=== PATIENT | female | born 1935 | race Caucasian/White ===

== ENCOUNTER 2017-01-15 07:32 | Inpatient (IN) ==
[2017-01-15] MEDS ORDERED: Nitroglycerin 0.4 MG TAB.SUBL SL PRN (07:41)
--- NOTE | 2017-01-15 07:49 | Emergency Department Note ---
Disposition Clinical Impression: Atrial fibrillation with controlled ventricular response, Multiple contusions, Weakness CHF exacerbation Qualifiers: Congestive heart failure type: systolic Qualified Code(s): I50.23 - Acute on chronic systolic (congestive) heart failure Disposition: Admitted As Inpatient Condition: Fair Referrals: NONE,PCP [Primary Care Provider] - Forms: ED Satisfaction Letter General Adult HPI - General Chief complaint: ED Shortness of Breath/Dyspnea Stated complaint: PRASHANT Time Seen by Provider: 01/15/17 07:35 Source: patient, EMS Limitations: no limitations Nursing Notes Reviewed: Yes Vital Signs Reviewed: Yes - History of Present Illness HPI Narrative: 81-year-old female with history of CHF, COPD, acute coronary disease presents to ED complaining of shortness of breath and not being able to sleep due to it. She states that the shortness of breath began. He says she has been coughing and unable to catch her breath whenever she has any moving. She is always on 2 L of home oxygen. And states that she has had to slightly increased last couple days. She states that she is nauseous and feels like she has to vomit whenever she lays down. She also notes the chest pain that is substernal nonradiating 3 out of 10 that only occurs when she is lying down and is 0 out of 10 when she is sitting up. She states that all of her symptoms only occur when she lays down in her back when she strained to sleep but they go away the minute she sits up. States that she does have a headache that began last night but most likely she has been unable to sleep. She also states right lower leg swelling that began approximately 2 days ago. She states no fall/trauma to the leg. Pain Scale: 5 - Related Data Home Medications Medication Instructions Recorded Confirmed Aspirin 81 mg PO DAILY 02/23/15 06/11/16 Atorvastatin [Lipitor] 20 mg PO HS 02/23/15 06/11/16 Clopidogrel [Plavix] 75 mg PO DAILY 02/23/15 06/11/16 Docusate [Colace] 100 mg PO DAILY 02/23/15 06/11/16 Esomeprazole Magnesium [Nexium] 40 mg PO DAILY 02/23/15 06/11/16 Fluticasone Propionate [Flovent 2 puff IH BID 02/23/15 06/11/16 Diskus] Fluticasone/Salmeterol [Advair 1 each IH BID 02/23/15 06/11/16 250-50 Diskus] Furosemide [Lasix] 20 mg PO BIDDIURETIC 02/23/15 06/11/16 Gabapentin [Neurontin] 600 mg PO BID 02/23/15 06/11/16 GuaiFENesin ER [Mucinex] 600 mg PO BID PRN 02/23/15 06/11/16 Montelukast [Singulair] 10 mg PO HS 02/23/15 06/11/16 Multivit-Min/FA/Lycopen/Lutein 1 each PO DAILY 02/23/15 06/11/16 [Centrum Silver Tablet] Raloxifene [Evista] 60 mg PO DAILY 02/23/15 06/11/16 Gabapentin [Neurontin] 1,200 mg PO HS 07/01/15 06/11/16 HYDROcodone/Acet 5/325 mg [[place] 1 tab PO Q6HR PRN 07/01/15 06/11/16 5-325 mg] Isosorbide MONOnitrate (24 HR) 30 mg PO DAILY 07/01/15 06/11/16 [Imdur] Fluticasone Propionate Nasal 50 mcg NS DAILY 05/13/16 06/11/16 [Flonase] Levalbuterol Tartrate [Xopenex Hfa] 2 puff IH TID 05/13/16 06/11/16 Nitroglycerin [Nitrostat] 0.4 mg SL Q5M PRN 05/13/16 06/11/16 Umeclidinium [place] [Incruse 62.5 mcg IH DAILY 05/13/16 06/11/16 Ellipta] Previous Rx's Medication Instructions Recorded Potassium Chloride [K-Tab ER] 20 meq PO DAILY #30 tablet.er 07/04/15 hydrALAZINE [HydrALAZINE] 25 mg PO BID #60 tablet 10/03/15 Lisinopril [Zestril] 2.5 mg PO DAILY #15 tablet 05/16/16 Oxygen 2 l IN CONT #1 each 05/16/16 levoFLOXacin [Levaquin] 500 mg PO DAILY #10 tablet 06/13/16 predniSONE [PredniSONE] 40 mg PO DAILY 8 Days 06/13/16 Allergies Allergy/AdvReac Type Severity Reaction Status Date / Time No Known Allergies Allergy Verified 02/22/15 20:14 Constitutional: Denies: fever, chills, weakness, weight change Eyes: Denies: eye pain, eye discharge, vision change ENT ED: Denies: ear pain, throat pain, dental pain, hearing loss, epistaxis, congestion, dysphagia Cardiovascular: Reports: dyspnea on exertion, orthopnea, edema. Denies: chest pain, palpitations, syncope Respiratory: Reports: cough, dyspnea. Denies: wheezes, hemoptysis, stridor Gastrointestinal: Denies: abdominal pain, nausea, vomiting, diarrhea, constipation, hematemesis, melena, hematochezia Genitourinary: Denies: dysuria, frequency, hematuria, discharge Musculoskeletal: Denies: back pain, neck pain, arthralgia, myalgia Integumentary: Denies: rash, abrasion, lesions Neurological: Denies: headache, weakness, numbness, paresthesias, confusion, abnormal gait, vertigo Endocrine: Denies: fatigue Hematological/Lymphatic: Denies: easy bleeding, easy bruising Past Medical History - Past Medical History Medical history: Reports: arthritis, asthma, atrial fibrillation, CHF, COPD, coronary artery disease, GERD, hyperlipidemia, hypertension, osteoporosis Surgical history: Reports: , hysterectomy Psychiatric history: Reports: depression [employer] history: Reports: non-contributory - Social History Smoking Status: Former smoker Smokeless Tobacco Status: No Alcohol use: Reports: none Drug use: Reports: none Physical Exam - General Limitations: no limitations General appearance: alert - Head Head exam: atraumatic, normocephalic, normal inspection - Eye Eye exam: Present: normal appearance, PERRL, EOMI - ENT ENT exam: normal exam, normal oropharynx, mucous membranes moist - Chest Chest inspection: Present: normal inspection, symmetric chest wall rise - Expanded Respiratory Exam Location: rales: Right, Lower - Cardiovascular Cardiovascular exam: Present: regular rate, normal rhythm, normal heart sounds - Abdominal Exam Abdominal exam: Present: soft, Non-Tender. Absent: tenderness, distention, guarding, rebound, rigidity - Expanded Lower Extremity Exam Lower leg exam: Present: swelling (Right side), ecchymosis (Right-sided below the knee.). Absent: tenderness - Back Exam Back exam: Present: normal inspection, full ROM. Absent: tenderness, CVA tenderness (R), CVA tenderness (L) - Neurological Exam Neurological exam: Present: alert, oriented X3 - Skin Skin exam: Present: warm, dry, intact, normal color Course Course Narrative: 9-year-old female presents to the ED complaining of shortness of breath and right leg swelling. She has a history of CHF. She states that this most likely feels a class time she had pneumonia. We will do a EKG, chest x-ray, basic labs and due to the right leg swelling we will go straight to a ultrasound Doppler of the right lower extremity. She has not any chest pain. We will give her one sublingual nitroglycerin to help with the preload. Portable chest x-ray came back showing a perihilar mass on the right side. We will order a CT chest and use contrast of her renal function can handle it. - Reevaluation(s) Reevaluation #1: Patient reevaluated and states that she is breathing more comfortably now she just did not the commode and said she had a bowel movement. She said that she is breathing comfortably while she is sitting back and she continues to lay down that is hard for her to breathe. Updated her on all of her labs and told her that we are ordering a CT of her chest and she is okay with this plan. Time: 09:19 Vital Signs Temperature 98.2 F 01/15/17 07:33 Pulse Rate 71 01/15/17 07:33 Respiratory Rate 18 01/15/17 07:33 Blood Pressure 181/91 01/15/17 07:33 O2 Sat by Pulse Oximetry 99 01/15/17 07:33 Temperature 98.2 F 01/15/17 07:33 Pulse Rate 71 01/15/17 07:33 Respiratory Rate 18 01/15/17 07:33 Blood Pressure 181/91 01/15/17 07:33 O2 Sat by Pulse Oximetry 98 01/15/17 08:14 Oxygen Delivery Oxygen Delivery Nasal Cannula Medical Decision Making - [facility] Narrative Medical decision making narrative: 81-year-old female presents to the ED complaining of shortness of breath via EMS. She states that the shortness breath is only when she lays down. She has a history of CHF, COPD, pneumonia. She states this is similar to when she has pneumonia. After evaluating her she did have Rales in the right lower lobes. After evaluating I think this could be either pneumonia or CHF exacerbation. We did labs which showed no white blood cell count, a mild anemia which is chronic for her and unchanged from the past. Her troponin was negative, CHF showed perihilar masses first congestion. So he said he get a CT of her chest. Due to her poor renal function we did without contrast and not a CTA. The right leg was swollen for the last 2 days so he said he get a Doppler DVT study of her right lower extremity which came back negative and showed no signs of thrombus. She was given one sublingual nitroglycerin which said it did not change her symptoms. We will continue to monitor in the ED while we wait for her CT of the chest to be done. 1025-patient reevaluated and states that she is feeling better as long she is sitting up. Her chest CT came back showing perihilar lymph nodes as well as some calcifications. This could be due to a very cancer. But due to her shortness of breath this is also CHF exacerbation as well. With an underlying possible pneumonia. Due to her hypoxia even though she is on 2 L of home oxygen all the time and her symptoms of shortness of breath when she lays down we chose to admit the patient. I spoke with the hospitalist who agreed to admit the patient. He recommended that we give her 20 mg IV Lasix push to help with her diuresis. Patient is okay with this plan. Patient is now admitted. Chest X-Ray 01/15/17 07:40 IMPRESSION: Slightly increased opacities bilaterally predominately in a perihilar distribution. Findings could reflect mild edema or pneumonia. Recommend follow-up chest x-ray or dedicated two view chest x-ray. D/ / 01/15/2017 08:49:07 Erin Arboleda MD / Jennifer Orozco Interpreting Provider: Erin Arboleda MD Chest CT 01/15/17 09:02 IMPRESSION: Cardiomegaly with mild pulmonary vascular congestion. Increased hazy ground-glass opacities in a perihilar distribution are noted. Findings nonspecific and may represent underlying infectious or inflammatory process versus underlying mild pulmonary edema. Numerous new noncalcified nodules measuring up to 8 mm in size noted. Findings likely postinflammatory or infectious in nature although malignancy cannot be excluded. Mild increase in adenopathy within mediastinum likely reactive in nature. Recommend follow-up in 3 months. RECOMMENDATIONS: Fleischner Society guidelines for follow-up and management of pulmonary nodules: Nodule size equals 6-8 mm: In a low-risk patient, initial follow-up CT at 6-12 months then at 18-24 months if no change. In a high-risk patient, initial follow-up CT at 3-6 months then at 9-12 months and 24 months if no change. Nodule size greater than 8 mm: In low-risk and high-risk patients follow-up CT at around 3,9, and 24 months, dynamic contrast-enhanced CT, PET, and/or biopsy. Low risk patients include individuals with minimal or absent history of smoking and other known risk factors. High risk patients include individuals with a history of smoking or other known risk factors. Radiology 2005; [id number]:[id number] D/ / 01/15/2017 10:20:08 Rashawn Barron MD / Jennifer Orozco Interpreting Provider: Rashawn Barron MD - Medical Records Medical records reviewed: Yes I reviewed the patient's medical records. - Lab Data Lab results reviewed: Yes I reviewed the patient's lab results. Result diagrams: 01/15/17 08:26 01/15/17 08:26 Lab Results 01/15/17 01/15/17 01/15/17 Range/Units 08:26 08:26 08:26 WBC 7.3 (4.3-11.1) K/mcL RBC 3.27 L (3.82-4.97) M/mcL Hgb 10.1 L (11.5-15.4) g/dL Hct 31.2 L (35.3-44.9) % MCV 95.4 (83.0-100.0) fL MCH 30.9 (28.0-33.3) pg MCHC 32.4 (31.6-35.5) g/dL RDW 14.2 (11.5-14.5) % Plt Count 179 (140-400) K/mcL MPV 10.8 (9.4-12.4) fL Immature Gran % 0.4 (0-4) % Seg Neutrophils % 57.6 % Lymphocytes % 28.7 % Monocytes % 8.6 % Eosinophils % 4.2 % Basophils % 0.5 % Neutrophils # 4.2 (1.6-8.9) K/mcL Lymphocytes # 2.1 (0.6-4.6) K/mcL Monocytes # 0.6 (0.0-1.3) K/mcL Eosinophils # 0.3 (0.0-0.6) K/mcL Basophils # 0.0 (0.0-0.2) K/mcL Sodium 139 (136-145) mEq/L Potassium 4.1 (3.5-4.5) mEq/L Chloride 102 (98-109) mEq/L Carbon Dioxide 27 (19-29) mEq/L BUN 29 H (7-20) mg/dL Creatinine 1.21 H (0.57-1.11) mg/dL Est GFR ( Amer) 52 L (> 60) Est GFR (Non-Af Amer) 43 L (> 60) BUN/Creatinine Ratio 24 (6-26) Glucose 90 (70-99) mg/dL Calculated Osmolality 293 (280-300) Lactic Acid (0.5-2.2) mmol/L Calcium 9.5 (8.6-10.8) mg/dL Troponin I 0.02 (0-0.03) ng/mL B-Natriuretic Peptide (0-100) pg/mL 01/15/17 01/15/17 Range/Units 08:26 08:26 WBC (4.3-11.1) K/mcL RBC (3.82-4.97) M/mcL Hgb (11.5-15.4) g/dL Hct (35.3-44.9) % MCV (83.0-100.0) fL MCH (28.0-33.3) pg MCHC (31.6-35.5) g/dL RDW (11.5-14.5) % Plt Count (140-400) K/mcL MPV (9.4-12.4) fL Immature Gran % (0-4) % Seg Neutrophils % % Lymphocytes % % Monocytes % % Eosinophils % % Basophils % % Neutrophils # (1.6-8.9) K/mcL Lymphocytes # (0.6-4.6) K/mcL Monocytes # (0.0-1.3) K/mcL Eosinophils # (0.0-0.6) K/mcL Basophils # (0.0-0.2) K/mcL Sodium (136-145) mEq/L Potassium (3.5-4.5) mEq/L Chloride (98-109) mEq/L Carbon Dioxide (19-29) mEq/L BUN (7-20) mg/dL Creatinine (0.57-1.11) mg/dL Est GFR ( Amer) (> 60) Est GFR (Non-Af Amer) (> 60) BUN/Creatinine Ratio (6-26) Glucose (70-99) mg/dL Calculated Osmolality (280-300) Lactic Acid 1.0 (0.5-2.2) mmol/L Calcium (8.6-10.8) mg/dL Troponin I (0-0.03) ng/mL B-Natriuretic Peptide 546 H (0-100) pg/mL - Radiology Data Radiology results reviewed: Yes I reviewed the patient's radiology results. - EKG Data EKG #1 EKG attestation: Yes I reviewed and interpreted this EKG. EKG results narrative: KG done 738 and reviewed by myself. Shows atrial fibrillation rate of 63 DE interval none, QRS 1:30, QTC 402, left axis deviation. No acute ST changes. No acute T-wave changes. No signs of any new blocks. Compared with old EKG done 06/11/16 is otherwise no different. Overall impression is atrial fibrillation with no acute changes. Rate: normal Rhythm: A.Fib [place]/QRS: left axis deviation When compared to previous EKG there are: no significant changes Interpretation: no acute changes, unchanged when compared to prior tracing (date )
--- NOTE | 2017-01-15 07:51 | Emergency Department Note ---
START Narrative - START START: I examined this patient and my medical decision-making was reviewed with the Resident Physician. I agree with the documented findings, disposition and treatment plan as described except to the extent set forth below. 81yo F here for sob, cough, right LE swelling. evaluate for pneumonia, chf, DVT, possible PE. wears home O2. vss at this time. no sig resp distress.
[2017-01-15 08:42] LABS: Basophils % 0.5 %; Eosinophils # 0.3 K/mcL (0.0-0.6); Eosinophils % 4.2 %; Hematocrit 31.2 % (35.3-44.9); Hemoglobin 10.1 g/dL (11.5-15.4); Immature Granulocytes % 0.4 % (0-4); Lymphocytes # 2.1 K/mcL (0.6-4.6); Lymphocytes % 28.7 %; Mean Corpuscular HGB Conc 32.4 g/dL (31.6-35.5); Mean Corpuscular Hemoglobin 30.9 pg (28.0-33.3); Mean Corpuscular Volume 95.4 fL (83.0-100.0); Mean Platelet Volume 10.8 fL (9.4-12.4); Monocytes # 0.6 K/mcL (0.0-1.3); Monocytes % 8.6 %; Neutrophils # 4.2 K/mcL (1.6-8.9); Platelet Count 179 K/mcL (140-400); Red Blood Count 3.27 M/mcL (3.82-4.97); Red Cell Distribution Width 14.2 % (11.5-14.5); Segmented Neutrophils % 57.6 %
[2017-01-15 08:49] LABS: Calcium 9.5 mg/dL (8.6-10.8); Potassium 4.1 mEq/L (3.5-4.5)
[2017-01-15] MEDS ORDERED: Furosemide 20 MG/2 ML VIAL IVP ONE ×2 (10:21→10:33)
[2017-01-15] MEDS ORDERED: Ondansetron 4 MG/2 ML VIAL IVP PRN (10:26)
[2017-01-15] MEDS ORDERED: Naloxone 0.4 MG/ML INJ IVP PRN (10:26)
[2017-01-15] MEDS ORDERED: *HR* HYDROcodone/Acet 5/325 mg TABLET PO PRN (10:26)
[2017-01-15] MEDS ORDERED: Acetaminophen 325 MG TABLET PO PRN (10:26)
[2017-01-15] MEDS ORDERED: *HR* Morphine 2 MG/ML SYRINGE IVP PRN (10:26)
[2017-01-15] MEDS ORDERED: Ondansetron ODT 4 MG TAB.RAPDIS SL PRN (10:26)
--- NOTE | 2017-01-15 11:04 | Internal Med History&Physical ---
Date of Encounter: 01/15/17 Time of Encounter: 10:58 Assessment and Plan (1) Pneumonia Current visit: No Status: Acute Admit the pt into telemetry Pt does have MLL infiltrates on CXR and CT of Chest Reviewed her previous sputum cx growing E. Coli resistant to Fluroquinolones her pnuemonia seems to be mostly bacterial So started her on broad spec abx Zosyn for now sent for sputum cx and gram staining no signs of sepsis at this point Qualifiers: Qualified Code(s): J18.9 - Pneumonia, unspecified organism (2) Acute and chronic respiratory failure Current visit: No Status: Acute due to COPD exacerbation triggered by MLL Pneumonia cont abx cont duoneb and O2 cont supportive and symptomatic care Qualifiers: Respiratory failure complication: hypoxia Qualified Code(s): J96.21 - Acute and chronic respiratory failure with hypoxia (3) Acute exacerbation of chronic obstructive airways disease Current visit: No Status: Resolved Pt does have mild COPD exacerbation too with moderate wheezing started her on IV steroids Solumedrol 40mg Q8hr cont Duoneb Q4hr PRN resume home steroid INH too (4) Diastolic heart failure Current visit: Yes Status: Acute Reviewed pt's CXR showing vascular congestion / pulm edema due to both pneumonia and CHF exacerbation her 2 D Echo from past showing diastolic dysfunction will get 2 D Echo in AM Will start her on IV Lasix 20mg Q8hr cont close monitoring resume home med ASA, Plavix and Statin Did not see B julianna in her home med list..will try to get updated home med list Qualifiers: Qualified Code(s): I50.33 - Acute on chronic diastolic (congestive) heart failure (5) Acute kidney injury Current visit: No Status: Acute mild SEVEN - possible due to MLL pneumonia and CHF Does not look like volume depleted avoid nephrotoxic meds cont gentle diuresis (6) Essential hypertension Current visit: No Status: Chronic stable with home meds (7) DVT prophylaxis Current visit: No Status: Acute will place her on Heparin SQ Internal Medicine - H&P: HPI Chief complaint: Shortness of breath Admitted From: Emergency Dept Plans for Post Hospital Care: Home History of present illness: Ms. Espinal is a 81 year old female with the known past medical history of COPD diabetes type II, hypertension, diastolic congestive heart failure, former tobacco smoker who lives with her friend was brought into the ER by EMS stating that patient has been having progressively worsening shortness of breath, cough with yellowish expectoration. She also c/o severe orthopnea and PND. Denied any fever / chills. Denied any sick contacts and recent travel history. Past Med Surg Social Fam HX - Past Medical History Medical history: arthritis, asthma, atrial fibrillation, CHF, COPD, coronary artery disease, GERD, hyperlipidemia, hypertension, osteoporosis Psychiatric history: depression - Past Surgical History Surgical History: , hysterectomy - Social History Smoking Status: Former smoker Smokeless Tobacco Status: No Alcohol use: none Drug use: none - Family History Father Living Status: Hx Family Cardiac Disorders: Yes (heart failure) Mother Living Status: Hx Family Cardiac Disorders: Yes Hx Family Endocrine Disorder: Yes (DM) Internal Medicine - H&P: Meds Aspirin 81 mg PO DAILY 02/23/15 [History] Atorvastatin [Lipitor] 20 mg PO HS 02/23/15 [History] Clopidogrel [Plavix] 75 mg PO DAILY 02/23/15 [History] Docusate [Colace] 100 mg PO DAILY 02/23/15 [History] Esomeprazole Magnesium [Nexium] 40 mg PO DAILY 02/23/15 [History] Fluticasone Propionate [Flovent Diskus] 2 puff IH BID 02/23/15 [History] Fluticasone/Salmeterol [Advair 250-50 Diskus] 1 each IH BID 02/23/15 [History] Furosemide [Lasix] 20 mg PO BIDDIURETIC 02/23/15 [History] Gabapentin [Neurontin] 600 mg PO BID 02/23/15 [History] GuaiFENesin ER [Mucinex] 600 mg PO BID PRN 02/23/15 [History] Montelukast [Singulair] 10 mg PO HS 02/23/15 [History] Multivit-Min/FA/Lycopen/Lutein [Centrum Silver Tablet] 1 each PO DAILY 02/23/15 [History] Raloxifene [Evista] 60 mg PO DAILY 02/23/15 [History] Gabapentin [Neurontin] 1,200 mg PO HS 07/01/15 [History] HYDROcodone/Acet 5/325 mg [[place] 5-325 mg] 1 tab PO Q6HR PRN 07/01/15 [History] Isosorbide MONOnitrate (24 HR) [Imdur] 30 mg PO DAILY 07/01/15 [History] hydrALAZINE [HydrALAZINE] 25 mg PO BID #60 tablet 10/03/15 [Rx] Fluticasone Propionate Nasal [Flonase] 50 mcg NS DAILY 05/13/16 [History] Levalbuterol Tartrate [Xopenex Hfa] 2 puff IH TID 05/13/16 [History] Nitroglycerin [Nitrostat] 0.4 mg SL Q5M PRN 05/13/16 [History] Umeclidinium [place] [Incruse Ellipta] 62.5 mcg IH DAILY 05/13/16 [History] Oxygen 2 l IN CONT #1 each 05/16/16 [Rx] Albuterol Neb [Proventil Neb] 2.5 mg IH Q4HR PRN 01/15/17 [History] Aspirin [Lo-Dose Aspirin EC] 81 mg PO DAILY 01/15/17 [History] Gabapentin [Neurontin] 600 mg PO QPM 01/15/17 [History] Raloxifene [Evista] 60 mg PO DAILY 01/15/17 [History] Allergies No Known Allergies Allergy (Verified 02/22/15 20:14) All Systems PM: A 10-system review of systems was performed and is negative for pertinent findings except as documented above in the HPI. Review of systems: All the systems are reviewed everything is benign except the systems and symptoms I mentioned in the history of present illness - Constitutional Vitals: Temp Pulse Resp BP Pulse Ox 98.2 F 71 18 181/91 98 01/15/17 07:33 01/15/17 07:33 01/15/17 07:33 01/15/17 07:33 01/15/17 08:14 General appearance: Present: mild distress, A&O X 3, answers questions appropriately - Head Head exam: Present: atraumatic, normal inspection - Neck Neck exam general surgery: Present: normal inspection, supple - Respiratory Respiratory exam: Present: decreased breath sounds, rhonchi, wheezes. Absent: rales, tachypnea - Cardiovascular Cardiovascular exam: Present: RRR, +S1, +S2. Absent: diastolic murmur, systolic murmur - GI/Abdominal GI/Abdominal exam: Present: normal bowel sounds, soft, no peritoneal signs. Absent: distended, tenderness - Extremities Exam Extremities exam: Present: pedal edema (traceble). Absent: calf tenderness, tenderness - Neurological Exam Neurological exam: Present: alert, oriented X3 - Psychiatric Psychiatric exam: Present: normal affect, normal mood - Skin Skin exam: Present: intact Internal Med - H&P Results - Labs CBC & Chem 7: 01/15/17 08:26 01/15/17 08:26 Labs: Short CBC 01/15/17 Range/Units 08:26 WBC 7.3 (4.3-11.1) K/mcL Hgb 10.1 L (11.5-15.4) g/dL Hct 31.2 L (35.3-44.9) % Plt Count 179 (140-400) K/mcL Neutrophils # 4.2 (1.6-8.9) K/mcL BMP 01/15/17 08:26 Sodium 139 Potassium 4.1 Chloride 102 Carbon Dioxide 27 BUN 29 H Creatinine 1.21 H Glucose 90 Calcium 9.5 Cardiac Enzymes 01/15/17 Range/Units 08:26 Troponin I 0.02 (0-0.03) ng/mL - Impressions ITS Impressions Chest X-Ray 01/15/17 07:40 IMPRESSION: Slightly increased opacities bilaterally predominately in a perihilar distribution. Findings could reflect mild edema or pneumonia. Recommend follow-up chest x-ray or dedicated two view chest x-ray. D/ / 01/15/2017 08:49:07 Erin Arboleda MD / Jennifer Orozco Interpreting Provider: Erin Arboleda MD Chest CT 01/15/17 09:02 IMPRESSION: Cardiomegaly with mild pulmonary vascular congestion. Increased hazy ground-glass opacities in a perihilar distribution are noted. Findings nonspecific and may represent underlying infectious or inflammatory process versus underlying mild pulmonary edema. Numerous new noncalcified nodules measuring up to 8 mm in size noted. Findings likely postinflammatory or infectious in nature although malignancy cannot be excluded. Mild increase in adenopathy within mediastinum likely reactive in nature. Recommend follow-up in 3 months. RECOMMENDATIONS: Fleischner Society guidelines for follow-up and management of pulmonary nodules: Nodule size equals 6-8 mm: In a low-risk patient, initial follow-up CT at 6-12 months then at 18-24 months if no change. In a high-risk patient, initial follow-up CT at 3-6 months then at 9-12 months and 24 months if no change. Nodule size greater than 8 mm: In low-risk and high-risk patients follow-up CT at around 3,9, and 24 months, dynamic contrast-enhanced CT, PET, and/or biopsy. Low risk patients include individuals with minimal or absent history of smoking and other known risk factors. High risk patients include individuals with a history of smoking or other known risk factors. Radiology 2005; [id number]:[id number] D/ / 01/15/2017 10:20:08 Rashawn Barron MD / Jennifer Orozco Interpreting Provider: Rashawn Barron MD - Diagnostic Studies Chest x-ray Status: image reviewed by me (patchy infiltrates in both RML and LLL. Pulmonary congestion + Pulm edema +)
[2017-01-15] MEDS: MethylPREDNISolone 40 MG/ML VIAL IVP SCH ×2 (12:50→18:30)
[2017-01-15] MEDS: Piperacillin/Tazobactam 3.375 GM in D5% in Water (Mini-Bag+) 100 ML IVPB SCH ×2 (12:51→20:52)
--- NOTE | 2017-01-15 18:53 | Event Note ---
Date of Encounter: 01/15/17 Time of Encounter: 18:51 Pt's second troponin jumped up to 0.14 from 0.02, however pt remained chest pain free and SOB is little better now. So at this point we will keep trending on her Troponin also I added CK MB. She does not need any further anti coagulation. Her elevated troponin mostly due to demand ischemia.
[2017-01-15] MEDS ORDERED: Furosemide 20 MG/2 ML VIAL IVP SCH (20:00)
[2017-01-15] MEDS: Furosemide 20 MG/2 ML VIAL IVP SCH (20:52)
[2017-01-16] MEDS: Ipratropium/Albuterol Neb 3 ML IH PRN ×3 (00:39→22:16)
[2017-01-16] MEDS: MethylPREDNISolone 40 MG/ML VIAL IVP SCH ×2 (03:59→11:59)
[2017-01-16] MEDS: Piperacillin/Tazobactam 3.375 GM in D5% in Water (Mini-Bag+) 100 ML IVPB SCH ×3 (03:59→19:59)
[2017-01-16 07:19] LABS: Hemoglobin 11.5 g/dL (11.5-15.4); Immature Granulocytes % 0.4 % (0-4); Lymphocytes # 0.7 K/mcL (0.6-4.6); Lymphocytes % 12.4 %; Mean Corpuscular HGB Conc 32.9 g/dL (31.6-35.5); Mean Corpuscular Hemoglobin 30.1 pg (28.0-33.3); Mean Corpuscular Volume 91.6 fL (83.0-100.0); Mean Platelet Volume 11.1 fL (9.4-12.4); Monocytes # 0.3 K/mcL (0.0-1.3); Monocytes % 5.3 %; Neutrophils # 4.3 K/mcL (1.6-8.9); Platelet Count 228 K/mcL (140-400); Red Blood Count 3.82 M/mcL (3.82-4.97); Red Cell Distribution Width 13.8 % (11.5-14.5); Segmented Neutrophils % 81.9 %
[2017-01-16 07:24] LABS: BUN/Creatinine Ratio 30 (6-26); Blood Urea Nitrogen 26 mg/dL (7-20); Calcium 9.4 mg/dL (8.6-10.8); Carbon Dioxide 25 mEq/L (19-29); Chloride 100 mEq/L (98-109); Chol/HDL Ratio 2.3 (0-4.9); Cholesterol 156 mg/dL (< 200); Glucose 142 mg/dL (70-99); HDL Cholesterol 68 mg/dL (40-59); LDL Cholesterol,Calculated 73 mg/dL (0-99); Magnesium 1.7 mg/dL (1.6-2.6); Osmolality,Calculated 291 (280-300); Potassium 3.9 mEq/L (3.5-4.5); Sodium 137 mEq/L (136-145); Triglycerides 73 mg/dL (< 150); eGFR For African Americans > 60 (> 60); eGFR For Non-African Americans > 60 (> 60)
[2017-01-16] MEDS ORDERED: *HR* Heparin 5,000 UNIT/ML VIAL IVP PRN (07:45)
[2017-01-16] MEDS ORDERED: *HR* Heparin 5,000 UNIT/ML VIAL IVP ONE (07:45)
[2017-01-16] MEDS: Furosemide 20 MG/2 ML VIAL IVP SCH ×2 (09:13→19:59)
[2017-01-16] MEDS: Aspirin 81 MG TAB.CHEW PO SCH (09:13)
--- NOTE | 2017-01-16 10:14 | Cardiology Consult Note ---
Date of Encounter: 01/16/17 Time of Encounter: 10:15 Assessment and Plan (1) Systolic CHF Current Visit: Yes Status: Acute Continue diuresis. BB/ACEI as tolerated. I advised patient and daughter that I recommend invasive evaluation with [facility] to determine if she has ischemic CM that could be revascularized. At this time, patient is leaning towards no invasive treatment. A/R/B of [facility] described including 1% chance of VT//CVA/ CABG/FLAKITO/bleeding/contrast reaction. Qualifiers: Congestive heart failure chronicity: acute Qualified Code(s): I50.21 - Acute systolic (congestive) heart failure (2) Atrial fibrillation with controlled ventricular response Current Visit: Yes Status: Chronic Chronic atrial fibrillation with controlled rates. Recommend continuing rate control with BB given systolic CHF. Patient previously on aspirin/plavix and anticoagulation not specifically addressed that I can see on outpatient notes with her PCP. No severe fall history and given her CHADSvasc 6+, she is at increased risk of CVA. I discussed with daughter regarding coumadin and NOAC and daughter mentions coumadin. Will need to fu before discharge. (3) Elevated troponin Current Visit: No Status: Acute (4) Diastolic heart failure Current Visit: Yes Status: Acute Continue diuresis Qualifiers: Heart failure chronicity: acute on chronic Qualified Code(s): I50.33 - Acute on chronic diastolic (congestive) heart failure Discussion w patient/family: The assessment and plan as outlined above was discussed with the patient and/or family members who expressed understanding and agreement. All questions were answered. Thank you for involving us in the care of your patient. Please call with any questions. History of Present Illness Consult date: 01/16/17 Consult reason: nstemi/chf Chief complaint: chf History of present illness: Ms. Espinal is a 81 year old female with history of diastolic CHF, COPD presenting with dyspnea on exertion, productive cough, orthopnea and PND. She is being treated for pneumonia and CHF with echo showing new systolic CHF. She is a poor historian and looks to her daughter for history who is not well aware of patient's recent issues. Together, they note no recent history of chest/jaw/ arm discomfort. They state she does wear oxygen at home for her COPD but has noted increased dyspnea and productive cough. No history of syncope. Past Med Surg Social Fam HX - Past Medical History Medical history: arthritis, asthma, atrial fibrillation, CHF, COPD, coronary artery disease, GERD, hyperlipidemia, hypertension, osteoporosis Psychiatric history: depression - Past Surgical History Surgical History: , hysterectomy - Social History Smoking Status: Former smoker Smokeless Tobacco Status: No Alcohol use: none Drug use: none - Family History Father Living Status: Hx Family Cardiac Disorders: Yes (heart failure) Mother Living Status: Hx Family Cardiac Disorders: Yes Hx Family Endocrine Disorder: Yes (DM) Medications and Allergies Aspirin 81 mg PO DAILY 02/23/15 [History] Atorvastatin [Lipitor] 20 mg PO HS 02/23/15 [History] Clopidogrel [Plavix] 75 mg PO DAILY 02/23/15 [History] Docusate [Colace] 100 mg PO BID PRN 02/23/15 [History] Esomeprazole Magnesium [Nexium] 40 mg PO DAILY 02/23/15 [History] Fluticasone Propionate [Flovent Diskus] 2 puff IH BID 02/23/15 [History] Fluticasone/Salmeterol [Advair 250-50 Diskus] 1 each IH BID 02/23/15 [History] Furosemide [Lasix] 20 mg PO BID 02/23/15 [History] Gabapentin [Neurontin] 600 mg PO QAM 02/23/15 [History] GuaiFENesin ER [Mucinex] 600 mg PO BID PRN 02/23/15 [History] Montelukast [Singulair] 10 mg PO HS 02/23/15 [History] Multivit-Min/FA/Lycopen/Lutein [Centrum Silver Tablet] 1 each PO DAILY 02/23/15 [History] Raloxifene [Evista] 60 mg PO DAILY 02/23/15 [History] Gabapentin [Neurontin] 1,200 mg PO HS 07/01/15 [History] HYDROcodone/Acet 5/325 mg [[place] 5-325 mg] 1 tab PO Q6HR PRN 07/01/15 [History] Isosorbide MONOnitrate (24 HR) [Imdur] 30 mg PO DAILY 07/01/15 [History] hydrALAZINE [HydrALAZINE] 25 mg PO BID #60 tablet 10/03/15 [Rx] Fluticasone Propionate Nasal [Flonase] 50 mcg NS DAILY 05/13/16 [History] Levalbuterol Tartrate [Xopenex Hfa] 2 puff IH TID 05/13/16 [History] Nitroglycerin [Nitrostat] 0.4 mg SL Q5M PRN 05/13/16 [History] Umeclidinium [place] [Incruse Ellipta] 62.5 mcg IH DAILY 05/13/16 [History] Oxygen 2 l IN CONT #1 each 05/16/16 [Rx] Albuterol Neb [Proventil Neb] 2.5 mg IH Q4HR PRN 01/15/17 [History] Aspirin [Lo-Dose Aspirin EC] 81 mg PO DAILY 01/15/17 [History] Gabapentin [Neurontin] 600 mg PO QPM 01/15/17 [History] Raloxifene [Evista] 60 mg PO DAILY 01/15/17 [History] Allergies No Known Allergies Allergy (Verified 02/22/15 20:14) All Systems Review: A 10-system review of systems was performed and is negative for pertinent findings except as documented above in the HPI. - Constitutional Constitutional: no chills, no fever(s) - EENT Eyes: no blurred vision, no loss of vision Nose, mouth and throat: no bleeding gums, no epistaxis - Cardiovascular Cardiovascular: dyspnea at rest, dyspnea on exertion, no chest pain with exertion - Respiratory Respiratory: cough, dyspnea - Gastrointestinal Gastrointestinal: no coffee ground emesis, no hematemesis, no hematochezia - Genitourinary Genitourinary: no hematuria, no nocturia - Musculoskeletal Musculoskeletal: no back pain, no myalgias - Integumentary Integumentary: no erythema, no rash - Neurological Neurological: no abnormal speech, no focal weakness - Psychiatric Psychiatric: no anxiety, no depression - Hematological/Lymphatic Hematologic/Lymphatic: no easy bleeding, no easy bruising Physical Examination Vital Signs, Last 4 Hours Temp Pulse Resp BP Pulse Ox 01/16/17 07:14 98.1 F 62 18 153/84 99 General: Conversant HEENT: Atraumatic Neck: No JVD Cardiac: Other (irr irr) Lungs: Other (bl wheeze/crackle) Neuro: Alert and responsive, No focal deficits noted Abdomen: Soft, Non-Tender Skin: No rashes noted on visualized skin Musculoskeletal: No Chest Wall Tenderness Extremities: No Edema Results 01/16/17 10:33 07/30/17 06:31 Lab Results 01/15/17 01/15/17 01/15/17 15:21 20:00 22:42 WBC Hgb Hct Plt Count Sodium Potassium Chloride Carbon Dioxide BUN Creatinine Glucose Calcium Magnesium Troponin I 0.14 H* 0.13 H* 0.13 H* B-Natriuretic Peptide 01/16/17 01/16/17 01/16/17 06:31 06:31 06:31 WBC 5.2 Hgb 11.5 Hct 35.0 L Plt Count 228 Sodium 137 Potassium 3.9 Chloride 100 Carbon Dioxide 25 BUN 26 H Creatinine 0.86 Glucose 142 H Calcium 9.4 Magnesium 1.7 Troponin I B-Natriuretic Peptide 2653 H 01/16/17 06:31 WBC Hgb Hct Plt Count Sodium Potassium Chloride Carbon Dioxide BUN Creatinine Glucose Calcium Magnesium Troponin I 0.20 H* B-Natriuretic Peptide - EKG Interpretation EKG results cardiology: personally reviewed (afib) Consult Discharge Plan - Plan Referrals: NONE,PCP [Primary Care Provider] -
[2017-01-16 10:50] LABS: Hemoglobin 11.7 g/dL (11.5-15.4); Mean Corpuscular HGB Conc 32.5 g/dL (31.6-35.5); Mean Corpuscular Hemoglobin 29.9 pg (28.0-33.3); Mean Corpuscular Volume 92.1 fL (83.0-100.0); Mean Platelet Volume 10.9 fL (9.4-12.4); Platelet Count 232 K/mcL (140-400); Red Blood Count 3.91 M/mcL (3.82-4.97); Red Cell Distribution Width 13.9 % (11.5-14.5)
--- NOTE | 2017-01-16 11:02 | Venous Imaging Report ---
LE Venous Duplex Patient Name:Nadia Espinal Order Number:[id number] Procedure Date:01/15/2017 Date:1935ge:81 yrs Gender:Female Location:[facility] ED Room #: ED2 Screen Making Technician:Jojo Hernández RDCS Referring MD:Davion Cat DO naprapath:João Savage MD Reading MD:Philip Young MD , FACS Primary Indications:Leg swelling Secondary Indications: Risk Factors Yes/No Anticoagulants Yes Hx of DVT No Impressions: Right lower extremity: normal superficial and deep exam. Left lower extremity: normal contralateral exam. Findings Venous Duplex Results: Right: Venous imaging of the lower extremity reveals full patency and normal vessel compressibility of the right distal iliac, right common femoral, right superficial femoral, right popliteal, right posterior tibial, right peroneal, right great saphenous and right lesser saphenous. Doppler signals in the evaluated veins were normal. Left: Venous imaging of the lower extremity reveals full patency and normal vessel compressibility of the left common femoral. Doppler signals in the evaluated veins were normal. Prior Study: No change compared to prior study dated: 01/21/2016. Notified upon completion of exam. Lower Extremity Venous Duplex Side Vein Compress Spontaneous Flow Augment Diameter (cm) Depth (cm) Right Distal Iliac Normal Yes Phasic Yes Right Common Femoral Normal Yes Phasic Yes Right Superficial Femoral Normal Yes Phasic Yes Right Popliteal Normal Yes Phasic Yes Right Posterior Tibial Normal Yes Phasic Yes Right Peroneal Normal Yes Phasic Yes Right Great Saphenous Normal Yes Phasic Yes Right Lesser Saphenous Normal Yes Phasic Yes Left Common Femoral Normal Yes Phasic Yes Updated by Philip Young MD, FACS on 01/16/2017 10:54:47 AM Philip Young MD electronically signed on 01/16/2017 10:55:03 AM with status of Final
[2017-01-16 11:05] LABS: INR 1.2; Prothrombin Time 12.6 Seconds (9.4-12.1)
[2017-01-16 11:07] LABS: Activated Partial Thrombo Time 31.3 Seconds (26.0-36.0)
[2017-01-16] MEDS: Heparin 25,000 UNIT/500 ML D5W 25,000 UNIT/500 ML MLS IVC SCH (11:56)
--- NOTE | 2017-01-16 13:26 | Internal Med Progress Note ---
<Fredi Iraheta - Last Filed: 01/16/17 13:21> Date of Encounter: 01/16/17 Time of Encounter: 13:22 - Assessment and plan (1) CHF (congestive heart failure) Current Visit: Yes Status: Chronic Assessment and plan: - Known history of diastolic heart failure New onset systolic heart failure component with ejection fraction of 25-30% with global wall motion abnormalities, severe left ventricular hypertrophy, severe right atrium dilation - BNP most recently 2653, 546 on admission - Cardiology has been consulted, recommended left heart catheterization have discussed with family. Family is leaning towards noninvasive and conservative measures at this time - Troponin elevated from 0.02 admission to 0.20 most recently, we will continue to trend - Continue beta julianna, ALEXANDER inhibitor as tolerated. Lasix 20 mg twice a day, heparin 25,000 units, nitroglycerin when necessary Qualifiers: Congestive heart failure type: diastolic Congestive heart failure chronicity: chronic Qualified Code(s): I50.32 - Chronic diastolic (congestive ) heart failure (2) Pneumonia Current Visit: Yes Status: Acute Assessment and plan: - Chest x-ray and respiratory revealed bilateral perihilar opacities. Afebrile , WBC of 5.2 this morning - Patient was started on Zosyn, will continue for now - Symptoms of a productive cough, shortness of breath. Likely multifactorial Qualifiers: Pneumonia type: due to unspecified organism Laterality: bilateral Lung location: unspecified part of lung Qualified Code(s): J18.9 - Pneumonia, unspecified organism (3) Atrial fibrillation Current Visit: Yes Status: Chronic Assessment and plan: - Controlled, most recently 62 with metoprolol succinate 25 mg by mouth daily - Coagulation, receiving therapeutic heparin - Severely dilated right atrium on echocardiogram Qualifiers: Atrial fibrillation type: chronic Qualified Code(s): I48.2 - Chronic atrial fibrillation (4) COPD (chronic obstructive pulmonary disease) Current Visit: No Status: Chronic Assessment and plan: - Saturating 99% on 2 L - The venous of breath likely multifactorial including new onset systolic heart failure, COPD exacerbation, new onset pneumonia - Treatment as above, after receiving methylprednisone 40 mg every 8 hours. We will transition to by mouth prednisone Qualifiers: COPD type: unspecified COPD Qualified Code(s): J44.9 - Chronic obstructive pulmonary disease, unspecified (5) Elevated troponin Current Visit: No Status: Acute Assessment and plan: - As above, likely cardiac equivalent causing a significant decrease in ejection fraction - Cardiology consulted, family is electing for conservative therapy at this time - We will continue beta julianna, ALEXANDER inhibitor as tolerated, aspirin - Therapeutic heparin - Time Spent With Patient 25 - 35 minutes - Constitutional Vitals: Temp Pulse Resp BP Pulse Ox 98.2 F 64 13 153/84 99 01/16/17 11:27 01/16/17 11:27 01/16/17 11:27 01/16/17 07:14 01/16/17 11:27 General appearance: Present: mild distress, A&O X 3, answers questions appropriately Internal Medicine: Result - Labs CBC & Chem 7: 01/16/17 10:33 01/16/17 06:31 Labs: Short CBC 01/16/17 01/16/17 Range/Units 06:31 10:33 WBC 5.2 5.2 (4.3-11.1) K/mcL Hgb 11.5 11.7 (11.5-15.4) g/dL Hct 35.0 L 36.0 (35.3-44.9) % Plt Count 228 232 (140-400) K/mcL Neutrophils # 4.3 (1.6-8.9) K/mcL BMP 01/16/17 06:31 Sodium 137 Potassium 3.9 Chloride 100 Carbon Dioxide 25 BUN 26 H Creatinine 0.86 Glucose 142 H Calcium 9.4 Cardiac Enzymes 01/15/17 01/15/17 01/15/17 Range/Units 15:21 20:00 22:42 Troponin I 0.14 H* 0.13 H* 0.13 H* (0-0.03) ng/mL 01/16/17 Range/Units 06:31 Troponin I 0.20 H* (0-0.03) ng/mL - ABG Interpretation ABG results: PT/INR, D-dimer PT 12.6 Seconds (9.4-12.1) H 01/16/17 10:33 - VTE Documentation of Mechanical Device: Intermittent pneumatic compression device Consult Discharge Plan - Plan Referrals: NONE,PCP [Primary Care Provider] - <William Aponte - Last Filed: 01/16/17 13:45> Date of Encounter: 01/16/17 - Constitutional Vitals: Temp Pulse Resp BP Pulse Ox 98.2 F 64 13 153/84 99 01/16/17 11:27 01/16/17 11:27 01/16/17 11:27 01/16/17 07:14 01/16/17 11:27 Internal Medicine: Result - Labs CBC & Chem 7: 01/16/17 10:33 01/16/17 06:31 Labs: Short CBC 01/16/17 01/16/17 Range/Units 06:31 10:33 WBC 5.2 5.2 (4.3-11.1) K/mcL Hgb 11.5 11.7 (11.5-15.4) g/dL Hct 35.0 L 36.0 (35.3-44.9) % Plt Count 228 232 (140-400) K/mcL Neutrophils # 4.3 (1.6-8.9) K/mcL BMP 01/16/17 06:31 Sodium 137 Potassium 3.9 Chloride 100 Carbon Dioxide 25 BUN 26 H Creatinine 0.86 Glucose 142 H Calcium 9.4 Cardiac Enzymes 01/15/17 01/15/17 01/15/17 Range/Units 15:21 20:00 22:42 Troponin I 0.14 H* 0.13 H* 0.13 H* (0-0.03) ng/mL 01/16/17 Range/Units 06:31 Troponin I 0.20 H* (0-0.03) ng/mL - ABG Interpretation ABG results: PT/INR, D-dimer PT 12.6 Seconds (9.4-12.1) H 01/16/17 10:33 - Attending Attestation I examined this patient and my medical decision-making was reviewed with the Resident Physician on 01/16/17. I agree with the documented findings, disposition and treatment plan as described except to the extent set forth below. Patient is seen and evaluated at the bedside with her daughter She presented with SOB and suspicion of Pneumonia r/o ACS. Her troponin continues to be elevated and ECHO showed multiple WMA and EF 20-25% (Prior ECHO 2016 was essentially normal save for diastolic dysfunction), also patients SOB is worse and BNP >2000 I have started her on heparin drip and consulted cardiology On exam, she is sitting up in bed in mild respiratory distress, VSS, chest exam revealed bilateral coarse crackles at the bases, no specific rhonchi, HS S1, S2 only, no m/g/r, she has multiple brusies on her extremities from poking. RLE piting edema, R>L, no calf tenderness, R knee region bruising-attributed to trauma by patient Labs and Imaging reviewed. DVT of RLE ruled out. A/P *NSTEMI: Started on heparin, ASA, cardiology to eval. NPO for possible cath *Acute systolic CHF-Continue Lasix IV, resume home doses of ASA, Plavix, SEVEN has resolved, add low dose ACEI, Cardiology eval, monitor resp status, patient is full code *Pneumonia-Community acquired, continue Zosyn, add Azithromycin for atypical bacterial coverage, low risk for MRSA *COPDE-Continue steroids, nebs, resume home meds, patient is not wheezing at time of review, change solumedrol to prednisone *SEVEN-Improved, avoid nephrotoxins, monitor Chem Rest of details as in residents documentation
[2017-01-16] MEDS: Levalbuterol 1 PUFF INHALER IH SCH (16:20)
[2017-01-16] MEDS: predniSONE 20 MG TABLET PO SCH (17:37)
--- NOTE | 2017-01-16 18:47 | Electrocardiograph Report ---
[address] [place] [address] Test Date: 2017-01-15 Pat Name: Nadia Espinal Department: 105 Room: 2A23 Gender: F Carrier Blower: SHORTY : 1935 Requested By: Davion Cat Order Number: [id number] Reading MD: Russ Regalado MD Measurements Intervals [place] Rate: 63 P: [place]: 0 QRS: -49 QRSD: 130 T: 73 QT: 395 QTc: 402 Interpretive Statements ATRIAL FIBRILLATION LEFT ANTERIOR FASCICULAR BLOCK ANTEROSEPTAL MYOCARDIAL INFARCTION, OF INDETERMINATE AGE Electronically Signed On 01-16-2017 18:45:59 EDT by Russ Regalado MD
[2017-01-16] MEDS: *HR* Heparin 5,000 UNIT/ML VIAL IVP PRN (19:04)
[2017-01-16] MEDS: Budesonide/Formoterol 80/4.5 MDI IH SCH (22:16)
[2017-01-17 01:54] LABS: Hematocrit 34.1 % (35.3-44.9); Hemoglobin 11.1 g/dL (11.5-15.4); Mean Corpuscular HGB Conc 32.6 g/dL (31.6-35.5); Mean Corpuscular Hemoglobin 29.8 pg (28.0-33.3); Mean Corpuscular Volume 91.7 fL (83.0-100.0); Mean Platelet Volume 10.4 fL (9.4-12.4); Platelet Count 234 K/mcL (140-400); Red Blood Count 3.72 M/mcL (3.82-4.97); Red Cell Distribution Width 13.7 % (11.5-14.5)
[2017-01-17 02:15] LABS: BUN/Creatinine Ratio 27 (6-26); Blood Urea Nitrogen 29 mg/dL (7-20); Calcium 9.1 mg/dL (8.6-10.8); Carbon Dioxide 30 mEq/L (19-29); Chloride 98 mEq/L (98-109); Glucose 148 mg/dL (70-99); Osmolality,Calculated 295 (280-300); Potassium 3.5 mEq/L (3.5-4.5); Sodium 138 mEq/L (136-145); eGFR For African Americans > 60 (> 60); eGFR For Non-African Americans 50 (> 60)
[2017-01-17] MEDS: Levalbuterol 1 PUFF INHALER IH SCH ×3 (03:49→17:14)
[2017-01-17] MEDS: Ipratropium/Albuterol Neb 3 ML IH PRN (03:50)
[2017-01-17] MEDS: Piperacillin/Tazobactam 3.375 GM in D5% in Water (Mini-Bag+) 100 ML IVPB SCH ×3 (05:26→20:02)
[2017-01-17] MEDS ORDERED: Furosemide 20 MG/2 ML VIAL IVP SCH (08:18)
--- NOTE | 2017-01-17 08:46 | Cardiology Progress Note ---
Date of Encounter: 01/17/17 Time of Encounter: 08:43 Assessment and Plan (1) Systolic CHF Current Visit: Yes Status: Acute Continue diuresis. BB/ACEI as tolerated. After speaking with the patient today and again explaining the risk, benefits and advantages of getting a LHC the patient and family feel it would be best to now go forward with having the the LHC done. They are aware of the risk but they feel the benefits to help her breathing and help her CHF outweigh the risks. Will go forward with having the heart catheterization done. Will lay patient flat today to see how she does laying supine. Will plan for catheterization tomorrow pending how she does while supine. Qualifiers: Congestive heart failure chronicity: acute Qualified Code(s): I50.21 - Acute systolic (congestive) heart failure (2) Atrial fibrillation with controlled ventricular response Current Visit: Yes Status: Chronic Chronic atrial fibrillation with controlled rates. Recommend continuing rate control with BB given systolic CHF. Spoke with patient about anticoagulation and they thought she was currently on coumadin but after chart review through PCP I do not see her on it. Recommend pt talk with PCP about starting coumadin for chronic atrial fibrillation. (3) Elevated troponin Current Visit: No Status: Acute Troponin continues to rise from .14 to .20 this most likely is due to demand ischemia from CHF and needed catheterization. Will continue to trend. (4) Diastolic heart failure Current Visit: Yes Status: Acute Continue diuresis Qualifiers: Heart failure chronicity: acute on chronic Qualified Code(s): I50.33 - Acute on chronic diastolic (congestive) heart failure Discussion w patient/family: The assessment and plan as outlined above was discussed with the patient and/or family members who expressed understanding and agreement. All questions were answered. Thank you for involving us in the care of your patient. Please call with any questions. Subjective Principal diagnosis: Acute Systolic CHF Interval history: Evaluated pt today where she is laying in bed comfortably and still complaining of no chest pain at this time. She is still having shortness of breath but states that it's much better than it was yesterday. She states that she is happy she is here trying to get healthier. Daughter was in the room during the visit and Nadia looked to her for many of her medical decisions and referred to her as her "cassandra consultant." The daughter kept reiterating that her care is her own decision and she was just there to help. The patient understood this and was able to make her own decisions. Objective Vital Signs, Last 4 Hours Temp Pulse Resp BP Pulse Ox 01/17/17 07:33 98 F 58 15 139/70 98 General: Conversant, No Apparent Distress HEENT: Atraumatic, Normocephaly, Mucus Membranes Moist Neck: No JVD, Normal carotid pulses Cardiac: Normal S1 and S2, No Murmur, Other (Irregullar rate and rhythm consistent with her chronic atrial fibrillation.) Lungs: Other (Noticable rales bilaterally and more prominent in the bases.) Neuro: Alert and responsive, No focal deficits noted Abdomen: Soft, Non-Tender Skin: No rashes noted on visualized skin Musculoskeletal: No Chest Wall Tenderness Extremities: No Clubbing, No Cyanosis, No Edema, Normal Pulses Results 01/17/17 01:45 01/17/17 01:45 Lab Results 01/16/17 01/16/17 01/16/17 10:33 10:33 17:35 WBC 5.2 Hgb 11.7 Hct 36.0 Plt Count 232 INR 1.2 APTT 31.3 51.4 H D Sodium Potassium Chloride Carbon Dioxide BUN Creatinine Glucose Calcium 01/17/17 01/17/17 01/17/17 01:45 01:45 01:45 WBC 5.1 Hgb 11.1 L Hct 34.1 L Plt Count 234 INR APTT 75.5 H Sodium 138 Potassium 3.5 Chloride 98 Carbon Dioxide 30 H BUN 29 H Creatinine 1.06 Glucose 148 H Calcium 9.1 - VTE Documentation of Mechanical Device: Intermittent pneumatic compression device Consult Discharge Plan - Plan Referrals: NONE,PCP [Primary Care Provider] -
[2017-01-17] MEDS: Metoprolol XL (24 HR) Succ 25 MG TAB.ER.24H PO SCH (09:45)
[2017-01-17] MEDS: predniSONE 20 MG TABLET PO SCH (09:45)
[2017-01-17] MEDS: Aspirin 81 MG TAB.CHEW PO SCH (09:46)
[2017-01-17] MEDS: *HR* Heparin 5,000 UNIT/ML VIAL IVP PRN (10:00)
[2017-01-17] MEDS: Budesonide/Formoterol 80/4.5 MDI IH SCH ×2 (10:49→22:50)
[2017-01-17] MEDS: Heparin 25,000 UNIT/500 ML D5W 25,000 UNIT/500 ML MLS IVC SCH (12:56)
[2017-01-17] MEDS ORDERED: Azithromycin 500 MG in D5% in Water 250 ML IVPB SCH (13:00)
[2017-01-17] MEDS: Azithromycin 250 MG TABLET PO SCH (15:49)
--- NOTE | 2017-01-17 16:47 | Internal Med Progress Note ---
<Daljit Mcknight - Last Filed: 01/17/17 16:41> Date of Encounter: 01/17/17 Time of Encounter: 16:41 - Assessment and plan (1) CHF (congestive heart failure) Current Visit: Yes Status: Chronic Assessment and plan: Followed by cardiology. Plan for catherterization tomorrow if patient is able to tolerate supine position. continue diuresis. continue Beta julianna and ACEI as tolerated. Qualifiers: Congestive heart failure type: diastolic Congestive heart failure chronicity: chronic Qualified Code(s): I50.32 - Chronic diastolic (congestive ) heart failure (2) Pneumonia Current Visit: Yes Status: Acute Assessment and plan: Azithromycin added for coverage of community acquired pneumonia. continue zosyn. patient continues to have productive cough and Shortness of breath. new onset of CHF, and hx of COPD most likely contributing. Qualifiers: Pneumonia type: due to unspecified organism Laterality: bilateral Lung location: unspecified part of lung Qualified Code(s): J18.9 - Pneumonia, unspecified organism (3) Atrial fibrillation Current Visit: Yes Status: Chronic Assessment and plan: Currently controlled with Metoproplol 25 mg PO. Therapeutic heparin for anticoagulation. Qualifiers: Atrial fibrillation type: chronic Qualified Code(s): I48.2 - Chronic atrial fibrillation (4) COPD (chronic obstructive pulmonary disease) Current Visit: No Status: Chronic Assessment and plan: Currently stable at SatO2 99% on 3 L NC. Qualifiers: COPD type: unspecified COPD Qualified Code(s): J44.9 - Chronic obstructive pulmonary disease, unspecified (5) Elevated troponin Current Visit: No Status: Acute Assessment and plan: troponin and BNP trending upwards. Cardiology will stent tomorrow. - Time Spent With Patient 25 - 35 minutes - Subjective Interval history: Patient has hx of diastolic heart failure, on this admission she was found to have new onset systolic heart failure with EF 25-35% with global wall motion abnormalities, severe LVH, and RA dilation. There were some disagreement about interventional treatments, but now patient with the support of her family agrees to have stent placement. PAtient denies CP, SOB, nausea, vomiting, fevers or chills. Continues to be "flemy", and a new onset of runny nose. - Constitutional Vitals: Temp Pulse Resp BP Pulse Ox 98.1 F 67 21 125/83 99 01/17/17 16:24 07/31/17 16:24 01/17/17 16:24 01/17/17 16:24 01/17/17 16:24 General appearance: Present: mild distress, A&O X 3, answers questions appropriately - Head Head exam: Present: atraumatic, normocephalic - Neck Neck exam general surgery: Present: supple, trachea midline. Absent: lymphadenopathy - Respiratory Respiratory exam: Present: CTAB, wheezes (diffuse wheezing). Absent: accessory muscle use, rales, rhonchi - Cardiovascular Cardiovascular exam: Present: RRR, +S1, +S2. Absent: diastolic murmur, gallop, rubs, systolic murmur - GI/Abdominal GI/Abdominal exam: Present: normal bowel sounds, soft, no peritoneal signs. Absent: distended, tenderness - Extremities Exam Extremities exam: Present: pedal edema (2/4 bilaterally). Absent: calf tenderness, cyanotic - Psychiatric Psychiatric exam: Present: normal affect, normal mood Internal Medicine: Result - Labs CBC & Chem 7: 01/17/17 01:45 01/17/17 01:45 Labs: Short CBC 01/17/17 Range/Units 01:45 WBC 5.1 (4.3-11.1) K/mcL Hgb 11.1 L (11.5-15.4) g/dL Hct 34.1 L (35.3-44.9) % Plt Count 234 (140-400) K/mcL [facility] 01/17/17 01:45 Sodium 138 Potassium 3.5 Chloride 98 Carbon Dioxide 30 H BUN 29 H Creatinine 1.06 Glucose 148 H Calcium 9.1 - ABG Interpretation ABG results: PT/INR, D-dimer PT 12.6 Seconds (9.4-12.1) H 01/16/17 10:33 - VTE Documentation of Mechanical Device: Intermittent pneumatic compression device Consult Discharge Plan - Plan Referrals: NONE,PCP [Primary Care Provider] - <William Aponte - Last Filed: 01/17/17 17:27> Date of Encounter: 01/17/17 - Constitutional Vitals: Temp Pulse Resp BP Pulse Ox 98.1 F 67 21 125/83 99 01/17/17 16:24 01/17/17 16:24 01/17/17 16:24 01/17/17 16:24 01/17/17 16:24 Internal Medicine: Result - Labs CBC & Chem 7: 01/17/17 01:45 01/17/17 01:45 Labs: Short CBC 01/17/17 Range/Units 01:45 WBC 5.1 (4.3-11.1) K/mcL Hgb 11.1 L (11.5-15.4) g/dL Hct 34.1 L (35.3-44.9) % Plt Count 234 (140-400) K/mcL BMP 01/17/17 01:45 Sodium 138 Potassium 3.5 Chloride 98 Carbon Dioxide 30 H BUN 29 H Creatinine 1.06 Glucose 148 H Calcium 9.1 - ABG Interpretation ABG results: PT/INR, D-dimer PT 12.6 Seconds (9.4-12.1) H 01/16/17 10:33 - Attending Attestation I examined this patient and my medical decision-making was reviewed with the Resident Physician on 01/17/17. I agree with the documented findings, disposition and treatment plan as described except to the extent set forth below. Patient is seen and evaluated at the bedside with her daughter No new complains She is being managed for Acute systolic CHF , NSTEMI, CAP, COPDE, SEVEN On exam, she is sitting up in bed in mild respiratory distress, VSS, chest exam revealed bilateral coarse crackles at the bases, no specific rhonchi, HS S1, S2 only, no m/g/r, she has multiple brusies on her extremities from poking. RLE piting edema, R>L, no calf tenderness, R knee region bruising-attributed to trauma by patient Labs and Imaging reviewed. A/P *NSTEMI:Continue heparin, ASA, Lipitor, For [facility] a.m, cardiology following *Acute systolic CHF-Continue Lasix IV, BB, ACEI, Cardiology eval, monitor resp status, patient is full code *Pneumonia-Community acquired, continue Zosyn, add Azithromycin for atypical bacterial coverage, low risk for MRSA. Send sputum culture *Afib: rate controlled, on heparin for NSTEMI *COPDE-Continue steroids, nebs, resume home meds, patient is not wheezing at time of review *SEVEN-Improved, avoid nephrotoxins, monitor Chem Rest of details as in residents documentation
[2017-01-17 17:09] LABS: Activated Partial Thrombo Time 127.1 Seconds (26.0-36.0)
[2017-01-17 17:16] LABS: Heparin anti-factor XA UFH 0.56 IU/mL (0.30-0.70)
[2017-01-17] MEDS: Furosemide 40 MG/4 ML VIAL IVP SCH (17:22)
[2017-01-18] MEDS: Levalbuterol 1 PUFF INHALER IH SCH ×3 (03:28→16:04)
[2017-01-18] MEDS: Heparin 25,000 UNIT/500 ML D5W 25,000 UNIT/500 ML MLS IVC SCH (04:03)
[2017-01-18] MEDS: Piperacillin/Tazobactam 3.375 GM in D5% in Water (Mini-Bag+) 100 ML IVPB SCH ×3 (04:05→21:11)
[2017-01-18] MEDS ORDERED: *HR* Heparin 10,000 UNIT/10 ML VIAL ONE ×2 (08:50→13:31)
[2017-01-18] MEDS ORDERED: Nitroglycerin 1,000 MCG/10 ML VIAL IV ONE ×2 (08:50→13:31)
[2017-01-18] MEDS ORDERED: Heparin 1,000 UNITS/500 mL NS 0 ML ONE (08:50)
[2017-01-18] MEDS: Aspirin 81 MG TAB.CHEW PO SCH (08:54)
[2017-01-18] MEDS: Furosemide 40 MG/4 ML VIAL IVP SCH ×2 (08:54→17:15)
[2017-01-18] MEDS: predniSONE 20 MG TABLET PO SCH (08:55)
[2017-01-18] MEDS: Metoprolol XL (24 HR) Succ 25 MG TAB.ER.24H PO SCH (08:55)
[2017-01-18 10:30] LABS: Calcium 9.1 mg/dL (8.6-10.8); Potassium 2.7 mEq/L (3.5-4.5)
[2017-01-18] MEDS: Budesonide/Formoterol 80/4.5 MDI IH SCH ×2 (10:32→21:42)
[2017-01-18 10:45] LABS: Magnesium 1.5 mg/dL (1.6-2.6)
[2017-01-18] MEDS ORDERED: Magnesium Sulfate 2 GM in D5% in Water 100 ML IVPB ONE (12:27)
[2017-01-18 13:05] LABS: Calcium 9.3 mg/dL (8.6-10.8); Potassium 3.1 mEq/L (3.5-4.5)
[2017-01-18 13:22] LABS: Activated Partial Thrombo Time 168.4 Seconds (26.0-36.0)
[2017-01-18] MEDS ORDERED: Heparin 1,000 UNITS/500 mL NS 500 ML ONE (13:31)
[2017-01-18] MEDS ORDERED: 0.9 % Sodium Chloride 1,000 ML ONE ×3 (13:31→13:57)
--- NOTE | 2017-01-18 13:31 | Pre-Sedation Evaluation ---
Pre-sedation evaluation - Pre-sedation checklist Date of procedure: 01/18/17 Procedure: [facility] Recent Vitals: Last Vital Signs Temp 97.6 F 01/18/17 11:05 Pulse 55 01/18/17 11:05 Resp 18 01/18/17 11:05 BP 158/87 01/18/17 11:05 Pulse Ox 94 01/18/17 11:05 H&P (including ROS) documented in medical record: Yes Previous reaction to sedatives/anesthetics: No Dietary Status: NPO after Midnight Airway Assessment: Patient can open mouth completely, TMJ function normal, Micrognathia (under-bite, receding chin) absent, Neck with adequate range of motion Dentition: No loose teeth or bridges Possible difficult airway: No ASA Classification *see protocol: CLASS II-Mild systemic disease Plan of Care: Pt appropriate candidate for procedure/moderate/conscious sedation , Risks/benefits of procedure/sedation discussed w/ patient/family
[2017-01-18] MEDS ORDERED: *HR* Midazolam HCl 2 MG/2 ML VIAL ONE (13:56)
[2017-01-18] MEDS ORDERED: *HR* FentaNYL (PF) 100 MCG/2 ML VIAL ONE (13:56)
[2017-01-18 13:57] LABS: Heparin anti-factor XA UFH 1.01 IU/mL (0.30-0.70)
--- NOTE | 2017-01-18 14:45 | Invasive Diagnostic Lab Proc ---
Name: Nadia Espinal Date of Study: 01/18/2017 Date: 1935 Ht: 63.0in Medical Record#: [id number] Age: 81 Wt: 198.08lb Gender: Female BSA: 1.93 Order #: [id number] BMI: 35.1 Physicians Procedure Physician: Ally Barber MD, FACC Referring MD: João Savage MD Referring MD: Staff Name Position Time In Guanakito Begum RN Monitor 01:59 PM [place]om[place] Mon RT (R) Scrub 01:59 PM oBnny Olmstead RN Assistant Director 01:59 PM Yana Patel RN Assistant Director 01:59 PM Indications Indication Non-Stemi Cardiomyopathy Procedures Performed Procedure L HRT ARTERY/VENTRICLE ANGIO Pre-Procedure Checklist Informed consent is complete signed and on chart. H&P is on chart. ID band is on and ID verified with patient. Patient NPO for procedure The procedure was described for the patient and questions were answered. Blood Pressure: 166/92 ECG is on chart. Rhythm: Atrial Fibrillation Plan of Care Patient will tolerate the procedure without complications. Adequate level of comfort will be maintained. Hemodynamics will remain stable Patient will recover from procedure without complications. Respiratory function will be maintained. Cardiac rhythm will remain stable. Patient temperature will be maintained. Patient and/or family have verbalized understanding of the procedure. Patient Education Chief Complaint/Reason for Test: Cardiac Cath Developmental Category: Geriatric (65+ years) Developmentally Appropriate for Age: Yes Learning Barriers: None Education Needs: Procedure Education Method: Verbal Information Taught: Cardiac Cath Educational Evaluation: Able to repeat information Intravenous Access Time IV Size Location DC'd Fluid/Drip Rate Units RN 02:01 PM 18g 1 /" Patent On Arrival Left upper arm 0.9NaCl 25 ml/hr Yana Patel RN Allergies NKDA Vital Signs Time BP (mmHg) HR (bpm) O2 Sat. RR (bpm) LOC 09:01 AM 166 / 92 53 94 % 16 5 = Fully awake and oriented or at pre-proc level 02:00 PM / % 5 = Fully awake and oriented or at pre-proc level 02:01 PM / % 4 = Oriented but drowsy 02:02 PM 163 / 100 59 98 % 02:07 PM 172 / 85 62 96 % 32 02:12 PM 158 / 87 56 95 % 17 02:17 PM 151 / 84 52 93 % 16 02:22 PM 154 / 80 50 94 % 15 02:16 PM / % 5 = Fully awake and oriented or at pre-proc level Procedural Medications Time Medication Dose Units Method Given By 02:00 PM Oxygen 2 L/min nasal cannula Yana Patel RN 02:02 PM Versed 1 mg Intravenous Bonny Olmstead RN 02:02 PM Fentanyl 25 mcg Intravenous Bonny Olmstead RN 02:10 PM Versed 1 mg Intravenous Bonny Olmstead RN 02:10 PM Fentanyl 25 mcg Intravenous Bonny Olmstead RN 02:11 PM Lidocaine 2% 16 ml Subcutaneous Ally Barber MD, [facility] ASA Classification: CLASS II- Mild systemic disease (i.e. well-controlled diabetes, hypertension, asthma, cigarette smoking) Mami Score Preprocedure Postprocedure Activity 2- Moves 4 extremities sustained head lift Activity 2- Moves 4 extremities sustained head lift Circulation 2- SBP +/= 20 points of pre-anesthetic level Circulation 2- SBP +/= 20 points of pre-anesthetic level Consciousness 2- Awake and alert oriented x 3 Consciousness 2- Awake and alert oriented x 3 O2 Saturation 1- Needs O2 inhalation to maintain O2 saturation of 90% O2 Saturation 1- Needs O2 inhalation to maintain O2 saturation of 90% Respiratory 2- Able to deep breathe and cough well Respiratory 2- Able to deep breathe and cough well Total Score 9 Total Score 9 Contrast Agent: Isovue Diagnostic Contrast: 68 ml Total Contrast: 68 ml Fluoro Dose: 232 mGy Procedure Log Time Note Enter By 01:31 PM CathStat 01:59 PM Pt arrived to phlebotomist lab assistant 2 at 13:59 csmith 01:59 PM Guanakito Begum RN Position: Monitor Time in: 13:59 csmith 01:59 PM Sal[place]ón Mon RT (R) Position: Scrub Time in: 13:59 csmith 01:59 PM Bonny Olmstead RN Position: Assistant Director Time in: 13:59 csmith 01:59 PM Yana Patel RN Position: Assistant Director Time in: 13:59 csmith 02:00 PM Patient charges- Angio tray pack, Navilyst 3mm J, Pulse Oximetry and ACIST tubing and transducer csmith 02:00 PM Hair removed from procedure site in procedure lab using clippers. Bilateral groin prepped with Chloraprep by Yana Patel RN, then patient was draped. Skin intact. csmith 02:00 PM Physician arrived 14:00 csmith 02:00 PM ASA Class CLASS II- Mild systemic disease (i.e. well-controlled diabetes, hypertension, asthma, cigarette smoking) csmith 02:00 PM Meet and greet completed csmith 02:00 PM Sign in performed according to hospital policy. csmith 02:00 PM Procedure start 14:00 csmith 02:00 PM Case Start 02:00 PM Time: 14:00 Oxygen on at 2 L/min per nasal cannula by Yana Patel RN csmith 02: PM Time: 14:00 Patient comfortable and pain free: Yes csmith 02: PM Time: 14:00LOC: 5 = Fully awake and oriented or at pre-proc level csmith 02: PM Vitals capture started with the following parameters, Patient=Adult, Interval=5 min, Initial Pdxfvgob=171 mmHg, Deflation Rate=5 mmHg, Cuff placed on Left Arm 02:02 PM HR=59 bpm, HKKM=842/100 mmhg, SpO2=98.0 %, Comment=AF 02:02 PM Time: 14:02 Versed 1 mg Intravenous Given by Bonny Olmstead RN [facility] 02:02 PM Time: 14:02 Fentanyl 25 mcg Intravenous Given by Bonny Olmstead RN [facility] 02:03 PM Recorded ECG: HR=60 Condition=Condition 1 02:07 PM HR=62 bpm, CRJZ=061/85 mmhg, SpO2=96.0 %, Resp=32 B/min, Comment=AF 02:09 PM Time out performed according to hospital policy csmith 02:10 PM Pressure channel 1 zero failed. 02:10 PM Pressure channel 1 zero failed. 02:10 PM Pressure channel 1 zeroed. 02:10 PM Time: 14:10 Versed 1 mg Intravenous Given by Bonny Olmstead RN [facility] 02:10 PM Time: 14:10 Fentanyl 25 mcg Intravenous Given by Bonny Olmstead RN [facility] 02:12 PM HR=56 bpm, DGCD=310/87 mmhg, SpO2=95.0 %, Resp=17 B/min, Comment=AF 02:12 PM Time: 14:11 16 ml Lidocaine 2% to right groin Subcutaneous Given by Ally Barber MD, [facility] 02:12 PM Access obtained by percutaneous puncture. 5Fr 10cm Terumo Arion sheath placed in right Femoral artery. [id number] csmith 02:12 PM 5Fr FL 4 [facility] 02:12 PM 0.035 145cm Navilyst 3mmJ wire [id number] csmith 02:13 PM Recorded Pressure: Ao, HR=52, Condition=Condition 1 (Aorta) Ao 153/73/102 02:14 PM LCA angiography performed in multiple views. csmith 02:14 PM Recorded Pressure: Ao, HR=56, Condition=Condition 1 (Aorta) Ao 123/65/89 02:14 PM Catheter removed csmith 02:15 PM 5Fr FR 4 catheter inserted over the wire [facility] 02:15 PM Time: 14:00 Patient comfortable and pain free: Yes csmith 02:16 PM Time: 14:01LOC: 4 = Oriented but drowsy csmith 02:16 PM RCA and anamalous circumflex angiography performed in multiple views. csmith 02:17 PM HR=52 bpm, WTLZ=952/84 mmhg, SpO2=93.0 %, Resp=16 B/min, Comment=AF 02:17 PM Recorded Pressure: Ao, HR=56, Condition=Condition 1 (Aorta) Ao 119/71/92 02:17 PM Coronary Dominance: right csmith 02:18 PM Catheter removed csmith 02:18 PM 5Fr Pigtail catheter inserted over the wire [facility] 02:18 PM Catheter selectively placed in left ventricle csmith 02:19 PM Pressure channel 1 zeroed. 02:19 PM Bolus angiogram of left Ventricle complete: 8 ml/sec for a [facility] of [facility] PM Recorded Pressure: LV, HR=53, Condition=Condition 1 (Left Ventricle) LV 114/7/6 02:19 PM Catheter removed csmith 02:19 PM [facility] 02:19 PM Recorded Pressure: LV, Ao, HR=50, Condition=Condition 1 (Left Ventricle) LV 113/1/18, (Aorta) Ao 117/60/89 02:20 PM Bolus angiogram of right Femoral complete: 4 ml/sec for a total of 7 [facility] 02[facility]20 PM Procedure completed at 14:20 csmith 02:22 PM HR=50 bpm, TLMM=873/80 mmhg, SpO2=94.0 %, Resp=15 B/min, Comment=AF 02:22 PM Sign out completed: Radiation Dose 232 mGy Fluoro Time: 1.8 Isovue 370 - 200ml contrast 68 ml given by Ally Barber MD, [facility]. Complications: NoneCardiac Rehab Consult needed: NoConfirmed administered medications: Yes csmith 02:22 PM Isovue 370 - 200ml,1 Bottle(s) used. csmith 02:22 PM Post ECG Atrial Fibrillation csmith 02:22 PM Post Blood Pressure 154/80 csmith 02:22 PM 14:22 Post Pulses Bilateral DP 1+ csmith 02:22 PM Information taught Mynx csmith 02:22 PM Education needs Responsibilities of Patient in Care csmith 02:22 PM Learning barriers :None csmith 02:22 PM Education Methods Verbal csmith 02:22 PM Education evaluation Able to repeat information csmith 02:23 PM Family placed in consult room. csmith 02:23 PM Arterial sheath pulled, Mynx closure device used and was Successful [id number] S/N. csmith 02:31 PM Time: 14:16LOC: 5 = Fully awake and oriented or at pre-proc level csmith 02:31 PM Time: 14:15 Patient comfortable and pain free: Yes csmith 02:31 PM Lesion found in Proximal RCA. Pre Stenosis: 30 Pre SAWYER Flow: csmith 02:31 PM Lesion found in Mid RCA. Pre Stenosis: 25 Pre SAWYER Flow: csmith 02:31 PM Lesion found in Proximal LAD. Pre Stenosis: 30 Pre SAWYER Flow: csmith 02:31 PM Lesion found in Proximal Circumflex. Pre Stenosis: 40 Pre SAWYER Flow: csmith 02:32 PM Lesion found in Distal Circumflex. Pre Stenosis: 99 Pre SAWYER Flow: csmith 02:36 PM Patient out of room: 14:36 csmith Complications Complication None Hemodynamics Pressures Site Systolic/A Wave Diastolic/V Wave Mean AO 153 73 102 AO 123 65 89 AO 119 71 92 LV 114 7 6 LV 113 1 18 AO 117 60 89 Post Procedure Information Blood Pressure: 154/80 mmHg Rhythm: Atrial Fibrillation Post procedural instructions were given Closure Device Time Device Success/Fail 01/18/2017 2:25:00 PM MynxGrip Successful Site Checks Time Location Status Staff Sheath In? Note 02:26 PM Rt Groin No bleeding/ No Hematoma [place] Mon RT (R) Pulses Time Site Pre-Procedure Post-Procedure Note 01/18/2017 2:01:00 PM Bilateral DP & PT 1+ 01/18/2017 2:01:00 PM Bilateral radial 1+ 2:22:00 PM Bilateral DP 1+ Updated by Guanakito Begum RN on 01/18/2017 2:37:29 PM electronically signed on 01/18/2017 2:37:51 PM with status of Final
--- NOTE | 2017-01-18 14:50 | Internal Med Progress Note ---
<Daljit Mcknight - Last Filed: 01/18/17 14:50> Date of Encounter: 01/18/17 Time of Encounter: 14:45 - Assessment and plan (1) NSTEMI (non-ST elevated myocardial infarction) Current Visit: Yes Status: Acute Assessment and plan: Patient scheduled for stenting today. Cards is following. (2) CHF (congestive heart failure) Current Visit: Yes Status: Chronic Assessment and plan: Continue heparin, ASA, and lipitor Qualifiers: Congestive heart failure type: diastolic Congestive heart failure chronicity: chronic Qualified Code(s): I50.32 - Chronic diastolic (congestive ) heart failure (3) Pneumonia Current Visit: Yes Status: Acute Assessment and plan: sputum culture negative for legionella and s. pneumonia. Other culture, sputum sample was not sufficient. continue zosyn for community acquired PNA coverage, and azithromycin for atypical bacterial coverage. Qualifiers: Pneumonia type: due to unspecified organism Laterality: bilateral Lung location: unspecified part of lung Qualified Code(s): J18.9 - Pneumonia, unspecified organism (4) Atrial fibrillation Current Visit: Yes Status: Chronic Assessment and plan: Currently controlled with Metoproplol 25 mg PO. Therapeutic heparin for anticoagulation. Qualifiers: Atrial fibrillation type: chronic Qualified Code(s): I48.2 - Chronic atrial fibrillation (5) Elevated troponin Current Visit: No Status: Acute (6) COPD (chronic obstructive pulmonary disease) Current Visit: Yes Status: Acute Assessment and plan: Currently stable without wheezes at SatO2 99% on 3 L NC. continue steroids, duoneb. Qualifiers: COPD type: unspecified COPD Qualified Code(s): J44.9 - Chronic obstructive pulmonary disease, unspecified - Subjective Interval history: 87 yo F on day 3 of admission. Admitted for Acute CHF, NSTEMI, SEVEN, COPDE, PNA. Patient is scheduled for stent placement by cards today. Pt has no new complaints today. She reports that her cough still has not improved. Pt denies chest pain, f, c, or extremity numbness or tingling. PMHx: CHF, Afib - Constitutional Vitals: Temp Pulse Resp BP Pulse Ox 97.6 F 55 18 158/87 94 01/18/17 11:05 01/18/17 11:05 01/18/17 11:05 01/18/17 11:05 01/18/17 11:05 General appearance: Present: mild distress, A&O X 3, answers questions appropriately - Head Head exam: Present: atraumatic, normocephalic - Respiratory Respiratory exam: Present: decreased breath sounds. Absent: wheezes - Cardiovascular Cardiovascular exam: Present: distant heart sounds. Absent: systolic murmur - GI/Abdominal GI/Abdominal exam: Present: normal bowel sounds, soft, no peritoneal signs. Absent: distended, tenderness - Extremities Exam Extremities exam: Present: pedal edema (1/4 pretibial pitting edema biltaterally ) - Psychiatric Psychiatric exam: Present: normal affect, normal mood Internal Medicine: Result - Labs CBC & Chem 7: 01/17/17 01:45 01/18/17 12:32 Labs: [facility] 01/18/17 01/18/17 10:00 12:32 Sodium 141 139 Potassium 2.7 L 3.1 L Chloride 98 97 L Carbon Dioxide 33 H 31 H BUN 30 H 30 H Creatinine 1.12 H 1.08 Glucose 90 108 H Calcium 9.1 9.3 - ABG Interpretation ABG results: PT/INR, D-dimer PT 12.6 Seconds (9.4-12.1) H 01/16/17 10:33 - VTE Documentation of Mechanical Device: Intermittent pneumatic compression device Consult Discharge Plan - Plan Referrals: NONE,PCP [Primary Care Provider] - (possible ECF) Prescriptions: Rivaroxaban [Xarelto] 20 mg PO DAILY #30 tablet <William Aponte - Last Filed: 01/18/17 15:40> Date of Encounter: 01/18/17 - Assessment and plan (1) Hypokalemia Current Visit: Yes Status: Acute (2) Hypomagnesemia Current Visit: Yes Status: Acute - Constitutional Vitals: Temp Pulse Resp BP Pulse Ox 97.7 F 47 16 138/82 99 01/18/17 15:20 01/18/17 15:20 01/18/17 15:20 01/18/17 15:20 01/18/17 15:20 Internal Medicine: Result - Labs CBC & Chem 7: 01/17/17 01:45 01/18/17 12:32 Labs: BMP 01/18/17 01/18/17 10:00 12:32 Sodium 141 139 Potassium 2.7 L 3.1 L Chloride 98 97 L Carbon Dioxide 33 H 31 H BUN 30 H 30 H Creatinine 1.12 H 1.08 Glucose 90 108 H Calcium 9.1 9.3 - ABG Interpretation ABG results: PT/INR, D-dimer PT 12.6 Seconds (9.4-12.1) H 01/16/17 10:33 - Attending Attestation I examined this patient and my medical decision-making was reviewed with the Resident Physician on 01/18/17. I agree with the documented findings, disposition and treatment plan as described except to the extent set forth below. Patient is seen and evaluated at the bedside with her daughter No new complains She is being managed for Acute systolic CHF , NSTEMI, CAP, COPDE, SEVEN Awaiting [facility] today On exam, she is sitting up in bed in mild respiratory distress, VSS, chest exam revealed bilateral coarse crackles at the bases, no specific rhonchi, HS S1, S2 only, no m/g/r, she has multiple brusies on her extremities from poking. pedal edema has improved, no calf tenderness, R knee region bruising-attributed to trauma by patient Labs and Imaging reviewed. Hypokalemia, Hypomagnessemia I/O -4L A/P *NSTEMI:Complete 48 hrs of ACS protocol and discontinue heparin afterwards, Continue ASA, Lipitor, For [facility] today, cardiology following *Acute systolic CHF-Continue Lasix IV, BB, ACEI, Cardiology eval, monitor resp status, patient is full code *Pneumonia-Community acquired, continue Zosyn, and Azithromycin. day 3. Sputum and blood culture with no growth *Afib: rate controlled, on heparin for NSTEMI, continue same. 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 Possibly from lasix. Rest of details as in residents documentation
--- NOTE | 2017-01-18 15:01 | Invasive Diagnostic Lab ---
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 Nonischemic cardiomyopathy. The left ventricle is enlarged and has severely abnormal contractility EF 30% Recommendations: Optimal medical therapy of patient's disease. Aggressive risk factor modification. History/Risk Factors: OA GERD Hypertension Dyslipidemia CHF Procedure Access obtained in the right Femoral artery by percutaneous puncture Complications: None Contrast: Isovue 68ml Closure Device: MynxGrip Hemodynamics: Pressures Site Systolic/ A Wave Diastolic/ V Wave End Diastolic/ Mean HR AO 153 73 102 52 AO 123 65 89 56 AO 119 71 92 56 LV 114 7 6 53 LV 113 1 18 46 AO 117 60 89 61 LV Ventriculography Ejection Method: LV Gram Ejection Fraction: 30% Wall Motion: HARRIS Anterobasal Severe Hypokinesis Anterolateral Severe Hypokinesis Apical: Severe Hypokinesis Inferoapical Severe Hypokinesis Inferobasal Severe Hypokinesis Coronary Dominance: right Lesion Findings/Interventions * Left Main Coronary Artery The left main is absent. * Left Anterior Descending There is a 30% stenosis in the Proximal LAD- calcified. * Circumflex The circumflex is anomalous and originates from the proximal RCA. There is a 40% stenosis in the Proximal Circumflex- calcified. There is a 99% stenosis in the Distal Circumflex- very small, diffusely diseased, not amenable to revascularization. * Right Coronary Artery There is a 30% stenosis in the Proximal RCA- calcified. There is a 25% stenosis in the Mid RCA. Updated by Guanakito Begum RN on 01/18/2017 2:36:53 PM Ally Barber MD, FACC electronically signed on 01/18/2017 2:53:36 PM with status of Final
--- NOTE | 2017-01-18 15:46 | Event Note ---
Date of Encounter: 01/18/17 Time of Encounter: 15:41 Patient had C today. Single vessel disease. Nonischemic cardiomyopathy with EF 30%. 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 We recommend anticoagulation. We will villanueva check NOACs. If NOAC is not an option due to financial restraints would recommend starting the patient on coumadin.
[2017-01-18] MEDS: Azithromycin 250 MG TABLET PO SCH (17:15)
[2017-01-18] MEDS: Ipratropium/Albuterol Neb 3 ML IH PRN (21:42)
[2017-01-19] MEDS: Levalbuterol 1 PUFF INHALER IH SCH ×4 (03:09→21:58)
[2017-01-19] MEDS: Piperacillin/Tazobactam 3.375 GM in D5% in Water (Mini-Bag+) 100 ML IVPB SCH ×2 (04:33→12:00)
[2017-01-19 05:08] LABS: Hemoglobin 12.5 g/dL (11.5-15.4); Immature Granulocytes % 0.1 % (0-4); Lymphocytes # 2.6 K/mcL (0.6-4.6); Lymphocytes % 37.8 %; Mean Corpuscular HGB Conc 32.9 g/dL (31.6-35.5); Mean Corpuscular Hemoglobin 30.3 pg (28.0-33.3); Mean Platelet Volume 10.8 fL (9.4-12.4); Monocytes # 0.8 K/mcL (0.0-1.3); Monocytes % 12.1 %; Neutrophils # 3.4 K/mcL (1.6-8.9); Platelet Count 259 K/mcL (140-400); Red Blood Count 4.13 M/mcL (3.82-4.97); Red Cell Distribution Width 13.7 % (11.5-14.5)
[2017-01-19 05:27] LABS: Calcium 9.4 mg/dL (8.6-10.8); Potassium 2.9 mEq/L (3.5-4.5)
[2017-01-19] MEDS: Furosemide 40 MG/4 ML VIAL IVP SCH (09:20)
[2017-01-19] MEDS: Aspirin 81 MG TAB.CHEW PO SCH (09:21)
[2017-01-19] MEDS: predniSONE 20 MG TABLET PO SCH (09:21)
[2017-01-19] MEDS: Metoprolol XL (24 HR) Succ 25 MG TAB.ER.24H PO SCH (09:21)
--- NOTE | 2017-01-19 09:46 | Cardiology Progress Note ---
Date of Encounter: 01/19/17 Time of Encounter: 09:43 Assessment and Plan (1) CHF (congestive heart failure) Current Visit: Yes Status: Acute HFrEF EF 25-30% LHC from 01/18/17 revealed single vessel disease/ Non ischemic cardiomyopathy. Etiology unclear at this time. Possibly from acute illness/ pneumonia. Afib rate well controlled during this admisison so doubt this is secondary to arrythmia. Patient appears euvolemic on exam, is developing contraction alkalosis and SCr is beginning to rise. Recommendations: Stop IV lasix. Start PO lasix 40 mg daily. 20MEQ of KCL daily. continue to monitor electrolytes and replace as needed. Continue ACEi and Beta julianna. Continue to monitor I's O's fluid and Na restricted diet. Follow up with cardiology in 5-7 days after discharge. Patient is doing well. Euvolemic on exam. Xarelto will have 0$ copay. Cardiology will sign off at this time. Please call with any further questions. Thank you for the consultation. Qualifiers: Congestive heart failure type: systolic Qualified Code(s): I50.21 - Acute systolic (congestive) heart failure (2) Nonischemic cardiomyopathy Current Visit: Yes Status: Acute treatment as stated above. Will need follow up with cardiology in 5-7 days. (3) Atrial fibrillation Current Visit: Yes Status: Acute Currently she is rate controlled. She had some bradycardia ( during sleep) as low as 45 but asymptomatic. Continue Toprol for rate control. CHADSVASC score of 6. Risk and benefits of anticoagulation were discussed with both the patient and family. We recommend anticoagulation and patient and family are agreeable. We would recommend discontinuing plavix as this may increase her risk of bleeding. She has no cardiac stents. Denies history of Stroke or TIA. I reviewed records from her PCP as far back as 2010. No strong indication to continue plavix and would recommend discontinuing at this time. Qualifiers: Atrial fibrillation type: unspecified Qualified Code(s): I48.91 - Unspecified atrial fibrillation (4) CAD (coronary artery disease) Current Visit: Yes Status: Acute [facility] revelaed the following. * Left Anterior Descending There is a 30% stenosis in the Proximal LAD- calcified. * Circumflex The circumflex is anomalous and originates from the proximal RCA. There is a 40% stenosis in the Proximal Circumflex- calcified. There is a 99% stenosis in the Distal Circumflex- very small, diffusely diseased, not amenable to revascularization. * Right Coronary Artery There is a 30% stenosis in the Proximal RCA- calcified. There is a 25% stenosis in the Mid RCA. Recommendations: continue ASA. OK to discontinue plavix as this will increase her risk of bleeding with the Xarelto. Continue Lipitor. Qualifiers: Qualified Code(s): I25.10 - Atherosclerotic heart disease of [place] coronary artery without angina pectoris (5) Pneumonia Current Visit: Yes Status: Acute Patient improving clinically. Management per primary team. Qualifiers: Qualified Code(s): J18.9 - Pneumonia, unspecified organism (6) COPD (chronic obstructive pulmonary disease) Current Visit: Yes Status: Acute patient is improving clinically. management per primary team. Qualifiers: Qualified Code(s): J44.9 - Chronic obstructive pulmonary disease, unspecified (7) Hypokalemia Current Visit: Yes Status: Acute replete. Recommend continuing 20 mEQ of KCL daily upon discharge with repeat bmp in a week. (8) Hypomagnesemia Current Visit: Yes Status: Acute resolved. (9) Metabolic alkalosis Current Visit: Yes Status: Acute mild. Likely from contraction alkalosis. We have reduced her dosage of lasix. Discussion w patient/family: The assessment and plan as outlined above was discussed with the patient and/or family members who expressed understanding and agreement. All questions were answered. Thank you for involving us in the care of your patient. Please call with any questions. Subjective Principal diagnosis: Acute Systolic CHF Interval history: No major evetns overnight. this morning the patient dose complain of some pleuritic chest pain. This occurs only with very deep breathing. She states that she is breathing more easily today. She denies any focal motor or sensory deficit. She denies any pain or discomfort form the right groin. She denies any new aches or pains. she has no further complaints or concerns at this time. Objective Vital Signs, Last 4 Hours Temp Pulse Resp BP Pulse Ox 01/19/17 07:25 98.1 F 76 17 161/87 97 Reviewed General: Conversant, No Apparent Distress, Other (lying in bed and appears comforable. ) HEENT: Atraumatic, Normocephaly, Mucus Membranes Moist Neck: No JVD, Normal carotid pulses Cardiac: Reg Rate and Rhythm, Normal S1 and S2, No Murmur Lungs: Other (She has a normal effort of breathing. She has course breath sounds bilaterally. however improved from yesterday. Good airflow to lung bases. ) Neuro: Alert and responsive, No focal deficits noted Abdomen: Soft, Non-Tender Skin: No rashes noted on visualized skin Musculoskeletal: No Chest Wall Tenderness Extremities: No Clubbing, No Cyanosis, No Edema, Normal Pulses, Other (The right groin is clean and well dressed. No mass or hematoma is noted on exam. ) Results 01/19/17 05:01 01/19/17 05:01 Lab Results 01/18/17 01/18/17 01/18/17 10:00 12:32 12:46 WBC Hgb Hct Plt Count APTT 168.4 H* D Sodium 141 139 Potassium 2.7 L 3.1 L Chloride 98 97 L Carbon Dioxide 33 H 31 H BUN 30 H 30 H Creatinine 1.12 H 1.08 Glucose 90 108 H Calcium 9.1 9.3 Magnesium 1.5 L 01/19/17 01/19/17 05:01 05:01 WBC 6.8 Hgb 12.5 Hct 38.0 Plt Count 259 APTT Sodium 142 Potassium 2.9 L Chloride 99 Carbon Dioxide 33 H BUN 29 H Creatinine 1.10 Glucose 85 Calcium 9.4 Magnesium 2.0 - VTE Documentation of Mechanical Device: Intermittent pneumatic compression device Consult Discharge Plan - Plan Referrals: Arley Awan MD [Non-Partnered Physician] - Prescriptions: Rivaroxaban [Xarelto] 20 mg PO DAILY #30 tablet
[2017-01-19] MEDS: Budesonide/Formoterol 80/4.5 MDI IH SCH ×2 (10:35→21:59)
[2017-01-19] MEDS: Azithromycin 250 MG TABLET PO SCH (15:08)
[2017-01-19 15:44] LABS: Potassium 3.5 mEq/L (3.5-4.5)
--- NOTE | 2017-01-19 16:19 | Internal Med Progress Note ---
<Daljit Mcknight - Last Filed: 01/19/17 16:14> Date of Encounter: 01/19/17 Time of Encounter: 16:14 - Assessment and plan (1) NSTEMI (non-ST elevated myocardial infarction) Current Visit: Yes Status: Acute Assessment and plan: Patient will follow up with cards outpatient. insurance covers xarelto. (2) CHF (congestive heart failure) Current Visit: Yes Status: Chronic Assessment and plan: Continue ASA, and lipitor Qualifiers: Congestive heart failure type: diastolic Congestive heart failure chronicity: chronic Qualified Code(s): I50.32 - Chronic diastolic (congestive ) heart failure (3) Pneumonia Current Visit: Yes Status: Acute Assessment and plan: sputum culture negative for legionella and s. pneumonia. Other culture, sputum sample was not sufficient. continue azithromycin for atypical bacterial coverage. Qualifiers: Pneumonia type: due to unspecified organism Laterality: bilateral Lung location: unspecified part of lung Qualified Code(s): J18.9 - Pneumonia, unspecified organism (4) Atrial fibrillation Current Visit: Yes Status: Chronic Assessment and plan: Currently controlled with Metoproplol 25 mg PO. Therapeutic heparin for anticoagulation. Qualifiers: Atrial fibrillation type: chronic Qualified Code(s): I48.2 - Chronic atrial fibrillation (5) Elevated troponin Current Visit: No Status: Acute Assessment and plan: Will follow up with cards outpatient. (6) COPD (chronic obstructive pulmonary disease) Current Visit: Yes Status: Acute Assessment and plan: Currently stable without wheezes at SatO2 99% on 3 L NC. continue steroids, duoneb. Qualifiers: COPD type: unspecified COPD Qualified Code(s): J44.9 - Chronic obstructive pulmonary disease, unspecified - Subjective Interval history: 87 yo F on day 4 of admission. Admitted for Acute CHF, NSTEMI, SEVEN, COPDE, PNA. Patient had cath yesterday, cards wants to follow up outpatient. Pt has no new complaints today. Pt denies chest pain, f, c, or extremity numbness or tingling. PMHx: CHF, Afib - Constitutional Vitals: Temp Pulse Resp BP Pulse Ox 97.8 F 52 17 107/54 99 01/19/17 15:00 01/19/17 15:00 01/19/17 15:00 01/19/17 15:00 01/19/17 15:00 General appearance: Present: mild distress, A&O X 3, answers questions appropriately - Respiratory Respiratory exam: Present: CTAB. Absent: accessory muscle use, rales, rhonchi, wheezes - Cardiovascular Cardiovascular exam: Present: RRR, +S1, +S2. Absent: diastolic murmur, gallop, rubs, systolic murmur - GI/Abdominal GI/Abdominal exam: Present: normal bowel sounds, soft, no peritoneal signs. Absent: distended, tenderness - Psychiatric Psychiatric exam: Present: normal affect, normal mood Internal Medicine: Result - Labs CBC & Chem 7: 01/19/17 05:01 01/19/17 15:10 Labs: Short CBC 01/19/17 Range/Units 05:01 WBC 6.8 (4.3-11.1) K/mcL Hgb 12.5 (11.5-15.4) g/dL Hct 38.0 (35.3-44.9) % Plt Count 259 (140-400) K/mcL Neutrophils # 3.4 (1.6-8.9) K/mcL BMP 01/19/17 01/19/17 05:01 15:10 Sodium 142 141 Potassium 2.9 L 3.5 Chloride 99 101 Carbon Dioxide 33 H 31 H BUN 29 H 31 H Creatinine 1.10 1.35 H Glucose 85 216 H Calcium 9.4 9.0 - ABG Interpretation ABG results: PT/INR, D-dimer PT 12.6 Seconds (9.4-12.1) H 01/16/17 10:33 - VTE Documentation of Mechanical Device: Intermittent pneumatic compression device Consult Discharge Plan - Plan Referrals: Arley Awan MD [Non-Partnered Physician] - 01/27/17 10:15 am (Please follow up as schedule...) Prescriptions: Rivaroxaban [Xarelto] 20 mg PO DAILY #30 tablet <William Aponte - Last Filed: 01/19/17 16:59> Date of Encounter: 01/19/17 - Assessment and plan (1) Hypokalemia Current Visit: Yes Status: Acute (2) Hypomagnesemia Current Visit: Yes Status: Acute - Constitutional Vitals: Temp Pulse Resp BP Pulse Ox 97.8 F 52 18 107/54 96 01/19/17 15:00 01/19/17 15:00 01/19/17 16:13 01/19/17 15:00 01/19/17 16:13 Internal Medicine: Result - Labs CBC & Chem 7: 01/19/17 05:01 01/19/17 15:10 Labs: Short CBC 01/19/17 Range/Units 05:01 WBC 6.8 (4.3-11.1) K/mcL Hgb 12.5 (11.5-15.4) g/dL Hct 38.0 (35.3-44.9) % Plt Count 259 (140-400) K/mcL Neutrophils # 3.4 (1.6-8.9) K/mcL BMP 01/19/17 01/19/17 05:01 15:10 Sodium 142 141 Potassium 2.9 L 3.5 Chloride 99 101 Carbon Dioxide 33 H 31 H BUN 29 H 31 H Creatinine 1.10 1.35 H Glucose 85 216 H Calcium 9.4 9.0 - ABG Interpretation ABG results: PT/INR, D-dimer PT 12.6 Seconds (9.4-12.1) H 01/16/17 10:33 - Attending Attestation I examined this patient and my medical decision-making was reviewed with the Resident Physician on 01/19/17. I agree with the documented findings, disposition and treatment plan as described except to the extent set forth below. Patient is seen and evaluated at the bedside No new complains She is being managed for Acute systolic CHF, NSTEMI, CAP, COPDE, SEVEN [facility] with mild disease, no intervention On exam, she is sitting up in bed in mild respiratory distress, VSS, CTAB,, HS S1, S2 only, no m/g/r, she has multiple bruises on her extremities from poking. Pedal edema has resolved Labs and Imaging reviewed. Hypokalemia, Hypomagnesemia I/O -5L A/P *NSTEMI: Continue medical management *Acute systolic CHF-Change Lasix to po, BB, ACEI *Pneumonia-Community acquired, continue Zosyn, and Azithromycin. day 4. Sputum and blood culture with no growth *Afib: rate controlled, on heparin for NSTEMI, continue same. On Xarelto, continue same *COPDE-Continue steroids to complete 5 days , nebs, resume home meds, patient is not wheezing at time of review *SEVEN-Improved, avoid nephrotoxins, monitor Chem *Hypokalemia/Hypomagnessemia: Replace. Possibly from lasix. Rest of details as in residents documentation Anticipate discharge tomorrow
[2017-01-19] MEDS ORDERED: *HR* Rivaroxaban 15 MG TABLET PO SCH (17:00)
[2017-01-20 03:01] LABS: CK-BB (CK isoenzymes) 0 % (0-0); CK-MB (CK isoenzymes) 0 % (0-4); CK-MM (CK-isoenzymes) 100 % (96-100)
[2017-01-20 04:51] LABS: BUN/Creatinine Ratio 30 (6-26); Blood Urea Nitrogen 29 mg/dL (7-20); Calcium 8.9 mg/dL (8.6-10.8); Carbon Dioxide 29 mEq/L (19-29); Chloride 103 mEq/L (98-109); Glucose 86 mg/dL (70-99); Osmolality,Calculated 295 (280-300); Potassium 3.1 mEq/L (3.5-4.5); Sodium 140 mEq/L (136-145); eGFR For African Americans > 60 (> 60); eGFR For Non-African Americans 55 (> 60)
[2017-01-20 05:48] LABS: Magnesium 1.7 mg/dL (1.6-2.6)
[2017-01-20] MEDS ORDERED: Magnesium Sulfate 1 GM in D5% in Water 100 ML IVPB ONE (06:12)
[2017-01-20 07:22] VITALS: BP 131/57
[2017-01-20] MEDS: predniSONE 20 MG TABLET PO SCH (08:09)
[2017-01-20] MEDS: Metoprolol XL (24 HR) Succ 25 MG TAB.ER.24H PO SCH (08:09)
[2017-01-20] MEDS: Aspirin 81 MG TAB.CHEW PO SCH (08:09)
[2017-01-20] MEDS: Budesonide/Formoterol 80/4.5 MDI IH SCH (08:13)
[2017-01-20] MEDS: Levalbuterol 1 PUFF INHALER IH SCH (08:14)
[2017-01-20] MEDS ORDERED: Furosemide 40 MG TABLET PO SCH (09:00)
--- NOTE | 2017-01-20 10:09 | Discharge Summary ---
<RoxannaDaljit - Last Filed: 01/20/17 11:01> Date of Encounter: 01/20/17 Time of Encounter: 10:07 - Discharge Diagnosis (1) NSTEMI (non-ST elevated myocardial infarction) Priority: Primary Status: Acute (2) CHF (congestive heart failure) Priority: Secondary Status: Chronic Qualifiers: Congestive heart failure type: diastolic Congestive heart failure chronicity: chronic Qualified Code(s): I50.32 - Chronic diastolic (congestive ) heart failure (3) Pneumonia Priority: Secondary Status: Acute Qualifiers: Pneumonia type: due to unspecified organism Laterality: bilateral Lung location: unspecified part of lung Qualified Code(s): J18.9 - Pneumonia, unspecified organism (4) Atrial fibrillation Priority: Secondary Status: Chronic Qualifiers: Atrial fibrillation type: chronic Qualified Code(s): I48.2 - Chronic atrial fibrillation (5) Elevated troponin Priority: Secondary Status: Acute (6) COPD (chronic obstructive pulmonary disease) Priority: Secondary Status: Acute Qualifiers: COPD type: unspecified COPD Qualified Code(s): J44.9 - Chronic obstructive pulmonary disease, unspecified - Discharge Medications Prescriptions: Azithromycin [Zithromax] 500 mg PO Q24H #1 tab Rivaroxaban [Xarelto] 20 mg PO DAILY #30 tablet Home Medications: Aspirin 81 mg PO DAILY 02/23/15 [History] Atorvastatin [Lipitor] 20 mg PO HS 02/23/15 [History] Clopidogrel [Plavix] 75 mg PO DAILY 02/23/15 [History] Docusate [Colace] 100 mg PO BID PRN 02/23/15 [History] Esomeprazole Magnesium [Nexium] 40 mg PO DAILY 02/23/15 [History] Fluticasone Propionate [Flovent Diskus] 2 puff IH BID 02/23/15 [History] Fluticasone/Salmeterol [Advair 250-50 Diskus] 1 each IH BID 02/23/15 [History] Furosemide [Lasix] 20 mg PO BID 02/23/15 [History] Gabapentin [Neurontin] 600 mg PO QAM 02/23/15 [History] GuaiFENesin ER [Mucinex] 600 mg PO BID PRN 02/23/15 [History] Montelukast [Singulair] 10 mg PO HS 02/23/15 [History] Multivit-Min/FA/Lycopen/Lutein [Centrum Silver Tablet] 1 each PO DAILY 02/23/15 [History] Raloxifene [Evista] 60 mg PO DAILY 02/23/15 [History] Gabapentin [Neurontin] 1,200 mg PO HS 07/01/15 [History] HYDROcodone/Acet 5/325 mg [[place] 5-325 mg] 1 tab PO Q6HR PRN 07/01/15 [History] Isosorbide MONOnitrate (24 HR) [Imdur] 30 mg PO DAILY 07/01/15 [History] hydrALAZINE [HydrALAZINE] 25 mg PO BID #60 tablet 10/03/15 [Rx] Fluticasone Propionate Nasal [Flonase] 50 mcg NS DAILY 05/13/16 [History] Levalbuterol Tartrate [Xopenex Hfa] 2 puff IH TID 05/13/16 [History] Nitroglycerin [Nitrostat] 0.4 mg SL Q5M PRN 05/13/16 [History] Umeclidinium [place] [Incruse Ellipta] 62.5 mcg IH DAILY 05/13/16 [History] Oxygen 2 l IN CONT #1 each 05/16/16 [Rx] Albuterol Neb [Proventil Neb] 2.5 mg IH Q4HR PRN 01/15/17 [History] Aspirin [Lo-Dose Aspirin EC] 81 mg PO DAILY 01/15/17 [History] Gabapentin [Neurontin] 600 mg PO QPM 01/15/17 [History] Raloxifene [Evista] 60 mg PO DAILY 01/15/17 [History] Rivaroxaban [Xarelto] 20 mg PO DAILY #30 tablet 01/18/17 [Rx] Azithromycin [Zithromax] 500 mg PO Q24H #1 tab 01/20/17 [Rx] Rivaroxaban [Xarelto] 15 mg PO 1700 tab 01/20/17 [Rx] Allergies/Adverse Reactions: Allergies No Known Allergies Allergy (Verified 02/22/15 20:14) Procedures/tests Complete & Pending: Procedures Performed prior 72 hours Category Date Time Status Left Heart Cath [CL Cardiac Catheterization] [CL] Staple Laster 01/18/17 08:43 Completed Routine Date of admission: 01/15/17 10:54 Primary care physician: PCP NONE Consults: 01/16/17 07:44 Consult to Cardiology [CONS] Stat Comment: Consulting Provider: Cardiology Edwina Reason for Consult: NSTEMI Call Completed: No - Patient Status Disposition: Home, Self-Care Condition: Fair - Discharge Instructions Instructions: Heart Failure (DC), Pneumonia (DC) Follow Up With: Arley Awan MD [Non-Partnered Physician] - 01/27/17 10:15 am (Please follow up as schedule...) Hospital course: Ms. Espinal is a 81 year old female Ms Espinal is an 81 year old female that was admitted to the hospital on telemetry on 01/16/16. She was originally admitted due to SOB with a history of COPD, HTN, diastolic CHF, and former smoker. She was brought in by EMS. In the ED EKG showed chronic Afib but no changes from last EKG on 06/11/16, CXR showed perihilar mass on the right side, labs which showed no elevated white blood cell count, with mild anemia that is chronic, trops were negative, and U/ S doppler was done on her right lower extremity which came back negative. She was given sublingual nitroglycerin to help with her preload. Then CT chest with contrast showed perihilar lymph nodes and some calcifications. Patient developed hypoxia and was placed on 2L of home oxygen. Patient was unable to remain flat without developing shortness of breath. Patient was given 20 mg IV lasix. Patient was then admitted onto the floor. His sputum was sent for CX which showed E. Coli resistant to fluroquinolones and was started on Zosyn. For symptomatic support she was given duboneb and O2. She was started on Solumedrol IV and home steroids for COPD support. Cardiology performed an 2d echo which confirmed historic diastolic CHF but also confirmed new Acute Systolic CHF. Ejection fraction 25-30% wih 1 vessel disease non-ischemic. Afib was rate controlled with toprolol and CHADSVASC score of 6. She was then started on heparin for DVT prophylaxis. As well, developed mild SEVEN which was treated with gentle diuresis and avoided nephrotoxic meds. Her home HTN meds were continued. Cardiology signed off and setup a follow up appointment 5-7 days. She was continued on heparin, ASA, and lipitor. Sputum cultures returned on 01/18/17 which was negative for legionella and s. pneumonia, and the rest of the sample was not sufficient for further testing. She empirically covered with zosyn and azithromcin. On 01/18 potassium was 2.7, patient was given 10 mEq IV K, and 60 mEq PO K. The next day her K was 3.5, and then on 01/20 her K was 3.1 She was discharged with Potassium PO 20 mEq. She was discharged with a follow up with cardiology in 5-7 days. - Time Spent with Patient Total time spent providing and/or coordinating discharge services: - Constitutional Vitals: Temp Pulse Resp BP Pulse Ox 98.3 F 63 18 131/57 93 01/20/17 07:11 01/20/17 07:11 01/20/17 08:16 01/20/17 07:11 01/20/17 08:16 General appearance: Present: mild distress, A&O X 3, answers questions appropriately - Head Head exam: Present: atraumatic, normocephalic - Respiratory Respiratory exam: Present: CTAB. Absent: accessory muscle use, rales, rhonchi, wheezes - Cardiovascular Cardiovascular exam: Present: RRR, +S1, +S2. Absent: diastolic murmur, gallop, rubs, systolic murmur - GI/Abdominal GI/Abdominal exam: Present: normal bowel sounds, soft, no peritoneal signs. Absent: distended, tenderness - Neurological Exam Neurological exam: Present: alert, oriented X3 - Psychiatric Psychiatric exam: Present: normal affect, normal mood - VTE Documentation of Mechanical Device: Intermittent pneumatic compression device <William Aponte - Last Filed: 01/20/17 12:29> Date of Encounter: 01/20/17 - Discharge Diagnosis (1) Hypokalemia Status: Acute (2) Hypomagnesemia Status: Acute Procedures/tests Complete & Pending: Procedures Performed prior 72 hours Category Date Time Status Left Heart Cath [CL Cardiac Catheterization] [CL] Staple Laster 01/18/17 08:43 Completed Routine Date of admission: 01/15/17 10:54 Primary care physician: PCP NONE Consults: 01/16/17 07:44 Consult to Cardiology [CONS] Stat Comment: Consulting Provider: Cardiology Edwina Reason for Consult: NSTEMI Call Completed: No Hospital course: Ms. Espinal is a 81 year old female - Time Spent with Patient Total time spent providing and/or coordinating discharge services: - Constitutional Vitals: Temp Pulse Resp BP Pulse Ox 98.3 F 63 18 131/57 93 01/20/17 07:11 01/20/17 07:11 01/20/17 08:16 01/20/17 07:11 01/20/17 08:16 - Attending Attestation I examined this patient and my medical decision-making was reviewed with the Resident Physician on 01/20/17. I agree with the documented findings, disposition and treatment plan as described except to the extent set forth below. Patient is seen and evaluated at the bedside No new complains She was managed for Acute systolic CHF, NSTEMI, CAP, COPDE, SEVEN, Afib EF 25-30%,LHC from 01/18/17 revealed single vessel disease/ Non ischemic cardiomyopathy. On exam, she is sitting up in bed in mild respiratory distress, VSS, CTAB,, HS S1, S2 only, no m/g/r, she has multiple bruises on her extremities from poking. Pedal edema has resolved She is clincally euvolemic She developed elevated creatinine yesterday which improved today with decreasing the dose of her lasix Hypokalemia was replaced Patient is clinically stable for discharge on Xarelto, Lasix, Potassium, as well as BB, ACEI, Lipitor, ASA. She completed 5 days of Prednisone, Azithromycin and Zosyn in-patient Plavix was discontinued Her xarelto was confirmed and prescribed by cardiology This patient refused PT/OT evaluation throughout her hospital stay She had bruising on her extremities on admission day which she attributed to trauma , but she refused PT/OT eval Follow up with Cardiology, PCP Rest of details as in resident physician's documentation
[2017-01-21 07:15] LABS: CK Total (Ck Isoenzymes) 105 U/L (20-180)
== END 2017-01-20 11:22 | disposition home or self-care (01) | DRG 280 ==
LOC: EMEROO 07:32 → SUATTDRO 10:54 → 2ANU 10:54
PROVIDERS: ADMIT Family Medicine; ATTEND Internal Medicine

== ENCOUNTER 2017-04-29 16:18 | Inpatient (IN) ==
[2017-04-29] MEDS ORDERED: methylPREDNISolone 125 MG/2 ML VIAL IVP ONE (16:24)
[2017-04-29] MEDS ORDERED: Ipratropium/Albuterol Neb 3 ML IH ONE (16:24)
--- NOTE | 2017-04-29 17:17 | Emergency Department Note ---
Disposition Clinical Impression: Acute exacerbation of chronic obstructive airways disease, Acute electrocardiogram changes, Bronchitis Fall at home Qualifiers: Encounter type: initial encounter Qualified Code(s): W19.XXXA - Unspecified fall, initial encounter Disposition: Admitted As Inpatient General Adult HPI - General Chief complaint: ED Shortness of Breath/Dyspnea Stated complaint: PRASHANT Time Seen by Provider: 04/29/17 16:35 Source: EMS Limitations: physical limitation Nursing Notes Reviewed: Yes Vital Signs Reviewed: Yes - History of Present Illness HPI Narrative: 81-year-old female was found down at home after an unknown amount of time then brought into the emergency department via EMS. Patient has a known history of COPD and states that she has had increasing sputum production over the last few days. Patient also reports having subjective fevers. Patient states that she is short of breath. Patient is on 2 L of oxygen at home via nasal cannula. Patient states that she feels as if she did have pneumonia or COPD exacerbation she has had this in the past. Pain Scale: 0 - Related Data Home Medications Medication Instructions Recorded Confirmed Atorvastatin [Lipitor] 20 mg PO HS 02/23/15 04/29/17 Clopidogrel [Plavix] 75 mg PO DAILY 02/23/15 04/29/17 Docusate [Colace] 100 mg PO BID PRN 02/23/15 04/29/17 Esomeprazole Magnesium [Nexium] 40 mg PO DAILY 02/23/15 04/29/17 Fluticasone Propionate [Flovent 2 puff IH BID 02/23/15 04/29/17 Diskus] Fluticasone/Salmeterol [Advair 1 each IH BID 02/23/15 04/29/17 250-50 Diskus] Furosemide [Lasix] 20 mg PO BID 02/23/15 04/29/17 Gabapentin [Neurontin] 600 mg PO BID 02/23/15 04/29/17 GuaiFENesin ER [Mucinex] 600 mg PO BID PRN 02/23/15 04/29/17 Montelukast [Singulair] 10 mg PO HS 02/23/15 04/29/17 Multivit-Min/FA/Lycopen/Lutein 1 each PO DAILY 02/23/15 04/29/17 [Centrum Silver Tablet] Gabapentin [Neurontin] 1,200 mg PO HS 07/01/15 04/29/17 HYDROcodone/Acet 5/325 mg [[place] 1 tab PO Q6HR PRN 07/01/15 04/29/17 5-325 mg] Isosorbide MONOnitrate (24 HR) 30 mg PO DAILY 07/01/15 04/29/17 [Imdur] Fluticasone Propionate Nasal 50 mcg NS DAILY 05/13/16 04/29/17 [Flonase] Levalbuterol Tartrate [Xopenex Hfa] 2 puff IH TID 05/13/16 04/29/17 Nitroglycerin [Nitrostat] 0.4 mg SL Q5M PRN 05/13/16 04/29/17 Umeclidinium [place] [Incruse 62.5 mcg IH DAILY 05/13/16 04/29/17 Ellipta] Albuterol Neb [Proventil Neb] 2.5 mg IH Q4HR PRN 01/15/17 04/29/17 Aspirin [Lo-Dose Aspirin EC] 81 mg PO DAILY 01/15/17 04/29/17 Raloxifene [Evista] 60 mg PO DAILY 01/15/17 04/29/17 Previous Rx's Medication Instructions Recorded hydrALAZINE [HydrALAZINE] 25 mg PO BID #60 tablet 10/03/15 Oxygen 2 l IN CONT #1 each 05/16/16 Rivaroxaban [Xarelto] 20 mg PO DAILY #30 tablet 01/18/17 Lisinopril [Zestril] 10 mg PO DAILY #30 tablet 01/21/17 Metoprolol XL (24 HR) Succ [Toprol 25 mg PO DAILY #30 tab.er.24h 01/21/17 Xl] Allergies Allergy/AdvReac Type Severity Reaction Status Date / Time No Known Allergies Allergy Verified 04/29/17 16:21 All systems ED: reviewed and negative except as stated. Review of Systems: As Per HPI Constitutional: Reports: fever Cardiovascular: Reports: dyspnea on exertion Respiratory: Reports: cough, dyspnea Gastrointestinal: Reports: nausea Musculoskeletal: Denies: back pain Neurological: Denies: weakness, numbness, paresthesias Past Medical History - Past Medical History Medical history: Reports: arthritis, asthma, atrial fibrillation, CHF, COPD, coronary artery disease, GERD, hyperlipidemia, hypertension, osteoporosis Surgical history: Reports: , hysterectomy Psychiatric history: Reports: depression EMU FARMER history: Reports: no EMU FARMER history - Social History Smoking Status: Former smoker Smokeless Tobacco Status: No Alcohol use: Reports: none Drug use: Reports: none Physical Exam General: 81-year-old female who is obese, appears to be in moderate respiratory distress Head: autraumatic, EOMI, no conjuncitval pallor, no scleral icterus, Mouth: oral mucous membranes moist Neck: neck soft, trachea midline Chest:: Equal chest wall rise Lungs: Wheezes and rhonchi throughout, moderate respiratory distress Heart: normal heart sounds, normal rate and rhythm, Abdomen: soft, non-tender, no rigidity, no guarding, no rebdound tenderness Pelvis: Intact, no tenderness to compression Lower Extremities: no pedal edema, calves non-tender Integumentary: Skin warm, dry, and intact Neuro: Alert and oriented to person, place, time. GCS 15. No focal neurologic abnormalities. Cranial nerves II through XII grossly intact, strength 5 out of 5 in the upper lotion as bilaterally, sensation intact throughout. Psych: normal affect, normal mood - General Limitations: physical limitation General appearance: alert, anxious Course Vital Signs Temperature 98.2 F 04/29/17 16:22 Pulse Rate 73 04/29/17 16:22 Respiratory Rate 22 04/29/17 16:22 Blood Pressure 142/77 04/29/17 16:22 O2 Sat by Pulse Oximetry 93 04/29/17 16:22 Temperature 98.2 F 04/29/17 16:22 Pulse Rate 67 04/29/17 16:44 Respiratory Rate 16 04/29/17 16:44 Blood Pressure 119/79 04/29/17 16:44 O2 Sat by Pulse Oximetry 97 04/29/17 16:44 Oxygen Delivery Oxygen Delivery Aerosol Mask Medical Decision Making - [facility] Narrative Medical decision making narrative: 81-year-old female presents to the emergency department after being found down at home with patient being a somewhat poor historian as to why she actually fell. Patient reports subjective fevers with a known history of COPD that were initially concerning for pneumonia, COPD exacerbation. Due to being down for an unknown amount of time, there was pus was sent for rhabdomyolysis. Serum creatinine kinase was not elevated and within normal limits. Chest x-ray did not reveal any signs of pneumonia. However, due to the increased sputum production and the sputum that I saw upon physical exam I still suspect possible pneumonia component to this patient's COPD exacerbation. CT of the head and neck were obtained as a possible concern for head trauma. This is not revealed any acute abnormality. AP of the pelvis was also obtained due to mild suspicion of hip fracture. This did not reveal any acute bony abnormality. Patient was given 3 DuoNeb here in the emergency department as well as 125 Solu- Medrol. Patient's electrocardiogram revealed some new T-wave inversions in 1 and aVL that were new from electrocardiogram performed on January 15, 2017. Troponin was negative. Patient is denying chest pain, pressure, tightness. At this time, I do not suspect a myocardial infarction. I spoke with the hospitalist regarding all the findings and my desire to admit this patient. He agreed to accept the admission. I started her on Levaquin for antibiotics out of my concern for a pneumonia aspect to her COPD exacerbation as patient did have a mildly elevated leukocytosis here.. I discussed the plan with the patient and she agreed to be admitted. Patient was hemodynamically stable at time of admission and stated that clinically she was able to breathe better than before she was here. Chest X-Ray 04/29/17 16:24 IMPRESSION: No definite acute abnormality. Limited examination. D/ / Mj Leigh MD / Mj Leigh MD Interpreting Provider: Mj Leigh MD Cervical Spine CT 04/29/17 17:09 IMPRESSION: No acute abnormality of the cervical spine. D/ / Talha Chaidez MD / Talha Chaidez MD Interpreting Provider: Talha Chaidez MD Head CT 04/29/17 17:09 IMPRESSION: No acute intracranial abnormality. D/ / Syed Begum MD / Syed Begum MD Interpreting Provider: Syed Begum MD Pelvis X-Ray 04/29/17 17:09 IMPRESSION: No acute osseous abnormality. D/ / 04/29/2017 17:58:51 Edwin Arenas MD / johnyay Interpreting Provider: Edwin Arenas MD Vital Signs Temperature 98.2 F 04/29/17 16:22 Pulse Rate 73 04/29/17 16:22 Respiratory Rate 22 04/29/17 16:22 Blood Pressure 142/77 04/29/17 16:22 O2 Sat by Pulse Oximetry 93 04/29/17 16:22 Temperature 98.2 F 04/29/17 16:22 Pulse Rate 67 04/29/17 16:44 Respiratory Rate 16 04/29/17 16:44 Blood Pressure 119/79 04/29/17 16:44 O2 Sat by Pulse Oximetry 97 04/29/17 16:44 Oxygen Delivery Oxygen Delivery Aerosol Mask - Medical Records Medical records reviewed: Yes I reviewed the patient's medical records. - Lab Data Lab results reviewed: Yes I reviewed the patient's lab results. Result diagrams: 04/29/17 17:29 04/29/17 17:29 Lab Results 04/29/17 04/29/17 04/29/17 Range/Units 17:29 17:29 17:29 WBC 13.0 H (4.3-11.1) K/mcL RBC 4.09 (3.82-4.97) M/mcL Hgb 12.7 (11.5-15.4) g/dL Hct 38.8 (35.3-44.9) % MCV 94.9 (83.0-100.0) fL MCH 31.1 (28.0-33.3) pg MCHC 32.7 (31.6-35.5) g/dL RDW 12.5 (11.5-14.5) % Plt Count 268 (140-400) K/mcL MPV 10.0 (9.4-12.4) fL Immature Gran % 0.4 (0-4) % Seg Neutrophils % 49.4 % Lymphocytes % 35.9 % Monocytes % 8.6 % Eosinophils % 5.2 % Basophils % 0.5 % Neutrophils # 6.4 (1.6-8.9) K/mcL Lymphocytes # 4.7 H (0.6-4.6) K/mcL Monocytes # 1.1 (0.0-1.3) K/mcL Eosinophils # 0.7 H (0.0-0.6) K/mcL Basophils # 0.1 (0.0-0.2) K/mcL Sodium 137 (136-145) mEq/L Potassium 4.0 (3.5-4.5) mEq/L Chloride 102 (98-109) mEq/L Carbon Dioxide 24 (19-29) mEq/L BUN 15 (7-20) mg/dL Creatinine 0.84 (0.57-1.11) mg/dL Est GFR ( Amer) > 60 (> 60) Est GFR (Non-Af Amer) > 60 (> 60) BUN/Creatinine Ratio 18 (6-26) Glucose 97 (70-99) mg/dL Calculated Osmolality 285 (280-300) Lactic Acid (0.5-2.2) mmol/L Calcium 9.2 (8.6-10.8) mg/dL Creatine Kinase (29-168) Units/L Troponin I 0.03 (0-0.03) ng/mL B-Natriuretic Peptide (0-100) pg/mL 04/29/17 04/29/17 04/29/17 Range/Units 17:48 17:48 17:48 WBC (4.3-11.1) K/mcL RBC (3.82-4.97) M/mcL Hgb (11.5-15.4) g/dL Hct (35.3-44.9) % MCV (83.0-100.0) fL MCH (28.0-33.3) pg MCHC (31.6-35.5) g/dL RDW (11.5-14.5) % Plt Count (140-400) K/mcL MPV (9.4-12.4) fL Immature Gran % (0-4) % Seg Neutrophils % % Lymphocytes % % Monocytes % % Eosinophils % % Basophils % % Neutrophils # (1.6-8.9) K/mcL Lymphocytes # (0.6-4.6) K/mcL Monocytes # (0.0-1.3) K/mcL Eosinophils # (0.0-0.6) K/mcL Basophils # (0.0-0.2) K/mcL Sodium (136-145) mEq/L Potassium (3.5-4.5) mEq/L Chloride (98-109) mEq/L Carbon Dioxide (19-29) mEq/L BUN (7-20) mg/dL Creatinine (0.57-1.11) mg/dL Est GFR ( Amer) (> 60) Est GFR (Non-Af Amer) (> 60) BUN/Creatinine Ratio (6-26) Glucose (70-99) mg/dL Calculated Osmolality (280-300) Lactic Acid 1.7 (0.5-2.2) mmol/L Calcium (8.6-10.8) mg/dL Creatine Kinase 50 (29-168) Units/L Troponin I (0-0.03) ng/mL B-Natriuretic Peptide 200 H (0-100) pg/mL - Radiology Data Radiology results reviewed: Yes I reviewed the patient's radiology results. - EKG Data EKG #1 EKG attestation: Yes I reviewed and interpreted this EKG. EKG results narrative: 16:33 Ventricular rate 70 bpm, no P waves, QRS duration 140 ms, QT 392 ms, QTC 430 ms , left axis deviation. Atrial fibrillation with a ventricular rate of 70 bpm. There are new inversions of T waves in leads 1, aVL that are new compared to an electrocardiogram performed on January 15, 2017. Attestation Statement - Attestation Attestation: I, Smith Landin DO, examined this patient [id number] and my medical decision-making was reviewed with Dr. Hai Lopez Resident Physician. I agree with the documented findings, disposition and treatment plan as described except to the extent set forth below. Please see my progress notes for details. 81-year-old female presents emergency room complaining of difficulty in breathing. Patient coarse crackles and bilateral wet sounding lungs in presentation. Vital signs reviewed and patient does have tachypnea tachycardia and possible hypoxia. Otherwise physical exam is unremarkable. Patient is have accessory muscle use along with coarse breath sounds. Breathing treatments to be provided here. Patient has long-standing history of congestive heart failure and has mild pitting edema in lower extremities. Chest x-ray EKG labs including CBC chemistry troponin and BNP will be ordered at this time. Patient will be evaluated for definitive source to the tachycardia as well as shortness of breath. She will most likely need admission. See detailed documentation of the physical exam, medical intervention, medical decision-making and disposition resident physician's note Imaging modalities are negative. Patient has had no progression of symptoms here but does still have conversational dyspnea. No acute signs of fluid overload on chest x-ray. Patient will be run the hospital for what appears to be hypoxia with COPD exacerbation and clinical bronchitis. Antibiotic regimen started and blood cultures ordered at this time. No other acute concerning findings on physical exam. Patient admitted at this time for definitive management.
[2017-04-29 17:47] LABS: Basophils # 0.1 K/mcL (0.0-0.2); Basophils % 0.5 %; Eosinophils # 0.7 K/mcL (0.0-0.6); Eosinophils % 5.2 %; Hematocrit 38.8 % (35.3-44.9); Hemoglobin 12.7 g/dL (11.5-15.4); Immature Granulocytes % 0.4 % (0-4); Lymphocytes # 4.7 K/mcL (0.6-4.6); Lymphocytes % 35.9 %; Mean Corpuscular HGB Conc 32.7 g/dL (31.6-35.5); Mean Corpuscular Hemoglobin 31.1 pg (28.0-33.3); Mean Corpuscular Volume 94.9 fL (83.0-100.0); Monocytes # 1.1 K/mcL (0.0-1.3); Monocytes % 8.6 %; Neutrophils # 6.4 K/mcL (1.6-8.9); Platelet Count 268 K/mcL (140-400); Red Blood Count 4.09 M/mcL (3.82-4.97); Red Cell Distribution Width 12.5 % (11.5-14.5); Segmented Neutrophils % 49.4 %
[2017-04-29 18:00] LABS: BUN/Creatinine Ratio 18 (6-26); Blood Urea Nitrogen 15 mg/dL (7-20); Calcium 9.2 mg/dL (8.6-10.8); Carbon Dioxide 24 mEq/L (19-29); Chloride 102 mEq/L (98-109); Glucose 97 mg/dL (70-99); Osmolality,Calculated 285 (280-300); Sodium 137 mEq/L (136-145); eGFR For African Americans > 60 (> 60); eGFR For Non-African Americans > 60 (> 60)
[2017-04-29] MEDS ORDERED: Levofloxacin 750 MG/150 ML 750 MG/150 ML BAG IVPB ONE (20:22)
[2017-04-30] MEDS ORDERED: *HR* HYDROcodone/Acet 5/325 mg TABLET PO PRN (00:04)
[2017-04-30] MEDS ORDERED: NON-FORMULARY MEDICATION 1 EACH EACH (Oxygen [Oxygen] 2 L) IN SCH (00:15)
--- NOTE | 2017-04-30 03:03 | Internal Med History&Physical ---
Date of Encounter: 04/30/17 Time of Encounter: 03:00 Assessment and Plan (1) COPD exacerbation Current visit: Yes Status: Acute Start the patient on IV steroids, nebulizer treatments, levaquin for acute bronchitis (2) Fall Current visit: Yes Status: Acute No traumatic injuries. No focal neurological deficits. Physical therapy occupational therapy and social workers to see the patient Qualifiers: Qualified Code(s): W19.XXXA - Unspecified fall, initial encounter Internal Medicine - H&P: HPI Chief complaint: sob, fall History of present illness: Ms. Espinal is a 81 year old female presents emergency room today after a fall. Patient mentioned that she had mechanical fault today in her bedroom. Does not think that she passed out. She did not stay on the ground for too long was able to call family member and paramedics and present to the hospital. Patient has been getting weaker the past few days. She has been getting progressively short of breath with minimal exertion she has been having productive cough of greenish sputum. She denies any fever or chills. No lower extremity swelling, orthopnea or chest pain. Patient denies any traumatic injuries. Patient denies any focal upper or lower extremity weakness tingling or numbness in any extremity facial symmetry or speech slurriness. Past Med Surg Social Fam HX - Past Medical History Medical history: arthritis, asthma, atrial fibrillation, CHF, COPD, coronary artery disease, GERD, hyperlipidemia, hypertension, osteoporosis Psychiatric history: depression - Past Surgical History Surgical History: , hysterectomy - Social History Smoking Status: Former smoker Smokeless Tobacco Status: No Alcohol use: none Drug use: none - Family History Father Living Status: Hx Family Cardiac Disorders: Yes (heart failure) Mother Living Status: Hx Family Cardiac Disorders: Yes Hx Family Endocrine Disorder: Yes (DM) Internal Medicine - H&P: Meds Atorvastatin [Lipitor] 20 mg PO HS 02/23/15 [History] Clopidogrel [Plavix] 75 mg PO DAILY 02/23/15 [History] Docusate [Colace] 100 mg PO BID PRN 02/23/15 [History] Esomeprazole Magnesium [Nexium] 40 mg PO DAILY 02/23/15 [History] Fluticasone Propionate [Flovent Diskus] 2 puff IH BID 02/23/15 [History] Fluticasone/Salmeterol [Advair 250-50 Diskus] 1 each IH BID 02/23/15 [History] Furosemide [Lasix] 20 mg PO BID 02/23/15 [History] Gabapentin [Neurontin] 600 mg PO BID 02/23/15 [History] GuaiFENesin ER [Mucinex] 600 mg PO BID PRN 02/23/15 [History] Montelukast [Singulair] 10 mg PO HS 02/23/15 [History] Multivit-Min/FA/Lycopen/Lutein [Centrum Silver Tablet] 1 each PO DAILY 02/23/15 [History] Gabapentin [Neurontin] 1,200 mg PO HS 07/01/15 [History] HYDROcodone/Acet 5/325 mg [Una 5-325 mg] 1 tab PO Q6HR PRN 07/01/15 [History] Isosorbide MONOnitrate (24 HR) [Imdur] 30 mg PO DAILY 07/01/15 [History] hydrALAZINE [HydrALAZINE] 25 mg PO BID #60 tablet 10/03/15 [Rx] Fluticasone Propionate Nasal [Flonase] 50 mcg NS DAILY 05/13/16 [History] Levalbuterol Tartrate [Xopenex Hfa] 2 puff IH TID 05/13/16 [History] Nitroglycerin [Nitrostat] 0.4 mg SL Q5M PRN 05/13/16 [History] Umeclidinium [place] [Incruse Ellipta] 62.5 mcg IH DAILY 05/13/16 [History] Oxygen 2 l IN CONT #1 each 05/16/16 [Rx] Albuterol Neb [Proventil Neb] 2.5 mg IH Q4HR PRN 01/15/17 [History] Aspirin [Lo-Dose Aspirin EC] 81 mg PO DAILY 01/15/17 [History] Raloxifene [Evista] 60 mg PO DAILY 01/15/17 [History] Rivaroxaban [Xarelto] 20 mg PO DAILY #30 tablet 01/18/17 [Rx] Lisinopril [Zestril] 10 mg PO DAILY #30 tablet 01/21/17 [Rx] Metoprolol XL (24 HR) Succ [Toprol Xl] 25 mg PO DAILY #30 tab.er.24h 01/21/17 [ Rx] 3 Allergy/AdvReac Type Severity Reaction Status Date / Time No Known Allergies Allergy Verified 04/29/17 16:21 All Systems PM: A 10-system review of systems was performed and is negative for pertinent findings except as documented above in the HPI. Review of systems: 10 point ovule systems is negative except for HPI - Constitutional Vitals: Temp Pulse Resp BP Pulse Ox 98.2 F 69 16 139/66 95 04/29/17 23:00 04/29/17 23:00 04/29/17 23:00 04/29/17 23:00 04/29/17 23:00 Exam: General: Patient is A&O X3 Cardiac: normal S1, S2, no additional sounds or murmurs Chest: diminished air entry, expiratory wheeze. Abdomen: soft, nontender, non distended, normal BS. Neuro: No focal deficits Internal Med - H&P Results - Labs CBC & Chem 7: 04/29/17 17:29 04/29/17 17:29
[2017-04-30 04:31] LABS: BUN/Creatinine Ratio 25 (6-26); Blood Urea Nitrogen 23 mg/dL (7-20); Calcium 9.1 mg/dL (8.6-10.8); Carbon Dioxide 23 mEq/L (19-29); Chloride 101 mEq/L (98-109); Glucose 139 mg/dL (70-99); Magnesium 1.4 mg/dL (1.6-2.6); Osmolality,Calculated 294 (280-300); Potassium 3.9 mEq/L (3.5-4.5); Sodium 139 mEq/L (136-145); eGFR For African Americans > 60 (> 60); eGFR For Non-African Americans 59 (> 60)
[2017-04-30 04:50] LABS: Basophils % 0.1 %; Hematocrit 36.8 % (35.3-44.9); Hemoglobin 11.9 g/dL (11.5-15.4); Immature Granulocytes % 0.4 % (0-4); Lymphocytes # 0.9 K/mcL (0.6-4.6); Lymphocytes % 12.2 %; Mean Corpuscular HGB Conc 32.3 g/dL (31.6-35.5); Mean Corpuscular Hemoglobin 30.4 pg (28.0-33.3); Mean Corpuscular Volume 94.1 fL (83.0-100.0); Mean Platelet Volume 10.1 fL (9.4-12.4); Monocytes # 0.1 K/mcL (0.0-1.3); Monocytes % 1.7 %; Neutrophils # 6.1 K/mcL (1.6-8.9); Platelet Count 309 K/mcL (140-400); Red Blood Count 3.91 M/mcL (3.82-4.97); Red Cell Distribution Width 12.4 % (11.5-14.5); Segmented Neutrophils % 85.6 %
[2017-04-30] MEDS: Ipratropium/Albuterol Neb 3 ML IH SCH ×6 (05:01→23:19)
[2017-04-30] MEDS: methylPREDNISolone 125 MG/2 ML VIAL IVP SCH ×4 (05:36→23:06)
[2017-04-30] MEDS: Budesonide/Formoterol 80/4.5 MDI IH SCH ×2 (08:21→19:56)
[2017-04-30] MEDS ORDERED: FLUTICASONE PROPIONATE IH SCH (09:00)
[2017-04-30] MEDS: Aspirin Enteric Coated 81 MG Tablet PO SCH (09:16)
[2017-04-30] MEDS: Isosorbide MONOnitrate (24 HR) 30 MG TAB.ER.24H PO SCH (09:16)
[2017-04-30] MEDS: Levofloxacin 750 MG/150 ML 750 MG/150 ML BAG IVPB SCH (09:16)
[2017-04-30] MEDS: Fluticasone Propionate Nasal 50 MCG/SPRAY BOTTLE NS SCH (09:18)
--- NOTE | 2017-04-30 17:49 | Internal Med Progress Note ---
Date of Encounter: 04/30/17 Time of Encounter: 14:00 - Assessment and plan (1) Fall at home Current Visit: Yes Status: Acute Assessment and plan: No evidence of injury or trauma. Mechanical fall at home without syncopal episode. We will institute fall precautions. Get PT OT evaluation. Social work consult for placement as she would likely need inpatient rehabilitation. Qualifiers: Encounter type: initial encounter Qualified Code(s): W19.XXXA - Unspecified fall, initial encounter; Y92.099 - Unspecified place in other non- institutional residence as the place of occurrence of the external cause; Y92.099 - Unspecified place in other non-institutional residence as the place of occurrence of the external cause (2) Bronchitis Current Visit: Yes Status: Acute Assessment and plan: Acute bacterial bronchitis as evidenced by increasing sputum production will be treated with IV Levaquin. We will follow up sputum culture. (3) COPD exacerbation Current Visit: Yes Status: Acute Assessment and plan: She has worsening shortness of breath and wheezing. We will treat her with IV Solu-Medrol, and hand-held albuterol and ipratropium and IV Levaquin. - Subjective Interval history: Patient presented to the hospital status post fall. She reported that worsening weakness and shortness of breath over the 3 days preceding her presentation. Currently she reports mild shortness of breath at rest, improved from yesterday. - Constitutional Vitals: Temp Pulse Resp BP Pulse Ox 97.8 F 73 16 153/72 93 04/30/17 15:17 04/30/17 15:17 04/30/17 15:47 04/30/17 15:17 04/30/17 15:47 General appearance: Present: A&O X 3 - Respiratory Respiratory exam: Present: wheezes. Absent: accessory muscle use, rales, rhonchi - Cardiovascular Cardiovascular exam: Present: RRR, +S1, +S2. Absent: diastolic murmur, gallop, rubs, systolic murmur - GI/Abdominal GI/Abdominal exam: Present: normal bowel sounds, soft, no peritoneal signs. Absent: distended, tenderness - Extremities Exam Extremities exam: Present: warm, radial pulses palpable and symmetrical. Absent : calf tenderness, cyanotic, pedal edema - Skin Skin exam: Present: dry, intact Internal Medicine: Result - Labs CBC & Chem 7: 04/30/17 03:50 04/30/17 03:50 Labs: Short CBC 04/30/17 Range/Units 03:50 WBC 7.1 (4.3-11.1) K/mcL Hgb 11.9 (11.5-15.4) g/dL Hct 36.8 (35.3-44.9) % Plt Count 309 (140-400) K/mcL Neutrophils # 6.1 (1.6-8.9) K/mcL BMP 04/30/17 03:50 Sodium 139 Potassium 3.9 Chloride 101 Carbon Dioxide 23 BUN 23 H Creatinine 0.92 Glucose 139 H Calcium 9.1 Cardiac Enzymes 04/30/17 Range/Units 03:50 Troponin I 0.02 (0-0.03) ng/mL Consult Discharge Plan - Plan Referrals: Arley Awan MD [Primary Care Provider] -
[2017-05-01] MEDS: Ipratropium/Albuterol Neb 3 ML IH SCH ×5 (03:48→20:28)
[2017-05-01] MEDS: methylPREDNISolone 125 MG/2 ML VIAL IVP SCH ×4 (06:00→23:59)
[2017-05-01] MEDS: Levofloxacin 750 MG/150 ML 750 MG/150 ML BAG IVPB SCH (08:44)
[2017-05-01] MEDS: Aspirin Enteric Coated 81 MG Tablet PO SCH (08:44)
[2017-05-01] MEDS: Isosorbide MONOnitrate (24 HR) 30 MG TAB.ER.24H PO SCH (08:44)
[2017-05-01] MEDS: Fluticasone Propionate Nasal 50 MCG/SPRAY BOTTLE NS SCH (08:46)
[2017-05-01] MEDS: Budesonide/Formoterol 80/4.5 MDI IH SCH ×2 (11:02→20:29)
--- NOTE | 2017-05-01 13:33 | Internal Med Progress Note ---
Date of Encounter: 05/01/17 Time of Encounter: 10:00 - Assessment and plan (1) Fall at home Current Visit: Yes Status: Acute Assessment and plan: No evidence of injury or trauma. Mechanical fall at home without syncopal episode. We will institute fall precautions. Get PT OT evaluation. Social work consult for placement as she would likely need inpatient rehabilitation. Qualifiers: Encounter type: initial encounter Qualified Code(s): W19.XXXA - Unspecified fall, initial encounter; Y92.099 - Unspecified place in other non- institutional residence as the place of occurrence of the external cause; Y92.099 - Unspecified place in other non-institutional residence as the place of occurrence of the external cause (2) Bronchitis Current Visit: Yes Status: Acute Assessment and plan: Acute bacterial bronchitis as evidenced by increasing sputum production will be treated with IV Levaquin. We will follow up sputum culture. (3) COPD exacerbation Current Visit: Yes Status: Acute Assessment and plan: Diagnosed based on worsening shortness of breath and wheezing. We will start tapering IV Solu-Medrol to 60 mg IV every 12 hours, continue with inhaled bronchodilators and IV Levaquin. Oxygen by nasal cannula to maintain saturation above 92%. - Subjective Interval history: 05/01/2017: She reports shortness of breath worse with sitting up in bed associated with productive cough. Symptoms slightly better compared to yesterday. 04/30/2017: Patient presented to the hospital status post fall. She reported that worsening weakness and shortness of breath over the 3 days preceding her presentation. Currently she reports mild shortness of breath at rest, improved from yesterday. - Constitutional Vitals: Temp Pulse Resp BP Pulse Ox 98.3 F 74 16 160/82 92 05/01/17 11:00 05/01/17 11:00 05/01/17 11:03 05/01/17 11:00 05/01/17 11:03 General appearance: Present: A&O X 3 - Respiratory Respiratory exam: Present: CTAB, wheezes. Absent: accessory muscle use, rales, rhonchi - Cardiovascular Cardiovascular exam: Present: RRR, +S1, +S2. Absent: diastolic murmur, gallop, rubs, systolic murmur - GI/Abdominal GI/Abdominal exam: Present: normal bowel sounds, soft, no peritoneal signs. Absent: distended, tenderness - Extremities Exam Extremities exam: Present: warm, radial pulses palpable and symmetrical. Absent : calf tenderness, cyanotic, pedal edema - Skin Skin exam: Present: dry, intact Internal Medicine: Result - Labs CBC & Chem 7: 04/30/17 03:50 04/30/17 03:50 Consult Discharge Plan - Plan Referrals: Arley Awan MD [Primary Care Provider] -
--- NOTE | 2017-05-01 17:35 | Electrocardiograph Report ---
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
[2017-05-02] MEDS: Ipratropium/Albuterol Neb 3 ML IH SCH ×4 (00:06→11:55)
[2017-05-02] MEDS: methylPREDNISolone 125 MG/2 ML VIAL IVP SCH (05:32)
[2017-05-02 05:53] LABS: Hematocrit 35.7 % (35.3-44.9); Hemoglobin 11.9 g/dL (11.5-15.4); Immature Granulocytes % 0.5 % (0-4); Lymphocytes # 0.8 K/mcL (0.6-4.6); Lymphocytes % 9.3 %; Mean Corpuscular HGB Conc 33.3 g/dL (31.6-35.5); Mean Corpuscular Hemoglobin 30.7 pg (28.0-33.3); Mean Platelet Volume 10.1 fL (9.4-12.4); Monocytes # 0.4 K/mcL (0.0-1.3); Monocytes % 4.1 %; Neutrophils # 7.6 K/mcL (1.6-8.9); Platelet Count 334 K/mcL (140-400); Red Blood Count 3.88 M/mcL (3.82-4.97); Red Cell Distribution Width 12.6 % (11.5-14.5); Segmented Neutrophils % 86.1 %
[2017-05-02 06:02] LABS: BUN/Creatinine Ratio 33 (6-26); Blood Urea Nitrogen 29 mg/dL (7-20); Calcium 9.5 mg/dL (8.6-10.8); Carbon Dioxide 25 mEq/L (19-29); Chloride 102 mEq/L (98-109); Glucose 133 mg/dL (70-99); Osmolality,Calculated 294 (280-300); Potassium 3.8 mEq/L (3.5-4.5); Sodium 138 mEq/L (136-145); eGFR For African Americans > 60 (> 60); eGFR For Non-African Americans > 60 (> 60)
[2017-05-02] MEDS ORDERED: Furosemide 20 MG/2 ML VIAL IVP SCH (08:15)
[2017-05-02] MEDS: Isosorbide MONOnitrate (24 HR) 30 MG TAB.ER.24H PO SCH (09:26)
[2017-05-02] MEDS: Levofloxacin 750 MG/150 ML 750 MG/150 ML BAG IVPB SCH (09:26)
[2017-05-02] MEDS: Aspirin Enteric Coated 81 MG Tablet PO SCH (09:26)
[2017-05-02] MEDS: Fluticasone Propionate Nasal 50 MCG/SPRAY BOTTLE NS SCH (09:29)
[2017-05-02 11:00] VITALS: BP 152/82
--- NOTE | 2017-05-02 11:36 | Discharge Summary ---
Date of Encounter: 05/02/17 Time of Encounter: 11:28 - Discharge Diagnosis (1) Fall at home Priority: Secondary Status: Acute Qualifiers: Encounter type: initial encounter Qualified Code(s): W19.XXXA - Unspecified fall, initial encounter; Y92.099 - Unspecified place in other non- institutional residence as the place of occurrence of the external cause; Y92.099 - Unspecified place in other non-institutional residence as the place of occurrence of the external cause (2) Bronchitis Priority: Secondary Status: Acute (3) COPD exacerbation Priority: Primary Status: Acute (4) CHF (congestive heart failure) Priority: Secondary Status: Acute Comments: Follow-up with cardiology in 2-4 weeks regarding congestive heart failure. Qualifiers: Congestive heart failure type: systolic Congestive heart failure chronicity : chronic Qualified Code(s): I50.22 - Chronic systolic (congestive) heart failure (5) CAD (coronary artery disease) Priority: Secondary Status: Acute Qualifiers: Qualified Code(s): I25.10 - Atherosclerotic heart disease of [place] coronary artery without angina pectoris - Discharge Medications Prescriptions: predniSONE [PredniSONE] 60 mg PO DAILY #42 tablet Home Medications: Atorvastatin [Lipitor] 20 mg PO HS 02/23/15 [History] Clopidogrel [Plavix] 75 mg PO DAILY 02/23/15 [History] Docusate [Colace] 100 mg PO BID PRN 02/23/15 [History] Esomeprazole Magnesium [Nexium] 40 mg PO DAILY 02/23/15 [History] Fluticasone Propionate [Flovent Diskus] 2 puff IH BID 02/23/15 [History] Fluticasone/Salmeterol [Advair 250-50 Diskus] 1 each IH BID 02/23/15 [History] Furosemide [Lasix] 20 mg PO BID 02/23/15 [History] Gabapentin [Neurontin] 600 mg PO BID 02/23/15 [History] GuaiFENesin ER [Mucinex] 600 mg PO BID PRN 02/23/15 [History] Montelukast [Singulair] 10 mg PO HS 02/23/15 [History] Multivit-Min/FA/Lycopen/Lutein [Centrum Silver Tablet] 1 each PO DAILY 02/23/15 [History] Gabapentin [Neurontin] 1,200 mg PO HS 07/01/15 [History] HYDROcodone/Acet 5/325 mg [[place] 5-325 mg] 1 tab PO Q6HR PRN 07/01/15 [History] Isosorbide MONOnitrate (24 HR) [Imdur] 30 mg PO DAILY 07/01/15 [History] hydrALAZINE [HydrALAZINE] 25 mg PO BID #60 tablet 10/03/15 [Rx] Fluticasone Propionate Nasal [Flonase] 50 mcg NS DAILY 05/13/16 [History] Levalbuterol Tartrate [Xopenex Hfa] 2 puff IH TID 05/13/16 [History] Nitroglycerin [Nitrostat] 0.4 mg SL Q5M PRN 05/13/16 [History] Umeclidinium [place] [Incruse Ellipta] 62.5 mcg IH DAILY 05/13/16 [History] Oxygen 2 l IN CONT #1 each 05/16/16 [Rx] Albuterol Neb [Proventil Neb] 2.5 mg IH Q4HR PRN 01/15/17 [History] Aspirin [Lo-Dose Aspirin EC] 81 mg PO DAILY 01/15/17 [History] Raloxifene [Evista] 60 mg PO DAILY 01/15/17 [History] Rivaroxaban [Xarelto] 20 mg PO DAILY #30 tablet 01/18/17 [Rx] Lisinopril [Zestril] 10 mg PO DAILY #30 tablet 01/21/17 [Rx] Metoprolol XL (24 HR) Succ [Toprol Xl] 25 mg PO DAILY #30 tab.er.24h 01/21/17 [ Rx] levoFLOXacin [Levaquin] 750 mg PO DAILY #5 tablet 05/02/17 [Rx] predniSONE [PredniSONE] 60 mg PO DAILY #42 tablet 05/02/17 [Rx] Allergies/Adverse Reactions: 3 Allergy/AdvReac Type Severity Reaction Status Date / Time No Known Allergies Allergy Verified 04/29/17 16:21 Date of admission: 04/30/17 00:01 Primary care physician: Arley Awan MD Consults: 04/30/17 16:48 Consult to Food Beverage Attendant [CONS] Routine Reason for SW Consult: May need placement to f. Son who cares for patient might be moving out. - Patient Status Disposition: Home Health Service Condition: Fair Functional capacity at discharge: uses cane/walker Overall status at discharge: patient is progressing back to baseline - Discharge Instructions Follow Up With: Arley Awan MD [Primary Care Provider] - Additional Instructions: Please follow-up with PCP within 1 week of discharge. - Diet and Activity Activity: ambulate only with your walker, as per physical therapy, increase activity as tolerated Diet: low fat, low cholesterol, low salt diet Hospital course: Ms. Espinal is a 81 year old female with multiple medical comorbidities including COPD, chronic hypoxic respiratory failure on home oxygen, coronary artery disease, atrial fibrillation and congestive heart failure who was brought to the hospital after she suffered a mechanical fall. She has a history of recurrent falls. Patient also reported getting more short of breath and having a productive cough for the last few days prior to presentation. She was diagnosed with COPD exacerbation and admitted to the medical service. She received treatment with IV Solu-Medrol and Levaquin. Her respiratory status improved. She was evaluated by physical therapy and occupational therapy who recommended halfway facility placement for rehabilitation however the patient declined placement. She refers to be discharged home with home PT. She will be prescribed a prednisone taper and a full course of antibiotics. She is to resume her Lasix at home dose. She expresses understanding and agreement with the discharge plan. - Time Spent with Patient Total time spent providing and/or coordinating discharge services: Greater than 30 minutes (I spent 40 minutes coordinating this discharge.) - Constitutional Vitals: Temp Pulse Resp BP Pulse Ox 98.2 F 74 16 152/82 98 05/02/17 10:55 05/02/17 10:55 05/02/17 10:55 05/02/17 10:55 05/02/17 10:55 General appearance: Present: A&O X 3 - Respiratory Respiratory exam: Present: CTAB. Absent: accessory muscle use, rales, rhonchi, wheezes - Cardiovascular Cardiovascular exam: Present: RRR, +S1, +S2. Absent: diastolic murmur, gallop, rubs, systolic murmur - GI/Abdominal GI/Abdominal exam: Present: normal bowel sounds, soft, no peritoneal signs. Absent: distended, tenderness
[2017-05-02] MEDS: Budesonide/Formoterol 80/4.5 MDI IH SCH (11:55)
--- NOTE | 2017-05-02 12:14 | Physician Discharge Referral ---
Home Health/Hosp Referral Info Transfer to: Home Health Provider in Charge Post Discharge: PCP - Diagnosis (1) Fall at home Status: Acute (2) Bronchitis Status: Acute (3) COPD exacerbation Status: Acute (4) CHF (congestive heart failure) Status: Acute (5) CAD (coronary artery disease) Status: Acute - Respiratory Orders Oxygen / L per min (3lpm) Smoking Cessation: Smoking cessation has been advised. For more information, call the [place] Tobacco Quit Line at 0-226-UROZ-NOW. - Diet/Nutrition Diet/Nutrition Orders: No Added Salt (SONI), Cardiac - Activity Activity Orders: Walker - Services Needed Following services are medically necessary services: Nursing, Home Health Aide, Physical Therapy - Transfer Medications Prescriptions: levoFLOXacin [Levaquin] 750 mg PO DAILY #5 tablet predniSONE [PredniSONE] 60 mg PO DAILY #42 tablet Home Medications: Atorvastatin [Lipitor] 20 mg PO HS 02/23/15 [History] Clopidogrel [Plavix] 75 mg PO DAILY 02/23/15 [History] Docusate [Colace] 100 mg PO BID PRN 02/23/15 [History] Esomeprazole Magnesium [Nexium] 40 mg PO DAILY 02/23/15 [History] Fluticasone Propionate [Flovent Diskus] 2 puff IH BID 02/23/15 [History] Fluticasone/Salmeterol [Advair 250-50 Diskus] 1 each IH BID 02/23/15 [History] Furosemide [Lasix] 20 mg PO BID 02/23/15 [History] Gabapentin [Neurontin] 600 mg PO BID 02/23/15 [History] GuaiFENesin ER [Mucinex] 600 mg PO BID PRN 02/23/15 [History] Montelukast [Singulair] 10 mg PO HS 02/23/15 [History] Multivit-Min/FA/Lycopen/Lutein [Centrum Silver Tablet] 1 each PO DAILY 02/23/15 [History] Gabapentin [Neurontin] 1,200 mg PO HS 07/01/15 [History] HYDROcodone/Acet 5/325 mg [[place] 5-325 mg] 1 tab PO Q6HR PRN 07/01/15 [History] Isosorbide MONOnitrate (24 HR) [Imdur] 30 mg PO DAILY 07/01/15 [History] hydrALAZINE [HydrALAZINE] 25 mg PO BID #60 tablet 10/03/15 [Rx] Fluticasone Propionate Nasal [Flonase] 50 mcg NS DAILY 05/13/16 [History] Levalbuterol Tartrate [Xopenex Hfa] 2 puff IH TID 05/13/16 [History] Nitroglycerin [Nitrostat] 0.4 mg SL Q5M PRN 05/13/16 [History] Umeclidinium [place] [Incruse Ellipta] 62.5 mcg IH DAILY 05/13/16 [History] Oxygen 2 l IN CONT #1 each 05/16/16 [Rx] Albuterol Neb [Proventil Neb] 2.5 mg IH Q4HR PRN 01/15/17 [History] Aspirin [Lo-Dose Aspirin EC] 81 mg PO DAILY 01/15/17 [History] Raloxifene [Evista] 60 mg PO DAILY 01/15/17 [History] Rivaroxaban [Xarelto] 20 mg PO DAILY #30 tablet 01/18/17 [Rx] Lisinopril [Zestril] 10 mg PO DAILY #30 tablet 01/21/17 [Rx] Metoprolol XL (24 HR) Succ [Toprol Xl] 25 mg PO DAILY #30 tab.er.24h 01/21/17 [ Rx] levoFLOXacin [Levaquin] 750 mg PO DAILY #5 tablet 05/02/17 [Rx] predniSONE [PredniSONE] 60 mg PO DAILY #42 tablet 05/02/17 [Rx] Allergies/Adverse Reactions: 3 Allergy/AdvReac Type Severity Reaction Status Date / Time No Known Allergies Allergy Verified 04/29/17 16:21 Certification: Further, I certify that my clinical findings support that this patient is homebound (i.e. absences from home require considerable and taxing effort and are for medical reasons or hinduism services or infrequently or short duration when for other reasons) because: Homebound Reason: Patient requires assistance of a person or device to safely leave home, Leaving home requires considerable and taxing effort due to condition, Severity of cardiac or pulmonary status limits activity tolerance Attestation: My signature below is to certify that this patient is under my care and that I, or nurse practitioner, or a physician's sales and marketing assistant working with me, has a face-to -face encounter with this patient.
[2017-05-02 19:49] LABS: CK-MB (CK isoenzymes) 0 % (0-4); CK-MM (CK-isoenzymes) 100 % (96-100)
[2017-05-03 07:19] LABS: CK Total (Ck Isoenzymes) 63 U/L (20-180); CK-BB (CK isoenzymes) 0 % (0-0)
== END 2017-05-02 14:53 | disposition home health service (06) | DRG 191 ==
LOC: 3BNU 16:18 → EMEROO 16:18 → 3BNU 22:11 → SUATTDRO 04-30 00:01
PROVIDERS: ADMIT Hospitalist; ATTEND Internal Medicine

== ENCOUNTER 2017-07-20 11:42 | Observation (INO) ==
[~2017-07-20 11:42] MED LIST: Furosemide 40 MG/4 ML VIAL IVP ONE
--- NOTE | 2017-07-20 12:17 | Emergency Department Note ---
Disposition Clinical Impression: COPD (chronic obstructive pulmonary disease), CHF (congestive heart failure) Disposition: Admitted As Inpatient Condition: Fair Referrals: Arley Awan MD [Primary Care Provider] - Forms: ED Satisfaction Letter Time of Disposition: 15:03 General Adult HPI - General Chief complaint: ED Shortness of Breath/Dyspnea Stated complaint: PRASHANT Source: EMS Limitations: no limitations - History of Present Illness HPI Narrative: 81 year old female presents to ED for difficulty in breathing. Patient admits to having chronic breathing issues but admits to worsening breathing the past few days. Patient is alert and oriented x 3, appears in mild distress in relation to breathing. Patient states she does not know if she has been having fevers but admits to nausea and worsening cough. Cough is accompanied by yellow phlegm. Patient denies any chest pain, palpitations, lightheadedness or vision changes. Denies any changes to urine consistency or pain with urination. Patient explains she believes she has pneumonia. Physical exam reveals Onset (ago): day(s) (says has been ongoing for a few days and nights) Location: chest Pain Scale: 0 Consistency: Worsening Associated symptoms: Reports: fever/chills, nausea/vomiting (admits to nausea but no vomiting), shortness of breath - Related Data Home Medications Medication Instructions Recorded Confirmed Atorvastatin [Lipitor] 20 mg PO HS 02/23/15 04/29/17 Clopidogrel [Plavix] 75 mg PO DAILY 02/23/15 04/29/17 Docusate [Colace] 100 mg PO BID PRN 02/23/15 04/29/17 Esomeprazole Magnesium [Nexium] 40 mg PO DAILY 02/23/15 04/29/17 Fluticasone Propionate [Flovent 2 puff IH BID 02/23/15 04/29/17 Diskus] Fluticasone/Salmeterol [Advair 1 each IH BID 02/23/15 04/29/17 250-50 Diskus] Furosemide [Lasix] 20 mg PO BID 02/23/15 04/29/17 Gabapentin [Neurontin] 600 mg PO BID 02/23/15 04/29/17 GuaiFENesin ER [Mucinex] 600 mg PO BID PRN 02/23/15 04/29/17 Montelukast [Singulair] 10 mg PO HS 02/23/15 04/29/17 Multivit-Min/FA/Lycopen/Lutein 1 each PO DAILY 02/23/15 04/29/17 [Centrum Silver Tablet] Gabapentin [Neurontin] 1,200 mg PO HS 07/01/15 04/29/17 HYDROcodone/Acet 5/325 mg [[place] 1 tab PO Q6HR PRN 07/01/15 04/29/17 5-325 mg] Isosorbide MONOnitrate (24 HR) 30 mg PO DAILY 07/01/15 04/29/17 [Imdur] Fluticasone Propionate Nasal 50 mcg NS DAILY 05/13/16 04/29/17 [Flonase] Levalbuterol Tartrate [Xopenex Hfa] 2 puff IH TID 05/13/16 04/29/17 Nitroglycerin [Nitrostat] 0.4 mg SL Q5M PRN 05/13/16 04/29/17 Umeclidinium [place] [Incruse 62.5 mcg IH DAILY 05/13/16 04/29/17 Ellipta] Albuterol Neb [Proventil Neb] 2.5 mg IH Q4HR PRN 01/15/17 04/29/17 Aspirin [Lo-Dose Aspirin EC] 81 mg PO DAILY 01/15/17 04/29/17 Raloxifene [Evista] 60 mg PO DAILY 01/15/17 04/29/17 Previous Rx's Medication Instructions Recorded hydrALAZINE [HydrALAZINE] 25 mg PO BID #60 tablet 10/03/15 Oxygen 2 l IN CONT #1 each 05/16/16 Rivaroxaban [Xarelto] 20 mg PO DAILY #30 tablet 01/18/17 Lisinopril [Zestril] 10 mg PO DAILY #30 tablet 01/21/17 Metoprolol XL (24 HR) Succ [Toprol 25 mg PO DAILY #30 tab.er.24h 01/21/17 Xl] levoFLOXacin [Levaquin] 750 mg PO DAILY #5 tablet 05/02/17 predniSONE [PredniSONE] 60 mg PO DAILY #42 tablet 05/02/17 Allergies Allergy/AdvReac Type Severity Reaction Status Date / Time No Known Allergies Allergy Verified 07/20/17 11:59 All systems ED: reviewed and negative except as stated. Constitutional: Reports: chills. Denies: fever Cardiovascular: Denies: chest pain Respiratory: Reports: dyspnea, wheezes Gastrointestinal: Denies: vomiting, diarrhea Musculoskeletal: Denies: back pain Past Medical History - Past Medical History Attestation: Yes The following information was validated with the patient. 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 Cardiac exam reveals a regular rate and rhythm with normal S1 and S2. Respiratory exam reveals mixed wheezes and rales bilaterally during inspiration and expiration. Abdomen exam reveals BSx4 no pain on palpation. - General Limitations: no limitations General appearance: alert, in no apparent distress - Head Head exam: atraumatic, normocephalic - Eye Eye exam: Present: normal appearance - ENT ENT exam: normal exam, normal oropharynx - Neck Neck exam: Present: normal inspection - Chest Chest inspection: Present: normal inspection - Respiratory Respiratory exam: Present: other (Rales and rhonchi) - Cardiovascular Cardiovascular exam: Present: regular rate, normal rhythm, normal heart sounds - Abdominal Exam Abdominal exam: Present: soft, Non-Tender - Neurological Exam Neurological exam: Present: alert, oriented X3, CN II-XII intact - Psychiatric Psychiatric exam: Present: normal affect - Skin Skin exam: Present: warm, dry Course - Reevaluation(s) Reevaluation #1: Patient reevaluated. She is in no respiratory distress. She received nebs on the way here. She is given aspirin for the troponin is 0.04. She still having no chest pain. Has a thick yellow productive cough. Attempted to obtain a sample for culture. Solu-Medrol. Levaquin. No infiltrate on chest x-ray. She did receive Lasix for the CHF. This is likely the cause of her elevated troponin. She is admitted to medicine. - Consultations Consultation #1: Dr Snell accepts Time: 15:05 Vital Signs Temperature 98.1 F 07/20/17 11:44 Pulse Rate 63 07/20/17 11:44 Respiratory Rate 22 07/20/17 11:44 Blood Pressure 169/96 07/20/17 11:44 O2 Sat by Pulse Oximetry 89 07/20/17 11:44 Temperature 98.1 F 07/20/17 11:44 Pulse Rate 56 07/20/17 14:07 Respiratory Rate 18 07/20/17 14:07 Blood Pressure 158/103 07/20/17 14:07 O2 Sat by Pulse Oximetry 96 07/20/17 14:07 Oxygen Delivery Oxygen Delivery Room Air Medical Decision Making - Medical Records Medical records reviewed: Yes I reviewed the patient's medical records. - Lab Data Lab results reviewed: Yes I reviewed the patient's lab results. Result diagrams: 07/20/17 13:42 07/20/17 12:35 Lab Results 07/20/17 07/20/17 07/20/17 Range/Units 12:35 12:35 12:57 WBC (4.3-11.1) K/mcL RBC (3.82-4.97) M/mcL Hgb (11.5-15.4) g/dL Hct (35.3-44.9) % MCV (83.0-100.0) fL MCH (28.0-33.3) pg MCHC (31.6-35.5) g/dL RDW (11.5-14.5) % Plt Count (140-400) K/mcL MPV (9.4-12.4) fL Immature Gran % (0-4) % Seg Neutrophils % % Lymphocytes % % Monocytes % % Eosinophils % % Basophils % % Neutrophils # (1.6-8.9) K/mcL Lymphocytes # (0.6-4.6) K/mcL Monocytes # (0.0-1.3) K/mcL Eosinophils # (0.0-0.6) K/mcL Basophils # (0.0-0.2) K/mcL Sodium 137 (136-145) mEq/L Potassium 3.7 (3.5-5.1) mEq/L Chloride 104 (98-107) mEq/L Carbon Dioxide 25 (23-29) mEq/L BUN 14 (8-23) mg/dL Creatinine 0.65 (0.60-1.20) mg/dL Est GFR ( Amer) > 60 (> 60) Est GFR (Non-Af Amer) > 60 (> 60) BUN/Creatinine Ratio 22 (6-26) Glucose 82 (70-105) mg/dL Calculated Osmolality 284 (280-300) Lactic Acid (0.5-2.2) mmol/L Calcium 9.1 (8.6-10.3) mg/dL Troponin I 0.04 H* (< 0.04) ng/mL B-Natriuretic Peptide (Less than 100) pg/mL Specimen Rejected Clotted 07/20/17 07/20/17 07/20/17 Range/Units 13:42 13:42 13:42 WBC 6.8 (4.3-11.1) K/mcL RBC 3.19 L (3.82-4.97) M/mcL Hgb 10.0 L (11.5-15.4) g/dL Hct 31.3 L (35.3-44.9) % MCV 98.1 (83.0-100.0) fL MCH 31.3 (28.0-33.3) pg MCHC 31.9 (31.6-35.5) g/dL RDW 14.9 H (11.5-14.5) % Plt Count 179 (140-400) K/mcL MPV 10.6 (9.4-12.4) fL Immature Gran % 0.3 (0-4) % Seg Neutrophils % 55.3 % Lymphocytes % 29.4 % Monocytes % 11.9 % Eosinophils % 2.5 % Basophils % 0.6 % Neutrophils # 3.8 (1.6-8.9) K/mcL Lymphocytes # 2.0 (0.6-4.6) K/mcL Monocytes # 0.8 (0.0-1.3) K/mcL Eosinophils # 0.2 (0.0-0.6) K/mcL Basophils # 0.0 (0.0-0.2) K/mcL Sodium (136-145) mEq/L Potassium (3.5-5.1) mEq/L Chloride (98-107) mEq/L Carbon Dioxide (23-29) mEq/L BUN (8-23) mg/dL Creatinine (0.60-1.20) mg/dL Est GFR ( Amer) (> 60) Est GFR (Non-Af Amer) (> 60) BUN/Creatinine Ratio (6-26) Glucose (70-105) mg/dL Calculated Osmolality (280-300) Lactic Acid 1.1 (0.5-2.2) mmol/L Calcium (8.6-10.3) mg/dL Troponin I (< 0.04) ng/mL B-Natriuretic Peptide 285 H (Less than 100) pg/mL Specimen Rejected - Radiology Data Radiology results reviewed: Yes I reviewed the patient's radiology results. Chest X-Ray 07/20/17 12:03 IMPRESSION: Mild CHF. D/ / Fredi Landaverde MD / Fredi Landaverde MD Interpreting Provider: Fredi Landaverde MD - EKG Data EKG #1 EKG attestation: Yes I reviewed and interpreted this EKG. EKG results narrative: Normal sinus at 67. Widened QRS. Anterolateral T-wave inversions. Inferior and septal Q waves. Left axis deviation. T-wave inversions new from prior EKG in April
[2017-07-20 13:18] LABS: BUN/Creatinine Ratio 22 (6-26); Blood Urea Nitrogen 14 mg/dL (8-23); Calcium 9.1 mg/dL (8.6-10.3); Carbon Dioxide 25 mEq/L (23-29); Chloride 104 mEq/L (98-107); Glucose 82 mg/dL (70-105); Osmolality,Calculated 284 (280-300); Potassium 3.7 mEq/L (3.5-5.1); Sodium 137 mEq/L (136-145); eGFR For African Americans > 60 (> 60); eGFR For Non-African Americans > 60 (> 60)
[2017-07-20] MEDS ORDERED: Aspirin 325 MG TABLET PO ONE (13:33)
[2017-07-20 14:00] LABS: Basophils % 0.6 %; Eosinophils # 0.2 K/mcL (0.0-0.6); Eosinophils % 2.5 %; Hematocrit 31.3 % (35.3-44.9); Immature Granulocytes % 0.3 % (0-4); Lymphocytes % 29.4 %; Mean Corpuscular HGB Conc 31.9 g/dL (31.6-35.5); Mean Corpuscular Hemoglobin 31.3 pg (28.0-33.3); Mean Corpuscular Volume 98.1 fL (83.0-100.0); Mean Platelet Volume 10.6 fL (9.4-12.4); Monocytes # 0.8 K/mcL (0.0-1.3); Monocytes % 11.9 %; Neutrophils # 3.8 K/mcL (1.6-8.9); Platelet Count 179 K/mcL (140-400); Red Blood Count 3.19 M/mcL (3.82-4.97); Red Cell Distribution Width 14.9 % (11.5-14.5); Segmented Neutrophils % 55.3 %
[2017-07-20] MEDS ORDERED: Furosemide 40 MG/4 ML VIAL IVP ONE (14:12)
[2017-07-20] MEDS ORDERED: methylPREDNISolone 125 MG/2 ML VIAL IVP ONE (14:12)
--- NOTE | 2017-07-20 14:43 | Electrocardiograph Report ---
[address] [place] [address] Test Date: 2017-07-20 Pat Name: Nadia Espinal Department: 103 Room: Gender: F Scheduler: : 1935 Requested By: Sabrina See Order Number: [id number] Reading MD: Syed Branu, DO Measurements Intervals [place] Rate: 67 P: [place]: 0 QRS: -62 QRSD: 127 T: 174 QT: 470 QTc: 485 Interpretive Statements ATRIAL FIBRILLATION MARKED LEFT AXIS DEVIATION LEFT BUNDLE BRANCH BLOCK Electronically Signed On 07-20-2017 14:42:33 EST by Syed Braun DO
[2017-07-20] MEDS ORDERED: Levofloxacin 500 MG/100 ML 500 MG/100 ML BAG IVPB ONE (15:00)
[2017-07-20 15:07] LABS: Bilirubin,Urine Small (Negative); Blood,Urine Negative (Negative); Clarity,Urine Clear (Clear); Color,Urine Yellow (Yellow); Glucose,Urine (UA) Normal (Normal); Ketones,Urine 15 mg/dL (Negative); Leukocyte Esterase,Urine Negative (Negative); Nitrite,Urine Negative (Negative); PH,Urine 6.5 pH Units (5.0-8.0); Protein,Urine 100 mg/dL (Neg-Trace); Specific Gravity,Urine 1.024 (1.010-1.025); Urobilinogen,Urine Normal (Normal)
[2017-07-20 15:09] LABS: Bacteria,Urine None Seen per hpf (None-Few); Hyaline Casts,Urine None Seen per lpf (None-Few); Squamous Epithelial Cell,Urine Many per lpf (None-Few); WBC,Urine 0-3 per hpf (0-3)
[2017-07-20] MEDS ORDERED: Naloxone 0.4 MG/ML INJ IVP PRN (15:23)
--- NOTE | 2017-07-20 15:35 | Internal Med History&Physical ---
Date of Encounter: 07/20/17 Time of Encounter: 15:12 Assessment and Plan (1) Acute and chronic respiratory failure Current visit: Yes Status: Acute Multifactorial, acute respiratory failure secondary to COPD exacerbation and CHF decompensation continue systemic steroids, bronchodilator support, O2 supplementation, IV abx IV diuresis, f/u repeat 2D echo last echo was from 12/2016: LVEF 25-30%. Mild-moderate mitral regurgitation. Severe global and segmental left ventricular systolic dysfunction. Mild concentric left ventricular hypertrophy. Diastolic dysfunction, NOS Severe pulmonary hypertension. Mildly dilated right ventricle. Mild right ventricular hypokinesis. Severely dilated right atrium. Fluid restriction diet monitor I/Os, daily weights will obtain respiratory viral panel will continue to closely monitor O2 sat, goal O2 sat: 88-92% Qualifiers: Respiratory failure complication: hypoxia Qualified Code(s): J96.21 - Acute and chronic respiratory failure with hypoxia (2) Acute exacerbation of chronic obstructive airways disease Current visit: No Status: Acute as listed above (3) CHF exacerbation Current visit: Yes Status: Acute as listed above Qualifiers: Congestive heart failure type: systolic Qualified Code(s): I50.23 - Acute on chronic systolic (congestive) heart failure (4) DVT prophylaxis Current visit: No Status: Acute Heparin SQ Please verify home medications, if patient is on Xarelto, please discontinue heparin SQ and start home dose of Xarelto (5) Atrial fibrillation Current visit: No Status: Chronic Rate currently controlled will resume home medications after verification Qualifiers: Atrial fibrillation type: chronic Qualified Code(s): I48.2 - Chronic atrial fibrillation (6) Essential hypertension Current visit: No Status: Chronic Noted to be hypertensive unclear if patient took home meds prior to arrival to the hospital Hydralazine 10mg IV q6h prn SBP>160 restart home medications after verification closely monitor BP (7) Obesity (BMI 30-39.9) Current visit: Yes Status: Chronic Internal Medicine - H&P: HPI Chief complaint: shortness of breath Admitted From: Home Plans for Post Hospital Care: Home History of present illness: Ms. Espinal is a 81 year old female with PMH of COPD on LTOT, CHF, Afib, CAD, HLD , HTN, arthritis who presented to the ER for worsening shortness of breath for the last few days. Pt states she has been having worsening in her breathing for the last two days. She reports of a productive cough with yellow sputum and reports of no appropriate relief with her breathing treatments at home, which prompted her visit to the ER. She is currently saturating well on 2L NC which is her baseline. Her CXR findings are concerning for volume overload. She clinically does not have any signs of overt heart failure. Pt is to receive Lasix, Solumedrol in the ER. Denies any fever or chills Will obtain respiratory viral panel Past Med Surg Social Fam HX - Past Medical History Medical history: arthritis, asthma, atrial fibrillation, CHF, COPD, coronary artery disease, GERD, hyperlipidemia, hypertension, osteoporosis Psychiatric history: depression - Past Surgical History Surgical History: , hysterectomy - Social History Smoking Status: Former smoker Smokeless Tobacco Status: No Alcohol use: none Drug use: none - Family History Father Living Status: Hx Family Cardiac Disorders: Yes (heart failure) Mother Living Status: Hx Family Cardiac Disorders: Yes Hx Family Endocrine Disorder: Yes (DM) Internal Medicine - H&P: Meds Atorvastatin [Lipitor] 20 mg PO HS 02/23/15 [History] Clopidogrel [Plavix] 75 mg PO DAILY 02/23/15 [History] Docusate [Colace] 100 mg PO BID PRN 02/23/15 [History] Fluticasone/Salmeterol [Advair 250-50 Diskus] 1 each IH BID 02/23/15 [History] Gabapentin [Neurontin] 600 mg PO BID 02/23/15 [History] GuaiFENesin ER [Mucinex] 600 mg PO BID PRN 02/23/15 [History] Montelukast [Singulair] 10 mg PO HS 02/23/15 [History] Multivit-Min/FA/Lycopen/Lutein [Centrum Silver Tablet] 1 each PO DAILY 02/23/15 [History] Gabapentin [Neurontin] 1,200 mg PO HS 07/01/15 [History] HYDROcodone/Acet 5/325 mg [[place] 5-325 mg] 1 tab PO Q6HR PRN 07/01/15 [History] Isosorbide MONOnitrate (24 HR) [Imdur] 30 mg PO DAILY 07/01/15 [History] hydrALAZINE [HydrALAZINE] 25 mg PO BID #60 tablet 10/03/15 [Rx] Fluticasone Propionate Nasal [Flonase] 50 mcg NS DAILY 05/13/16 [History] Levalbuterol Tartrate [Xopenex Hfa] 2 puff IH TID 05/13/16 [History] Umeclidinium [place] [Incruse Ellipta] 62.5 mcg IH DAILY 05/13/16 [History] Oxygen 2 l IN CONT #1 each 05/16/16 [Rx] Aspirin [Lo-Dose Aspirin EC] 81 mg PO DAILY 01/15/17 [History] Raloxifene [Evista] 60 mg PO DAILY 01/15/17 [History] 3 Allergy/AdvReac Type Severity Reaction Status Date / Time No Known Allergies Allergy Verified 07/20/17 11:59 All Systems PM: A 10-system review of systems was performed and is negative for pertinent findings except as documented above in the HPI. - Constitutional Constitutional: as per HPI - Constitutional Vitals: Temp Pulse Resp BP Pulse Ox 98.1 F 59 18 159/80 97 07/20/17 11:44 07/20/17 15:24 07/20/17 15:24 07/20/17 15:24 07/20/17 15:24 General appearance: Present: A&O X 3, no acute distress, obese, answers questions appropriately - Head Head exam: Present: atraumatic, normocephalic - Eye Eye exam: Present: conjuntiva pink, sclera anicteric - Respiratory Respiratory exam: Absent: respiratory distress (decreased breath sounds and minimal bibasilar rales ), wheezes - Cardiovascular Cardiovascular exam: Present: RRR, +S1, +S2. Absent: diastolic murmur, gallop, rubs, systolic murmur - GI/Abdominal GI/Abdominal exam: Present: normal bowel sounds, soft, no peritoneal signs. Absent: distended, tenderness - Extremities Exam Extremities exam: Present: warm, radial pulses palpable and symmetrical. Absent : calf tenderness, mottling - Neurological Exam Neurological exam: Present: alert, oriented X3 - Psychiatric Psychiatric exam: Present: normal affect, normal mood Internal Med - H&P Results - Labs CBC & Chem 7: 07/20/17 13:42 07/20/17 12:35 Labs: Short CBC 07/20/17 Range/Units 13:42 WBC 6.8 (4.3-11.1) K/mcL Hgb 10.0 L (11.5-15.4) g/dL Hct 31.3 L (35.3-44.9) % Plt Count 179 (140-400) K/mcL Neutrophils # 3.8 (1.6-8.9) K/mcL BMP 07/20/17 12:35 Sodium 137 Potassium 3.7 Chloride 104 Carbon Dioxide 25 BUN 14 Creatinine 0.65 Glucose 82 Calcium 9.1 Cardiac Enzymes 07/20/17 Range/Units 12:35 Troponin I 0.04 H* (< 0.04) ng/mL Urine 07/20/17 Range/Units 14:46 Urine Color Yellow (Yellow) Urine Clarity Clear (Clear) Urine pH 6.5 (5.0-8.0) pH Units Ur Specific [place] 1.024 (1.010-1.025) Urine Protein 100 H (Neg-Trace) mg/dL Urine Glucose (UA) Normal (Normal) mg/dL - Impressions ITS Impressions Chest X-Ray 07/20/17 12:03 IMPRESSION: Mild CHF. D/ / Fredi Landaverde MD / Fredi aLndaverde MD Interpreting Provider: Fredi Landaverde MD
[2017-07-20] MEDS ORDERED: *HR* HYDROcodone/Acet 5/325 mg TABLET PO PRN (15:42)
[2017-07-20] MEDS: Gabapentin 300 MG CAPSULE PO SCH (17:46)
[2017-07-20] MEDS: Ipratropium/Albuterol Neb 3 ML IH SCH ×3 (18:23→23:31)
[2017-07-20] MEDS: Budesonide/Formoterol 80/4.5 MDI IH SCH (20:41)
[2017-07-20] MEDS: Gabapentin 400 MG CAPSULE PO SCH (21:23)
[2017-07-20] MEDS: hydrALAZINE 25 MG TABLET PO SCH (21:23)
[2017-07-21 01:02] LABS: Basophils % 0.3 %; Hematocrit 34.2 % (35.3-44.9); Hemoglobin 11.1 g/dL (11.5-15.4); Immature Granulocytes % 0.6 % (0-4); Lymphocytes # 0.5 K/mcL (0.6-4.6); Lymphocytes % 13.3 %; Mean Corpuscular HGB Conc 32.5 g/dL (31.6-35.5); Mean Corpuscular Hemoglobin 31.2 pg (28.0-33.3); Mean Corpuscular Volume 96.1 fL (83.0-100.0); Mean Platelet Volume 10.8 fL (9.4-12.4); Monocytes % 0.8 %; Platelet Count 200 K/mcL (140-400); Red Blood Count 3.56 M/mcL (3.82-4.97); Red Cell Distribution Width 14.6 % (11.5-14.5)
[2017-07-21 02:06] LABS: BUN/Creatinine Ratio 26 (6-26); Blood Urea Nitrogen 19 mg/dL (8-23); Carbon Dioxide 24 mEq/L (23-29); Chloride 99 mEq/L (98-107); Chol/HDL Ratio 2.3 (0-4.9); Cholesterol 126 mg/dL (< 200); Glucose 206 mg/dL (70-105); HDL Cholesterol 56 mg/dL (40-59); LDL Cholesterol,Calculated 59 mg/dL (0-99); Magnesium 1.5 mg/dL (1.6-2.6); Osmolality,Calculated 290 (280-300); Phosphorous 4.4 mg/dL (2.7-4.5); Potassium 3.8 mEq/L (3.5-5.1); Sodium 136 mEq/L (136-145); Triglycerides 54 mg/dL (< 150); eGFR For African Americans > 60 (> 60); eGFR For Non-African Americans > 60 (> 60)
[2017-07-21] MEDS: Ipratropium/Albuterol Neb 3 ML IH SCH ×6 (03:22→23:52)
[2017-07-21] MEDS: MethylPREDNISolone 40 MG/ML VIAL IVP SCH ×3 (05:40→16:54)
[2017-07-21 07:10] LABS: Adenovirus Not Detected (Not Detect); Bordetella Pertussis Not Detected (Not Detect); Chlamydophila pneumoniae Not Detected (Not Detect); Coronavirus 229E Not Detected (Not Detect); Coronavirus HKU1 Not Detected (Not Detect); Coronavirus NL63 Not Detected (Not Detect); Coronavirus OC43 Not Detected (Not Detect); Human Metapneumovirus Not Detected (Not Detect); Human Rhinovirus/Enterovirus Not Detected (Not Detect); Influenza A Subtype 2009 H1 Not Detected (Not Detect); Influenza A Untypeable Not Detected (Not Detect); Influenza B Not Detected (Not Detect); Mycoplasma pneumoniae Not Detected (Not Detect); Parainfluenza Virus 1 Not Detected (Not Detect); Parainfluenza Virus 2 Not Detected (Not Detect); Parainfluenza Virus 3 Not Detected (Not Detect); Parainfluenza Virus 4 Not Detected (Not Detect); Respiratory Syncytial Virus Not Detected (Not Detect)
[2017-07-21] MEDS ORDERED: Magnesium Sulfate 1 GM in D5% in Water 100 ML IVPB ONE (08:06)
[2017-07-21] MEDS ORDERED: (Umeclidinium Bromide [Incruse Ellipta] 62.5 MCG) IH SCH (09:00)
[2017-07-21] MEDS ORDERED: Fluticasone Propionate Nasal 50 MCG/SPRAY BOTTLE NS SCH (09:00)
--- NOTE | 2017-07-21 09:02 | Internal Med Progress Note ---
Date of Encounter: 07/21/17 Time of Encounter: 08:25 - Assessment and plan (1) Acute and chronic respiratory failure Current Visit: Yes Status: Acute Assessment and plan: Multifactorial, acute respiratory failure secondary to COPD exacerbation and CHF decompensation continue systemic steroids, bronchodilator support, O2 supplementation, IV abx IV diuresis, f/u repeat 2D echo Will switch to PO prednisone in am last echo was from 12/2016: LVEF 25-30%. Mild-moderate mitral regurgitation. Severe global and segmental left ventricular systolic dysfunction. Mild concentric left ventricular hypertrophy. Diastolic dysfunction, NOS Severe pulmonary hypertension. Mildly dilated right ventricle. Mild right ventricular hypokinesis. Severely dilated right atrium. Fluid restriction diet monitor I/Os, daily weights Respiratory viral panel negative f/u sputum culture report will continue to closely monitor O2 sat, goal O2 sat: 88-92% Qualifiers: Respiratory failure complication: hypoxia Qualified Code(s): J96.21 - Acute and chronic respiratory failure with hypoxia (2) Acute exacerbation of chronic obstructive airways disease Current Visit: No Status: Acute Assessment and plan: as listed above (3) CHF exacerbation Current Visit: Yes Status: Acute Assessment and plan: as listed above Qualifiers: Congestive heart failure type: systolic Qualified Code(s): I50.23 - Acute on chronic systolic (congestive) heart failure (4) DVT prophylaxis Current Visit: No Status: Acute Assessment and plan: Heparin SQ (5) Atrial fibrillation Current Visit: No Status: Chronic Assessment and plan: rate currently controlled pt not on anticoagulation continue asa and plavix Qualifiers: Atrial fibrillation type: chronic Qualified Code(s): I48.2 - Chronic atrial fibrillation (6) Essential hypertension Current Visit: No Status: Chronic Assessment and plan: BP within acceptable range continue home meds (7) Obesity (BMI 30-39.9) Current Visit: Yes Status: Chronic (8) Elevated troponin Current Visit: Yes Status: Acute Assessment and plan: likely demand ischemia pt denies any chest pain will continue asa, plavix, statin - Subjective Interval history: Patient seen and examined at bedside. Resting in bed and reports of feeling better compared to previous day. Saturating well on 2L NC which is patient's baseline home O2. reports of persistent cough but states overall she is feeling better. - Constitutional Vitals: Temp Pulse Resp BP Pulse Ox 97 F L 64 18 143/80 95 07/21/17 08:31 07/21/17 08:31 07/21/17 08:31 07/21/17 08:31 07/21/17 08:31 General appearance: Present: A&O X 3, no acute distress, obese, answers questions appropriately - Head Head exam: Present: atraumatic, normocephalic - Eye Eye exam: Present: conjuntiva pink, sclera anicteric - Respiratory Respiratory exam: Absent: respiratory distress, wheezes (decreased breath sounds , equal air entry bilaterally, no rales) - Cardiovascular Cardiovascular exam: Present: RRR, +S1, +S2. Absent: diastolic murmur, gallop, rubs, systolic murmur - GI/Abdominal GI/Abdominal exam: Present: normal bowel sounds, soft, no peritoneal signs. Absent: distended, tenderness - Extremities Exam Extremities exam: Present: warm, radial pulses palpable and symmetrical. Absent : calf tenderness, cyanotic, pedal edema - Neurological Exam Neurological exam: Present: alert, oriented X3 - Psychiatric Psychiatric exam: Present: normal affect, normal mood Internal Medicine: Result - Labs CBC & Chem 7: 07/21/17 00:44 07/21/17 00:44 Labs: Short CBC 07/21/17 Range/Units 00:44 WBC 3.5 L (4.3-11.1) K/mcL Hgb 11.1 L (11.5-15.4) g/dL Hct 34.2 L (35.3-44.9) % Plt Count 200 (140-400) K/mcL Neutrophils # 3.0 (1.6-8.9) K/mcL BMP 07/21/17 00:44 Sodium 136 Potassium 3.8 Chloride 99 Carbon Dioxide 24 BUN 19 Creatinine 0.72 Glucose 206 H Calcium 9.0 Cardiac Enzymes 07/20/17 07/21/17 07/21/17 Range/Units 18:18 00:44 06:27 Troponin I 0.04 H* 0.04 H* 0.04 H* (< 0.04) ng/mL Consult Discharge Plan - Plan Referrals: Arley Awan MD [Primary Care Provider] -
[2017-07-21] MEDS: hydrALAZINE 25 MG TABLET PO SCH ×2 (09:25→21:18)
[2017-07-21] MEDS: Aspirin Enteric Coated 81 MG Tablet PO SCH (09:25)
[2017-07-21] MEDS: Isosorbide MONOnitrate (24 HR) 30 MG TAB.ER.24H PO SCH (09:25)
[2017-07-21] MEDS: Gabapentin 300 MG CAPSULE PO SCH ×2 (09:25→16:56)
[2017-07-21] MEDS ORDERED: Levofloxacin 500 MG/100 ML 500 MG/100 ML BAG IVPB SCH (10:00)
[2017-07-21] MEDS: Budesonide/Formoterol 80/4.5 MDI IH SCH ×2 (11:15→19:44)
[2017-07-21] MEDS: Furosemide 40 MG/4 ML VIAL IVP SCH ×2 (15:56→16:54)
[2017-07-21] MEDS: Gabapentin 400 MG CAPSULE PO SCH (21:18)
[2017-07-22] MEDS: Ipratropium/Albuterol Neb 3 ML IH SCH ×3 (04:10→11:41)
[2017-07-22 04:12] LABS: Basophils % 0.4 %; Eosinophils % 0.3 %; Hematocrit 31.4 % (35.3-44.9); Hemoglobin 10.1 g/dL (11.5-15.4); Immature Granulocytes % 0.3 % (0-4); Lymphocytes % 28.5 %; Mean Corpuscular HGB Conc 32.2 g/dL (31.6-35.5); Mean Corpuscular Volume 96.3 fL (83.0-100.0); Mean Platelet Volume 10.8 fL (9.4-12.4); Monocytes # 0.7 K/mcL (0.0-1.3); Monocytes % 10.3 %; Neutrophils # 4.3 K/mcL (1.6-8.9); Platelet Count 236 K/mcL (140-400); Red Blood Count 3.26 M/mcL (3.82-4.97); Segmented Neutrophils % 60.2 %
[2017-07-22 04:16] LABS: Lymphocytes # 2.1 K/mcL (0.6-4.6)
[2017-07-22 04:42] LABS: BUN/Creatinine Ratio 35 (6-26); Blood Urea Nitrogen 33 mg/dL (8-23); Calcium 8.8 mg/dL (8.6-10.3); Carbon Dioxide 27 mEq/L (23-29); Chloride 102 mEq/L (98-107); Glucose 102 mg/dL (70-105); Magnesium 1.7 mg/dL (1.6-2.6); Osmolality,Calculated 293 (280-300); Phosphorous 3.4 mg/dL (2.7-4.5); Potassium 3.4 mEq/L (3.5-5.1); Sodium 138 mEq/L (136-145); eGFR For African Americans > 60 (> 60); eGFR For Non-African Americans 57 (> 60)
[2017-07-22] MEDS: Budesonide/Formoterol 80/4.5 MDI IH SCH (07:41)
[2017-07-22] MEDS ORDERED: predniSONE 20 MG TABLET PO SCH (09:00)
[2017-07-22] MEDS ORDERED: levoFLOXacin 500 MG TABLET PO SCH (09:00)
[2017-07-22] MEDS ORDERED: Furosemide 40 MG TABLET PO SCH ×2 (09:00)
[2017-07-22] MEDS: Gabapentin 300 MG CAPSULE PO SCH (09:30)
[2017-07-22] MEDS: Aspirin Enteric Coated 81 MG Tablet PO SCH (09:31)
[2017-07-22] MEDS: Isosorbide MONOnitrate (24 HR) 30 MG TAB.ER.24H PO SCH (09:31)
[2017-07-22] MEDS: hydrALAZINE 25 MG TABLET PO SCH (09:31)
--- NOTE | 2017-07-22 10:26 | Discharge Summary ---
Date of Encounter: 07/22/17 Time of Encounter: 10:22 - Discharge Diagnosis (1) Acute and chronic respiratory failure Priority: Primary Status: Resolved Qualifiers: Respiratory failure complication: hypoxia Qualified Code(s): J96.21 - Acute and chronic respiratory failure with hypoxia (2) Acute exacerbation of chronic obstructive airways disease Priority: Primary Status: Acute (3) DVT prophylaxis Priority: Secondary Status: Acute (4) CHF exacerbation Priority: Primary Status: Acute Qualifiers: Congestive heart failure type: systolic Qualified Code(s): I50.23 - Acute on chronic systolic (congestive) heart failure (5) Atrial fibrillation Priority: Secondary Status: Chronic Qualifiers: Atrial fibrillation type: chronic Qualified Code(s): I48.2 - Chronic atrial fibrillation (6) Essential hypertension Priority: Secondary Status: Chronic (7) Obesity (BMI 30-39.9) Priority: Secondary Status: Chronic (8) Elevated troponin Priority: Secondary Status: Acute - Discharge Medications Prescriptions: Furosemide [Lasix] 40 mg PO DAILY #15 tab levoFLOXacin [Levaquin] 500 mg PO DAILY #4 tablet predniSONE [PredniSONE] 40 mg PO DAILY #4 tablet Home Medications: Atorvastatin [Lipitor] 20 mg PO HS 02/23/15 [History] Clopidogrel [Plavix] 75 mg PO DAILY 02/23/15 [History] Docusate [Colace] 100 mg PO BID PRN 02/23/15 [History] Fluticasone/Salmeterol [Advair 250-50 Diskus] 1 each IH BID 02/23/15 [History] Gabapentin [Neurontin] 600 mg PO BID 02/23/15 [History] GuaiFENesin ER [Mucinex] 600 mg PO BID PRN 02/23/15 [History] Montelukast [Singulair] 10 mg PO HS 02/23/15 [History] Multivit-Min/FA/Lycopen/Lutein [Centrum Silver Tablet] 1 each PO DAILY 02/23/15 [History] Gabapentin [Neurontin] 1,200 mg PO HS 07/01/15 [History] HYDROcodone/Acet 5/325 mg [[place] 5-325 mg] 1 tab PO Q6HR PRN 07/01/15 [History] Isosorbide MONOnitrate (24 HR) [Imdur] 30 mg PO DAILY 07/01/15 [History] hydrALAZINE [HydrALAZINE] 25 mg PO BID #60 tablet 10/03/15 [Rx] Fluticasone Propionate Nasal [Flonase] 100 mcg NS DAILY 05/13/16 [History] Levalbuterol Tartrate [Xopenex Hfa] 2 puff IH TID 05/13/16 [History] Umeclidinium [place] [Incruse Ellipta] 62.5 mcg IH DAILY 05/13/16 [History] Oxygen 2 l IN CONT #1 each 05/16/16 [Rx] Aspirin [Lo-Dose Aspirin EC] 81 mg PO DAILY 01/15/17 [History] Raloxifene [Evista] 60 mg PO DAILY 01/15/17 [History] Furosemide [Lasix] 40 mg PO DAILY #15 tab 07/22/17 [Rx] levoFLOXacin [Levaquin] 500 mg PO DAILY #4 tablet 07/22/17 [Rx] predniSONE [PredniSONE] 40 mg PO DAILY #4 tablet 07/22/17 [Rx] Allergies/Adverse Reactions: 3 Allergy/AdvReac Type Severity Reaction Status Date / Time No Known Allergies Allergy Verified 07/20/17 11:59 Date of admission: 07/20/17 16:17 Primary care physician: Arley Awan MD Consults: 07/21/17 09:00 Consult to Physical Therapy [CONS] Stat Comment: Evaluate, develop and implement POC Reason for Consult: evaluation for discharge disposition 07/21/17 09:01 Consult to Occupational Therapy [CONS] Stat Comment: Evaluate, develop and implement POC Reason for Consult: evaluation for discharge disposition Discharging clinician: Kym Flower Anticipated date of discharge: 07/22/17 - Patient Status Disposition: Home Health Service Condition: Good Functional capacity at discharge: uses cane/walker Overall status at discharge: patient is back to baseline - Discharge Instructions Follow Up With: Arley Awan MD [Primary Care Provider] - 07/29/17 10:15 am Additional Instructions: Please follow up with your primary care physician within five days after your discharge from the hospital. Please continue oral Prednisone, Levofloxacin, and Lasix as prescribed. Please resume all other medications as prescribed by your primary care physician. Adhere to a fluid restriction diet (2L/day) - Diet and Activity Activity: increase activity as tolerated, wear oxygen at all times, wear oxygen at night Diet: low fat, low cholesterol, low salt diet Hospital course: Ms. Espinal is a 81 year old female with PMH of COPD on LTOT, CHF, Afib, CAD, HLD , HTN, arthritis who was admitted for acute respiratory failure secondary to COPD and CHF exacerbation. She was started on IV steroids, IV diuresis, IV abx, and bronchodilator support. She responded appropriately to therapy however lost IV access and continued to refuse IV insertion. She was transitioned to PO lasix , prednisone, and oral abx. She refused Lasix dose and detailed education was provided as pt stated that she only takes it as needed at home. She is currently back to her baseline respiratory status and is hemodynamically stable for discharge to home. She will be discharged with oral steroids, abx, and po lasix. She is to follow up with her pcp after discharge. Pt demonstrates understanding of her diagnosis and agrees with the discharge care and plan. - Time Spent with Patient Total time spent providing and/or coordinating discharge services: Less than 30 minutes - Constitutional Vitals: Temp Pulse Resp BP Pulse Ox 97.6 F 73 16 129/81 92 07/22/17 03:54 07/22/17 03:54 07/22/17 07:32 07/22/17 03:54 07/22/17 07:32 General appearance: Present: A&O X 3, no acute distress, obese, answers questions appropriately - Head Head exam: Present: atraumatic, normocephalic - Eye Eye exam: Present: conjuntiva pink, sclera anicteric - Respiratory Respiratory exam: Absent: rales, respiratory distress, wheezes - Cardiovascular Cardiovascular exam: Present: RRR, +S1, +S2. Absent: diastolic murmur, gallop, rubs, systolic murmur - GI/Abdominal GI/Abdominal exam: Present: normal bowel sounds, soft, no peritoneal signs. Absent: distended, tenderness - Extremities Exam Extremities exam: Present: warm, radial pulses palpable and symmetrical. Absent : calf tenderness, pedal edema - Neurological Exam Neurological exam: Present: alert, oriented X3 - Psychiatric Psychiatric exam: Present: normal affect, normal mood
--- NOTE | 2017-07-22 10:37 | Physician Discharge Referral ---
Home Health/Hosp Referral Info Transfer to: Home Health Provider in Charge Post Discharge: PCP - Diagnosis (1) Acute and chronic respiratory failure Priority: Primary Status: Resolved (2) Acute exacerbation of chronic obstructive airways disease Priority: Primary Status: Acute (3) DVT prophylaxis Priority: Secondary Status: Acute (4) CHF exacerbation Priority: Primary Status: Acute (5) Atrial fibrillation Priority: Secondary Status: Chronic (6) Essential hypertension Priority: Secondary Status: Chronic (7) Obesity (BMI 30-39.9) Priority: Secondary Status: Chronic (8) Elevated troponin Priority: Secondary Status: Acute - Respiratory Orders Smoking Cessation: Smoking cessation has been advised. For more information, call the [place] Tobacco Quit Line at 4-368-WSZE-NOW. - Services Needed Following services are medically necessary services: Nursing, Home Health Aide, Physical Therapy, Occupational Therapy - Transfer Medications Prescriptions: Furosemide [Lasix] 40 mg PO DAILY #15 tab levoFLOXacin [Levaquin] 500 mg PO DAILY #4 tablet predniSONE [PredniSONE] 40 mg PO DAILY #4 tablet Home Medications: Atorvastatin [Lipitor] 20 mg PO HS 02/23/15 [History] Clopidogrel [Plavix] 75 mg PO DAILY 02/23/15 [History] Docusate [Colace] 100 mg PO BID PRN 02/23/15 [History] Fluticasone/Salmeterol [Advair 250-50 Diskus] 1 each IH BID 02/23/15 [History] Gabapentin [Neurontin] 600 mg PO BID 02/23/15 [History] GuaiFENesin ER [Mucinex] 600 mg PO BID PRN 02/23/15 [History] Montelukast [Singulair] 10 mg PO HS 02/23/15 [History] Multivit-Min/FA/Lycopen/Lutein [Centrum Silver Tablet] 1 each PO DAILY 02/23/15 [History] Gabapentin [Neurontin] 1,200 mg PO HS 07/01/15 [History] HYDROcodone/Acet 5/325 mg [[place] 5-325 mg] 1 tab PO Q6HR PRN 07/01/15 [History] Isosorbide MONOnitrate (24 HR) [Imdur] 30 mg PO DAILY 07/01/15 [History] hydrALAZINE [HydrALAZINE] 25 mg PO BID #60 tablet 10/03/15 [Rx] Fluticasone Propionate Nasal [Flonase] 100 mcg NS DAILY 05/13/16 [History] Levalbuterol Tartrate [Xopenex Hfa] 2 puff IH TID 05/13/16 [History] Umeclidinium [place] [Incruse Ellipta] 62.5 mcg IH DAILY 05/13/16 [History] Oxygen 2 l IN CONT #1 each 05/16/16 [Rx] Aspirin [Lo-Dose Aspirin EC] 81 mg PO DAILY 01/15/17 [History] Raloxifene [Evista] 60 mg PO DAILY 01/15/17 [History] Furosemide [Lasix] 40 mg PO DAILY #15 tab 07/22/17 [Rx] levoFLOXacin [Levaquin] 500 mg PO DAILY #4 tablet 07/22/17 [Rx] predniSONE [PredniSONE] 40 mg PO DAILY #4 tablet 07/22/17 [Rx] Allergies/Adverse Reactions: 3 Allergy/AdvReac Type Severity Reaction Status Date / Time No Known Allergies Allergy Verified 07/20/17 11:59 Certification: Further, I certify that my clinical findings support that this patient is homebound (i.e. absences from home require considerable and taxing effort and are for medical reasons or yarsanism services or infrequently or short duration when for other reasons) because: Homebound Reason: Patient requires assistance of a person or device to safely leave home Attestation: My signature below is to certify that this patient is under my care and that I, or nurse practitioner, or a physician's elementary assistant principal working with me, has a face-to -face encounter with this patient.
[2017-07-22 11:28] VITALS: BP 148/80
[2017-07-22] MEDS ORDERED: FLUARIX QUAD 2017-18 36MOS UP/PF 0.5 ML SYRINGE IM ONE (12:03)
== END 2017-07-22 13:55 | disposition home health service (06) ==
LOC: 3ANU 11:42 → EMEROO 11:42 → SUATTDRO 16:17 → 3ANU 17:10
PROVIDERS: ADMIT Internal Medicine; ATTEND Internal Medicine

== ENCOUNTER 2017-10-20 18:07 | Inpatient (IN) ==
--- NOTE | 2017-10-20 18:13 | Emergency Department Note ---
Disposition Clinical Impression: CAP (community acquired pneumonia), Weakness, Closed head injury Disposition: Admitted As Inpatient Condition: Fair General Adult HPI - General Chief complaint: ED Head Injury Stated complaint: Fall/Head Laceration Time Seen by Provider: 10/20/17 18:09 - Related Data Home Medications Medication Instructions Recorded Confirmed Atorvastatin [Lipitor] 20 mg PO HS 02/23/15 10/20/17 Clopidogrel [Plavix] 75 mg PO DAILY 02/23/15 10/20/17 Docusate [Colace] 100 mg PO BID PRN 02/23/15 10/20/17 Fluticasone/Salmeterol [Advair 1 each IH BID 02/23/15 10/20/17 250-50 Diskus] Gabapentin [Neurontin] 600 mg PO BID 02/23/15 10/20/17 GuaiFENesin ER [Mucinex] 600 mg PO BID PRN 02/23/15 10/20/17 Multivit-Min/FA/Lycopen/Lutein 1 each PO DAILY 02/23/15 10/20/17 [Centrum Silver Tablet] Gabapentin [Neurontin] 1,200 mg PO HS 07/01/15 10/20/17 Isosorbide MONOnitrate (24 HR) 30 mg PO DAILY 07/01/15 10/20/17 [Imdur] Fluticasone Propionate Nasal 100 mcg NS DAILY 05/13/16 10/20/17 [Flonase] Levalbuterol Tartrate [Xopenex Hfa] 2 puff IH TID 05/13/16 10/20/17 Umeclidinium [place] [Incruse 62.5 mcg IH DAILY 05/13/16 10/20/17 Ellipta] Aspirin [Lo-Dose Aspirin EC] 81 mg PO DAILY 01/15/17 10/20/17 Raloxifene [Evista] 60 mg PO DAILY 01/15/17 10/20/17 Albuterol Sulfate [Ventolin Hfa] 2 puff IH Q4-6H PRN 10/20/17 10/20/17 Previous Rx's Medication Instructions Recorded Oxygen 2 l IN CONT #1 each 05/16/16 Furosemide [Lasix] 40 mg PO DAILY #15 tab 07/22/17 Allergies Allergy/AdvReac Type Severity Reaction Status Date / Time No Known Allergies Allergy Verified 07/20/17 11:59 Past Medical History - Past Medical History Medical history: Reports: arthritis, asthma, atrial fibrillation, CHF, COPD, coronary artery disease, GERD, hyperlipidemia, hypertension, osteoporosis Surgical history: Reports: , hysterectomy Psychiatric history: Reports: depression THIRD COOK history: Reports: no THIRD COOK history - Social History Smoking Status: Former smoker Smokeless Tobacco Status: No Alcohol use: Reports: none Drug use: Reports: none Course Vital Signs Temperature 101.0 F H 10/20/17 18:09 Pulse Rate 68 10/20/17 18:09 Respiratory Rate 18 10/20/17 18:09 Blood Pressure 115/60 10/20/17 18:09 O2 Sat by Pulse Oximetry 93 10/20/17 18:09 Temperature 101.0 F H 10/20/17 18:09 Pulse Rate 53 10/20/17 23:03 Respiratory Rate 18 10/20/17 23:10 Blood Pressure 133/66 10/20/17 23:10 O2 Sat by Pulse Oximetry 97 10/20/17 23:03 Oxygen Delivery Oxygen Delivery Nasal Cannula Medical Decision Making - Lab Data Result diagrams: 10/20/17 19:46 10/20/17 19:46 Lab Results 10/20/17 10/20/17 10/20/17 Range/Units 19:24 19:46 19:46 WBC 11.5 H (4.3-11.1) K/mcL RBC 3.54 L (3.82-4.97) M/mcL Hgb 10.5 L (11.5-15.4) g/dL Hct 32.8 L (35.3-44.9) % MCV 92.7 (83.0-100.0) fL MCH 29.7 (28.0-33.3) pg MCHC 32.0 (31.6-35.5) g/dL RDW 14.6 H (11.5-14.5) % Plt Count 194 (140-400) K/mcL MPV 10.9 (9.4-12.4) fL Immature Gran % 0.2 (0-4) % Seg Neutrophils % 64.7 % Lymphocytes % 22.5 % Monocytes % 9.2 % Eosinophils % 2.9 % Basophils % 0.5 % Neutrophils # 7.4 (1.6-8.9) K/mcL Lymphocytes # 2.6 (0.6-4.6) K/mcL Monocytes # 1.1 (0.0-1.3) K/mcL Eosinophils # 0.3 (0.0-0.6) K/mcL Basophils # 0.1 (0.0-0.2) K/mcL Sodium 139 (136-145) mEq/L Potassium 3.5 (3.5-5.1) mEq/L Chloride 102 (98-107) mEq/L Carbon Dioxide 29 (23-29) mEq/L BUN 19 (8-23) mg/dL Creatinine 0.80 (0.60-1.20) mg/dL Est GFR ( Amer) > 60 (> 60) Est GFR (Non-Af Amer) > 60 (> 60) BUN/Creatinine Ratio 24 (6-26) Glucose 99 (70-105) mg/dL Calculated Osmolality 290 (280-300) Lactic Acid (0.5-2.2) mmol/L Calcium 8.8 (8.6-10.3) mg/dL Troponin I < 0.03 (< 0.04) ng/mL Urine Color Yellow (Yellow) Urine Clarity Clear (Clear) Urine pH 5.5 (5.0-8.0) pH Units Ur Specific [place] 1.025 (1.010-1.025) Urine Protein Negative (Neg-Trace) mg/dL Urine Glucose (UA) Normal (Normal) mg/dL Urine Ketones Negative (Negative) mg/dL Urine Blood Negative (Negative) Urine Nitrite Negative (Negative) Urine Bilirubin Negative (Negative) Urine Urobilinogen Normal (Normal) mg/dL Ur Leukocyte Esterase Negative (Negative) 10/20/17 Range/Units 20:21 WBC (4.3-11.1) K/mcL RBC (3.82-4.97) M/mcL Hgb (11.5-15.4) g/dL Hct (35.3-44.9) % MCV (83.0-100.0) fL MCH (28.0-33.3) pg MCHC (31.6-35.5) g/dL RDW (11.5-14.5) % Plt Count (140-400) K/mcL MPV (9.4-12.4) fL Immature Gran % (0-4) % Seg Neutrophils % % Lymphocytes % % Monocytes % % Eosinophils % % Basophils % % Neutrophils # (1.6-8.9) K/mcL Lymphocytes # (0.6-4.6) K/mcL Monocytes # (0.0-1.3) K/mcL Eosinophils # (0.0-0.6) K/mcL Basophils # (0.0-0.2) K/mcL Sodium (136-145) mEq/L Potassium (3.5-5.1) mEq/L Chloride (98-107) mEq/L Carbon Dioxide (23-29) mEq/L BUN (8-23) mg/dL Creatinine (0.60-1.20) mg/dL Est GFR ( Amer) (> 60) Est GFR (Non-Af Amer) (> 60) BUN/Creatinine Ratio (6-26) Glucose (70-105) mg/dL Calculated Osmolality (280-300) Lactic Acid 1.0 (0.5-2.2) mmol/L Calcium (8.6-10.3) mg/dL Troponin I (< 0.04) ng/mL Urine Color (Yellow) Urine Clarity (Clear) Urine pH (5.0-8.0) pH Units Ur Specific [place] (1.010-1.025) Urine Protein (Neg-Trace) mg/dL Urine Glucose (UA) (Normal) mg/dL Urine Ketones (Negative) mg/dL Urine Blood (Negative) Urine Nitrite (Negative) Urine Bilirubin (Negative) Urine Urobilinogen (Normal) mg/dL Ur Leukocyte Esterase (Negative) Attestation Statement - Attestation Attestation: I examined this patient and my medical decision-making was reviewed with the Resident Physician. I agree with the documented findings, disposition and treatment plan as described except to the extent set forth below. Face to face time provided Patient to ED via EMS from home s/p mechanical fall. has lac to forehead. alert and oriented. right shoulder ecchymotic. evaluation performed in conjunction with the resident physician Dr. Beatty
[2017-10-20] MEDS ORDERED: Tdap (Boostrix) Vaccine 0.5 ML SYRINGE IM ONE (18:14)
--- NOTE | 2017-10-20 18:23 | Emergency Department Note ---
Disposition Clinical Impression: Weakness CAP (community acquired pneumonia) Qualifiers: Laterality: right Lung location: lower lobe of lung Qualified Code(s): J18.1 - Lobar pneumonia, unspecified organism Closed head injury Qualifiers: Encounter type: initial encounter Qualified Code(s): S09.90XA - Unspecified injury of head, initial encounter Disposition: Admitted As Inpatient Condition: Fair Time of Disposition: 21:04 Head Injury HPI - General Chief complaint: ED Head Injury Stated complaint: Fall/Head Laceration Time Seen by Provider: 10/20/17 18:09 Source: EMS Limitations: no limitations Nursing Notes Reviewed: Yes Vital Signs Reviewed: Yes - History of Present Illness HPI Narrative: 81-year-old female complains ground-level mechanical fall 45 minutes ago. Event happen at home. Patient brought in by EMS. Patient states she tried to transfer from her bedside commode to her bed but also balance fell forward hit her head on the dresser and then hit the ground on her right side. Patient states her shoulder also hit the dresser. Patient denies any current pain symptoms and no loss of consciousness. - Related Data Home Medications Medication Instructions Recorded Confirmed Atorvastatin [Lipitor] 20 mg PO HS 02/23/15 10/20/17 Clopidogrel [Plavix] 75 mg PO DAILY 02/23/15 10/20/17 Docusate [Colace] 100 mg PO BID PRN 02/23/15 10/20/17 Fluticasone/Salmeterol [Advair 1 each IH BID 02/23/15 10/20/17 250-50 Diskus] Gabapentin [Neurontin] 600 mg PO BID 02/23/15 10/20/17 GuaiFENesin ER [Mucinex] 600 mg PO BID PRN 02/23/15 10/20/17 Multivit-Min/FA/Lycopen/Lutein 1 each PO DAILY 02/23/15 10/20/17 [Centrum Silver Tablet] Gabapentin [Neurontin] 1,200 mg PO HS 07/01/15 10/20/17 Isosorbide MONOnitrate (24 HR) 30 mg PO DAILY 07/01/15 10/20/17 [Imdur] Fluticasone Propionate Nasal 100 mcg NS DAILY 05/13/16 10/20/17 [Flonase] Levalbuterol Tartrate [Xopenex Hfa] 2 puff IH TID 05/13/16 10/20/17 Umeclidinium [place] [Incruse 62.5 mcg IH DAILY 05/13/16 10/20/17 Ellipta] Aspirin [Lo-Dose Aspirin EC] 81 mg PO DAILY 01/15/17 10/20/17 Raloxifene [Evista] 60 mg PO DAILY 01/15/17 10/20/17 Albuterol Sulfate [Ventolin Hfa] 2 puff IH Q4-6H PRN 10/20/17 10/20/17 Previous Rx's Medication Instructions Recorded Oxygen 2 l IN CONT #1 each 05/16/16 Furosemide [Lasix] 40 mg PO DAILY #15 tab 07/22/17 Allergies/Adverse reactions: Allergies Allergy/AdvReac Type Severity Reaction Status Date / Time No Known Allergies Allergy Verified 07/20/17 11:59 All systems ED: reviewed and negative except as stated. Review of Systems: As Per HPI Constitutional: Reports: fever ENT ED: Reports: congestion Respiratory: Reports: cough Past Medical History - Past Medical History Attestation: Yes The following information was validated with the patient. Source: patient, nursing notes reviewed Medical history: Reports: arthritis, asthma, atrial fibrillation, CHF, COPD, coronary artery disease, GERD, hyperlipidemia, hypertension, osteoporosis Surgical history: Reports: , hysterectomy Psychiatric history: Reports: depression PRODUCT ENGINEER history: Reports: no PRODUCT ENGINEER history - Social History Smoking Status: Former smoker Smokeless Tobacco Status: No Alcohol use: Reports: none Drug use: Reports: none Physical Exam Vital Signs Temperature 101.0 F H 10/20/17 18:09 Pulse Rate 68 10/20/17 18:09 Respiratory Rate 18 10/20/17 18:09 Blood Pressure 115/60 10/20/17 18:09 O2 Sat by Pulse Oximetry 93 10/20/17 18:09 Temperature 101.0 F H 10/20/17 18:09 Pulse Rate 68 10/20/17 18:09 Respiratory Rate 18 10/20/17 18:09 Blood Pressure 115/60 10/20/17 18:09 O2 Sat by Pulse Oximetry 93 10/20/17 18:09 Oxygen Delivery Oxygen Delivery Nasal Cannula CONSTITUTIONAL: Elderly female well-known entered and well-nourished; A&O X 3 , in no acute distress at this time. Patient has a bandage on her head which was removed to reveal clotted blood. HEAD: 2 inch stellate skin tear laceration across left forehead, and 1 skin avulsion on left religious. EYES: PERRL, no scleral icterus NOSE: The nose is normal in appearance without rhinorrhea NECK: No JVD or distended neck veins RESP: Normal chest excursion with respiration; breath sounds clear and equal bilaterally; no wheezes, rhonchi, or rales CARD: Irregularly irregular rhythm, without murmurs, rub or gallop ABD: Non-distended; non-tender, soft, without rigidity, rebound or guarding,no pulsatile mass CHEST: No pain with palpation SKIN: Normal for age and race; warm and dry without diaphoresis ; no apparent lesions EXTREMITIES: Pulses are 2 plus and equal times 4 extremities, no peripheral edema or calf muscle pain, ecchymosis and right shoulder tenderness to palpation , right elbow effusion and tenderness. Right knee and tib-fib ecchymosis and tenderness to palpation. NEUROLOGICAL: Patient is alert and oriented times three. Cranial nerves III- XII are intact. Sensory and motor functions are intact. Strength is 5/5 for flexion and extension in all 4 extremities. - General Limitations: no limitations General appearance: alert, in no apparent distress Course - Reevaluation(s) Reevaluation #1: Patient is SIRS positive with fever, elevated WBC, and associated infection or right lower lung pneumonia. Sepsis protocol was initiated prior after identifying lung consolidation during my evaluation of the chest x-ray which I correlated with the fever. Plan is for admission Time: 21:01 Reevaluation #2: Patient is currently on 5 L supplemental O2. She is on O2 at home 2 L. Patient 's O2 saturation was between 80% and 90% and in order to raise her O2 saturation her supplemental O2 was increased to 5 L. Patient was not having any symptomatic shortness of breath Time: 21:46 - Consultations Consultation #1: Dr. Uriostegui the hospitalist as accepted patient for admission. Time: 21:46 Vital Signs Temperature 101.0 F H 18 18:09 Pulse Rate 68 10/20/17 18:09 Respiratory Rate 18 10/20/17 18:09 Blood Pressure 115/60 10/20/17 18:09 O2 Sat by Pulse Oximetry 93 10/20/17 18:09 Temperature 101.0 F H 10/20/17 18:09 Pulse Rate 53 10/20/17 23:03 Respiratory Rate 18 10/20/17 23:10 Blood Pressure 133/66 10/20/17 23:10 O2 Sat by Pulse Oximetry 97 10/20/17 23:03 Oxygen Delivery Oxygen Delivery Nasal Cannula Procedures - Laceration Laceration 1 Site: face Side (If applicable): left Description: stellate, flap Depth: simple, single layer Local Anesthetic: lidocaine 1%, with epi Amount of Anesthesia Used (mL): 2 Pre-repair: wound explored, irrigated extensively, deep structures intact Skin layer closed with: nylon Size: 5-0 Number of sutures/norma: 5 Technique: simple, interrupted Head Injury - MDM Narrative Medical decision making narrative: Fall with head laceration. Closed head injury without loss of consciousness. Patient stated that her legs were weak. She has a history of weakness but it seems like they were weaker than normal. I extended my workup to identify source of infection of pneumonia or urinary tract infection because she is currently febrile. Patient's head CT showed no fracture or intracranial, subdural hematoma or intracranial hemorrhage. This is patient's imaging to rule out fractures were negative for any fractures. Chest x-ray revealed right lower lobe consolidation for healthcare associated pneumonia. Patient was initially being treated for community-acquired but before I could switch patient's antibiotic coverage to expand for healthcare she was given 1 dose of azithromycin and ceftriaxone. Patient is SIRS positive but not septic. She will receive vancomycin and should be started on Zosyn and Levaquin tomorrow. Patient's forehead has 2 lacerations on the left side hemostasis has been achieved. Both are superficial and patient skin is very thin But I was able to close the forehead lac with 5 sutures. The other laceration is in a tension free area and should heal well with just simple bandaging with nonstick bandage material. Patient understands and agrees to treatment plan as been updated on her pneumonia. She accepts decision for admission. Dr. Uriostegui the hospitalist as accepted patient for admission. - Medical Records Medical records reviewed: Yes I reviewed the patient's medical records. - Lab Data Lab results reviewed: Yes I reviewed the patient's lab results. Lab results narrative: Short CBC 10/20/17 Range/Units 19:46 WBC 11.5 H (4.3-11.1) K/mcL Hgb 10.5 L (11.5-15.4) g/dL Hct 32.8 L (35.3-44.9) % Plt Count 194 (140-400) K/mcL Neutrophils # 7.4 (1.6-8.9) K/mcL BMP 10/20/17 Range/Units 19:46 Sodium 139 (136-145) mEq/L Potassium 3.5 (3.5-5.1) mEq/L Chloride 102 (98-107) mEq/L Carbon Dioxide 29 (23-29) mEq/L BUN 19 (8-23) mg/dL Creatinine 0.80 (0.60-1.20) mg/dL Glucose 99 (70-105) mg/dL Calcium 8.8 (8.6-10.3) mg/dL Cardiac Enzymes 10/20/17 Range/Units 19:46 Troponin I < 0.03 (< 0.04) ng/mL Urine 10/20/17 Range/Units 19:24 Urine Color Yellow (Yellow) Urine Clarity Clear (Clear) Urine pH 5.5 (5.0-8.0) pH Units Ur Specific [place] 1.025 (1.010-1.025) Urine Protein Negative (Neg-Trace) mg/dL Urine Glucose (UA) Normal (Normal) mg/dL Result diagrams: 10/20/17 19:46 10/20/17 19:46 Lab Results 10/20/17 10/20/17 10/20/17 Range/Units 19:24 19:46 19:46 WBC 11.5 H (4.3-11.1) K/mcL RBC 3.54 L (3.82-4.97) M/mcL Hgb 10.5 L (11.5-15.4) g/dL Hct 32.8 L (35.3-44.9) % MCV 92.7 (83.0-100.0) fL MCH 29.7 (28.0-33.3) pg MCHC 32.0 (31.6-35.5) g/dL RDW 14.6 H (11.5-14.5) % Plt Count 194 (140-400) K/mcL MPV 10.9 (9.4-12.4) fL Immature Gran % 0.2 (0-4) % Seg Neutrophils % 64.7 % Lymphocytes % 22.5 % Monocytes % 9.2 % Eosinophils % 2.9 % Basophils % 0.5 % Neutrophils # 7.4 (1.6-8.9) K/mcL Lymphocytes # 2.6 (0.6-4.6) K/mcL Monocytes # 1.1 (0.0-1.3) K/mcL Eosinophils # 0.3 (0.0-0.6) K/mcL Basophils # 0.1 (0.0-0.2) K/mcL Sodium 139 (136-145) mEq/L Potassium 3.5 (3.5-5.1) mEq/L Chloride 102 (98-107) mEq/L Carbon Dioxide 29 (23-29) mEq/L BUN 19 (8-23) mg/dL Creatinine 0.80 (0.60-1.20) mg/dL Est GFR ( Amer) > 60 (> 60) Est GFR (Non-Af Amer) > 60 (> 60) BUN/Creatinine Ratio 24 (6-26) Glucose 99 (70-105) mg/dL Calculated Osmolality 290 (280-300) Lactic Acid (0.5-2.2) mmol/L Calcium 8.8 (8.6-10.3) mg/dL Troponin I < 0.03 (< 0.04) ng/mL Urine Color Yellow (Yellow) Urine Clarity Clear (Clear) Urine pH 5.5 (5.0-8.0) pH Units Ur Specific [place] 1.025 (1.010-1.025) Urine Protein Negative (Neg-Trace) mg/dL Urine Glucose (UA) Normal (Normal) mg/dL Urine Ketones Negative (Negative) mg/dL Urine Blood Negative (Negative) Urine Nitrite Negative (Negative) Urine Bilirubin Negative (Negative) Urine Urobilinogen Normal (Normal) mg/dL Ur Leukocyte Esterase Negative (Negative) 10/20/17 Range/Units 20:21 WBC (4.3-11.1) K/mcL RBC (3.82-4.97) M/mcL Hgb (11.5-15.4) g/dL Hct (35.3-44.9) % MCV (83.0-100.0) fL MCH (28.0-33.3) pg MCHC (31.6-35.5) g/dL RDW (11.5-14.5) % Plt Count (140-400) K/mcL MPV (9.4-12.4) fL Immature Gran % (0-4) % Seg Neutrophils % % Lymphocytes % % Monocytes % % Eosinophils % % Basophils % % Neutrophils # (1.6-8.9) K/mcL Lymphocytes # (0.6-4.6) K/mcL Monocytes # (0.0-1.3) K/mcL Eosinophils # (0.0-0.6) K/mcL Basophils # (0.0-0.2) K/mcL Sodium (136-145) mEq/L Potassium (3.5-5.1) mEq/L Chloride (98-107) mEq/L Carbon Dioxide (23-29) mEq/L BUN (8-23) mg/dL Creatinine (0.60-1.20) mg/dL Est GFR ( Amer) (> 60) Est GFR (Non-Af Amer) (> 60) BUN/Creatinine Ratio (6-26) Glucose (70-105) mg/dL Calculated Osmolality (280-300) Lactic Acid 1.0 (0.5-2.2) mmol/L Calcium (8.6-10.3) mg/dL Troponin I (< 0.04) ng/mL Urine Color (Yellow) Urine Clarity (Clear) Urine pH (5.0-8.0) pH Units Ur Specific [place] (1.010-1.025) Urine Protein (Neg-Trace) mg/dL Urine Glucose (UA) (Normal) mg/dL Urine Ketones (Negative) mg/dL Urine Blood (Negative) Urine Nitrite (Negative) Urine Bilirubin (Negative) Urine Urobilinogen (Normal) mg/dL Ur Leukocyte Esterase (Negative) - Radiology Data Radiology results reviewed: Yes I reviewed the patient's radiology results. Head CT 10/20/17 18:14 IMPRESSION: 1. No acute intracranial abnormality. 2. Left frontal scalp laceration. No underlying fracture. D/ / William Lopez / William Lopez Interpreting Provider: William Lopez Cervical Spine X-Ray 10/20/17 18:18 IMPRESSION: 1. Limited evaluation of the cervical spine demonstrates no gross fracture. If there is strong concern for a fracture, CT of the cervical spine is recommended for further evaluation. 2. Consolidation in the right mid lung field, incompletely imaged. Dedicated chest radiograph is recommended for further evaluation. D/ / 10/20/2017 19:37:42 Jah Peñaloza MD / job Interpreting Provider: Jah Peñaloza MD Elbow X-Ray 10/20/17 18:18 IMPRESSION: 1. Unremarkable radiographs of the right elbow. D/ / Jah Peñaloza MD / Jah Peñaloza MD Interpreting Provider: Jah Peñaloza MD Hip/Pelvis X-Ray 10/20/17 18:18 IMPRESSION: No acute fracture D/ / Radha Kaplan MD / Radha Kaplan MD Interpreting Provider: Radha Kaplan MD Knee X-Ray 10/20/17 18:18 IMPRESSION: No acute fracture. Osteoarthrosis with prominent osteophyte formation. D/ / Radha Kaplan MD / Radha Kaplan MD Interpreting Provider: Radha Kaplan MD Shoulder X-Ray 10/20/17 18:18 IMPRESSION: No evidence of an acute right shoulder injury. Faint opacity in the right lower lung, possibly fluid in the minor fissure. Airspace disease is not excluded. Follow-up chest x-ray would be helpful. D/ / Xavier Moss MD / Xavier Moss MD Interpreting Provider: Xavier Moss MD Tibia/Fibula X-Ray 10/20/17 18:18 IMPRESSION: No acute findings D/ / Radha Kaplan MD / Radha Kaplan MD Interpreting Provider: Radha Kaplan MD Chest X-Ray 10/20/17 19:42 IMPRESSION: Worsening edema versus infection. D/ / Radha Kaplan MD / Radha Kaplan MD Interpreting Provider: Radha Kalpan MD Cervical Spine CT 10/20/17 19:43 IMPRESSION: No acute abnormality of the cervical spine. D/ / Martha Pearson Cha, MD / Martha Pearson Cha, MD Interpreting Provider: Martha Pearson Cha, MD - EKG Data EKG attestation: Yes I reviewed and interpreted this EKG. EKG results narrative: EKG taken 10/20/2017 at 1826 hrs. shows A. fib at a rate of [address] elevations but there are ST depressions and T-wave inversion very mild in aVL. There is EKG for comparison also shows A. fib with T-wave inversions in aVL and lateral leads.
[2017-10-20 19:39] LABS: Bilirubin,Urine Negative (Negative); Blood,Urine Negative (Negative); Clarity,Urine Clear (Clear); Color,Urine Yellow (Yellow); Glucose,Urine (UA) Normal (Normal); Ketones,Urine Negative (Negative); Leukocyte Esterase,Urine Negative (Negative); Nitrite,Urine Negative (Negative); PH,Urine 5.5 pH Units (5.0-8.0); Protein,Urine Negative (Neg-Trace); Specific Gravity,Urine 1.025 (1.010-1.025); Urobilinogen,Urine Normal (Normal)
[2017-10-20 19:58] LABS: Basophils # 0.1 K/mcL (0.0-0.2); Basophils % 0.5 %; Eosinophils # 0.3 K/mcL (0.0-0.6); Eosinophils % 2.9 %; Hematocrit 32.8 % (35.3-44.9); Hemoglobin 10.5 g/dL (11.5-15.4); Immature Granulocytes % 0.2 % (0-4); Lymphocytes # 2.6 K/mcL (0.6-4.6); Lymphocytes % 22.5 %; Mean Corpuscular Hemoglobin 29.7 pg (28.0-33.3); Mean Corpuscular Volume 92.7 fL (83.0-100.0); Mean Platelet Volume 10.9 fL (9.4-12.4); Monocytes # 1.1 K/mcL (0.0-1.3); Monocytes % 9.2 %; Neutrophils # 7.4 K/mcL (1.6-8.9); Platelet Count 194 K/mcL (140-400); Red Blood Count 3.54 M/mcL (3.82-4.97); Red Cell Distribution Width 14.6 % (11.5-14.5); Segmented Neutrophils % 64.7 %
[2017-10-20] MEDS ORDERED: cefTRIAXone 2,000 MG in Water for inj. (sterile) 20 ML 20 ML IVP SCH (20:00)
[2017-10-20] MEDS ORDERED: Azithromycin 500 MG in D5% in Water 250 ML IVPB SCH (20:00)
[2017-10-20 20:20] LABS: Troponin I < 0.03 ng/mL (< 0.04)
[2017-10-20 20:23] LABS: BUN/Creatinine Ratio 24 (6-26); Blood Urea Nitrogen 19 mg/dL (8-23); Calcium 8.8 mg/dL (8.6-10.3); Carbon Dioxide 29 mEq/L (23-29); Chloride 102 mEq/L (98-107); Glucose 99 mg/dL (70-105); Osmolality,Calculated 290 (280-300); Potassium 3.5 mEq/L (3.5-5.1); Sodium 139 mEq/L (136-145); eGFR For African Americans > 60 (> 60); eGFR For Non-African Americans > 60 (> 60)
[2017-10-20] MEDS ORDERED: Levofloxacin 750 MG/150 ML 750 MG/150 ML BAG IVPB ONE (21:45)
[2017-10-20] MEDS ORDERED: Piperacillin/Tazobactam 3.375 GM in 0.9 % Sodium Chloride Mini Bag 100 ML IVPB ONE (21:45)
[2017-10-20] MEDS ORDERED: *HR* OxyCODONE/APAP 5/325 TABLET PO ONE (21:55)
[2017-10-20] MEDS ORDERED: Ipratropium/Albuterol Neb 3 ML IH ONE (21:56)
[2017-10-20] MEDS ORDERED: methylPREDNISolone 125 MG/2 ML VIAL IVP ONE (21:56)
[2017-10-20] MEDS ORDERED: 0.9 % Sodium Chloride 1,000 ML IVC ONE (21:58)
[2017-10-20] MEDS ORDERED: Vancomycin (wt based) 1,000 MG VIAL IVPB SCH (22:00)
[2017-10-21] MEDS ORDERED: Acetaminophen 325 MG TABLET PO PRN (00:53)
[2017-10-21] MEDS ORDERED: Naloxone 0.4 MG/ML INJ IVP PRN (00:53)
[2017-10-21] MEDS ORDERED: Ipratropium/Albuterol Neb 3 ML IH PRN (00:57)
--- NOTE | 2017-10-21 01:00 | Internal Med History&Physical ---
Date of Encounter: 10/21/17 Time of Encounter: 01:00 Internal Medicine - H&P: HPI Chief complaint: Fall, forehead laceration Admitted From: Emergency Dept Plans for Post Hospital Care: Home History of present illness: Ms. Espinal is a 81 year old female with multiple medical problems, who presents with c/o- fall. She sustained a mechanical fall earlier this evening and bumped her head and shoulder on her dresser, and had a laceration on her left forehead and left blackeye. SHe denies chest pain, shortness of breath, nausea, vomiting , diarrhea, abdominal pain or any other complaints. Upon further questioning, she reports productive cough with greenish yellow sputum, subjective fever and chills for the last few days. Past Med Surg Social Fam HX - Past Medical History Source: patient, old records reviewed Medical history: arthritis, asthma, atrial fibrillation, CHF, COPD, coronary artery disease, GERD, hyperlipidemia, hypertension, osteoporosis Psychiatric history: depression - Past Surgical History Surgical History: breast surgery, , herniorrhaphy, hysterectomy - Social History Smoking Status: Former smoker Smokeless Tobacco Status: No Alcohol use: none Drug use: none Occupational status: disabled Current living situation: Home, With Family Activity Level: Uses cane/walker Recent Out of Country Travel Within the Last 8 Weeks: No Exposure or Possible Exposure to Illness During Travel: No - Family History Father Living Status: Age at : 52 Cause of : heart attack Hx Family Cardiac Disorders: Yes (NE) Mother Living Status: Age at : 76 Cause of : heart attack Hx Family Cardiac Disorders: Yes (NE) Hx Family Respiratory Disorders: Yes (Asthma) Hx Family Endocrine Disorder: Yes (DM) Internal Medicine - H&P: Meds Atorvastatin [Lipitor] 20 mg PO HS 02/23/15 [History] Clopidogrel [Plavix] 75 mg PO DAILY 02/23/15 [History] Docusate [Colace] 100 mg PO BID PRN 02/23/15 [History] Fluticasone/Salmeterol [Advair 250-50 Diskus] 1 each IH BID 02/23/15 [History] Gabapentin [Neurontin] 600 mg PO BID 02/23/15 [History] GuaiFENesin ER [Mucinex] 600 mg PO BID PRN 02/23/15 [History] Multivit-Min/FA/Lycopen/Lutein [Centrum Silver Tablet] 1 each PO DAILY 02/23/15 [History] Gabapentin [Neurontin] 1,200 mg PO HS 07/01/15 [History] Isosorbide MONOnitrate (24 HR) [Imdur] 30 mg PO DAILY 07/01/15 [History] Fluticasone Propionate Nasal [Flonase] 100 mcg NS DAILY 05/13/16 [History] Levalbuterol Tartrate [Xopenex Hfa] 2 puff IH TID 05/13/16 [History] Umeclidinium [place] [Incruse Ellipta] 62.5 mcg IH DAILY 05/13/16 [History] Oxygen 2 l IN CONT #1 each 05/16/16 [Rx] Aspirin [Lo-Dose Aspirin EC] 81 mg PO DAILY 01/15/17 [History] Raloxifene [Evista] 60 mg PO DAILY 01/15/17 [History] Furosemide [Lasix] 40 mg PO DAILY #15 tab 07/22/17 [Rx] Albuterol Sulfate [Ventolin Hfa] 2 puff IH Q4-6H PRN 10/20/17 [History] 3 Allergy/AdvReac Type Severity Reaction Status Date / Time No Known Allergies Allergy Verified 07/20/17 11:59 All Systems PM: A 10-system review of systems was performed and is negative for pertinent findings except as documented above in the HPI. - Constitutional Constitutional: chills, fever(s), weakness, no night sweats - EENT Eyes: no change in vision, no discharge, no pain, no photophobia Ears: no ear discharge, no ear pain, no tinnitus Nose, mouth and throat: no dysphagia, no nasal discharge, no neck pain, no sore throat - Cardiovascular Cardiovascular ROS IM: no chest pain, no diaphoresis, no dyspnea, no lightheadedness, no palpitations, no syncope - Respiratory Respiratory: cough, chest congestion, excessive phlegm production - Gastrointestinal Gastrointestinal: no abdominal pain, no diarrhea, no hematemesis, no hematochezia, no melena, no nausea, no vomiting - Genitourinary Genitourinary: no change in urinary stream, no dysuria, no flank pain, no hematuria - Musculoskeletal Musculoskeletal ROS IM: no numbness, no tingling - Integumentary Integumentary IM: no rash, no unusual bruising - Neurological Neurological ROS: frequent falls - Hematologic/Lymphatic Hematologic/Lymphatic: no easy bruising - Constitutional Vitals: Temp Pulse Resp BP Pulse Ox 98.7 F 61 20 136/56 92 10/21/17 00:26 10/21/17 00:26 10/21/17 00:26 10/21/17 00:26 10/21/17 00:26 General appearance: Present: A&O X 3 (fatigued and weak), answers questions appropriately Exam: left frontal area with sutures and dressing, soaked with serosanguineous drainage; periorbital ecchymosis; - Respiratory Respiratory exam: Present: CTAB. Absent: accessory muscle use, rales, rhonchi, wheezes - Cardiovascular Cardiovascular exam: Present: irregular rhythm, +S1, +S2. Absent: diastolic murmur, gallop, rubs, systolic murmur - GI/Abdominal GI/Abdominal exam: Present: normal bowel sounds, soft (obese), no peritoneal signs. Absent: distended, tenderness - Extremities Exam Extremities exam: Present: full ROM, warm, radial pulses palpable and symmetrical. Absent: calf tenderness, cyanotic, pedal edema - Neurological Exam Neurological exam: Present: CN II-XII intact, oriented X3, no focal deficits. Absent: pronater drift, facial droop, speech deficit - Skin Skin exam: Present: dry, intact, petechiae (multiple petechiae and ecchymoses over extremities B/L) Internal Med - H&P Results - Labs CBC & Chem 7: 10/21/17 04:06 10/21/17 04:06 - EKG Data -: EKG Interpreted by Myself (atrial fibrillation, rate-controlled) - Assessment and plan (1) Fall Current Visit: Yes Status: Acute Assessment and plan: mechanical fall. Left frontal laceration sutured, continue local wound care. Pain control. PT/OT evaluation. Qualifiers: Encounter type: subsequent encounter Qualified Code(s): W19.XXXD - Unspecified fall, subsequent encounter (2) Community acquired pneumonia Current Visit: Yes Status: Acute Assessment and plan: chest XRay shows bibasal Pneumonia vs atelectasis. She had a fever at presentation. Will continue IV Rocephin and Zithromax, supplemental O2 and supportive care; f/up blood cultures. Qualifiers: Laterality: unspecified laterality Qualified Code(s): J18.9 - Pneumonia, unspecified organism (3) Acute and chronic respiratory failure Current Visit: Yes Status: Acute Assessment and plan: patient is on home O2 at 2L/min due to COPD, now requiring higher O2; Qualifiers: Respiratory failure complication: hypoxia Qualified Code(s): J96.21 - Acute and chronic respiratory failure with hypoxia (4) Atrial fibrillation Current Visit: Yes Status: Chronic Assessment and plan: rate-controlled; noted to be bradycardic, monitor closely. not on anticoagulation as outpatient; Qualifiers: Atrial fibrillation type: paroxysmal Qualified Code(s): I48.0 - Paroxysmal atrial fibrillation (5) CAD (coronary artery disease) Current Visit: Yes Status: Chronic Qualifiers: Coronary Disease-Associated Artery/Lesion type: [place] artery [place] vs. transplanted heart: [place] heart Associated angina: without angina Qualified Code(s): I25.10 - Atherosclerotic heart disease of [place] coronary artery without angina pectoris (6) COPD (chronic obstructive pulmonary disease) Current Visit: Yes Status: Chronic Assessment and plan: not in acute exacerbation; PRN breathing treatments, ICS/LABA, supplemental O2; Qualifiers: COPD type: unspecified COPD Qualified Code(s): J44.9 - Chronic obstructive pulmonary disease, unspecified (7) Essential hypertension Current Visit: Yes Status: Chronic (8) Obesity (BMI 30-39.9) Current Visit: Yes Status: Chronic (9) Depression Current Visit: Yes Status: Chronic Qualifiers: Depression Type: unspecified Qualified Code(s): F32.9 - Major depressive disorder, single episode, unspecified - Time Spent With Patient Total time spent is greater than 50% in coordination of care (as documented) at patient's floor/unit and/or counseling patient:
[2017-10-21 05:20] LABS: Basophils % 0.1 %; Eosinophils % 0.1 %; Hematocrit 32.7 % (35.3-44.9); Hemoglobin 10.6 g/dL (11.5-15.4); Immature Granulocytes % 0.4 % (0-4); Lymphocytes # 0.9 K/mcL (0.6-4.6); Mean Corpuscular HGB Conc 32.4 g/dL (31.6-35.5); Mean Corpuscular Hemoglobin 29.7 pg (28.0-33.3); Mean Corpuscular Volume 91.6 fL (83.0-100.0); Mean Platelet Volume 11.4 fL (9.4-12.4); Monocytes # 0.1 K/mcL (0.0-1.3); Monocytes % 1.7 %; Neutrophils # 7.2 K/mcL (1.6-8.9); Platelet Count 171 K/mcL (140-400); Red Blood Count 3.57 M/mcL (3.82-4.97); Red Cell Distribution Width 14.6 % (11.5-14.5); Segmented Neutrophils % 86.7 %
[2017-10-21 05:34] LABS: BUN/Creatinine Ratio 31 (6-26); Blood Urea Nitrogen 20 mg/dL (8-23); Calcium 8.8 mg/dL (8.6-10.3); Carbon Dioxide 27 mEq/L (23-29); Chloride 103 mEq/L (98-107); Glucose 166 mg/dL (70-105); Osmolality,Calculated 292 (280-300); Potassium 3.9 mEq/L (3.5-5.1); Sodium 138 mEq/L (136-145); eGFR For African Americans > 60 (> 60); eGFR For Non-African Americans > 60 (> 60)
[2017-10-21] MEDS: Budesonide/Formoterol 80/4.5 MDI IH SCH ×2 (07:48→20:10)
[2017-10-21] MEDS ORDERED: *HR* Atropine Sulfate 1 MG/10 ML SYRINGE IVP PRN (08:37)
--- NOTE | 2017-10-21 08:42 | Event Note ---
<Nehemiah Bee - Last Filed: 10/21/17 10:48> Date of Encounter: 10/21/17 Time of Encounter: 08:39 Subjective: Patient seen and examined resting comfortably in bed. Her HR is between 35 -40 bpm this AM. Patient reports weakness and right toe rodriguez s/p fall. EKG performed at bedside revealed A-fib with slow ventricular rate. Patient is DNR-CCA code status. Objective: Last Vital Signs Temp 97.4 F L 10/21/17 07:35 Pulse 40 10/21/17 07:35 Resp 16 10/21/17 07:48 BP 137/76 10/21/17 07:35 Pulse Ox 97 10/21/17 07:48 - Constitutional General appearance: Present: A&O X 3 (fatigued and weak), answers questions appropriately, elderly, frail Exam: left frontal area with sutures and dressing, dry dressing, periorbital ecchymosis; - Respiratory Respiratory exam: Present: Bibasilar rales. Absent: accessory muscle use, rhonchi, wheezes - Cardiovascular Cardiovascular exam: Present: bradycardic, irregular rhythm, +S1, +S2. Absent: diastolic murmur, gallop, rubs, systolic murmur - GI/Abdominal GI/Abdominal exam: Present: normal bowel sounds, soft (obese), no peritoneal signs. Absent: distended, tenderness - Extremities Exam Extremities exam: Present: decreased ROM right great toe due to pain, warm, radial pulses palpable and symmetrical. Absent: calf tenderness, cyanotic, pedal edema - Neurological Exam Neurological exam: Present: CN II-XII intact, oriented X3, no focal deficits. Absent: pronater drift, facial droop, speech deficit - Skin Skin exam: Present: dry, intact, (multiple petechiae and ecchymoses over extremities B/L) Assessment and plan (1) Symptomatic Bradycardia Recent fall, weakness, Her HR is between 35 -40 bpm this AM. EKG performed at bedside revealed A-fib with slow ventricular rate. Patient is DNR-CCA code status, consult cardiology for further recommendations (2) Fall Current Visit: Yes Status: Acute Assessment and plan: Mechanical fall. Left frontal laceration sutured, continue local wound care. Pain control prn. PT/OT evaluation pending Qualifiers: Encounter type: subsequent encounter Qualified Code(s): W19.XXXD - Unspecified fall, subsequent encounter (3) Community acquired pneumonia Current Visit: Yes Status: Acute Assessment and plan: CXR shows bibasilar Pneumonia vs atelectasis. She had a fever at presentation. Continue IV Rocephin and Zithromax, (Day 1) supplemental O2 and supportive care; Blood cultures pending Qualifiers: Laterality: unspecified laterality Qualified Code(s): J18.9 - Pneumonia, unspecified organism (4) Acute and chronic respiratory failure Current Visit: Yes Status: Acute Assessment and plan: patient is on home O2 at 2L/min due to COPD, now requiring higher O2; Qualifiers: Respiratory failure complication: hypoxia Qualified Code(s): J96.21 - Acute and chronic respiratory failure with hypoxia (5) Atrial fibrillation Current Visit: Yes Status: Chronic Assessment and plan: Rate-controlled; noted to be bradycardic, monitor closely. Not on anticoagulation as outpatient due to increased risk of bleeding Qualifiers: Atrial fibrillation type: paroxysmal Qualified Code(s): I48.0 - Paroxysmal atrial fibrillation (6) CHFrEF Chronic. Not in acute exacerbation Last echo 07/21/17 revealed LVEF 35-40%, severe bi-atrial enlargement (7) CAD (coronary artery disease) Current Visit: Yes Status: Chronic Qualifiers: Coronary Disease-Associated Artery/Lesion type: [place] artery [place] vs. transplanted heart: [place] heart Associated angina: without angina Qualified Code(s): I25.10 - Atherosclerotic heart disease of [place] coronary artery without angina pectoris (8) COPD (chronic obstructive pulmonary disease) Current Visit: Yes Status: Chronic Assessment and plan: not in acute exacerbation; PRN breathing treatments, ICS/LABA, supplemental O2; Qualifiers: COPD type: unspecified COPD Qualified Code(s): J44.9 - Chronic obstructive pulmonary disease, unspecified (9) Essential hypertension Current Visit: Yes Status: Chronic Hold BB due to bradycardia (10) Obesity (BMI 30-39.9) Current Visit: Yes Status: Chronic (11) Depression Current Visit: Yes Status: Chronic Qualifiers: Depression Type: unspecified Qualified Code(s): F32.9 - Major depressive disorder, single episode, unspecified (12) DVT prophylaxis EPCDs Plan discussed with and agreed upon with Dr. Aponte. <William Aponte - Last Filed: 10/21/17 17:25> Date of Encounter: 10/21/17 Seen and examined at bedside REsident's documentation above reflects our plan Agree with plan, patient wants to get a PCM if necessary, continue tele, antibiotics, cardio eval for bradycardia
[2017-10-21] MEDS ORDERED: cefTRIAXone 2,000 MG in Water for inj. (sterile) 20 ML 20 ML IVPB SCH (09:00)
[2017-10-21] MEDS ORDERED: NON-FORMULARY MEDICATION 1 EACH EACH (Oxygen [Oxygen] 2 L) IN SCH (09:00)
[2017-10-21] MEDS: Multivit/Ca/Min/Fe/FA 1 TAB TABLET PO SCH (09:03)
[2017-10-21] MEDS: Furosemide 40 MG TABLET PO SCH (09:03)
[2017-10-21] MEDS: Gabapentin 300 MG CAPSULE PO SCH ×2 (09:03→17:24)
[2017-10-21] MEDS: Aspirin Enteric Coated 81 MG Tablet PO SCH (09:04)
[2017-10-21] MEDS: Isosorbide MONOnitrate (24 HR) 30 MG TAB.ER.24H PO SCH (09:13)
--- NOTE | 2017-10-21 09:59 | Electrocardiograph Report ---
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
[2017-10-21] MEDS: Ipratropium/Albuterol Neb 3 ML IH SCH ×4 (11:23→23:41)
[2017-10-21 11:31] LABS: INR 1.2; Prothrombin Time 12.6 Seconds (9.4-12.1)
[2017-10-21] MEDS: Fluticasone Propionate Nasal 50 MCG/SPRAY BOTTLE NS SCH (12:30)
[2017-10-21] MEDS: Gabapentin 400 MG CAPSULE PO SCH (20:54)
[2017-10-21] MEDS: *HR* HYDROcodone/Acet 5/325 mg TABLET PO PRN (20:59)
[2017-10-21] MEDS ORDERED: Azithromycin 500 MG in D5% in Water 250 ML IVPB SCH (21:00)
[2017-10-22] MEDS: Ipratropium/Albuterol Neb 3 ML IH SCH ×5 (03:48→20:46)
[2017-10-22 04:39] LABS: Hematocrit 28.6 % (35.3-44.9); Hemoglobin 9.2 g/dL (11.5-15.4); Mean Corpuscular HGB Conc 32.2 g/dL (31.6-35.5); Mean Corpuscular Hemoglobin 29.7 pg (28.0-33.3); Mean Corpuscular Volume 92.3 fL (83.0-100.0); Mean Platelet Volume 11.2 fL (9.4-12.4); Platelet Count 162 K/mcL (140-400); Red Cell Distribution Width 14.6 % (11.5-14.5)
[2017-10-22 05:10] LABS: BUN/Creatinine Ratio 33 (6-26); Blood Urea Nitrogen 22 mg/dL (8-23); Calcium 8.5 mg/dL (8.6-10.3); Carbon Dioxide 29 mEq/L (23-29); Chloride 105 mEq/L (98-107); Glucose 106 mg/dL (70-105); Osmolality,Calculated 294 (280-300); Potassium 3.1 mEq/L (3.5-5.1); Sodium 140 mEq/L (136-145); eGFR For African Americans > 60 (> 60); eGFR For Non-African Americans > 60 (> 60)
--- NOTE | 2017-10-22 06:40 | Electrocardiograph Report ---
[address] [place] [address] Test Date: 2017-10-21 Pat Name: Nadia Espinal Department: 111 Room: 2NE20 Gender: F Chief Development Officer: [id number] : 1935 Requested By: William Aponte Order Number: [id number] Reading MD: Russ Regalado Measurements Intervals [place] Rate: 40 P: [place]: 0 QRS: -72 QRSD: 134 T: 12 QT: 548 QTc: 478 Interpretive Statements ATRIAL FIBRILLATION WITH SLOW VENTRICULAR RESPONSE INTRAVENTRICULAR CONDUCTION DELAY INFERIOR MYOCARDIAL INFARCTION, PROBABLY OLD ANTEROSEPTAL MYOCARDIAL INFARCTION, OF INDETERMINATE AGE BASELINE ARTIFACT Electronically Signed On 10-22-2017 6:38:25 EDT by Russ Regalado
[2017-10-22] MEDS: Budesonide/Formoterol 80/4.5 MDI IH SCH ×2 (07:19→20:46)
[2017-10-22] MEDS: Multivit/Ca/Min/Fe/FA 1 TAB TABLET PO SCH (09:24)
[2017-10-22] MEDS: Furosemide 40 MG TABLET PO SCH (09:24)
[2017-10-22] MEDS: Isosorbide MONOnitrate (24 HR) 30 MG TAB.ER.24H PO SCH (09:25)
[2017-10-22] MEDS: Aspirin Enteric Coated 81 MG Tablet PO SCH (09:25)
[2017-10-22] MEDS: levoFLOXacin 500 MG TABLET PO SCH (09:25)
[2017-10-22] MEDS: Fluticasone Propionate Nasal 50 MCG/SPRAY BOTTLE NS SCH (09:25)
[2017-10-22] MEDS: Gabapentin 300 MG CAPSULE PO SCH ×2 (09:25→15:12)
--- NOTE | 2017-10-22 12:28 | Internal Med Progress Note ---
Date of Encounter: 10/22/17 Time of Encounter: 12:25 - Assessment and plan (1) Community acquired pneumonia Current Visit: Yes Status: Acute Assessment and plan: CXR shows bibasilar Pneumonia vs atelectasis. She had a fever at presentation. Continue IV Rocephin and Zithromax, (Day 2) supplemental O2 and supportive care; Blood cultures pending Qualifiers: Laterality: unspecified laterality Qualified Code(s): J18.9 - Pneumonia, unspecified organism (2) COPD (chronic obstructive pulmonary disease) Current Visit: Yes Status: Chronic Assessment and plan: not in acute exacerbation; PRN breathing treatments, ICS/LABA, supplemental O2; Qualifiers: COPD type: unspecified COPD Qualified Code(s): J44.9 - Chronic obstructive pulmonary disease, unspecified (3) Essential hypertension Current Visit: Yes Status: Chronic Assessment and plan: controlled, on Imdur continue same (4) Acute and chronic respiratory failure Current Visit: Yes Status: Acute Assessment and plan: patient is on home O2 at 2L/min due to COPD, now requiring high O2 at admission Now back to her baseline O2 requirement Qualifiers: Respiratory failure complication: hypoxia Qualified Code(s): J96.21 - Acute and chronic respiratory failure with hypoxia (5) Atrial fibrillation Current Visit: Yes Status: Chronic Assessment and plan: Rate-controlled; noted to be bradycardic, monitor closely. Not on anticoagulation as outpatient due to increased risk of bleeding Qualifiers: Atrial fibrillation type: paroxysmal Qualified Code(s): I48.0 - Paroxysmal atrial fibrillation (6) CAD (coronary artery disease) Current Visit: Yes Status: Chronic Qualifiers: Coronary Disease-Associated Artery/Lesion type: [place] artery [place] vs. transplanted heart: [place] heart Associated angina: without angina Qualified Code(s): I25.10 - Atherosclerotic heart disease of [place] coronary artery without angina pectoris (7) Fall Current Visit: Yes Status: Acute Assessment and plan: Mechanical fall. Left frontal laceration sutured, continue local wound care. Pain control prn. PT/OT evaluation noted-for home health. Patient is on hospice Qualifiers: Encounter type: subsequent encounter Qualified Code(s): W19.XXXD - Unspecified fall, subsequent encounter (8) Obesity (BMI 30-39.9) Current Visit: Yes Status: Chronic (9) Depression Current Visit: Yes Status: Chronic Assessment and plan: continue home meds Qualifiers: Depression Type: unspecified Qualified Code(s): F32.9 - Major depressive disorder, single episode, unspecified (10) Bradycardia Current Visit: Yes Status: Acute Assessment and plan: HR as low as 37 while awake Afib with slow response, not on BB or CCB at home, patient with fall, unsure if fall is related to bradycardia Continue tele Asymptomatic Cardio eval pending - Time Spent With Patient Total time spent is greater than 50% in coordination of care (as documented) at patient's floor/unit and/or counseling patient: - Subjective Interval history: Seen and examined at the bedside Awaiting cardiology review for bradycardia She is DNR/DNI She is complaining of a sore throat. Examination of the pharynx shows hyperemia without exudates. Patient is apparently on home hospice - Constitutional Vitals: Temp Pulse Resp BP Pulse Ox 97.7 F 62 17 158/74 96 10/22/17 07:15 10/22/17 07:15 10/22/17 11:37 10/22/17 07:15 10/22/17 11:37 General appearance: Present: A&O X 3 (fatigued and weak), pleasant, answers questions appropriately - Head Additional comments: Ecchymoses of Left facial region, frontal head laceration in sutures, - Eye Eye exam: Present: PERRL, conjuntiva pink, sclera anicteric Pupils: Present: PERRL - ENT Additional comments: No pharyngeal exudates - Neck Neck exam general surgery: Present: supple, trachea midline. Absent: lymphadenopathy - Respiratory Respiratory exam: Present: CTAB. Absent: accessory muscle use, rales, rhonchi, wheezes - Cardiovascular Cardiovascular exam: Present: bradycardia, +S1, +S2. Absent: diastolic murmur, gallop, rubs, systolic murmur - GI/Abdominal GI/Abdominal exam: Present: normal bowel sounds, soft, no peritoneal signs. Absent: distended, tenderness - Extremities Exam Extremities exam: Present: warm, radial pulses palpable and symmetrical. Absent : calf tenderness, cyanotic, pedal edema - Neurological Exam Neurological exam: Present: alert, CN II-XII intact, oriented X3, no focal deficits. Absent: pronater drift, facial droop, speech deficit - Skin Skin exam: Present: dry, intact Internal Medicine: Result - Labs CBC & Chem 7: 10/22/17 04:31 10/22/17 04:31 Labs: Short CBC 10/22/17 Range/Units 04:31 WBC 7.8 (4.3-11.1) K/mcL Hgb 9.2 L (11.5-15.4) g/dL Hct 28.6 L (35.3-44.9) % Plt Count 162 (140-400) K/mcL BMP 10/22/17 04:31 Sodium 140 Potassium 3.1 L Chloride 105 Carbon Dioxide 29 BUN 22 Creatinine 0.66 Glucose 106 H Calcium 8.5 L - ABG Interpretation ABG results: PT/INR, D-dimer PT 12.6 Seconds (9.4-12.1) H 10/21/17 11:18 - Impressions Impressions Foot X-Ray 10/21/17 08:36 IMPRESSION: Demineralization and degenerative changes of the right foot. Small calcific densities are noted adjacent the medial aspect of the interphalangeal joint of the right great toe which could be degenerative. Correlation for fracture is recommended. D/ / Martha Pearson Cha, MD / Martha Pearson Cha, MD Interpreting Provider: Martha Pearson Cha, MD - VTE Documentation of Mechanical Device: Intermittent pneumatic compression device Consult Discharge Plan - Plan Referrals: Arley Awan MD [Primary Care Provider] -
[2017-10-22] MEDS: Magic Mouthwash 10 ML UD Cup PO SCH ×2 (12:35→21:35)
--- NOTE | 2017-10-22 14:05 | Cardiology Consult Note ---
Date of Encounter: 10/22/17 Time of Encounter: 14:02 Assessment and Plan (1) Bradycardia Current Visit: Yes Status: Acute Average HR 50's on telemetry while in atrial fibrillation. Recommend against restarting home dose of metoprolol. Should avoid AVN blockers. However, presentation does not appear related to heart rates - suffered a mechanical fall from instability. Pacemaker not indicated at this time. We did discuss whether to continue coumadin. Since she has no prior history of falling I recommend continuing it at this time. If she develops future episodes of repeat falls, will need to reconsider anticoagulation. Patient and daughter expressed understanding. (2) CHF (congestive heart failure) Current Visit: Yes Status: Acute Patient has known chronic systolic heart failure, presumed nonischemic ( nonobstructive CAD by [place] 02/03). Has some fluid congestion as demonstrated on CXR. Recommend a single dose of IV lasix, would otherwise continue PO. Recommend against use of BB at this time due to bradycardia. Can reconsider as outpatient. Will start ACEI that can be uptitrated as outpatient as well as spironolactone. Qualifiers: Heart failure chronicity: chronic Qualified Code(s): I50.22 - Chronic systolic (congestive) heart failure Discussion w patient/family: The assessment and plan as outlined above was discussed with the patient and/or family members who expressed understanding and agreement. All questions were answered. Thank you for involving us in the care of your patient. Please call with any questions. Will sign off. History of Present Illness Consult date: 10/22/17 Requesting physician: William Aponte Consult reason: Bradycardia Chief complaint: Weakness History of present illness: Ms. Espinal is a 81 year old female who sustained a mechanical fall while bending over to pull up her underpants after using the bedside commode. She denies LOC. She also denies any prior history of falling - daughter at bedside corroborates this. She otherwise denies pre syncopal symptoms, palpitations or chest pain. She is interested in going home. CT head in ER negative for acute intracranial finding. Past Med Surg Social Fam HX - Past Medical History Medical history: arthritis, asthma, atrial fibrillation, CHF, COPD, coronary artery disease, GERD, hyperlipidemia, hypertension, osteoporosis Psychiatric history: depression - Past Surgical History Surgical History: breast surgery, , herniorrhaphy, hysterectomy - Social History Smoking Status: Former smoker Smokeless Tobacco Status: No Alcohol use: none Drug use: none - Family History Father Living Status: Age at : 52 Cause of : heart attack Hx Family Cardiac Disorders: Yes ([place]) Mother Living Status: Age at : 76 Cause of : heart attack Hx Family Cardiac Disorders: Yes ([place]) Hx Family Respiratory Disorders: Yes (Asthma) Hx Family Endocrine Disorder: Yes ([place]) Medications and Allergies Atorvastatin [Lipitor] 20 mg PO HS 02/23/15 [History] Clopidogrel [Plavix] 75 mg PO DAILY 02/23/15 [History] Docusate [Colace] 100 mg PO BID PRN 02/23/15 [History] Fluticasone/Salmeterol [Advair 250-50 Diskus] 1 each IH BID 02/23/15 [History] Gabapentin [Neurontin] 600 mg PO BID 02/23/15 [History] GuaiFENesin ER [Mucinex] 600 mg PO BID PRN 02/23/15 [History] Multivit-Min/FA/Lycopen/Lutein [Centrum Silver Tablet] 1 each PO DAILY 02/23/15 [History] Gabapentin [Neurontin] 1,200 mg PO HS 07/01/15 [History] Isosorbide MONOnitrate (24 HR) [Imdur] 30 mg PO DAILY 07/01/15 [History] Fluticasone Propionate Nasal [Flonase] 100 mcg NS DAILY 05/13/16 [History] Levalbuterol Tartrate [Xopenex Hfa] 2 puff IH TID 05/13/16 [History] Umeclidinium [place] [Incruse Ellipta] 62.5 mcg IH DAILY 05/13/16 [History] Oxygen 2 l IN CONT #1 each 05/16/16 [Rx] Aspirin [Lo-Dose Aspirin EC] 81 mg PO DAILY 01/15/17 [History] Raloxifene [Evista] 60 mg PO DAILY 01/15/17 [History] Furosemide [Lasix] 40 mg PO DAILY #15 tab 07/22/17 [Rx] Albuterol Sulfate [Ventolin Hfa] 2 puff IH Q4-6H PRN 10/20/17 [History] 3 Allergy/AdvReac Type Severity Reaction Status Date / Time No Known Allergies Allergy Verified 07/20/17 11:59 All Systems Review: The remainder of the systems were reviewed and are negative Physical Examination Vital Signs, Last 4 Hours Temp Pulse Resp BP Pulse Ox 10/22/17 12:28 97.9 F 67 15 172/85 94 10/22/17 11:37 17 96 General: Conversant, No Apparent Distress HEENT: Mucus Membranes Moist, Other (skin laceration over forehead noted) Neck: No JVD Cardiac: Other (irregularly irregular, no murmur, gallop or rub) Lungs: Normal Breath Sounds, Other (rhonchorous breath sounds) Neuro: Alert and responsive, No focal deficits noted Abdomen: Soft, Non-Tender, Other (normal bowel sounds) Extremities: No Edema Results 10/22/17 04:31 10/22/17 04:31 Lab Results 10/22/17 10/22/17 04:31 04:31 WBC 7.8 Hgb 9.2 L Hct 28.6 L Plt Count 162 Sodium 140 Potassium 3.1 L Chloride 105 Carbon Dioxide 29 BUN 22 Creatinine 0.66 Glucose 106 H Calcium 8.5 L - Imaging and Cardiology Chest Xray: report reviewed Echo: report reviewed Cardiac cath: report reviewed - EKG Interpretation EKG results cardiology: personally reviewed (10/20 AFIB HR 68bpm, LAFB, IVCD, old inferior [place]; 10/21 ECG AFIB HR 40 bpm, LAFB, IVCD, old inferior [place]), other ( telemetry demonstrates average HR 54 bpm, nocturnal pauses up to 3 seconds) Consult Discharge Plan - Plan Referrals: Arley Awan MD [Primary Care Provider] -
[2017-10-22] MEDS ORDERED: Furosemide 40 MG/4 ML VIAL IVP ONE (14:16)
[2017-10-22] MEDS: Gabapentin 400 MG CAPSULE PO SCH (21:53)
[2017-10-23] MEDS: Ipratropium/Albuterol Neb 3 ML IH SCH ×4 (00:46→11:32)
[2017-10-23] MEDS: Budesonide/Formoterol 80/4.5 MDI IH SCH (07:31)
[2017-10-23] MEDS: Gabapentin 300 MG CAPSULE PO SCH (08:31)
[2017-10-23] MEDS: levoFLOXacin 500 MG TABLET PO SCH (08:31)
[2017-10-23] MEDS: Magic Mouthwash 10 ML UD Cup PO SCH ×2 (08:31→12:13)
[2017-10-23] MEDS: Fluticasone Propionate Nasal 50 MCG/SPRAY BOTTLE NS SCH (08:32)
[2017-10-23] MEDS: Multivit/Ca/Min/Fe/FA 1 TAB TABLET PO SCH (08:32)
[2017-10-23] MEDS: Furosemide 40 MG TABLET PO SCH (08:32)
[2017-10-23] MEDS: Isosorbide MONOnitrate (24 HR) 30 MG TAB.ER.24H PO SCH (08:32)
[2017-10-23] MEDS: Aspirin Enteric Coated 81 MG Tablet PO SCH (08:32)
[2017-10-23] MEDS: *HR* HYDROcodone/Acet 5/325 mg TABLET PO PRN (08:32)
[2017-10-23] MEDS ORDERED: Spironolactone 25 MG TABLET PO SCH (09:00)
--- NOTE | 2017-10-23 11:03 | Physician Discharge Referral ---
Home Health/Hosp Referral Info Transfer to: Hospice Attending Provider: Urmila Aponte Provider in Charge Post Discharge: Final Inspector Paper - Diagnosis (1) Community acquired pneumonia Priority: Primary Status: Acute (2) COPD (chronic obstructive pulmonary disease) Priority: Secondary Status: Chronic (3) Essential hypertension Priority: Secondary Status: Chronic (4) Acute and chronic respiratory failure Priority: Primary Status: Resolved (5) Atrial fibrillation Priority: Secondary Status: Chronic (6) CAD (coronary artery disease) Priority: Secondary Status: Chronic (7) Fall Priority: Secondary Status: Acute (8) Obesity (BMI 30-39.9) Priority: Secondary Status: Chronic (9) Depression Priority: Secondary Status: Chronic (10) Bradycardia Priority: Primary Status: Acute (11) CHF (congestive heart failure) Priority: Secondary Status: Chronic - Respiratory Orders Oxygen / L per min Smoking Cessation: Smoking cessation has been advised. For more information, call the [place] Tobacco Quit Line at 9-480-PWTY-NOW. - Diet/Nutrition Diet/Nutrition Orders: Cardiac - Activity Activity Orders: Up ad gaurav - Services Needed Following services are medically necessary services: Nursing, Home Health Aide, Physical Therapy, Occupational Therapy - Transfer Medications Prescriptions: levoFLOXacin [Levaquin] 500 mg PO DAILY #4 tablet Lisinopril [Zestril] 5 mg PO DAILY #30 tablet Spironolactone [Aldactone] 12.5 mg PO DAILY #30 tablet Home Medications: Atorvastatin [Lipitor] 20 mg PO HS 02/23/15 [History] Clopidogrel [Plavix] 75 mg PO DAILY 02/23/15 [History] Docusate [Colace] 100 mg PO BID PRN 02/23/15 [History] Fluticasone/Salmeterol [Advair 250-50 Diskus] 1 each IH BID 02/23/15 [History] Gabapentin [Neurontin] 600 mg PO BID 02/23/15 [History] GuaiFENesin ER [Mucinex] 600 mg PO BID PRN 02/23/15 [History] Multivit-Min/FA/Lycopen/Lutein [Centrum Silver Tablet] 1 each PO DAILY 02/23/15 [History] Gabapentin [Neurontin] 1,200 mg PO HS 07/01/15 [History] Isosorbide MONOnitrate (24 HR) [Imdur] 30 mg PO DAILY 07/01/15 [History] Fluticasone Propionate Nasal [Flonase] 100 mcg NS DAILY 05/13/16 [History] Levalbuterol Tartrate [Xopenex Hfa] 2 puff IH TID 05/13/16 [History] Umeclidinium [place] [Incruse Ellipta] 62.5 mcg IH DAILY 05/13/16 [History] Oxygen 2 l IN CONT #1 each 05/16/16 [Rx] Aspirin [Lo-Dose Aspirin EC] 81 mg PO DAILY 01/15/17 [History] Raloxifene [Evista] 60 mg PO DAILY 01/15/17 [History] Furosemide [Lasix] 40 mg PO DAILY #15 tab 07/22/17 [Rx] Albuterol Sulfate [Ventolin Hfa] 2 puff IH Q4-6H PRN 10/20/17 [History] Lisinopril [Zestril] 5 mg PO DAILY #30 tablet 10/23/17 [Rx] Spironolactone [Aldactone] 12.5 mg PO DAILY #30 tablet 10/23/17 [Rx] levoFLOXacin [Levaquin] 500 mg PO DAILY #4 tablet 10/23/17 [Rx] Allergies/Adverse Reactions: 3 Allergy/AdvReac Type Severity Reaction Status Date / Time No Known Allergies Allergy Verified 07/20/17 11:59 Certification: Further, I certify that my clinical findings support that this patient is homebound (i.e. absences from home require considerable and taxing effort and are for medical reasons or anglican services or infrequently or short duration when for other reasons) because: Homebound Reason: Patient requires assistance of a person or device to safely leave home Attestation: My signature below is to certify that this patient is under my care and that I, or nurse practitioner, or a physician's academic affairs assistant working with me, has a face-to -face encounter with this patient.
--- NOTE | 2017-10-23 11:05 | Discharge Summary ---
- NOTES TO OUTPATIENT PROVIDER Notes to Outpatient Provider: Started on ACEi and Spironolactone for CHF, continue home Lasix, no BB due to bradycardia. She was also treated for PNA. Tzo complete 4 more days of levaquin po at home. Continue with home hospice Date of Encounter: 10/23/17 Time of Encounter: 11:03 - Discharge Diagnosis (1) Community acquired pneumonia Priority: Primary Status: Acute Qualifiers: Laterality: unspecified laterality Qualified Code(s): J18.9 - Pneumonia, unspecified organism (2) COPD (chronic obstructive pulmonary disease) Priority: Secondary Status: Chronic Qualifiers: COPD type: unspecified COPD Qualified Code(s): J44.9 - Chronic obstructive pulmonary disease, unspecified (3) Essential hypertension Priority: Secondary Status: Chronic (4) Acute and chronic respiratory failure Priority: Secondary Status: Resolved Qualifiers: Respiratory failure complication: hypoxia Qualified Code(s): J96.21 - Acute and chronic respiratory failure with hypoxia (5) Atrial fibrillation Priority: Secondary Status: Chronic Qualifiers: Atrial fibrillation type: paroxysmal Qualified Code(s): I48.0 - Paroxysmal atrial fibrillation (6) CAD (coronary artery disease) Priority: Secondary Status: Chronic Qualifiers: Coronary Disease-Associated Artery/Lesion type: [place] artery [place] vs. transplanted heart: [place] heart Associated angina: without angina Qualified Code(s): I25.10 - Atherosclerotic heart disease of [place] coronary artery without angina pectoris (7) Fall Priority: Primary Status: Acute Qualifiers: Encounter type: subsequent encounter Qualified Code(s): W19.XXXD - Unspecified fall, subsequent encounter (8) Obesity (BMI 30-39.9) Priority: Secondary Status: Chronic (9) Depression Priority: Secondary Status: Chronic Qualifiers: Depression Type: unspecified Qualified Code(s): F32.9 - Major depressive disorder, single episode, unspecified (10) Bradycardia Priority: Primary Status: Acute (11) CHF (congestive heart failure) Priority: Secondary Status: Chronic Qualifiers: Heart failure type: systolic Heart failure chronicity: chronic Qualified Code(s): I50.22 - Chronic systolic (congestive) heart failure Hospital course: Ms. Espinal is a 81 year old female with PMH of CHFrEF, Afib, COPD, HTN, Chronic resp failure on home O2, CAD, Depression, Obesity She was in her usual state of health till day of admission when she sustained a mechanical fall earlier this evening and bumped her head and shoulder on her dresser, and had a laceration on her left forehead and left blackeye. SHe denies chest pain, shortness of breath, nausea, vomiting, diarrhea, abdominal pain or any other complaints. Upon further questioning, she reports productive cough with greenish yellow sputum, subjective fever and chills for the last few days prior to presentation Work up in the ER revealed Afib with SVR on EKG, CXR showed bibasal infiltrates , multiple imaging of head, lower extremities, cervical spine with no fractures. She was started on antibiotics, after suturing the left frontal laceration Patient was on home hospice prior to admission She also noted to have bradycardia during this admission, no indication for PCM placement per cardio. She has been started on Lisinopril, Spironolactone in addition to Statin, Imdur , Plavix and ASA for her non-ischemic CHFrEF. All medications tolerated She is also discharged on 4 more days of oral antibiotics for PNA, O2 is at home level. She is medically and clinically stable to be discharged back to home hospice. Discharge discussed with: patient, nurse, business travel consultant - Time Spent with Patient Total time spent providing and/or coordinating discharge services: Greater than 30 minutes - Discharge Medications Prescriptions: levoFLOXacin [Levaquin] 500 mg PO DAILY #4 tablet Lisinopril [Zestril] 5 mg PO DAILY #30 tablet Spironolactone [Aldactone] 12.5 mg PO DAILY #30 tablet Home Medications: Atorvastatin [Lipitor] 20 mg PO HS 02/23/15 [History] Clopidogrel [Plavix] 75 mg PO DAILY 02/23/15 [History] Docusate [Colace] 100 mg PO BID PRN 02/23/15 [History] Fluticasone/Salmeterol [Advair 250-50 Diskus] 1 each IH BID 02/23/15 [History] Gabapentin [Neurontin] 600 mg PO BID 02/23/15 [History] GuaiFENesin ER [Mucinex] 600 mg PO BID PRN 02/23/15 [History] Multivit-Min/FA/Lycopen/Lutein [Centrum Silver Tablet] 1 each PO DAILY 02/23/15 [History] Gabapentin [Neurontin] 1,200 mg PO HS 07/01/15 [History] Isosorbide MONOnitrate (24 HR) [Imdur] 30 mg PO DAILY 07/01/15 [History] Fluticasone Propionate Nasal [Flonase] 100 mcg NS DAILY 05/13/16 [History] Levalbuterol Tartrate [Xopenex Hfa] 2 puff IH TID 05/13/16 [History] Umeclidinium [place] [Incruse Ellipta] 62.5 mcg IH DAILY 05/13/16 [History] Oxygen 2 l IN CONT #1 each 05/16/16 [Rx] Aspirin [Lo-Dose Aspirin EC] 81 mg PO DAILY 01/15/17 [History] Raloxifene [Evista] 60 mg PO DAILY 01/15/17 [History] Furosemide [Lasix] 40 mg PO DAILY #15 tab 07/22/17 [Rx] Albuterol Sulfate [Ventolin Hfa] 2 puff IH Q4-6H PRN 10/20/17 [History] Lisinopril [Zestril] 5 mg PO DAILY #30 tablet 10/23/17 [Rx] Spironolactone [Aldactone] 12.5 mg PO DAILY #30 tablet 10/23/17 [Rx] levoFLOXacin [Levaquin] 500 mg PO DAILY #4 tablet 10/23/17 [Rx] Allergies/Adverse Reactions: 3 Allergy/AdvReac Type Severity Reaction Status Date / Time No Known Allergies Allergy Verified 07/20/17 11:59 Date of admission: 10/20/17 22:47 Primary care physician: Arley Awan MD Consults: 10/21/17 08:45 Consult to Physical Therapy [CONS] Routine Comment: Evaluate, develop and implement POC Reason for Consult: Fall Does patient have active BEDREST order?: No Is patient medically & hemodynamically stable?: Yes Patient assessed for mobility or mobilized this visit?: No OT [Consult to Occupational Therapy] [CONS] Routine Comment: Evaluate, develop and implement POC Reason for Consult: Fall Does patient have active BEDREST order?: No Is patient medically & hemodynamically stable?: Yes Patient assessed for mobility or mobilized this visit?: No 10/21/17 17:00 Consult to Cardiology [CONS] Routine Comment: Consulting Provider: Card[facility] [place] Reason for Consult: Bradycardia, eval need for PACER Time Notified: 11:50 Call Completed: Yes Discharging clinician: William Aponte Anticipated date of discharge: 10/23/17 - Constitutional Vitals: Temp Pulse Resp BP Pulse Ox 98.5 F 68 14 160/65 95 10/23/17 08:00 10/23/17 08:00 10/23/17 08:00 10/23/17 08:00 10/23/17 08:00 General appearance: Present: A&O X 3, pleasant, answers questions appropriately - Head Additional comments: Frontal sutures in place, Left juliette-orbital ecchymoses improved. - Eye Eye exam: Present: PERRL, conjuntiva pink, sclera anicteric Pupils: Present: PERRL - Neck Neck exam general surgery: Present: supple, trachea midline. Absent: lymphadenopathy - Respiratory Respiratory exam: Present: CTAB. Absent: accessory muscle use, rales, rhonchi, wheezes - Cardiovascular Cardiovascular exam: Present: bradycardia, irregular rhythm, +S1, +S2. Absent: diastolic murmur, gallop, rubs, systolic murmur - GI/Abdominal GI/Abdominal exam: Present: normal bowel sounds, soft, no peritoneal signs. Absent: distended, tenderness - Extremities Exam Extremities exam: Present: warm, radial pulses palpable and symmetrical. Absent : calf tenderness, cyanotic, pedal edema - Neurological Exam Neurological exam: Present: alert, CN II-XII intact, oriented X3, no focal deficits. Absent: pronater drift, facial droop, speech deficit - Skin Skin exam: Present: dry, intact - Patient Status Disposition: Hospice - Home Condition: Good Functional capacity at discharge: uses cane/walker Overall status at discharge: patient is progressing back to baseline - Discharge Instructions Follow Up With: Arley Awan MD [Primary Care Provider] - - Diet and Activity Activity: resume usual activities as tolerated, wear oxygen at all times Diet: low fat, low cholesterol, low salt diet - VTE Documentation of Mechanical Device: Intermittent pneumatic compression device
[2017-10-23 12:37] VITALS: BP 186/92
== END 2017-10-23 13:29 | disposition hospice, home (50) | DRG 604 ==
LOC: EMEROO 18:07 → SUATTDRO 22:47 → 2NENU 22:47
PROVIDERS: ADMIT Internal Medicine; ATTEND Internal Medicine

== ENCOUNTER 2018-04-24 11:53 | Inpatient (IN) ==
--- NOTE | 2018-04-24 12:33 | Emergency Department Note ---
Disposition Clinical Impression: Altered mental status Qualifiers: Altered mental status type: unspecified Qualified Code(s): R41.82 - Altered mental status, unspecified CHF (congestive heart failure) Qualifiers: Heart failure type: combined systolic and diastolic Heart failure chronicity: chronic Qualified Code(s): I50.42 - Chronic combined systolic (congestive) and diastolic (congestive) heart failure Disposition: Admitted As Inpatient General Adult HPI - General Chief complaint: ED Altered Mental Status Stated complaint: AMS Time Seen by Provider: 04/24/18 12:05 Source: patient, EMS Limitations: no limitations Nursing Notes Reviewed: Yes Vital Signs Reviewed: Yes - History of Present Illness HPI Narrative: Patient's an 82-year-old female with history of A. fib, hypertension who presents the emergency department via EMS for concern for altered mental status. Per EMS the patient was picked up at home as her son is concern she has been "acting differently". The son is not available for full history at this time. Patient denies any pain anywhere or difficulty breathing but she is intermittent coughing and producing yellowish sputum. History is limited by the patient's mental status. Pain Scale: 0 - Related Data Home Medications Medication Instructions Recorded Confirmed Atorvastatin [Lipitor] 20 mg PO HS 02/23/15 04/24/18 Clopidogrel [Plavix] 75 mg PO DAILY 02/23/15 04/24/18 Docusate [Colace] 100 mg PO BID PRN 02/23/15 04/24/18 Fluticasone/Salmeterol [Advair 1 each IH BID 02/23/15 04/24/18 250-50 Diskus] Gabapentin [Neurontin] 600 mg PO BID 02/23/15 04/24/18 Multivit-Min/FA/Lycopen/Lutein 1 each PO DAILY 02/23/15 04/24/18 [Centrum Silver Tablet] Gabapentin [Neurontin] 1,200 mg PO HS 07/01/15 04/24/18 Isosorbide MONOnitrate (24 HR) 30 mg PO DAILY 07/01/15 04/24/18 [Imdur] Fluticasone Propionate Nasal 100 mcg NS DAILY 05/13/16 04/24/18 [Flonase] Levalbuterol Tartrate [Xopenex Hfa] 2 puff IH TID 05/13/16 04/24/18 Umeclidinium [place] [Incruse 62.5 mcg IH DAILY 05/13/16 04/24/18 Ellipta] Aspirin [Lo-Dose Aspirin EC] 81 mg PO DAILY 01/15/17 04/24/18 Raloxifene [Evista] 60 mg PO DAILY 01/15/17 04/24/18 Albuterol Sulfate [Ventolin Hfa] 2 puff IH Q4-6H PRN 10/20/17 04/24/18 Furosemide [Lasix] 20 mg PO BID 04/24/18 04/24/18 HYDROcodone/Acet 5/325 mg [[place] 1 tab PO Q8H PRN 04/24/18 04/24/18 5-325 mg] Montelukast [Singulair] 10 mg PO DAILY 04/24/18 04/24/18 hydrALAZINE [HydrALAZINE] 25 mg PO BID 04/24/18 04/24/18 Previous Rx's Medication Instructions Recorded Oxygen 2 l IN CONT #1 each 05/16/16 Lisinopril [Zestril] 5 mg PO DAILY #30 tablet 10/23/17 Spironolactone [Aldactone] 12.5 mg PO DAILY #30 tablet 10/23/17 Allergies Allergy/AdvReac Type Severity Reaction Status Date / Time No Known Allergies Allergy Verified 07/20/17 11:59 All systems ED: reviewed and negative except as stated. Limitations: ROS unobtainable due to patients medical condition Respiratory: Reports: cough Past Medical History - Past Medical History Medical history: Reports: arthritis, asthma, atrial fibrillation, CHF, COPD, coronary artery disease, GERD, hyperlipidemia, hypertension, osteoporosis Surgical history: Reports: breast surgery, , herniorrhaphy, hysterectomy Psychiatric history: Reports: depression HEAVY MACHINERY OPERATOR history: Reports: no HEAVY MACHINERY OPERATOR history - Social History Smoking Status: Former smoker Smokeless Tobacco Status: No Alcohol use: Reports: none Drug use: Reports: none Physical Exam - General Limitations: altered mental status General appearance: alert, in no apparent distress - Head Head exam: atraumatic, normocephalic - Eye Eye exam: Present: normal appearance - ENT ENT exam: normal exam, mucous membranes moist - Chest Chest inspection: Present: other (2cm circular hemtatoma on right anterior chest) - Expanded Respiratory Exam Location: rhonchi: Right, Left, Upper, Lower - Cardiovascular Cardiovascular exam: Present: regular rate, normal rhythm, normal heart sounds - Abdominal Exam Abdominal exam: Present: soft, Non-Tender, normal bowel sounds. Absent: distention, guarding, rebound - Extremities Exam Extremities exam: Present: normal inspection. Absent: pedal edema - Back Exam Back exam: Present: normal inspection - Neurological Exam Neurological exam: Present: alert - Expanded Neurological Exam Patient oriented to: Present: person, place. Absent: time - Expanded Skin Exam Type of lesion: Present: other (Erythema and skin breakdown that suggests to bilateral labia and Atarax) Course Course Narrative: Patient presenting altered and with significant breakdown on her buttocks and labia. She required extensive bathing upon arrival. She is alert but oriented only to person and place. There is no family available to provide any further history. We will obtain basic lab work including CBC, CMP, UA as well as CT hea d and chest x-ray. Likely admission as she will require placement. Vital Signs Temperature 97.6 F 04/24/18 11:58 Pulse Rate 62 04/24/18 11:58 Respiratory Rate 18 04/24/18 11:58 Blood Pressure 124/59 04/24/18 11:58 O2 Sat by Pulse Oximetry 95 04/24/18 11:58 Temperature 97.6 F 04/24/18 11:58 Pulse Rate 60 04/24/18 16:05 Respiratory Rate 24 04/24/18 16:05 Blood Pressure 129/65 04/24/18 16:05 O2 Sat by Pulse Oximetry 95 04/24/18 16:05 Oxygen Delivery Oxygen Delivery Room Air Medical Decision Making - [facility] Narrative Medical decision making narrative: 82-year-old altered female who presents without family. On arrival her state of hygiene was poor and she has clear skin breakdown in her perineum, likely indicative of poor hygiene at home. CBC unremarkable couple, BMP reveals prerenal SEVEN. UA negative for UTI at this point. CT head shows no acute intracranial abnormalities. Chest x-ray shows no evidence of pneumonia or pleural effusion. Given the patient's altered mental status will admit the patient. Patient placed on maintenence fluids of 75ml/hr NS, EF on last echo 35- 40%. Discussed case with Dr. Davenport who will admit. She will likely require placement. All questions answered. - Medical Records Medical records reviewed: Yes I reviewed the patient's medical records. - Lab Data Lab results reviewed: Yes I reviewed the patient's lab results. Result diagrams: 04/24/18 14:09 04/24/18 14:09 Lab Results 04/24/18 04/24/18 04/24/18 Range/Units 12:38 14:09 14:09 WBC 11.7 H (4.3-11.1) K/mcL RBC 4.47 (3.82-4.97) M/mcL Hgb 14.0 (11.5-15.4) g/dL Hct 44.8 (35.3-44.9) % MCV 100.2 H (83.0-100.0) fL MCH 31.3 (28.0-33.3) pg MCHC 31.3 L (31.6-35.5) g/dL RDW 12.9 (11.5-14.5) % Plt Count 189 (140-400) K/mcL MPV 10.7 (9.4-12.4) fL Immature Gran % 0.4 (0-4) % Seg Neutrophils % 70.4 % Lymphocytes % 18.3 % Monocytes % 10.2 % Eosinophils % 0.4 % Basophils % 0.3 % Neutrophils # 8.2 (1.6-8.9) K/mcL Lymphocytes # 2.1 (0.6-4.6) K/mcL Monocytes # 1.2 (0.0-1.3) K/mcL Eosinophils # 0.1 (0.0-0.6) K/mcL Basophils # 0.0 (0.0-0.2) K/mcL Sodium 140 (136-145) mEq/L Potassium 3.7 (3.5-5.1) mEq/L Chloride 106 (98-107) mEq/L Carbon Dioxide 15 L (23-29) mEq/L BUN 29 H (8-23) mg/dL Creatinine 0.77 (0.60-1.20) mg/dL Est GFR ( Amer) > 60 (> 60) Est GFR (Non-Af Amer) > 60 (> 60) BUN/Creatinine Ratio 38 H (6-26) Glucose 79 (70-105) mg/dL Calculated Osmolality 295 (280-300) Calcium 9.1 (8.6-10.3) mg/dL Total Bilirubin 0.9 (0.3-1.0) mg/dL AST 18 (13-39) Units/L ALT 7 (7-52) Units/L Alkaline Phosphatase 44 (34-104) Units/L Serum Total Protein 6.6 (6.4-8.9) g/dL Albumin 3.4 L (3.5-5.7) g/dL Globulin 3.2 (2.4-3.5) g/dL Albumin/Globulin Ratio 1.1 (1.1-2.2) Urine Color Dark Yellow (Yellow) Urine Clarity Clear (Clear) Urine pH 6.0 (5.0-8.0) pH Units Ur Specific [place] 1.021 (1.010-1.025) Urine Protein 100 H (Neg-Trace) mg/dL Urine Glucose (UA) Normal (Normal) mg/dL Urine Ketones 80 H (Negative) mg/dL Urine Blood Trace H (Negative) Urine Nitrite Negative (Negative) Urine Bilirubin Large H (Negative) Urine Urobilinogen Normal (Normal) mg/dL Ur Leukocyte Esterase Negative (Negative) Urine Microscopic RBC 15-30 H (0-3) per hpf Urine Microscopic WBC 0-3 (0-3) per hpf Ur Squamous Epith Cells Many H (None-Few) per lpf Urine Bacteria None Seen (None-Few) per hpf Hyaline Casts Few (None-Few) per lpf Ur Culture Indicated? NO (NO) - Radiology Data Radiology results reviewed: Yes I reviewed the patient's radiology results. Chest X-Ray 04/24/18 12:25 IMPRESSION: No evidence for acute cardiopulmonary process. Stable cardiomegaly. D/ / 04/24/2018 13:31:42 William Bradley MD / nanette Interpreting Provider: William Bradley MD Head CT 04/24/18 12:31 IMPRESSION: No acute intracranial abnormality. D/ / aJy Jay Hartman MD / Jay Jay Hartman MD Interpreting Provider: Jay Jay Hartman MD - EKG Data EKG #1 EKG attestation: Yes I reviewed and interpreted this EKG. EKG results narrative: A. fib rate of 65. QRS 142, QT 521, QTC 542. When compared with 10/21/17 there are new T-wave inversions in V2 through V6
--- NOTE | 2018-04-24 12:36 | Emergency Department Note ---
Disposition Clinical Impression: Delirium due to general medical condition Disposition: Admitted As Inpatient Forms: ED Satisfaction Letter General Adult HPI - General Chief complaint: ED Altered Mental Status Stated complaint: AMS Time Seen by Provider: 04/24/18 12:05 Source: patient, EMS Limitations: no limitations Nursing Notes Reviewed: Yes Vital Signs Reviewed: Yes - History of Present Illness HPI Narrative: Attestation note: Patient was seen with the emergency medicine resident/nurse practitioner/physician catalog library assistant/transitional resident/medical student: Dr. DEEP LEÓN I have personally performed a face to face evaluation on this patient. I have reviewed and agree with history and physical examination patient management and disposition. Briefly the salient points of the case are as follows: A 82-year-old female poor historian by EMS for altered mental status patient is awake and alert 2 except for some skin breakdown lives with his son who cares for her he is unavailable. Patient will undergo altered mental status workup. Patient will undergo x-ray urinalysis and CT scan and blood work and admission. Disposition pending. Pain Scale: 0 - Related Data Home Medications Medication Instructions Recorded Confirmed Atorvastatin [Lipitor] 20 mg PO HS 02/23/15 10/20/17 Clopidogrel [Plavix] 75 mg PO DAILY 02/23/15 10/20/17 Docusate [Colace] 100 mg PO BID PRN 02/23/15 10/20/17 Fluticasone/Salmeterol [Advair 1 each IH BID 02/23/15 10/20/17 250-50 Diskus] Gabapentin [Neurontin] 600 mg PO BID 02/23/15 10/20/17 GuaiFENesin ER [Mucinex] 600 mg PO BID PRN 02/23/15 10/20/17 Multivit-Min/FA/Lycopen/Lutein 1 each PO DAILY 02/23/15 10/20/17 [Centrum Silver Tablet] Gabapentin [Neurontin] 1,200 mg PO HS 07/01/15 10/20/17 Isosorbide MONOnitrate (24 HR) 30 mg PO DAILY 07/01/15 10/20/17 [Imdur] Fluticasone Propionate Nasal 100 mcg NS DAILY 05/13/16 10/20/17 [Flonase] Levalbuterol Tartrate [Xopenex Hfa] 2 puff IH TID 05/13/16 10/20/17 Umeclidinium [place] [Incruse 62.5 mcg IH DAILY 05/13/16 10/20/17 Ellipta] Aspirin [Lo-Dose Aspirin EC] 81 mg PO DAILY 01/15/17 10/20/17 Raloxifene [Evista] 60 mg PO DAILY 01/15/17 10/20/17 Albuterol Sulfate [Ventolin Hfa] 2 puff IH Q4-6H PRN 10/20/17 10/20/17 Previous Rx's Medication Instructions Recorded Oxygen 2 l IN CONT #1 each 05/16/16 Furosemide [Lasix] 40 mg PO DAILY #15 tab 07/22/17 Lisinopril [Zestril] 5 mg PO DAILY #30 tablet 10/23/17 Spironolactone [Aldactone] 12.5 mg PO DAILY #30 tablet 10/23/17 levoFLOXacin [Levaquin] 500 mg PO DAILY #4 tablet 10/23/17 Allergies Allergy/AdvReac Type Severity Reaction Status Date / Time No Known Allergies Allergy Verified 07/20/17 11:59 Past Medical History - Past Medical History Medical history: Reports: arthritis, asthma, atrial fibrillation, CHF, COPD, coronary artery disease, GERD, hyperlipidemia, hypertension, osteoporosis Surgical history: Reports: breast surgery, , herniorrhaphy, hysterectomy Psychiatric history: Reports: depression GROUND TRANSPORTATION OPERATOR history: Reports: no GROUND TRANSPORTATION OPERATOR history - Social History Smoking Status: Former smoker Smokeless Tobacco Status: No Alcohol use: Reports: none Drug use: Reports: none Physical Exam - General Limitations: no limitations General appearance: alert, in no apparent distress Course Vital Signs Temperature 97.6 F 04/24/18 11:58 Pulse Rate 62 04/24/18 11:58 Respiratory Rate 18 04/24/18 11:58 Blood Pressure 124/59 04/24/18 11:58 O2 Sat by Pulse Oximetry 95 04/24/18 11:58 Temperature 97.6 F 04/24/18 11:58 Pulse Rate 62 04/24/18 11:58 Respiratory Rate 18 04/24/18 11:58 Blood Pressure 124/59 04/24/18 11:58 O2 Sat by Pulse Oximetry 95 04/24/18 11:58 Oxygen Delivery Oxygen Delivery Room Air
[2018-04-24 12:59] LABS: Bilirubin,Urine Large (Negative); Blood,Urine Trace (Negative); Clarity,Urine Clear (Clear); Color,Urine Dark Yellow (Yellow); Glucose,Urine (UA) Normal (Normal); Ketones,Urine 80 mg/dL (Negative); Leukocyte Esterase,Urine Negative (Negative); Nitrite,Urine Negative (Negative); Protein,Urine 100 mg/dL (Neg-Trace); Specific Gravity,Urine 1.021 (1.010-1.025); Urobilinogen,Urine Normal (Normal)
[2018-04-24 13:01] LABS: Bacteria,Urine None Seen per hpf (None-Few); RBC,Urine 15-30 per hpf (0-3); Squamous Epithelial Cell,Urine Many per lpf (None-Few); WBC,Urine 0-3 per hpf (0-3)
[2018-04-24 13:28] LABS: Hyaline Casts,Urine Few per lpf (None-Few)
[2018-04-24 14:46] LABS: Basophils % 0.3 %; Eosinophils # 0.1 K/mcL (0.0-0.6); Eosinophils % 0.4 %; Hematocrit 44.8 % (35.3-44.9); Immature Granulocytes % 0.4 % (0-4); Lymphocytes % 18.3 %; Mean Corpuscular HGB Conc 31.3 g/dL (31.6-35.5); Mean Corpuscular Hemoglobin 31.3 pg (28.0-33.3); Mean Corpuscular Volume 100.2 fL (83.0-100.0); Mean Platelet Volume 10.7 fL (9.4-12.4); Monocytes # 1.2 K/mcL (0.0-1.3); Monocytes % 10.2 %; Platelet Count 189 K/mcL (140-400); Red Blood Count 4.47 M/mcL (3.82-4.97); Red Cell Distribution Width 12.9 % (11.5-14.5); Segmented Neutrophils % 70.4 %
[2018-04-24 14:55] LABS: Lymphocytes # 2.1 K/mcL (0.6-4.6); Neutrophils # 8.2 K/mcL (1.6-8.9)
[2018-04-24 15:13] LABS: Alanine Aminotransferase 7 Units/L (7-52); Albumin 3.4 g/dL (3.5-5.7); Albumin/Globulin Ratio 1.1 (1.1-2.2); Alkaline Phosphatase 44 Units/L (34-104); Aspartate Amino Transferase 18 Units/L (13-39); BUN/Creatinine Ratio 38 (6-26); Bilirubin,Total 0.9 mg/dL (0.3-1.0); Blood Urea Nitrogen 29 mg/dL (8-23); Calcium 9.1 mg/dL (8.6-10.3); Carbon Dioxide 15 mEq/L (23-29); Chloride 106 mEq/L (98-107); Globulin 3.2 g/dL (2.4-3.5); Glucose 79 mg/dL (70-105); Osmolality,Calculated 295 (280-300); Potassium 3.7 mEq/L (3.5-5.1); Sodium 140 mEq/L (136-145); Total Protein 6.6 g/dL (6.4-8.9); eGFR For Non-African Americans > 60 (> 60)
[2018-04-24] MEDS ORDERED: 0.9 % Sodium Chloride 1,000 ML IVC ONE (15:21)
[2018-04-24] MEDS ORDERED: 0.9 % Sodium Chloride 1,000 ML IVC SCH (15:30)
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
[2018-04-24] MEDS ORDERED: Naloxone 0.4 MG/ML INJ IVP PRN (16:36)
[2018-04-24] MEDS ORDERED: *HR* HYDROcodone/Acet 5/325 mg TABLET PO PRN (16:38)
[2018-04-24] MEDS ORDERED: Ipratropium/Albuterol Neb 3 ML IH PRN (17:07)
[2018-04-24 17:39] LABS: Troponin I 0.07 ng/mL (< 0.04)
[2018-04-24] MEDS: Furosemide 20 MG TABLET PO SCH (18:55)
[2018-04-24] MEDS: hydrALAZINE 25 MG TABLET PO SCH (19:55)
[2018-04-24] MEDS: Levalbuterol 1 PUFF INHALER IH SCH (22:00)
[2018-04-24] MEDS: Budesonide/Formoterol 80/4.5 MDI IH SCH (22:00)
[2018-04-25] MEDS: *HR* Enoxaparin 40 MG/0.4 ML SYRINGE SQ SCH (06:08)
[2018-04-25 06:23] LABS: Basophils % 0.3 %; Eosinophils % 0.3 %; Hematocrit 37.6 % (35.3-44.9); Hemoglobin 12.5 g/dL (11.5-15.4); Immature Granulocytes % 0.3 % (0-4); Lymphocytes # 2.6 K/mcL (0.6-4.6); Lymphocytes % 22.3 %; Mean Corpuscular HGB Conc 33.2 g/dL (31.6-35.5); Mean Corpuscular Hemoglobin 31.8 pg (28.0-33.3); Mean Corpuscular Volume 95.7 fL (83.0-100.0); Mean Platelet Volume 10.6 fL (9.4-12.4); Monocytes # 1.3 K/mcL (0.0-1.3); Monocytes % 10.9 %; Neutrophils # 7.6 K/mcL (1.6-8.9); Platelet Count 221 K/mcL (140-400); Red Blood Count 3.93 M/mcL (3.82-4.97); Red Cell Distribution Width 12.8 % (11.5-14.5); Segmented Neutrophils % 65.9 %
[2018-04-25 06:49] LABS: BUN/Creatinine Ratio 39 (6-26); Blood Urea Nitrogen 31 mg/dL (8-23); Calcium 8.9 mg/dL (8.6-10.3); Carbon Dioxide 17 mEq/L (23-29); Chloride 106 mEq/L (98-107); Glucose 104 mg/dL (70-105); Osmolality,Calculated 297 (280-300); Sodium 140 mEq/L (136-145); eGFR For Non-African Americans > 60 (> 60)
[2018-04-25] MEDS: Isosorbide MONOnitrate (24 HR) 30 MG TAB.ER.24H PO SCH (08:45)
[2018-04-25] MEDS: Spironolactone 25 MG TABLET PO SCH (08:46)
[2018-04-25] MEDS: hydrALAZINE 25 MG TABLET PO SCH ×2 (08:46→21:37)
[2018-04-25] MEDS: Multivit/Ca/Min/Fe/FA 1 TAB TABLET PO SCH (08:46)
[2018-04-25] MEDS: Furosemide 20 MG TABLET PO SCH ×2 (08:46→16:58)
[2018-04-25] MEDS: Aspirin Enteric Coated 81 MG Tablet PO SCH (08:46)
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
[2018-04-25] MEDS: Budesonide/Formoterol 80/4.5 MDI IH SCH ×2 (10:56→20:17)
[2018-04-25] MEDS: Levalbuterol 1 PUFF INHALER IH SCH ×3 (10:56→20:17)
[2018-04-25] MEDS: Fluticasone Propionate Nasal 50 MCG/SPRAY BOTTLE NS SCH (13:02)
[2018-04-25] MEDS: (Umeclidinium Bromide [Incruse Ellipta] 62.5 MCG) IH SCH (13:02)
[2018-04-26 04:07] LABS: Basophils % 0.4 %; Eosinophils # 0.1 K/mcL (0.0-0.6); Eosinophils % 0.7 %; Hematocrit 34.4 % (35.3-44.9); Hemoglobin 11.5 g/dL (11.5-15.4); Immature Granulocytes % 0.2 % (0-4); Lymphocytes # 2.6 K/mcL (0.6-4.6); Lymphocytes % 26.6 %; Mean Corpuscular HGB Conc 33.4 g/dL (31.6-35.5); Mean Corpuscular Hemoglobin 31.4 pg (28.0-33.3); Mean Platelet Volume 10.7 fL (9.4-12.4); Monocytes % 10.4 %; Platelet Count 209 K/mcL (140-400); Red Blood Count 3.66 M/mcL (3.82-4.97); Red Cell Distribution Width 12.5 % (11.5-14.5); Segmented Neutrophils % 61.7 %
[2018-04-26 04:11] LABS: Alanine Aminotransferase 9 Units/L (7-52); Alkaline Phosphatase 45 Units/L (34-104); Aspartate Amino Transferase 17 Units/L (13-39); BUN/Creatinine Ratio 41 (6-26); Bilirubin,Direct 0.4 mg/dL (0.0-0.2); Bilirubin,Indirect 0.7 mg/dL (0.0-1.2); Bilirubin,Total 1.1 mg/dL (0.3-1.0); Blood Urea Nitrogen 29 mg/dL (8-23); Calcium 8.6 mg/dL (8.6-10.3); Carbon Dioxide 21 mEq/L (23-29); Chloride 103 mEq/L (98-107); Glucose 94 mg/dL (70-105); Osmolality,Calculated 292 (280-300); Potassium 2.7 mEq/L (3.5-5.1); Sodium 138 mEq/L (136-145); eGFR For Non-African Americans > 60 (> 60)
[2018-04-26] MEDS: *HR* Enoxaparin 40 MG/0.4 ML SYRINGE SQ SCH (05:47)
[2018-04-26] MEDS: Budesonide/Formoterol 80/4.5 MDI IH SCH ×2 (07:33→19:45)
[2018-04-26] MEDS: Levalbuterol 1 PUFF INHALER IH SCH ×3 (07:33→19:47)
[2018-04-26] MEDS: Aspirin Enteric Coated 81 MG Tablet PO SCH (08:50)
[2018-04-26] MEDS: Spironolactone 25 MG TABLET PO SCH (08:50)
[2018-04-26] MEDS: Isosorbide MONOnitrate (24 HR) 30 MG TAB.ER.24H PO SCH (08:50)
[2018-04-26] MEDS: Multivit/Ca/Min/Fe/FA 1 TAB TABLET PO SCH (08:50)
[2018-04-26] MEDS: Furosemide 20 MG TABLET PO SCH ×2 (08:50→17:36)
[2018-04-26] MEDS: (Umeclidinium Bromide [Incruse Ellipta] 62.5 MCG) IH SCH (08:51)
[2018-04-26] MEDS: hydrALAZINE 25 MG TABLET PO SCH ×2 (08:51→21:12)
[2018-04-26] MEDS: Fluticasone Propionate Nasal 50 MCG/SPRAY BOTTLE NS SCH (08:54)
--- NOTE | 2018-04-26 16:32 | Internal Med Progress Note ---
Hospitalist Progress Note - Encounter Date of Encounter: 04/26/18 Time of Encounter: 16:32 - Subjective Interval History: No acute events overnight per nursing. Patient this AM has no complaints for me. History limited as she is AAO x2 and also cannot recall why she is here. She denies chest pain, shortness of breath, fevers/chills, n/v, abdominal pain, extremity edema, palpitations, constipation/diarrhea, dizziness, headache. 04/26/18: Patient AAOx3, but was unable to tell me why she was admitted to hospital. - Exam Vitals: Temp Pulse Resp BP Pulse Ox 99.1 F 66 16 130/96 92 04/26/18 16:16 04/26/18 16:16 04/26/18 16:16 04/26/18 16:16 04/26/18 16:16 Exam: Gen: disheveled, AAO x3, cooperative with exam. Mental status improved since yesterday. CVS: RRR, no mrg Lungs: course breath sounds, fine rales left lower lung de anda, no wheezing, good aeration of lung de anda, NAD Abd: soft, nt/nd Ext: no edema, no cyanosis. - Assessment and Plan (1) Altered mental status Current Visit: Yes Status: Acute Assessment and Plan: Patient is oriented to person, place. Not aware of year or situation. Per EMR yesterday she was aware of self only. Work up so far significant for mild dehydration, head CT and electrolytes unremarkable. CXR and UA not consistent with any infection. She will continue to be observed Aspiration and fall precautions Patient appears to be near baseline after talking with her grand daughter. Plan is to discuss with daughter who is currently unavailable when calling given number. (2) Atrial fibrillation Current Visit: Yes Status: Chronic Assessment and Plan: HR currently controlled, not on any rate control medications. Not on anticoagulation due to hx of bleed and high risk of bleed, per prior admissions (3) Essential hypertension Current Visit: Yes Status: Chronic Assessment and Plan: Controlled at this time, continue home meds (4) CAD (coronary artery disease) Current Visit: Yes Status: Chronic Assessment and Plan: Continue home meds (5) COPD (chronic obstructive pulmonary disease) Current Visit: Yes Status: Chronic Assessment and Plan: Continue home inhalers Duonebs prn No current indications for steroids Continue to monitor (6) Nonischemic cardiomyopathy Current Visit: Yes Status: Chronic Assessment and Plan: Continue home meds-ACEI, isosorbide, spironolactone, lasix, ASA, Plavix Not on BB due to hx of bradycardia (7) Depression Current Visit: Yes Status: Chronic Assessment and Plan: Continue home meds (8) CHF (congestive heart failure) Current Visit: Yes Status: Chronic Assessment and Plan: Resume home meds Obtain BNP Fluid restriction diet to 1500 cc daily Continue to monitor (9) Chronic respiratory failure Current Visit: Yes Status: Chronic Assessment and Plan: on home O2, continue as needed. (10) Elevated troponin Current Visit: Yes Status: Acute Assessment and Plan: Due to new TWI, obtained trop Initial trop 0.07, improved to 0.06, she denies any chest pain, SOB, N/V. Review past trop appears to be 0.04. Continue to cycle, patient is DNR-CC, follow ECHO reports (11) DVT prophylaxis Current Visit: Yes Status: Acute Assessment and Plan: SQ Lovenox - Time Spent with Patient Total time spent is greater than 50% in coordination of care (as documented) at patient's floor/unit and/or counseling patient: Internal Medicine: Result - Labs CBC & Chem 7: 04/26/18 03:41 04/26/18 16:09 Labs: Short CBC 04/26/18 Range/Units 03:41 WBC 9.7 (4.3-11.1) K/mcL Hgb 11.5 (11.5-15.4) g/dL Hct 34.4 L (35.3-44.9) % Plt Count 209 (140-400) K/mcL Neutrophils # 6.0 (1.6-8.9) K/mcL BMP 04/26/18 03:41 Sodium 138 Potassium 2.7 L Chloride 103 Carbon Dioxide 21 L BUN 29 H Creatinine 0.70 Glucose 94 Calcium 8.6 Liver Function 04/26/18 Range/Units 03:41 Total Bilirubin 1.1 H (0.3-1.0) mg/dL Direct Bilirubin 0.4 H (0.0-0.2) mg/dL AST 17 (13-39) Units/L ALT 9 (7-52) Units/L Alkaline Phosphatase 45 (34-104) Units/L Albumin 3.0 L (3.5-5.7) g/dL Consult Discharge Plan - Plan Referrals: Arley Awan MD [Primary Care Provider] - (1) Altered mental status Qualifiers: Altered mental status type: disorientation Qualified Code(s): R41.0 - Disorientation, unspecified (2) Atrial fibrillation Qualifiers: Atrial fibrillation type: chronic Qualified Code(s): I48.2 - Chronic atrial fibrillation (4) CAD (coronary artery disease) Qualifiers: Coronary Disease-Associated Artery/Lesion type: [place] artery [place] vs. transplanted heart: [place] heart Associated angina: without angina Qualified Code(s): I25.10 - Atherosclerotic heart disease of [place] coronary artery without angina pectoris (5) COPD (chronic obstructive pulmonary disease) Qualifiers: COPD type: unspecified COPD Qualified Code(s): J44.9 - Chronic obstructive pulmonary disease, unspecified (7) Depression Qualifiers: Depression Type: unspecified Qualified Code(s): F32.9 - Major depressive disorder, single episode, unspecified (8) CHF (congestive heart failure) Qualifiers: Heart failure type: combined systolic and diastolic Heart failure chronicity: chronic Qualified Code(s): I50.42 - Chronic combined systolic (congestive) and diastolic (congestive) heart failure (9) Chronic respiratory failure Qualifiers: Respiratory failure complication: hypoxia Qualified Code(s): J96.11 - Chronic respiratory failure with hypoxia
[2018-04-26] MEDS ORDERED: Levofloxacin 750 MG/150 ML 750 MG/150 ML BAG IVPB SCH (19:30)
[2018-04-26] MEDS: predniSONE 20 MG TABLET PO SCH (19:37)
[2018-04-26] MEDS: Ipratropium/Albuterol Neb 3 ML IH SCH ×3 (19:45→23:10)
--- NOTE | 2018-04-26 20:11 | Electrocardiograph Report ---
[place] 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
[2018-04-26 20:15] LABS: Magnesium 1.5 mg/dL (1.6-2.6)
[2018-04-26 20:16] LABS: Troponin I 0.06 ng/mL (< 0.04)
[2018-04-26 21:55] LABS: Adenovirus Not Detected (Not Detect); Bordetella Pertussis Not Detected (Not Detect); Chlamydophila pneumoniae Not Detected (Not Detect); Coronavirus 229E Not Detected (Not Detect); Coronavirus HKU1 Not Detected (Not Detect); Coronavirus NL63 Not Detected (Not Detect); Coronavirus OC43 Not Detected (Not Detect); Human Metapneumovirus Not Detected (Not Detect); Human Rhinovirus/Enterovirus Not Detected (Not Detect); Influenza A Subtype 2009 H1 Not Detected (Not Detect); Influenza A Untypeable Not Detected (Not Detect); Influenza B Not Detected (Not Detect); Mycoplasma pneumoniae Not Detected (Not Detect); Parainfluenza Virus 1 Not Detected (Not Detect); Parainfluenza Virus 2 Not Detected (Not Detect); Parainfluenza Virus 3 Not Detected (Not Detect); Parainfluenza Virus 4 Not Detected (Not Detect); Respiratory Syncytial Virus Not Detected (Not Detect)
[2018-04-27] MEDS: Ipratropium/Albuterol Neb 3 ML IH SCH ×6 (03:39→23:37)
[2018-04-27 04:54] LABS: BUN/Creatinine Ratio 36 (6-26); Blood Urea Nitrogen 27 mg/dL (8-23); Calcium 8.7 mg/dL (8.6-10.3); Carbon Dioxide 18 mEq/L (23-29); Chloride 105 mEq/L (98-107); Glucose 145 mg/dL (70-105); Osmolality,Calculated 292 (280-300); Potassium 3.7 mEq/L (3.5-5.1); Sodium 137 mEq/L (136-145); eGFR For Non-African Americans > 60 (> 60)
[2018-04-27] MEDS: *HR* Enoxaparin 40 MG/0.4 ML SYRINGE SQ SCH (06:36)
[2018-04-27] MEDS: Levalbuterol 1 PUFF INHALER IH SCH ×3 (07:55→20:33)
[2018-04-27] MEDS: Budesonide/Formoterol 80/4.5 MDI IH SCH ×2 (07:56→20:33)
[2018-04-27] MEDS: Tiotropium 18 MCG inhalation IH SCH (08:10)
[2018-04-27] MEDS ORDERED: Sennosides/Docusate Sodium TABLET PO ONE (10:38)
--- NOTE | 2018-04-27 10:38 | Internal Med Progress Note ---
Hospitalist Progress Note - Encounter Date of Encounter: 04/27/18 Time of Encounter: 10:41 - Subjective Interval History: No acute events overnight per nursing. Patient this AM has no complaints for me. History limited as she is AAO x2 and also cannot recall why she is here. She denies chest pain, shortness of breath, fevers/chills, n/v, abdominal pain, extremity edema, palpitations, constipation/diarrhea, dizziness, headache. 04/26: Patient AAOx3, but was unable to tell me why she was admitted to hospital. Later in the day she felt extreme fatigue saying she felt poorly overall. A workup showed cxr findings of pneumonia. She was started on Levaquin, Prednisone, duo nebs. 04/27: patient states she is feeling much better this morning, denies chest pain, fevers/chills, SOB, n/v. - Exam Vitals: Temp Pulse Resp BP Pulse Ox 98.1 F 68 18 127/69 95 04/27/18 07:16 04/27/18 07:16 04/27/18 07:16 04/27/18 07:16 04/27/18 07:16 Exam: Gen: disheveled, AAO x3, cooperative with exam. Mental status improved since yesterday. CVS: RRR, no mrg Lungs: course breath sounds - but better than yesterday, fine rales left lower lung de anda, no wheezing, good aeration of lung de anda, NAD Abd: soft, nt/nd Ext: no edema, no cyanosis. - Assessment and Plan (1) Pneumonia Current Visit: No Status: Acute Assessment and Plan: Unsure if this was present prior to admission and did not show on the portable chest x-ray. A repeat CXR yesterday showed bibasilar opacities. If this was present prior to admission, this could be the underlying cause of her acute encephalopathy and malaise. Continue Levaquin, follow-up sputum cultures, urine antigens. (2) Altered mental status Current Visit: Yes Status: Acute Assessment and Plan: Patient is oriented to person, place. Not aware of year or situation. Per EMR yesterday she was aware of self only. Work up so far significant for mild dehydration, head CT and electrolytes unremarkable. UA was not consistent with any infection Patient appears to be near baseline after talking with her grand daughter. Plan is to discuss with daughter who is currently unavailable when calling given number. This could be due to a pneumonia that was present prior to admission. CXR was negative on admission but a repeat one yesterday showed bibasilar opacities that is likely pneumonia. Less likely fluid overload. This could be cause of pneumonia or this is HAP. Continue Levaquin renally dosed. (3) Atrial fibrillation Current Visit: Yes Status: Chronic Assessment and Plan: HR currently controlled, not on any rate control medications. Not on anticoagulation due to hx of bleed and high risk of bleed, per prior admissions (4) Essential hypertension Current Visit: Yes Status: Chronic Assessment and Plan: Controlled at this time, continue home meds (5) CAD (coronary artery disease) Current Visit: Yes Status: Chronic Assessment and Plan: Continue home meds (6) COPD (chronic obstructive pulmonary disease) Current Visit: Yes Status: Chronic Assessment and Plan: Continue home inhalers Currently having mild exacerbation from pneumonia Day 2 Prednisone, Duo nebs scheduled, Levaquin. (7) Nonischemic cardiomyopathy Current Visit: Yes Status: Chronic Assessment and Plan: Continue home meds-ACEI, isosorbide, spironolactone, lasix, ASA, Plavix Not on BB due to hx of bradycardia (8) Depression Current Visit: Yes Status: Chronic Assessment and Plan: Continue home meds (9) CHF (congestive heart failure) Current Visit: Yes Status: Chronic Assessment and Plan: Resume home meds Obtain BNP Fluid restriction diet to 1500 cc daily Continue to monitor Hold Lasix today as patient appears slightly dry on exam. (10) Chronic respiratory failure Current Visit: Yes Status: Chronic Assessment and Plan: on home O2, continue as needed. (11) Elevated troponin Current Visit: Yes Status: Acute Assessment and Plan: Due to new TWI, obtained trop Initial trop 0.07, improved to 0.06, she denies any chest pain, SOB, N/V. Review past trop appears to be 0.04. Continue to cycle, patient is DNR-CC, follow ECHO reports (12) DVT prophylaxis Current Visit: Yes Status: Acute Assessment and Plan: SQ Lovenox - Time Spent with Patient Total time spent is greater than 50% in coordination of care (as documented) at patient's floor/unit and/or counseling patient: Internal Medicine: Result - Labs CBC & Chem 7: 04/26/18 03:41 04/27/18 04:23 Labs: BMP 04/26/18 04/27/18 16:09 04:23 Sodium 137 Potassium 3.3 L 3.7 Chloride 105 Carbon Dioxide 18 L BUN 27 H Creatinine 0.76 Glucose 145 H Calcium 8.7 Cardiac Enzymes 04/26/18 Range/Units 19:39 Troponin I 0.06 H* (< 0.04) ng/mL - Impressions Impressions Chest X-Ray 04/26/18 12:56 IMPRESSION: New trace right pleural effusion and mild patchy bibasilar opacities. This could represent developing pneumonia or possible atelectasis. D/ / 04/26/2018 19:26:22 Shaji Morse MD / milena Interpreting Provider: Shaji Morse MD Consult Discharge Plan - Plan Referrals: Arley Awan MD [Primary Care Provider] - (1) Pneumonia Qualifiers: Pneumonia type: due to unspecified organism Laterality: bilateral Lung location: unspecified part of lung Qualified Code(s): J18.9 - Pneumonia, unspecified organism (2) Altered mental status Qualifiers: Altered mental status type: disorientation Qualified Code(s): R41.0 - Disorientation, unspecified (3) Atrial fibrillation Qualifiers: Atrial fibrillation type: chronic Qualified Code(s): I48.2 - Chronic atrial fibrillation (5) CAD (coronary artery disease) Qualifiers: Coronary Disease-Associated Artery/Lesion type: [place] artery [place] vs. transplanted heart: [place] heart Associated angina: without angina Qualified Code(s): I25.10 - Atherosclerotic heart disease of [place] coronary artery without angina pectoris (6) COPD (chronic obstructive pulmonary disease) Qualifiers: COPD type: unspecified COPD Qualified Code(s): J44.9 - Chronic obstructive pulmonary disease, unspecified (8) Depression Qualifiers: Depression Type: unspecified Qualified Code(s): F32.9 - Major depressive disorder, single episode, unspecified (9) CHF (congestive heart failure) Qualifiers: Heart failure type: combined systolic and diastolic Heart failure chronicity: chronic Qualified Code(s): I50.42 - Chronic combined systolic (congestive) and diastolic (congestive) heart failure (10) Chronic respiratory failure Qualifiers: Respiratory failure complication: hypoxia Qualified Code(s): J96.11 - Chronic respiratory failure with hypoxia
[2018-04-27] MEDS: Aspirin Enteric Coated 81 MG Tablet PO SCH (10:45)
[2018-04-27] MEDS: Multivit/Ca/Min/Fe/FA 1 TAB TABLET PO SCH (10:46)
[2018-04-27] MEDS: predniSONE 20 MG TABLET PO SCH (10:46)
[2018-04-27] MEDS: hydrALAZINE 25 MG TABLET PO SCH ×2 (10:46→20:59)
[2018-04-27] MEDS: Spironolactone 25 MG TABLET PO SCH (10:47)
[2018-04-27] MEDS: Isosorbide MONOnitrate (24 HR) 30 MG TAB.ER.24H PO SCH (10:49)
[2018-04-27] MEDS: Fluticasone Propionate Nasal 50 MCG/SPRAY BOTTLE NS SCH (15:04)
[2018-04-27] MEDS: MICONAZOLE NITRATE 57 GM TUBE TP SCH (19:09)
[2018-04-28] MEDS: Ipratropium/Albuterol Neb 3 ML IH SCH ×6 (03:38→23:53)
[2018-04-28 05:37] LABS: BUN/Creatinine Ratio 39 (6-26); Blood Urea Nitrogen 26 mg/dL (8-23); Calcium 8.8 mg/dL (8.6-10.3); Carbon Dioxide 22 mEq/L (23-29); Chloride 105 mEq/L (98-107); Glucose 122 mg/dL (70-105); Osmolality,Calculated 290 (280-300); Potassium 3.1 mEq/L (3.5-5.1); Sodium 137 mEq/L (136-145); eGFR For Non-African Americans > 60 (> 60)
[2018-04-28] MEDS: *HR* Enoxaparin 40 MG/0.4 ML SYRINGE SQ SCH (05:59)
[2018-04-28] MEDS: Budesonide/Formoterol 80/4.5 MDI IH SCH ×2 (07:24→20:19)
[2018-04-28] MEDS: Tiotropium 18 MCG inhalation IH SCH (07:27)
[2018-04-28] MEDS: MICONAZOLE NITRATE 57 GM TUBE TP SCH ×2 (07:55→20:48)
[2018-04-28] MEDS: Aspirin Enteric Coated 81 MG Tablet PO SCH (07:55)
[2018-04-28] MEDS: Spironolactone 25 MG TABLET PO SCH (07:55)
[2018-04-28] MEDS: Fluticasone Propionate Nasal 50 MCG/SPRAY BOTTLE NS SCH ×2 (07:56→08:00)
[2018-04-28] MEDS: Isosorbide MONOnitrate (24 HR) 30 MG TAB.ER.24H PO SCH (08:00)
[2018-04-28] MEDS: hydrALAZINE 25 MG TABLET PO SCH ×2 (08:00→20:45)
[2018-04-28] MEDS: Multivit/Ca/Min/Fe/FA 1 TAB TABLET PO SCH (08:01)
[2018-04-28] MEDS: predniSONE 20 MG TABLET PO SCH (08:01)
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
[2018-04-28] MEDS ORDERED: levoFLOXacin 750 MG TABLET PO SCH (18:00)
[2018-04-29 03:36] LABS: BUN/Creatinine Ratio 39 (6-26); Blood Urea Nitrogen 27 mg/dL (8-23); Calcium 8.7 mg/dL (8.6-10.3); Carbon Dioxide 21 mEq/L (23-29); Chloride 108 mEq/L (98-107); Glucose 110 mg/dL (70-105); Osmolality,Calculated 292 (280-300); Sodium 138 mEq/L (136-145); eGFR For Non-African Americans > 60 (> 60)
[2018-04-29] MEDS: Ipratropium/Albuterol Neb 3 ML IH SCH ×6 (04:10→23:45)
[2018-04-29] MEDS: *HR* Enoxaparin 40 MG/0.4 ML SYRINGE SQ SCH (05:52)
[2018-04-29] MEDS: Budesonide/Formoterol 80/4.5 MDI IH SCH ×2 (07:29→19:55)
[2018-04-29] MEDS: Tiotropium 18 MCG inhalation IH SCH (07:30)
[2018-04-29] MEDS: predniSONE 20 MG TABLET PO SCH (08:02)
[2018-04-29] MEDS: Aspirin Enteric Coated 81 MG Tablet PO SCH (08:02)
[2018-04-29] MEDS: levoFLOXacin 750 MG TABLET PO SCH ×2 (08:03→21:42)
[2018-04-29] MEDS: Multivit/Ca/Min/Fe/FA 1 TAB TABLET PO SCH (08:03)
[2018-04-29] MEDS: Spironolactone 25 MG TABLET PO SCH (08:03)
[2018-04-29] MEDS: Isosorbide MONOnitrate (24 HR) 30 MG TAB.ER.24H PO SCH (08:03)
[2018-04-29] MEDS: hydrALAZINE 25 MG TABLET PO SCH ×2 (08:03→21:50)
[2018-04-29] MEDS: MICONAZOLE NITRATE 57 GM TUBE TP SCH ×2 (08:21→21:47)
[2018-04-29] MEDS: Fluticasone Propionate Nasal 50 MCG/SPRAY BOTTLE NS SCH (08:21)
--- NOTE | 2018-04-29 11:24 | Internal Med Progress Note ---
Hospitalist Progress Note - Encounter Date of Encounter: 04/29/18 Time of Encounter: 11:21 - Subjective Interval History: No acute events overnight per nursing. Patient this AM has no complaints for me. History limited as she is AAO x2 and also cannot recall why she is here. She denies chest pain, shortness of breath, fevers/chills, n/v, abdominal pain, extremity edema, palpitations, constipation/diarrhea, dizziness, headache. Feels great, no acute events, no complaints. - Exam Vitals: Temp Pulse Resp BP Pulse Ox 97.8 F 77 16 144/86 97 04/29/18 10:23 04/29/18 10:23 04/29/18 10:23 04/29/18 10:23 04/29/18 10:23 Exam: Gen: disheveled, AAO x3, cooperative with exam. Mental status improved CVS: RRR, no mrg Lungs: course breath sounds fine rales left lower lung de anda, no wheezing, good aeration of lung de anda, NAD Abd: soft, nt/nd Ext: no edema, no cyanosis. - Assessment and Plan (1) Pneumonia due to Pseudomonas aeruginosa Current Visit: Yes Status: Acute Assessment and Plan: Unsure if this was present prior to admission and did not show on the portable chest x-ray. A repeat CXR yesterday showed bibasilar opacities. If this was present prior to admission, this could be the underlying cause of her acute encephalopathy and malaise. Sputum culture Pseudomonas, rodriguez-sensitive Continue Levaquin (2) Altered mental status Current Visit: Yes Status: Acute Assessment and Plan: Patient is oriented to person, place. Not aware of year or situation. Per EMR yesterday she was aware of self only. Work up so far significant for mild dehydration, head CT and electrolytes unremarkable. UA was not consistent with any infection Patient appears to be near baseline after talking with her grand daughter. Plan is to discuss with daughter who is currently unavailable when calling given number. This could be due to a pneumonia that was present prior to admission. CXR was negative on admission but a repeat one yesterday showed bibasilar opacities that is likely pneumonia. Less likely fluid overload. This could be cause of pneumonia or this is HAP. Continue Levaquin renally dosed. (3) Atrial fibrillation Current Visit: Yes Status: Chronic Assessment and Plan: HR currently controlled, not on any rate control medications. Not on anticoagulation due to hx of bleed and high risk of bleed, per prior admissions (4) Essential hypertension Current Visit: Yes Status: Chronic Assessment and Plan: Controlled at this time, continue home meds (5) CAD (coronary artery disease) Current Visit: Yes Status: Chronic Assessment and Plan: Continue home meds (6) COPD (chronic obstructive pulmonary disease) Current Visit: Yes Status: Chronic Assessment and Plan: Continue home inhalers Currently having mild exacerbation from pneumonia Day 2 Prednisone, Duo nebs scheduled, Levaquin. (7) Nonischemic cardiomyopathy Current Visit: Yes Status: Chronic Assessment and Plan: Continue home meds-ACEI, isosorbide, spironolactone, lasix, ASA, Plavix Not on BB due to hx of bradycardia (8) Depression Current Visit: Yes Status: Chronic Assessment and Plan: Continue home meds (9) CHF (congestive heart failure) Current Visit: Yes Status: Chronic Assessment and Plan: Resume home meds Obtain BNP Fluid restriction diet to 1500 cc daily Continue to monitor Hold Lasix today as patient appears slightly dry on exam. (10) Chronic respiratory failure Current Visit: Yes Status: Chronic Assessment and Plan: on home O2, continue as needed. (11) Elevated troponin Current Visit: Yes Status: Acute Assessment and Plan: Due to new TWI, obtained trop Initial trop 0.07, improved to 0.06, she denies any chest pain, SOB, N/V. Review past trop appears to be 0.04. Continue to cycle, patient is DNR-CC, follow ECHO reports (12) DVT prophylaxis Current Visit: Yes Status: Acute Assessment and Plan: SQ Lovenox - Time Spent with Patient Total time spent is greater than 50% in coordination of care (as documented) at patient's floor/unit and/or counseling patient: Internal Medicine: Result - Labs CBC & Chem 7: 04/26/18 03:41 04/29/18 03:04 Labs: BMP 04/29/18 03:04 Sodium 138 Potassium 4.0 D Chloride 108 H Carbon Dioxide 21 L BUN 27 H Creatinine 0.69 Glucose 110 H Calcium 8.7 Consult Discharge Plan - Plan Referrals: Arley Awan MD [Primary Care Provider] - Prescriptions: HYDROcodone/Acet 5/325 mg [[place] 5-325 mg] 1 tab PO Q8H PRN 3 Days #9 tablet PRN Reason: Pain predniSONE [PredniSONE] 40 mg PO DAILY #6 tablet (2) Altered mental status Qualifiers: Altered mental status type: disorientation Qualified Code(s): R41.0 - Disorientation, unspecified (3) Atrial fibrillation Qualifiers: Atrial fibrillation type: chronic Qualified Code(s): I48.2 - Chronic atrial fibrillation (5) CAD (coronary artery disease) Qualifiers: Coronary Disease-Associated Artery/Lesion type: eek artery [place] vs. transplanted heart: eek heart Associated angina: without angina Qualified Code(s): I25.10 - Atherosclerotic heart disease of eek coronary artery without angina pectoris (6) COPD (chronic obstructive pulmonary disease) Qualifiers: COPD type: unspecified COPD Qualified Code(s): J44.9 - Chronic obstructive pulmonary disease, unspecified (8) Depression Qualifiers: Depression Type: unspecified Qualified Code(s): F32.9 - Major depressive disorder, single episode, unspecified (9) CHF (congestive heart failure) Qualifiers: Heart failure type: combined systolic and diastolic Heart failure chronicity: chronic Qualified Code(s): I50.42 - Chronic combined systolic (congestive) and diastolic (congestive) heart failure (10) Chronic respiratory failure Qualifiers: Respiratory failure complication: hypoxia Qualified Code(s): J96.11 - Chronic respiratory failure with hypoxia
[2018-04-30] MEDS: Ipratropium/Albuterol Neb 3 ML IH SCH ×3 (03:50→11:23)
[2018-04-30] MEDS: *HR* Enoxaparin 40 MG/0.4 ML SYRINGE SQ SCH (05:30)
[2018-04-30] MEDS: Tiotropium 18 MCG inhalation IH SCH (07:44)
[2018-04-30] MEDS: Budesonide/Formoterol 80/4.5 MDI IH SCH (07:44)
[2018-04-30 10:02] VITALS: BP 116/76
--- NOTE | 2018-04-30 10:38 | Internal Med Progress Note ---
Hospitalist Progress Note - Encounter Date of Encounter: 04/30/18 Time of Encounter: 10:40 - Subjective Interval History: No acute events overnight per nursing. Patient this AM has no complaints for me. She is AAO x3, much improved. Feels great, no acute events, no complaints. Patient ready for discharge today. - Exam Vitals: Temp Pulse Resp BP Pulse Ox 97.6 F 69 19 116/76 96 04/30/18 10:01 04/30/18 10:01 04/30/18 10:01 04/30/18 10:01 04/30/18 10:01 Exam: Gen: disheveled, AAO x3, cooperative with exam. Mental status improved CVS: RRR, no mrg Lungs: course breath sounds fine rales left lower lung de anda, no wheezing, good aeration of lung de anda, NAD Abd: soft, nt/nd Ext: no edema, no cyanosis. - Assessment and Plan (1) Pneumonia due to Pseudomonas aeruginosa Current Visit: Yes Status: Acute Assessment and Plan: Unsure if this was present prior to admission and did not show on the portable chest x-ray. A repeat CXR yesterday showed bibasilar opacities. If this was present prior to admission, this could be the underlying cause of her acute encephalopathy and malaise. Sputum culture Pseudomonas, rodriguez-sensitive Continue Levaquin (2) Altered mental status Current Visit: Yes Status: Acute Assessment and Plan: Acute metabolic encephalopathy due to infection, pneumonia. Patient was oriented to person, place. Not aware of year or situation. Per EMR yesterday she was aware of self only. Work up so far significant for mild dehydration, head CT and electrolytes unremarkable. UA was not consistent with any infection Continue Levaquin renally dosed. Resolved, likely was infectious. (3) Atrial fibrillation Current Visit: Yes Status: Chronic Assessment and Plan: HR currently controlled, not on any rate control medications. Not on anticoagulation due to hx of bleed and high risk of bleed, per prior admissions (4) Essential hypertension Current Visit: Yes Status: Chronic Assessment and Plan: Controlled at this time, continue home meds (5) CAD (coronary artery disease) Current Visit: Yes Status: Chronic Assessment and Plan: Continue home meds (6) COPD (chronic obstructive pulmonary disease) Current Visit: Yes Status: Chronic Assessment and Plan: Continue home inhalers Currently having mild exacerbation from pneumonia Day 2 Prednisone, Duo nebs scheduled, Levaquin. (7) Nonischemic cardiomyopathy Current Visit: Yes Status: Chronic Assessment and Plan: Continue home meds-ACEI, isosorbide, spironolactone, lasix, ASA, Plavix Not on BB due to hx of bradycardia (8) Depression Current Visit: Yes Status: Chronic Assessment and Plan: Continue home meds (9) CHF (congestive heart failure) Current Visit: Yes Status: Chronic Assessment and Plan: Resume home meds Obtain BNP Fluid restriction diet to 1500 cc daily Continue to monitor Hold Lasix today as patient appears slightly dry on exam. (10) Chronic respiratory failure Current Visit: Yes Status: Chronic Assessment and Plan: on home O2, continue as needed. (11) Elevated troponin Current Visit: Yes Status: Acute Assessment and Plan: Due to new TWI, obtained trop Initial trop 0.07, improved to 0.06, she denies any chest pain, SOB, N/V. Review past trop appears to be 0.04. Continue to cycle, patient is DNR-CC, follow ECHO reports (12) DVT prophylaxis Current Visit: Yes Status: Acute Assessment and Plan: SQ Lovenox - Time Spent with Patient Total time spent is greater than 50% in coordination of care (as documented) at patient's floor/unit and/or counseling patient: Internal Medicine: Result - Labs CBC & Chem 7: 04/26/18 03:41 04/29/18 03:04 Consult Discharge Plan - Plan Referrals: Arley Awan MD [Primary Care Provider] - Prescriptions: HYDROcodone/Acet 5/325 mg [[place] 5-325 mg] 1 tab PO Q8H PRN 3 Days #9 tablet PRN Reason: Pain predniSONE [PredniSONE] 40 mg PO DAILY #6 tablet (2) Altered mental status Qualifiers: Altered mental status type: disorientation Qualified Code(s): R41.0 - Disorientation, unspecified (3) Atrial fibrillation Qualifiers: Atrial fibrillation type: chronic Qualified Code(s): I48.2 - Chronic atrial fibrillation (5) CAD (coronary artery disease) Qualifiers: Coronary Disease-Associated Artery/Lesion type: [place] artery [place] vs. transplanted heart: [place] heart Associated angina: without angina Qualified Code(s): I25.10 - Atherosclerotic heart disease of [place] coronary artery without angina pectoris (6) COPD (chronic obstructive pulmonary disease) Qualifiers: COPD type: unspecified COPD Qualified Code(s): J44.9 - Chronic obstructive pulmonary disease, unspecified (8) Depression Qualifiers: Depression Type: unspecified Qualified Code(s): F32.9 - Major depressive disorder, single episode, unspecified (9) CHF (congestive heart failure) Qualifiers: Heart failure type: combined systolic and diastolic Heart failure chronicity: chronic Qualified Code(s): I50.42 - Chronic combined systolic (congestive) and diastolic (congestive) heart failure (10) Chronic respiratory failure Qualifiers: Respiratory failure complication: hypoxia Qualified Code(s): J96.11 - Chronic respiratory failure with hypoxia
--- NOTE | 2018-04-30 10:43 | Physician Discharge Referral ---
ExtendedCare Referral Info Institutional Level of Care: Skilled - Diagnosis (1) Altered mental status Priority: Primary Status: Acute (2) Pneumonia due to Pseudomonas aeruginosa Priority: Secondary Status: Acute (3) Atrial fibrillation Priority: Secondary Status: Chronic (4) Essential hypertension Priority: Secondary Status: Chronic (5) CAD (coronary artery disease) Priority: Secondary Status: Chronic (6) COPD (chronic obstructive pulmonary disease) Priority: Secondary (d) Status: Chronic (7) Nonischemic cardiomyopathy Priority: Secondary Status: Chronic (8) Depression Priority: Secondary Status: Chronic (9) CHF (congestive heart failure) Priority: Secondary Status: Chronic (10) Chronic respiratory failure Priority: Secondary Status: Chronic (11) Elevated troponin Priority: Secondary Status: Acute (12) DVT prophylaxis Priority: Secondary Status: Acute - Transfer Medications Prescriptions: HYDROcodone/Acet 5/325 mg [[place] 5-325 mg] 1 tab PO Q8H PRN 3 Days #9 tablet PRN Reason: Pain predniSONE [PredniSONE] 40 mg PO DAILY #6 tablet Home Medications: Atorvastatin [Lipitor] 20 mg PO HS 02/23/15 [History] Clopidogrel [Plavix] 75 mg PO DAILY 02/23/15 [History] Docusate [Colace] 100 mg PO BID PRN 02/23/15 [History] Fluticasone/Salmeterol [Advair 250-50 Diskus] 1 each IH BID 02/23/15 [History] Gabapentin [Neurontin] 600 mg PO BID 02/23/15 [History] Multivit-Min/FA/Lycopen/Lutein [Centrum Silver Tablet] 1 each PO DAILY 02/23/15 [History] Isosorbide MONOnitrate (24 HR) [Imdur] 30 mg PO DAILY 07/01/15 [History] Fluticasone Propionate Nasal [Flonase] 100 mcg NS DAILY 05/13/16 [History] Levalbuterol Tartrate [Xopenex Hfa] 2 puff IH TID 05/13/16 [History] Umeclidinium [place] [Incruse Ellipta] 62.5 mcg IH DAILY 05/13/16 [History] Oxygen 2 l IN CONT #1 each 05/16/16 [Rx] Aspirin [Lo-Dose Aspirin EC] 81 mg PO DAILY 01/15/17 [History] Raloxifene [Evista] 60 mg PO DAILY 01/15/17 [History] Albuterol Sulfate [Ventolin Hfa] 2 puff IH Q4-6H PRN 10/20/17 [History] Lisinopril [Zestril] 5 mg PO DAILY #30 tablet 10/23/17 [Rx] Spironolactone [Aldactone] 12.5 mg PO DAILY #30 tablet 10/23/17 [Rx] Furosemide [Lasix] 20 mg PO BID 04/24/18 [History] Montelukast [Singulair] 10 mg PO DAILY 04/24/18 [History] hydrALAZINE [HydrALAZINE] 25 mg PO BID 04/24/18 [History] GuaiFENesin ER [Mucinex] 1,200 mg PO BID tbbp.12hr 04/28/18 [Rx] HYDROcodone/Acet 5/325 mg [[place] 5-325 mg] 1 tab PO Q8H PRN 3 Days #9 tablet 04/28/18 [Rx] Ipratropium/Albuterol Neb [Duoneb] 3 ml IH [id number] PRN inhsol 04/28/18 [Rx] Miconazole Nitrate [Elvia Antifungal] 1 appl TP BID tube 04/28/18 [Rx] predniSONE [PredniSONE] 40 mg PO DAILY #6 tablet 04/28/18 [Rx] Allergies/Adverse Reactions: Allergy/AdvReac Type Severity Reaction Status Date / Time No Known Allergies Allergy Verified 07/20/17 11:59 - Respiratory Orders Smoking Cessation: Smoking cessation has been advised. For more information, call the [place] Tobacco Quit Line at 2-772-QCPU-NOW. - Advance Directives Code Status: DNR-Arrest/Don't Intubate - Mobility Orders Other (as per physical therapy) - Rehabiliation Orders Rehab Orders: Evaluation for Physical Therapy, Evaluation for Occupational Therapy CERTIFICATION: I certify that the transfer of the above named patient to an Extended Care Facility is necessary for the continuing treatment of the diagnosis listed. The above information is true and accurate reflection of patient's current condition. Confidential - Redisclosure prohibited without a patient's written consent.
[2018-04-30] MEDS: predniSONE 20 MG TABLET PO SCH (11:06)
[2018-04-30] MEDS: Isosorbide MONOnitrate (24 HR) 30 MG TAB.ER.24H PO SCH (11:07)
[2018-04-30] MEDS: Fluticasone Propionate Nasal 50 MCG/SPRAY BOTTLE NS SCH (11:07)
[2018-04-30] MEDS: levoFLOXacin 750 MG TABLET PO SCH (11:07)
[2018-04-30] MEDS: MICONAZOLE NITRATE 57 GM TUBE TP SCH (11:07)
[2018-04-30] MEDS: Spironolactone 25 MG TABLET PO SCH (11:07)
[2018-04-30] MEDS: Aspirin Enteric Coated 81 MG Tablet PO SCH (11:07)
[2018-04-30] MEDS: hydrALAZINE 25 MG TABLET PO SCH (11:07)
[2018-04-30] MEDS: Multivit/Ca/Min/Fe/FA 1 TAB TABLET PO SCH (11:07)
[2018-05-01 14:57] LABS: Mycoplasma pneumoniae IgG 0.05 U/L (<=0.09)
== END 2018-04-30 14:06 | DRG 177 ==
LOC: EMEROOARM 11:53 → 3ANU 11:53 → SUATTDRO 16:19 → 3ANU 17:21
PROVIDERS: ADMIT Internal Medicine; ATTEND Student in an Organized Health Care Education/Training Program

== ENCOUNTER 2018-06-15 11:28 | Inpatient (IN) ==
[2018-06-15] MEDS ORDERED: Lidocaine -MPF 1% 5 ML AMPUL INFILT ONE (11:35)
[2018-06-15] MEDS ORDERED: methylPREDNISolone 125 MG/2 ML VIAL IVP ONE (11:41)
[2018-06-15] MEDS ORDERED: Levofloxacin 750 MG/150 ML 750 MG/150 ML BAG IVPB ONE (11:41)
[2018-06-15] MEDS ORDERED: Piperacillin/Tazobactam 3.375 GM in Water for inj. (sterile) 20 ML 20 ML IVP ONE (11:41)
[2018-06-15] MEDS ORDERED: Ipratropium/Albuterol Neb 3 ML IH ONE (11:41)
--- NOTE | 2018-06-15 11:48 | Emergency Department Note ---
Disposition Clinical Impression: Weakness, Encephalopathy Pneumonia Qualifiers: Pneumonia type: due to unspecified organism Laterality: unspecified laterality Lung location: unspecified part of lung Qualified Code(s): J18.9 - Pneumonia, unspecified organism Altered mental status Qualifiers: Altered mental status type: unspecified Qualified Code(s): R41.82 - Altered mental status, unspecified Sepsis Qualifiers: Sepsis type: sepsis due to unspecified organism Qualified Code(s): A41.9 - Sepsis, unspecified organism Acute respiratory failure Qualifiers: Respiratory failure complication: hypoxia Qualified Code(s): J96.01 - Acute respiratory failure with hypoxia CHF exacerbation Qualifiers: Heart failure type: systolic Qualified Code(s): I50.23 - Acute on chronic systolic (congestive) heart failure Disposition: Admitted As Inpatient Condition: Fair Forms: ED Satisfaction Letter Time of Disposition: 15:38 General Adult HPI - General Chief complaint: ED Shortness of Breath/Dyspnea Stated complaint: Difficult Breathing Time Seen by Provider: 06/15/18 11:35 Source: EMS Mode of arrival: EMS Limitations: altered mental status Nursing Notes Reviewed: Yes Vital Signs Reviewed: Yes - History of Present Illness HPI Narrative: Ms Espinal is an 82yo female who is brought in by EMS. EMS state that they got report from [facility] that the patient was altered and has been having trouble breathing. En route she got a breathing treatment. No other history is given and the patient is unable to give history. Pt Subjective Complaint: AMS, PRASHANT Pain Scale: 0 - Related Data Home Medications Medication Instructions Recorded Confirmed Atorvastatin [Lipitor] 20 mg PO HS 02/23/15 06/15/18 Fluticasone/Salmeterol [Advair 1 each IH BID 02/23/15 06/15/18 250-50 Diskus] Gabapentin [Neurontin] 600 mg PO BID 02/23/15 06/15/18 Multivit-Min/FA/Lycopen/Lutein 1 each PO DAILY 02/23/15 06/15/18 [Centrum Silver Tablet] Isosorbide MONOnitrate (24 HR) 30 mg PO DAILY 07/01/15 06/15/18 [Imdur] Fluticasone Propionate Nasal 2 spray NS DAILY 05/13/16 06/15/18 [Flonase] Levalbuterol Tartrate [Xopenex Hfa] 2 puff IH TID 05/13/16 06/15/18 Umeclidinium [place] [Incruse 1 puff IH DAILY 05/13/16 06/15/18 Ellipta] Aspirin [Lo-Dose Aspirin EC] 81 mg PO DAILY 01/15/17 06/15/18 Raloxifene [Evista] 60 mg PO DAILY 01/15/17 06/15/18 Albuterol Sulfate [Ventolin Hfa] 2 puff IH Q4-6H PRN 10/20/17 06/15/18 Montelukast [Singulair] 10 mg PO DAILY 04/24/18 06/15/18 hydrALAZINE [HydrALAZINE] 25 mg PO BID 04/24/18 06/15/18 Clopidogrel [Plavix] 75 mg PO DAILY 05/25/18 06/15/18 Docusate [Colace] 100 mg PO DAILY 05/25/18 06/15/18 GuaiFENesin ER [Mucinex] 600 mg PO BID 05/25/18 06/15/18 Hydrocodone/Acetaminophen [Galva 1 tab PO TID PRN 05/25/18 06/15/18 5-325 Tablet] Previous Rx's Medication Instructions Recorded Lisinopril [Zestril] 5 mg PO DAILY #30 tablet 10/23/17 Furosemide [Lasix] 20 mg PO DAILY #0 05/29/18 Allergies Allergy/AdvReac Type Severity Reaction Status Date / Time No Known Allergies Allergy Verified 07/20/17 11:59 Limitations: ROS unobtainable due to patients medical condition Past Medical History - Past Medical History Medical history: Reports: arthritis, asthma, atrial fibrillation, CHF, COPD, coronary artery disease, GERD, hyperlipidemia, hypertension, osteoporosis Surgical history: Reports: breast surgery, , herniorrhaphy, hysterectomy Psychiatric history: Reports: depression MANAGEMENT ASSISTANT history: Reports: no MANAGEMENT ASSISTANT history - Social History Smoking Status: Former smoker Smokeless Tobacco Status: No Alcohol use: Reports: none Drug use: Reports: none Physical Exam - General Limitations: no limitations General appearance: lethargic, in distress, other (unable to communicate, AOx0, doesn't answer to questions, won't respond to command) - Head Head exam: atraumatic, normocephalic - Eye Eye exam: Present: normal appearance. Absent: scleral icterus - ENT ENT exam: normal exam, mucous membranes dry - Neck Neck exam: Present: normal inspection - Chest Chest inspection: Present: normal inspection, symmetric chest wall rise - Respiratory Respiratory exam: Present: respiratory distress, wheezes, accessory muscle use - Expanded Respiratory Exam Location: rhonchi: Upper, Lower, Right, Left - Cardiovascular Cardiovascular exam: Present: irregular rhythm. Absent: rubs, gallop, clicks - Abdominal Exam Abdominal exam: Present: soft, Non-Tender. Absent: tenderness, distention, guarding, rebound, rigidity - Extremities Exam Extremities exam: Present: normal capillary refill. Absent: tenderness, joint swelling, calf tenderness - Neurological Exam Neurological exam: Present: other (unable to perform ). Absent: alert, oriented X3, CN II-XII intact - Psychiatric Psychiatric exam: Present: anxious - Skin Skin exam: Present: warm, dry, intact Course Course Narrative: Pt here for AMS and dysfunctional breathing. We will rule out sources of AMS including stroke, intracranial bleeding, UTI, and other source of infxn. Will treat as a COPD CT chest showed multifocal pneumonia. UA showed leukoyte esterase/nitrites, however, many squamous skin cells and most likely is a cont aminated sample. Source of infxn is likely pneumonia. She will be admitted to hospitalist service for further workup and treatment. - Reevaluation(s) Reevaluation #1: Re-evaluated the pt. She continues to be AOx0 but is much more awake. She moans to stimuli. Time: 12:35 Reevaluation #2: Re-evaluation of patient - she is resting in bed comfortably. CXR Slightly improved aeration of the lung bases with trace bilateral pleural effusions. No new focal process Time: 13:41 Reevaluation #3: Pt seen at bedside again. She is AOx3 at this point but states she still feels confued and somewhat ill. Hospice is at bedside with me and she is explained to that she can return with home hospice when she is discharged. Pt agrees to admission. Dr. Cancino is accepting physciain but wants CT angiogram before she is moved to the floor. Time: 15:37 Additional Reevaluation(s): 16:10 - nurse informs BP systolics in the 80's BiPAP ordered - Consultations Consultation #1: PICC team consulted. Time: 11:51 Vital Signs Temperature 100.3 F H 06/15/18 11:31 Pulse Rate 89 06/15/18 11:31 Respiratory Rate 20 06/15/18 11:31 Blood Pressure 135/74 06/15/18 11:31 O2 Sat by Pulse Oximetry 100 06/15/18 11:31 Temperature 100.3 F H 06/15/18 11:31 Pulse Rate 84 06/15/18 13:10 Respiratory Rate 16 06/15/18 13:10 Blood Pressure 139/98 06/15/18 13:10 O2 Sat by Pulse Oximetry 100 06/15/18 13:10 Oxygen Delivery Oxygen Delivery Non Rebreather Mask Medical Decision Making - MDM Narrative Medical decision making narrative: Ms Espinal is an 82yo female who is here for AMS and PRASHANT. She came via EMS and was given a breathing tx on the way. No other hx was given. She did become more alert and aware over time and began to realize where she was. She became AOx3 around 3pm and at this time discussed admission with the pt. 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 CXR was negative for acute process. CT head negative for acute process, did show chronic microvascular changes however. BNP elevated in the setting of chronic systolic heart failure. CT chest showed multifocal pneumonia. WBC count elevated at 11.9, however, pt meets no other criteria for SIRS. She is given Zosyn, levaquin and vancomycin in the ER. Blood cx are pending. Hospice sees the pt at bedside and it is explained to the pt that she can return to hospice care when discharged from the hospital. Dr Cancino accepts the admission. - Medical Records Medical records reviewed: Yes I reviewed the patient's medical records. - Lab Data Lab results reviewed: Yes I reviewed the patient's lab results. Result diagrams: 06/15/18 14:28 06/15/18 14:28 Lab Results 06/15/18 06/15/18 06/15/18 Range/Units 11:58 12:30 12:30 WBC (4.3-11.1) K/mcL RBC (3.82-4.97) M/mcL Hgb (11.5-15.4) g/dL Hct (35.3-44.9) % MCV (83.0-100.0) fL MCH (28.0-33.3) pg MCHC (31.6-35.5) g/dL RDW (11.5-14.5) % Plt Count (140-400) K/mcL MPV (9.4-12.4) fL Immature Gran % (0-4) % Seg Neutrophils % % Lymphocytes % % Monocytes % % Eosinophils % % Basophils % % Neutrophils # (1.6-8.9) K/mcL Lymphocytes # (0.6-4.6) K/mcL Monocytes # (0.0-1.3) K/mcL Eosinophils # (0.0-0.6) K/mcL Basophils # (0.0-0.2) K/mcL PT 12.4 H (9.4-12.1) Seconds INR 1.1 APTT 32.3 (26.0-36.0) Seconds ABG pH 7.45 (7.32-7.45) pH Units ABG pCO2 37 (35-45) mmHg ABG pO2 69 L (85-104) mmHg ABG HCO3 25 (21-27) mEq/L ABG Total CO2 27 H (20-26) mEq/L ABG O2 Saturation 94 L (95-98) % ABG Base Excess 1 (-2 to 3) mEq/L O2 Delivery Device Oxy Mask Inspired O2 7.0 (1-15=lpm ag34-356=%) Sodium (136-145) mEq/L Potassium (3.5-5.1) mEq/L Chloride (98-107) mEq/L Carbon Dioxide (23-29) mEq/L BUN (8-23) mg/dL Creatinine (0.60-1.20) mg/dL Est GFR ( Amer) (> 60) Est GFR (Non-Af Amer) (> 60) BUN/Creatinine Ratio (6-26) Glucose (70-105) mg/dL Calculated Osmolality (280-300) Lactic Acid (0.5-2.2) mmol/L Calcium (8.6-10.3) mg/dL Total Bilirubin (0.3-1.0) mg/dL Direct Bilirubin (0.0-0.2) mg/dL Indirect Bilirubin (0.0-1.2) mg/dL AST (13-39) Units/L ALT (7-52) Units/L Alkaline Phosphatase (34-104) Units/L Troponin I < 0.03 (< 0.04) ng/mL B-Natriuretic Peptide (Less than 100) pg/mL Serum Total Protein (6.4-8.9) g/dL Albumin (3.5-5.7) g/dL Globulin (2.4-3.5) g/dL Albumin/Globulin Ratio (1.1-2.2) 06/15/18 06/15/18 06/15/18 Range/Units 12:30 12:30 12:30 WBC (4.3-11.1) K/mcL RBC (3.82-4.97) M/mcL Hgb (11.5-15.4) g/dL Hct (35.3-44.9) % MCV (83.0-100.0) fL MCH (28.0-33.3) pg MCHC (31.6-35.5) g/dL RDW (11.5-14.5) % Plt Count (140-400) K/mcL MPV (9.4-12.4) fL Immature Gran % (0-4) % Seg Neutrophils % % Lymphocytes % % Monocytes % % Eosinophils % % Basophils % % Neutrophils # (1.6-8.9) K/mcL Lymphocytes # (0.6-4.6) K/mcL Monocytes # (0.0-1.3) K/mcL Eosinophils # (0.0-0.6) K/mcL Basophils # (0.0-0.2) K/mcL PT (9.4-12.1) Seconds INR APTT (26.0-36.0) Seconds ABG pH (7.32-7.45) pH Units ABG pCO2 (35-45) mmHg ABG pO2 (85-104) mmHg ABG HCO3 (21-27) mEq/L ABG Total CO2 (20-26) mEq/L ABG O2 Saturation (95-98) % ABG Base Excess (-2 to 3) mEq/L O2 Delivery Device Inspired O2 (1-15=lpm le88-470=%) Sodium (136-145) mEq/L Potassium (3.5-5.1) mEq/L Chloride (98-107) mEq/L Carbon Dioxide (23-29) mEq/L BUN (8-23) mg/dL Creatinine (0.60-1.20) mg/dL Est GFR ( Amer) (> 60) Est GFR (Non-Af Amer) (> 60) BUN/Creatinine Ratio (6-26) Glucose (70-105) mg/dL Calculated Osmolality (280-300) Lactic Acid 0.9 (0.5-2.2) mmol/L Calcium (8.6-10.3) mg/dL Total Bilirubin 0.9 (0.3-1.0) mg/dL Direct Bilirubin 0.2 (0.0-0.2) mg/dL Indirect Bilirubin 0.7 (0.0-1.2) mg/dL AST 14 (13-39) Units/L ALT 8 (7-52) Units/L Alkaline Phosphatase 46 (34-104) Units/L Troponin I 0.03 (< 0.04) ng/mL B-Natriuretic Peptide 235 H (Less than 100) pg/mL Serum Total Protein 6.8 (6.4-8.9) g/dL Albumin 3.6 (3.5-5.7) g/dL Globulin 3.2 (2.4-3.5) g/dL Albumin/Globulin Ratio 1.1 (1.1-2.2) 06/15/18 06/15/18 Range/Units 14:28 14:28 WBC 11.9 H (4.3-11.1) K/mcL RBC 3.35 L (3.82-4.97) M/mcL Hgb 10.5 L (11.5-15.4) g/dL Hct 32.3 L (35.3-44.9) % MCV 96.4 (83.0-100.0) fL MCH 31.3 (28.0-33.3) pg MCHC 32.5 (31.6-35.5) g/dL RDW 14.8 H (11.5-14.5) % Plt Count 254 (140-400) K/mcL MPV 10.7 (9.4-12.4) fL Immature Gran % 0.3 (0-4) % Seg Neutrophils % 87.1 % Lymphocytes % 7.5 % Monocytes % 3.6 % Eosinophils % 1.2 % Basophils % 0.3 % Neutrophils # 10.4 H (1.6-8.9) K/mcL Lymphocytes # 0.9 (0.6-4.6) K/mcL Monocytes # 0.4 (0.0-1.3) K/mcL Eosinophils # 0.1 (0.0-0.6) K/mcL Basophils # 0.0 (0.0-0.2) K/mcL PT (9.4-12.1) Seconds INR APTT (26.0-36.0) Seconds ABG pH (7.32-7.45) pH Units ABG pCO2 (35-45) mmHg ABG pO2 (85-104) mmHg ABG HCO3 (21-27) mEq/L ABG Total CO2 (20-26) mEq/L ABG O2 Saturation (95-98) % ABG Base Excess (-2 to 3) mEq/L O2 Delivery Device Inspired O2 (1-15=lpm mp78-135=%) Sodium 136 (136-145) mEq/L Potassium 4.4 (3.5-5.1) mEq/L Chloride 104 (98-107) mEq/L Carbon Dioxide 24 (23-29) mEq/L BUN 35 H (8-23) mg/dL Creatinine 0.99 (0.60-1.20) mg/dL Est GFR ( Amer) > 60 (> 60) Est GFR (Non-Af Amer) 54 L (> 60) BUN/Creatinine Ratio 35 H (6-26) Glucose 111 H (70-105) mg/dL Calculated Osmolality 291 (280-300) Lactic Acid (0.5-2.2) mmol/L Calcium 9.3 (8.6-10.3) mg/dL Total Bilirubin (0.3-1.0) mg/dL Direct Bilirubin (0.0-0.2) mg/dL Indirect Bilirubin (0.0-1.2) mg/dL AST (13-39) Units/L ALT (7-52) Units/L Alkaline Phosphatase (34-104) Units/L Troponin I (< 0.04) ng/mL B-Natriuretic Peptide (Less than 100) pg/mL Serum Total Protein (6.4-8.9) g/dL Albumin (3.5-5.7) g/dL Globulin (2.4-3.5) g/dL Albumin/Globulin Ratio (1.1-2.2) - Radiology Data Radiology results reviewed: Yes I reviewed the patient's radiology results. - EKG Data EKG #1 Rhythm: A.Fib [place]/QRS: left axis deviation When compared to previous EKG there are: no significant changes Interpretation: no acute changes Attestation Statement - Attestation Attestation: I, Smith Landin DO, examined this patient [id number] and my medical decision-making was reviewed with Steve Dodson PGY-1, Resident Physician. I agree with the documented findings, disposition and treatment plan as described except to the extent set forth below. Please see my progress notes for details.
[2018-06-15 12:02] LABS: ABG Base Excess 1 mEq/L (-2 to 3); ABG HCO3 25 mEq/L (21-27); ABG Oxygen Saturation 94 % (95-98); ABG PCO2 37 mmHg (35-45); ABG PH 7.45 pH Units (7.32-7.45); ABG PO2 69 mmHg (85-104); ABG TCO2 27 mEq/L (20-26)
[2018-06-15] MEDS ORDERED: Acetaminophen 650 MG RECTAL SUPP RC ONE (12:54)
--- NOTE | 2018-06-15 12:54 | Emergency Department Note ---
Disposition Clinical Impression: Weakness, Encephalopathy Pneumonia Qualifiers: Pneumonia type: due to unspecified organism Laterality: unspecified laterality Lung location: unspecified part of lung Qualified Code(s): J18.9 - Pneumonia, unspecified organism Altered mental status Qualifiers: Altered mental status type: unspecified Qualified Code(s): R41.82 - Altered mental status, unspecified Sepsis Qualifiers: Sepsis type: sepsis due to unspecified organism Qualified Code(s): A41.9 - Sepsis, unspecified organism Acute respiratory failure Qualifiers: Respiratory failure complication: hypoxia Qualified Code(s): J96.01 - Acute respiratory failure with hypoxia CHF exacerbation Qualifiers: Qualified Code(s): I50.23 - Acute on chronic systolic (congestive) heart failure Disposition: Admitted As Inpatient Condition: Fair Time of Disposition: 16:38 General Adult HPI - General Chief complaint: ED Shortness of Breath/Dyspnea Stated complaint: Difficult Breathing Time Seen by Provider: 06/15/18 11:35 Source: EMS Mode of arrival: EMS Limitations: no limitations - History of Present Illness Pain Scale: 0 - Related Data Home Medications Medication Instructions Recorded Confirmed Atorvastatin [Lipitor] 20 mg PO HS 02/23/15 06/15/18 Fluticasone/Salmeterol [Advair 1 each IH BID 02/23/15 06/15/18 250-50 Diskus] Gabapentin [Neurontin] 600 mg PO BID 02/23/15 06/15/18 Multivit-Min/FA/Lycopen/Lutein 1 each PO DAILY 02/23/15 06/15/18 [Centrum Silver Tablet] Isosorbide MONOnitrate (24 HR) 30 mg PO DAILY 07/01/15 06/15/18 [Imdur] Fluticasone Propionate Nasal 2 spray NS DAILY 05/13/16 06/15/18 [Flonase] Levalbuterol Tartrate [Xopenex Hfa] 2 puff IH TID 05/13/16 06/15/18 Umeclidinium [place] [Incruse 1 puff IH DAILY 05/13/16 06/15/18 Ellipta] Aspirin [Lo-Dose Aspirin EC] 81 mg PO DAILY 01/15/17 06/15/18 Raloxifene [Evista] 60 mg PO DAILY 01/15/17 06/15/18 Albuterol Sulfate [Ventolin Hfa] 2 puff IH Q4-6H PRN 10/20/17 06/15/18 Montelukast [Singulair] 10 mg PO DAILY 04/24/18 06/15/18 hydrALAZINE [HydrALAZINE] 25 mg PO BID 04/24/18 06/15/18 Clopidogrel [Plavix] 75 mg PO DAILY 05/25/18 06/15/18 Docusate [Colace] 100 mg PO DAILY 05/25/18 06/15/18 GuaiFENesin ER [Mucinex] 600 mg PO BID 05/25/18 06/15/18 Hydrocodone/Acetaminophen [[place] 1 tab PO TID PRN 05/25/18 06/15/18 5-325 Tablet] Previous Rx's Medication Instructions Recorded Lisinopril [Zestril] 5 mg PO DAILY #30 tablet 10/23/17 Furosemide [Lasix] 20 mg PO DAILY #0 05/29/18 Allergies Allergy/AdvReac Type Severity Reaction Status Date / Time No Known Allergies Allergy Verified 07/20/17 11:59 Past Medical History - Past Medical History Medical history: Reports: arthritis, asthma, atrial fibrillation, CHF, COPD, coronary artery disease, GERD, hyperlipidemia, hypertension, osteoporosis Surgical history: Reports: breast surgery, , herniorrhaphy, hysterectomy Psychiatric history: Reports: depression CASE MANAGERS history: Reports: no CASE MANAGERS history - Social History Smoking Status: Former smoker Smokeless Tobacco Status: No Alcohol use: Reports: none Drug use: Reports: none Physical Exam - General Limitations: no limitations General appearance: lethargic, in distress, other (unable to communicate, AOx0, doesn't answer to questions, won't respond to command) Course Vital Signs Temperature 100.3 F H 06/15/18 11:31 Pulse Rate 89 06/15/18 11:31 Respiratory Rate 20 06/15/18 11:31 Blood Pressure 135/74 06/15/18 11:31 O2 Sat by Pulse Oximetry 100 06/15/18 11:31 Temperature 100.3 F H 06/15/18 11:31 Pulse Rate 84 06/15/18 15:35 Respiratory Rate 16 06/15/18 15:35 Blood Pressure 126/62 06/15/18 16:30 O2 Sat by Pulse Oximetry 97 06/15/18 16:30 Oxygen Delivery Oxygen Delivery Nasal Cannula Medical Decision Making - Lab Data Result diagrams: 06/15/18 14:28 06/15/18 14:28 Lab Results 06/15/18 06/15/18 06/15/18 Range/Units 11:58 12:30 12:30 WBC (4.3-11.1) K/mcL RBC (3.82-4.97) M/mcL Hgb (11.5-15.4) g/dL Hct (35.3-44.9) % MCV (83.0-100.0) fL MCH (28.0-33.3) pg MCHC (31.6-35.5) g/dL RDW (11.5-14.5) % Plt Count (140-400) K/mcL MPV (9.4-12.4) fL Immature Gran % (0-4) % Seg Neutrophils % % Lymphocytes % % Monocytes % % Eosinophils % % Basophils % % Neutrophils # (1.6-8.9) K/mcL Lymphocytes # (0.6-4.6) K/mcL Monocytes # (0.0-1.3) K/mcL Eosinophils # (0.0-0.6) K/mcL Basophils # (0.0-0.2) K/mcL PT 12.4 H (9.4-12.1) Seconds INR 1.1 APTT 32.3 (26.0-36.0) Seconds ABG pH 7.45 (7.32-7.45) pH Units ABG pCO2 37 (35-45) mmHg ABG pO2 69 L (85-104) mmHg ABG HCO3 25 (21-27) mEq/L ABG Total CO2 27 H (20-26) mEq/L ABG O2 Saturation 94 L (95-98) % ABG Base Excess 1 (-2 to 3) mEq/L O2 Delivery Device Oxy Mask Inspired O2 7.0 (1-15=lpm [id number]=%) Sodium (136-145) mEq/L Potassium (3.5-5.1) mEq/L Chloride (98-107) mEq/L Carbon Dioxide (23-29) mEq/L BUN (8-23) mg/dL Creatinine (0.60-1.20) mg/dL Est GFR ( Amer) (> 60) Est GFR (Non-Af Amer) (> 60) BUN/Creatinine Ratio (6-26) Glucose (70-105) mg/dL Calculated Osmolality (280-300) Lactic Acid (0.5-2.2) mmol/L Calcium (8.6-10.3) mg/dL Total Bilirubin (0.3-1.0) mg/dL Direct Bilirubin (0.0-0.2) mg/dL Indirect Bilirubin (0.0-1.2) mg/dL AST (13-39) Units/L ALT (7-52) Units/L Alkaline Phosphatase (34-104) Units/L Troponin I < 0.03 (< 0.04) ng/mL B-Natriuretic Peptide (Less than 100) pg/mL Serum Total Protein (6.4-8.9) g/dL Albumin (3.5-5.7) g/dL Globulin (2.4-3.5) g/dL Albumin/Globulin Ratio (1.1-2.2) Urine Color (Yellow) Urine Clarity (Clear) Urine pH (5.0-8.0) pH Units Ur Specific [place] (1.010-1.025) Urine Protein (Neg-Trace) mg/dL Urine Glucose (UA) (Normal) mg/dL Urine Ketones (Negative) mg/dL Urine Blood (Negative) Urine Nitrite (Negative) Urine Bilirubin (Negative) Urine Urobilinogen (Normal) mg/dL Ur Leukocyte Esterase (Negative) Urine Microscopic RBC (0-3) per hpf Urine Microscopic WBC (0-3) per hpf Ur Squamous Epith Cells (None-Few) per lpf Urine Bacteria (None-Few) per hpf Hyaline Casts (None-Few) per lpf Ur Culture Indicated? (NO) 06/15/18 06/15/18 06/15/18 Range/Units 12:30 12:30 12:30 WBC (4.3-11.1) K/mcL RBC (3.82-4.97) M/mcL Hgb (11.5-15.4) g/dL Hct (35.3-44.9) % MCV (83.0-100.0) fL MCH (28.0-33.3) pg MCHC (31.6-35.5) g/dL RDW (11.5-14.5) % Plt Count (140-400) K/mcL MPV (9.4-12.4) fL Immature Gran % (0-4) % Seg Neutrophils % % Lymphocytes % % Monocytes % % Eosinophils % % Basophils % % Neutrophils # (1.6-8.9) K/mcL Lymphocytes # (0.6-4.6) K/mcL Monocytes # (0.0-1.3) K/mcL Eosinophils # (0.0-0.6) K/mcL Basophils # (0.0-0.2) K/mcL PT (9.4-12.1) Seconds INR APTT (26.0-36.0) Seconds ABG pH (7.32-7.45) pH Units ABG pCO2 (35-45) mmHg ABG pO2 (85-104) mmHg ABG HCO3 (21-27) mEq/L ABG Total CO2 (20-26) mEq/L ABG O2 Saturation (95-98) % ABG Base Excess (-2 to 3) mEq/L O2 Delivery Device Inspired O2 (1-15=lpm [id number]=%) Sodium (136-145) mEq/L Potassium (3.5-5.1) mEq/L Chloride (98-107) mEq/L Carbon Dioxide (23-29) mEq/L BUN (8-23) mg/dL Creatinine (0.60-1.20) mg/dL Est GFR ( Amer) (> 60) Est GFR (Non-Af Amer) (> 60) BUN/Creatinine Ratio (6-26) Glucose (70-105) mg/dL Calculated Osmolality (280-300) Lactic Acid 0.9 (0.5-2.2) mmol/L Calcium (8.6-10.3) mg/dL Total Bilirubin 0.9 (0.3-1.0) mg/dL Direct Bilirubin 0.2 (0.0-0.2) mg/dL Indirect Bilirubin 0.7 (0.0-1.2) mg/dL AST 14 (13-39) Units/L ALT 8 (7-52) Units/L Alkaline Phosphatase 46 (34-104) Units/L Troponin I 0.03 (< 0.04) ng/mL B-Natriuretic Peptide 235 H (Less than 100) pg/mL Serum Total Protein 6.8 (6.4-8.9) g/dL Albumin 3.6 (3.5-5.7) g/dL Globulin 3.2 (2.4-3.5) g/dL Albumin/Globulin Ratio 1.1 (1.1-2.2) Urine Color (Yellow) Urine Clarity (Clear) Urine pH (5.0-8.0) pH Units Ur Specific [place] (1.010-1.025) Urine Protein (Neg-Trace) mg/dL Urine Glucose (UA) (Normal) mg/dL Urine Ketones (Negative) mg/dL Urine Blood (Negative) Urine Nitrite (Negative) Urine Bilirubin (Negative) Urine Urobilinogen (Normal) mg/dL Ur Leukocyte Esterase (Negative) Urine Microscopic RBC (0-3) per hpf Urine Microscopic WBC (0-3) per hpf Ur Squamous Epith Cells (None-Few) per lpf Urine Bacteria (None-Few) per hpf Hyaline Casts (None-Few) per lpf Ur Culture Indicated? (NO) 06/15/18 06/15/18 06/15/18 Range/Units 14:28 14:28 16:04 WBC 11.9 H (4.3-11.1) K/mcL RBC 3.35 L (3.82-4.97) M/mcL Hgb 10.5 L (11.5-15.4) g/dL Hct 32.3 L (35.3-44.9) % MCV 96.4 (83.0-100.0) fL MCH 31.3 (28.0-33.3) pg MCHC 32.5 (31.6-35.5) g/dL RDW 14.8 H (11.5-14.5) % Plt Count 254 (140-400) K/mcL MPV 10.7 (9.4-12.4) fL Immature Gran % 0.3 (0-4) % Seg Neutrophils % 87.1 % Lymphocytes % 7.5 % Monocytes % 3.6 % Eosinophils % 1.2 % Basophils % 0.3 % Neutrophils # 10.4 H (1.6-8.9) K/mcL Lymphocytes # 0.9 (0.6-4.6) K/mcL Monocytes # 0.4 (0.0-1.3) K/mcL Eosinophils # 0.1 (0.0-0.6) K/mcL Basophils # 0.0 (0.0-0.2) K/mcL PT (9.4-12.1) Seconds INR APTT (26.0-36.0) Seconds ABG pH (7.32-7.45) pH Units ABG pCO2 (35-45) mmHg ABG pO2 (85-104) mmHg ABG HCO3 (21-27) mEq/L ABG Total CO2 (20-26) mEq/L ABG O2 Saturation (95-98) % ABG Base Excess (-2 to 3) mEq/L O2 Delivery Device Inspired O2 (1-15=lpm ux65-410=%) Sodium 136 (136-145) mEq/L Potassium 4.4 (3.5-5.1) mEq/L Chloride 104 (98-107) mEq/L Carbon Dioxide 24 (23-29) mEq/L BUN 35 H (8-23) mg/dL Creatinine 0.99 (0.60-1.20) mg/dL Est GFR ( Amer) > 60 (> 60) Est GFR (Non-Af Amer) 54 L (> 60) BUN/Creatinine Ratio 35 H (6-26) Glucose 111 H (70-105) mg/dL Calculated Osmolality 291 (280-300) Lactic Acid (0.5-2.2) mmol/L Calcium 9.3 (8.6-10.3) mg/dL Total Bilirubin (0.3-1.0) mg/dL Direct Bilirubin (0.0-0.2) mg/dL Indirect Bilirubin (0.0-1.2) mg/dL AST (13-39) Units/L ALT (7-52) Units/L Alkaline Phosphatase (34-104) Units/L Troponin I (< 0.04) ng/mL B-Natriuretic Peptide (Less than 100) pg/mL Serum Total Protein (6.4-8.9) g/dL Albumin (3.5-5.7) g/dL Globulin (2.4-3.5) g/dL Albumin/Globulin Ratio (1.1-2.2) Urine Color Yellow (Yellow) Urine Clarity Slightly Hazy (Clear) Urine pH 5.0 (5.0-8.0) pH Units Ur Specific [place] 1.024 (1.010-1.025) Urine Protein Negative (Neg-Trace) mg/dL Urine Glucose (UA) Normal (Normal) mg/dL Urine Ketones Negative (Negative) mg/dL Urine Blood Negative (Negative) Urine Nitrite Positive A (Negative) Urine Bilirubin Negative (Negative) Urine Urobilinogen Normal (Normal) mg/dL Ur Leukocyte Esterase Small H (Negative) Urine Microscopic RBC 0-3 (0-3) per hpf Urine Microscopic WBC 0-3 (0-3) per hpf Ur Squamous Epith Cells Many H (None-Few) per lpf Urine Bacteria Many H (None-Few) per hpf Hyaline Casts None Seen (None-Few) per lpf Ur Culture Indicated? NO. A (NO) Attestation Statement - Attestation Attestation: I, Smith Landin DO, examined this patient [id number] and my medical decision-making was reviewed with Steve Dodson PGY-1, Resident Physician. I agree with the documented findings, disposition and treatment plan as described except to the extent set forth below. Please see my progress notes for details. 82-year-old female presents emergency room for evaluation of generalized malaise and difficulty breathing. Patient presents from home. EMS found her with a pulse ox of 80%. She was confused and unable to tell us time or place. No visible signs of fall trauma or injury at the home on the patient according to EMS. Vital signs in transport were stable. Oxygen was applied and oxygenation came up to appropriate value. On presentation here patient is resting comfor tably in the bed. She will fall commands and answers questions at this time. She is confused to time or place. Her head is atraumatic. Pupils are equal and reactive. Extraocular muscles are intact. Trachea is midline. Oropharynx is patent. No signs of soft tissue deviation or swelling. Lungs appear to have coarse crackles on exam. Heart is regular. Abdomen is soft nontender nondistended with no guarding no rigidity no peritoneal symptoms. No pulsatile masses or lesions noted at this time. Extremities appear to be normal. Patient had no pain to palpation across his shoulders elbows and wrists. No discomfort with palpation of the pelvis and hips knees and ankles. Disposition will be most likely admission to the hospital secondary to lack of resources and availability of resources at home. Patient's family has not arrived to the emergency room at at this time. Detailed sepsis workup and altered mentation workup will be started this time. Last known well is unknown at this point. CBC chemistry liver function testing lipase urinalysis blood cultures electrodes will be collected this time. Lactic acid will be added on. CT imaging of the head and chest x-ray will be resulted. Disposition pending treatment course. First doses of IV antibiotics will be provided to the patient at this time. Patient has difficult IV access. PICC team has been called to the bedside to establish IV access worse at this time. Medical intervention will be started after that has been completed. 1600 CT imaging the head is unremarkable. Patient's ABG was stable. Labs appear to be unremarkable this time except for slight elevated white blood cell count. CT of the chest was added on at the request of the hospitalist . no definitive infectious etiology was noted during the treatment course. Patient's found a tree-in-bud presentation to the lungs. His artery been treated for atypical pneumonia and intervention course. Patient had borderline fever noted on initial presentation. She was not tachycardic or tachypneic. Patient meets several of the scissors criteria and appears to have sepsis-like presentation this time. Does not have any acute signs of septic shock. She has not required large-volume fluid resuscitation. Lactic acid is normal. Patient's blood pressure was initially 139. Repeat vital signs have shown blood pressure in the 8090 systolic range. She is actually mentating much better at this time. Map is appropriate. At this point we will not intervene. Patient is a DNR CC DNI. She was previously on hospice care admitted this care source while here in the emergency department. Patient will be admitted to the hospital for continuation of care and management.
[2018-06-15 13:08] LABS: INR 1.1; Prothrombin Time 12.4 Seconds (9.4-12.1)
[2018-06-15 13:11] LABS: Activated Partial Thrombo Time 32.3 Seconds (26.0-36.0)
[2018-06-15 13:22] LABS: Troponin I 0.03 ng/mL (< 0.04)
[2018-06-15 13:41] LABS: Albumin 3.6 g/dL (3.5-5.7); Albumin/Globulin Ratio 1.1 (1.1-2.2); Bilirubin,Direct 0.2 mg/dL (0.0-0.2); Bilirubin,Indirect 0.7 mg/dL (0.0-1.2); Bilirubin,Total 0.9 mg/dL (0.3-1.0); Globulin 3.2 g/dL (2.4-3.5); Total Protein 6.8 g/dL (6.4-8.9)
[2018-06-15 14:40] LABS: Basophils % 0.3 %; Eosinophils # 0.1 K/mcL (0.0-0.6); Eosinophils % 1.2 %; Hematocrit 32.3 % (35.3-44.9); Hemoglobin 10.5 g/dL (11.5-15.4); Immature Granulocytes % 0.3 % (0-4); Lymphocytes # 0.9 K/mcL (0.6-4.6); Lymphocytes % 7.5 %; Mean Corpuscular HGB Conc 32.5 g/dL (31.6-35.5); Mean Corpuscular Hemoglobin 31.3 pg (28.0-33.3); Mean Corpuscular Volume 96.4 fL (83.0-100.0); Mean Platelet Volume 10.7 fL (9.4-12.4); Monocytes # 0.4 K/mcL (0.0-1.3); Monocytes % 3.6 %; Neutrophils # 10.4 K/mcL (1.6-8.9); Platelet Count 254 K/mcL (140-400); Red Blood Count 3.35 M/mcL (3.82-4.97); Red Cell Distribution Width 14.8 % (11.5-14.5); Segmented Neutrophils % 87.1 %
[2018-06-15 14:56] LABS: BUN/Creatinine Ratio 35 (6-26); Blood Urea Nitrogen 35 mg/dL (8-23); Calcium 9.3 mg/dL (8.6-10.3); Carbon Dioxide 24 mEq/L (23-29); Chloride 104 mEq/L (98-107); Glucose 111 mg/dL (70-105); Osmolality,Calculated 291 (280-300); Potassium 4.4 mEq/L (3.5-5.1); Sodium 136 mEq/L (136-145); eGFR For Non-African Americans 54 (> 60)
[2018-06-15] MEDS ORDERED: 0.9 % Sodium Chloride 500 ML IVC ONE (14:57)
[2018-06-15] MEDS ORDERED: 0.9 % Sodium Chloride 500 ML ONE (14:59)
[2018-06-15] MEDS ORDERED: 0.9 % Sodium Chloride 1,000 ML IVC SCH ×2 (15:00→20:34)
[2018-06-15] MEDS ORDERED: Isovue-370 500 ML INFUS..BTL IV ONE (15:07)
[2018-06-15 16:13] LABS: Bilirubin,Urine Negative (Negative); Blood,Urine Negative (Negative); Color,Urine Yellow (Yellow); Glucose,Urine (UA) Normal (Normal); Ketones,Urine Negative (Negative); Leukocyte Esterase,Urine Small (Negative); Nitrite,Urine Positive (Negative); Protein,Urine Negative (Neg-Trace); Specific Gravity,Urine 1.024 (1.010-1.025); Urobilinogen,Urine Normal (Normal)
[2018-06-15 16:15] LABS: Bacteria,Urine Many per hpf (None-Few); Hyaline Casts,Urine None Seen per lpf (None-Few); RBC,Urine 0-3 per hpf (0-3); Squamous Epithelial Cell,Urine Many per lpf (None-Few); WBC,Urine 0-3 per hpf (0-3)
[2018-06-15 16:19] LABS: Clarity,Urine Slightly Hazy (Clear)
--- NOTE | 2018-06-15 16:26 | Internal Med History&Physical ---
Date of Encounter: 06/15/18 Time of Encounter: 16:16 Internal Medicine - H&P: HPI Chief complaint: SOB Admitted From: Home Plans for Post Hospital Care: Home History of present illness: Ms. Espinal is a 82 year old female who has history of COPD on 2 L nasal cannula, hypertension, she lives at home with his son on hospice presenting emergency room for shortness of breasts which started this morning. Patient is a very p oor historian I called his son and the her granddaughter report that patient has been experienced shortness of breath since this morningher blood pressure is very low this morning, she accidentally took her BP medications, so they called the squad. patient being sent to emergency for further evaluation. when I saw the patient and she is alert and oriented 2, she denies any chest pain shortness of breath, she feels like she is back to the normal. BUt patient is on 7 L nasal cannula which is different from her baseline 2 L nasal cannula. I spoke to emergency physician to get a CT PE studies. Patient is bed bound. ABGs unremarkable, chest x-ray is negative, WBC 11.9 hemoglobin is 7.[address] is negative her BMP is a dull temperature 100.3. CT angio showed No evidence of pulmonary embolism.Multifocal tree-in-bud and ground-glass nodules throughout both lungs in all lobes with areas of more focal consolidation in the bilateral lower lobes suggesting an atypical pneumonia. Recommend follow-up to resolution. Patient was just discharged her on may from here after COPD exacerbation we will cover HCAP. Patient is DNR CC I discussed with hospice nurse she is on hospice at home Past Med Surg Social Fam HX - Past Medical History Medical history: arthritis, asthma, atrial fibrillation, CHF, COPD, coronary artery disease, GERD, hyperlipidemia, hypertension, osteoporosis Psychiatric history: depression - Past Surgical History Surgical History: breast surgery, , herniorrhaphy, hysterectomy Additional surgical history: breast - Social History Smoking Status: Former smoker Smokeless Tobacco Status: No Alcohol use: none Drug use: none - Family History Father Living Status: Hx Family Cardiac Disorders: Yes ([place]) Mother Living Status: Hx Family Cardiac Disorders: Yes ([place]) Hx Family Respiratory Disorders: Yes (Asthma) Hx Family Endocrine Disorder: Yes (DM) Internal Medicine - H&P: Meds Atorvastatin [Lipitor] 20 mg PO HS 02/23/15 [History] Fluticasone/Salmeterol [Advair 250-50 Diskus] 1 each IH BID 02/23/15 [History] Gabapentin [Neurontin] 600 mg PO BID 02/23/15 [History] Multivit-Min/FA/Lycopen/Lutein [Centrum Silver Tablet] 1 each PO DAILY 02/23/15 [History] Isosorbide MONOnitrate (24 HR) [Imdur] 30 mg PO DAILY 07/01/15 [History] Fluticasone Propionate Nasal [Flonase] 2 spray NS DAILY 05/13/16 [History] Levalbuterol Tartrate [Xopenex Hfa] 2 puff IH TID 05/13/16 [History] Umeclidinium [place] [Incruse Ellipta] 1 puff IH DAILY 05/13/16 [History] Aspirin [Lo-Dose Aspirin EC] 81 mg PO DAILY 01/15/17 [History] Raloxifene [Evista] 60 mg PO DAILY 01/15/17 [History] Albuterol Sulfate [Ventolin Hfa] 2 puff IH Q4-6H PRN 10/20/17 [History] Lisinopril [Zestril] 5 mg PO DAILY #30 tablet 10/23/17 [Rx] Montelukast [Singulair] 10 mg PO DAILY 04/24/18 [History] hydrALAZINE [HydrALAZINE] 25 mg PO BID 04/24/18 [History] Clopidogrel [Plavix] 75 mg PO DAILY 05/25/18 [History] Docusate [Colace] 100 mg PO DAILY 05/25/18 [History] GuaiFENesin ER [Mucinex] 600 mg PO BID 05/25/18 [History] Hydrocodone/Acetaminophen [[place] 5-325 Tablet] 1 tab PO TID PRN 05/25/18 [History] Furosemide [Lasix] 20 mg PO DAILY #0 05/29/18 [Rx] Allergy/AdvReac Type Severity Reaction Status Date / Time No Known Allergies Allergy Verified 07/20/17 11:59 All Systems PM: A 10-system review of systems was performed and is negative for pertinent findings except as documented above in the HPI. - Constitutional Vitals: Temp Pulse Resp BP Pulse Ox 100.3 F H 84 16 93/56 96 06/15/18 11:31 06/15/18 15:35 06/15/18 15:35 06/15/18 15:35 06/15/18 15:35 General appearance: Present: A&O X 2, pleasant, underweight Exam: CONSTITUTIONAL: Patient appears as an age appropriate female well developed, in no acute distress. EYES Clear sclerae, bilateral pupils are equal, reactive to light and accommodation. Extraocular movements are intact RESPIRATORY: No accessory muscle use, bilateral crackles/rales. CARDIOVASCULAR: Regular heart rate, normal S1 and S2, no murmurs GASTROINTESTINAL: bowel sounds present, soft, no tenderness. No hepatosplenomegaly. No bilateral CVA tenderness MUSCULOSKELETAL: Joints in normal range of motion, no clubbing, no edema, no cyanosis. Bilateral peripheral pulses 2+ LYMPHATIC no lymphadenopathy in neck, groin and axilla bilaterally, no thyromegaly. NEUROLOGIC: CN II to XII are grossly intact, no focal neurological deficit. Deep tendon reflexes 2+ bilaterally. Normal light touch sensation to upper and lower extremity PSYCHIATRIC: Oriented x3, with good insight, mood is euthymic. No hallucinations or delusions. SKIN: Skin warm and dry, no rashes, no open wound. Internal Med - H&P Results - Labs CBC & Chem 7: 06/15/18 14:28 06/15/18 14:28 Labs: Short CBC 06/15/18 Range/Units 14:28 WBC 11.9 H (4.3-11.1) K/mcL Hgb 10.5 L (11.5-15.4) g/dL Hct 32.3 L (35.3-44.9) % Plt Count 254 (140-400) K/mcL Neutrophils # 10.4 H (1.6-8.9) K/mcL BMP 06/15/18 14:28 Sodium 136 Potassium 4.4 Chloride 104 Carbon Dioxide 24 BUN 35 H Creatinine 0.99 Glucose 111 H Calcium 9.3 Cardiac Enzymes 06/15/18 06/15/18 Range/Units 12:30 12:30 Troponin I < 0.03 0.03 (< 0.04) ng/mL Liver Function 06/15/18 Range/Units 12:30 Total Bilirubin 0.9 (0.3-1.0) mg/dL Direct Bilirubin 0.2 (0.0-0.2) mg/dL AST 14 (13-39) Units/L ALT 8 (7-52) Units/L Alkaline Phosphatase 46 (34-104) Units/L Albumin 3.6 (3.5-5.7) g/dL - ABG Interpretation ABG results: 06/15/18 11:58 ABG pH 7.45 ABG pCO2 37 ABG pO2 69 L ABG HCO3 25 ABG Total CO2 27 H ABG O2 Saturation 94 L ABG Base Excess 1 - Impressions ITS Impressions Chest X-Ray 06/15/18 11:42 IMPRESSION: Slightly improved aeration of the lung bases with trace bilateral pleural effusions. No new focal process. D/ / Osmar Gonzalez MD / Osmar Gonzalez MD Interpreting Provider: Osmar Gonzalez MD Head CT 06/15/18 11:46 IMPRESSION: Overall similar appearing CT scan of the head without acute intracranial abnormality. Generalized cortical atrophy with probable chronic microvascular ischemic changes as described above. D/ / Nehemiah Dunn MD / Nehemiah Dunn MD Interpreting Provider: Nehemiah Dunn MD Chest CTA 06/15/18 15:07 IMPRESSION: No evidence of pulmonary embolism. Multifocal tree-in-bud and ground-glass nodules throughout both lungs in all lobes with areas of more focal consolidation in the bilateral lower lobes suggesting an atypical pneumonia. Recommend follow-up to resolution. Cardiomegaly. D/ / Osmar Gonzalez MD / Osmar Gonzalez MD Interpreting Provider: Osmar Gonzalez MD - Assessment and plan (1) Pneumonia Current Visit: No Status: Acute Assessment and plan: Possible gram negative amd MRSA bacterial pneumonia last admission was May 29, will give Levaquin and the Zosyn and vancomycin Qualifiers: Pneumonia type: due to Mycoplasma pneumoniae Laterality: bilateral Lung location: unspecified part of lung Qualified Code(s): J15.7 - Pneumonia due to Mycoplasma pneumoniae (2) Acute exacerbation of chronic obstructive airways disease Current Visit: Yes Status: Acute Assessment and plan: Acute on chronic COPD exacerbation we will give steroids, continue neb (3) Atrial fibrillation Current Visit: Yes Status: Chronic Assessment and plan: Heart rate is well controlled. Continue home meds Qualifiers: Atrial fibrillation type: chronic Qualified Code(s): I48.2 - Chronic atrial fibrillation (4) Confusion Current Visit: Yes Status: Acute Assessment and plan: Possible metabolic encephalopathy from pneumonia, resolved (5) CAD (coronary artery disease) Current Visit: Yes Status: Chronic Assessment and plan: Continue home meds Qualifiers: Coronary Disease-Associated Artery/Lesion type: [place] artery [place] vs. transplanted heart: [place] heart Associated angina: without angina Qualified Code(s): I25.10 - Atherosclerotic heart disease of [place] coronary artery without angina pectoris (6) Hypotension Current Visit: Yes Status: Acute Assessment and plan: Accidental overdose of blood pressure medication, and the pneumonia Qualifiers: Hypotension type: orthostatic hypotension Qualified Code(s): I95.1 - Orthostatic hypotension - Time Spent With Patient Total time spent is greater than 50% in coordination of care (as documented) at patient's floor/unit and/or counseling patient: Greater than 35 minutes
[2018-06-15] MEDS ORDERED: *HR* HYDROcodone/Acet 5/325 mg TABLET PO PRN (16:28)
[2018-06-15] MEDS ORDERED: Naloxone 0.4 MG/ML INJ IVP PRN (16:37)
[2018-06-15] MEDS: *HR* Heparin 5,000 UNIT/ML VIAL SQ SCH ×2 (19:44→22:24)
[2018-06-15] MEDS: Budesonide/Formoterol 80/4.5 MDI IH SCH (20:00)
[2018-06-15] MEDS: Levalbuterol 1 PUFF INHALER IH SCH (20:00)
[2018-06-15] MEDS: Gabapentin 300 MG CAPSULE PO SCH (22:20)
[2018-06-15] MEDS: Piperacillin/Tazobactam 3.375 GM in 0.9 % Sodium Chloride Mini Bag 100 ML IVPB SCH (22:24)
[2018-06-16 03:28] LABS: Basophils % 0.1 %; Hematocrit 30.7 % (35.3-44.9); Hemoglobin 9.9 g/dL (11.5-15.4); Immature Granulocytes % 0.2 % (0-4); Lymphocytes # 0.6 K/mcL (0.6-4.6); Lymphocytes % 5.8 %; Mean Corpuscular HGB Conc 32.2 g/dL (31.6-35.5); Mean Corpuscular Hemoglobin 31.1 pg (28.0-33.3); Mean Corpuscular Volume 96.5 fL (83.0-100.0); Mean Platelet Volume 10.8 fL (9.4-12.4); Monocytes # 0.2 K/mcL (0.0-1.3); Monocytes % 1.7 %; Neutrophils # 9.6 K/mcL (1.6-8.9); Platelet Count 239 K/mcL (140-400); Red Blood Count 3.18 M/mcL (3.82-4.97); Red Cell Distribution Width 14.6 % (11.5-14.5); Segmented Neutrophils % 92.2 %
[2018-06-16 03:35] LABS: BUN/Creatinine Ratio 34 (6-26); Blood Urea Nitrogen 36 mg/dL (8-23); Calcium 8.8 mg/dL (8.6-10.3); Carbon Dioxide 23 mEq/L (23-29); Chloride 104 mEq/L (98-107); Glucose 196 mg/dL (70-105); Osmolality,Calculated 298 (280-300); Potassium 4.3 mEq/L (3.5-5.1); Sodium 137 mEq/L (136-145); eGFR For Non-African Americans 50 (> 60)
[2018-06-16] MEDS: MethylPREDNISolone 40 MG/ML VIAL IVP SCH ×2 (05:15→17:25)
[2018-06-16] MEDS: Piperacillin/Tazobactam 3.375 GM in 0.9 % Sodium Chloride Mini Bag 100 ML IVPB SCH ×3 (05:15→22:29)
[2018-06-16] MEDS: *HR* Heparin 5,000 UNIT/ML VIAL SQ SCH ×3 (05:15→22:31)
[2018-06-16] MEDS ORDERED: D5% in Water 1,000 ML IVC PRN (07:30)
[2018-06-16] MEDS ORDERED: *HR* Dextrose 50 % in Water (Syg) 50 ML SYRINGE IVP PRN (07:30)
[2018-06-16] MEDS ORDERED: Dextrose Gel 15 GM/37.5 ML TUBE PO PRN ×2 (07:30)
--- NOTE | 2018-06-16 09:22 | Electrocardiograph Report ---
[facility] Test Date: 2018-06-15 Pat Name: Nadia Espinal Department: EXAM4 Room: 2NE22 Gender: F Glued Wood Tester: : [id number] Requested By: Steve Dodson Order Number: [id number] Reading MD: Juvencio Raya Measurements Intervals [place] Rate: 87 P: MA: QRS: -78 QRSD: 124 T: 101 QT: 361 QTc: 435 Interpretive Statements Atrial fibrillation Nonspecific IVCD with LAD LVH with secondary repolarization abnormality Anterior infarct, old Electronically Signed On 06-16-2018 9:21:10 EST by Juvencio Raya
[2018-06-16 09:52] LABS: Estimated Average Glucose 94 mg/dl; Hemoglobin A1C 4.9 %
[2018-06-16] MEDS: Gabapentin 300 MG CAPSULE PO SCH ×2 (10:08→22:29)
[2018-06-16] MEDS: Aspirin Enteric Coated 81 MG Tablet PO SCH (10:08)
[2018-06-16] MEDS: Fluticasone Propionate Nasal 50 MCG/SPRAY BOTTLE NS SCH (10:10)
[2018-06-16] MEDS: Budesonide/Formoterol 80/4.5 MDI IH SCH ×2 (10:55→21:53)
[2018-06-16] MEDS: Levalbuterol 1 PUFF INHALER IH SCH ×2 (10:55→15:23)
--- NOTE | 2018-06-16 12:01 | Internal Med Progress Note ---
Hospitalist Progress Note - Encounter Date of Encounter: 06/16/18 Time of Encounter: 11:55 - Subjective Interval History: Still complaining short of breath but better. Review the lab Denies fever chills nausea vomiting headache dizziness chest pain abdominal pain diarrhea - Exam Vitals: Temp Pulse Resp BP Pulse Ox 98.1 F 53 16 131/51 98 06/16/18 11:15 06/16/18 11:15 06/16/18 11:15 06/16/18 11:15 06/16/18 11:15 Exam: CONSTITUTIONAL: in no acute distress. EYES - PERRLA EOMI RESPIRATORY: bilateral crackles/rales. CARDIOVASCULAR: Regular heart rate, normal S1 and S2, no murmurs GASTROINTESTINAL: Soft nontender nondistended positive bowel sounds MUSCULOSKELETAL: Joints in normal range of motion, no clubbing, no edema, no cyanosis. Bilateral peripheral pulses 2+ NEUROLOGIC: CN II to XII are grossly intact, no focal neurological deficit. Alert awake oriented 3 Skin-no rash - Assessment and Plan (1) Pneumonia Current Visit: Yes Status: Acute Assessment and Plan: Stable of Pseudomonas and Escherichia coli and a and stenotrophomonas in June 2017. A sputum culture ordered Vancomycin Levaquin and Zosyn as started on admission as broader spectrum coverage is as patient is high risk with multiple pneumonia in the past. continue for now and will monitor the patient and plan for de-escalation based on nasals for MRSA in his sputum culture report. recent discharge-05/29/18 for possible CHF exacerbation April 2018 got admitted for pna Chest CTA 06/15/18 15:07 IMPRESSION: No evidence of pulmonary embolism. Multifocal tree-in-bud and ground-glass nodules throughout both lungs in all lobes with areas of more focal consolidation in the bilateral lower lobes suggesting an atypical pneumonia. Recommend follow-up to resolution. Cardiomegaly. (2) Acute exacerbation of chronic obstructive airways disease Current Visit: Yes Status: Acute Assessment and Plan: Continue IV steroid, DuoNeb, oxygen when necessary. (3) Altered mental status Current Visit: Yes Status: Acute Assessment and Plan: Improving. Most likely metabolic encephalopathy due to underlying infection pneumonia. Continue to monitor (4) Hypotension Current Visit: Yes Status: Acute Assessment and Plan: Accidental overdose of antihypertensive medicine. Better blood pressure. Continue to monitor. Will resume home medicine when appropriate. (5) Atrial fibrillation Current Visit: Yes Status: Chronic Assessment and Plan: Controlled heart rate. Continue home medicine (6) CAD (coronary artery disease) Current Visit: Yes Status: Chronic Assessment and Plan: Stable. Continue home medicine (7) DVT prophylaxis Current Visit: Yes Status: Acute Assessment and Plan: Heparin subcutaneous - Time Spent with Patient Total time spent is greater than 50% in coordination of care (as documented) at patient's floor/unit and/or counseling patient: 25 - 35 minutes Internal Medicine: Result - Labs CBC & Chem 7: 06/16/18 02:57 06/16/18 02:57 Labs: Short CBC 06/15/18 06/16/18 Range/Units 14:28 02:57 WBC 11.9 H 10.4 (4.3-11.1) K/mcL Hgb 10.5 L 9.9 L (11.5-15.4) g/dL Hct 32.3 L 30.7 L (35.3-44.9) % Plt Count 254 239 (140-400) K/mcL Neutrophils # 10.4 H 9.6 H (1.6-8.9) K/mcL BMP 06/15/18 06/16/18 14:28 02:57 Sodium 136 137 Potassium 4.4 4.3 Chloride 104 104 Carbon Dioxide 24 23 BUN 35 H 36 H Creatinine 0.99 1.05 Glucose 111 H 196 H Calcium 9.3 8.8 Cardiac Enzymes 06/15/18 06/15/18 06/15/18 Range/Units 12:30 12:30 18:00 Troponin I < 0.03 0.03 0.03 (< 0.04) ng/mL 06/16/18 Range/Units 02:57 Troponin I < 0.03 (< 0.04) ng/mL Liver Function 06/15/18 Range/Units 12:30 Total Bilirubin 0.9 (0.3-1.0) mg/dL Direct Bilirubin 0.2 (0.0-0.2) mg/dL AST 14 (13-39) Units/L ALT 8 (7-52) Units/L Alkaline Phosphatase 46 (34-104) Units/L Albumin 3.6 (3.5-5.7) g/dL Urine 06/15/18 Range/Units 16:04 Urine Color Yellow (Yellow) Urine Clarity Slightly Hazy (Clear) Urine pH 5.0 (5.0-8.0) pH Units Ur Specific [place] 1.024 (1.010-1.025) Urine Protein Negative (Neg-Trace) mg/dL Urine Glucose (UA) Normal (Normal) mg/dL - ABG Interpretation ABG results: ABG ABG pH 7.45 pH Units (7.32-7.45) 06/15/18 11:58 ABG pCO2 37 mmHg (35-45) 06/15/18 11:58 ABG pO2 69 mmHg (85-104) L 06/15/18 11:58 ABG O2 Saturation 94 % (95-98) L 06/15/18 11:58 PT/INR, D-dimer PT 12.4 Seconds (9.4-12.1) H 06/15/18 12:30 - Impressions Impressions Chest X-Ray 06/15/18 11:42 IMPRESSION: Slightly improved aeration of the lung bases with trace bilateral pleural effusions. No new focal process. D/ / Osmar Gonzalez MD / Osmar Gonzalez MD Interpreting Provider: Osmar Gonzalez MD Head CT 06/15/18 11:46 IMPRESSION: Overall similar appearing CT scan of the head without acute intracranial abnormality. Generalized cortical atrophy with probable chronic microvascular ischemic changes as described above. D/ / Nehemiah Dunn MD / Nehemiah Dunn MD Interpreting Provider: Nehemiah Dunn MD Chest CTA 06/15/18 15:07 IMPRESSION: No evidence of pulmonary embolism. Multifocal tree-in-bud and ground-glass nodules throughout both lungs in all lobes with areas of more focal consolidation in the bilateral lower lobes suggesting an atypical pneumonia. Recommend follow-up to resolution. Cardiomegaly. D/ / 06/15/2018 16:32:22 Osmar Gonzalez MD / paul Interpreting Provider: Osmar Gonzalez MD Consult Discharge Plan - Plan Referrals: Arley Awan MD [Primary Care Provider] - (1) Pneumonia Qualifiers: Pneumonia type: due to unspecified organism Laterality: unspecified laterality Lung location: unspecified part of lung Qualified Code(s): J18.9 - Pneumonia, unspecified organism (3) Altered mental status Qualifiers: Altered mental status type: unspecified Qualified Code(s): R41.82 - Altered mental status, unspecified (4) Hypotension Qualifiers: Hypotension type: orthostatic hypotension Qualified Code(s): I95.1 - Orthosta tic hypotension (5) Atrial fibrillation Qualifiers: Atrial fibrillation type: chronic Qualified Code(s): I48.2 - Chronic atrial fibrillation (6) CAD (coronary artery disease) Qualifiers: Coronary Disease-Associated Artery/Lesion type: [place] artery [place] vs. transplanted heart: [place] heart Associated angina: without angina Qualified Code(s): I25.10 - Atherosclerotic heart disease of [place] coronary artery without angina pectoris
[2018-06-16] MEDS: Insulin LISPRO 300 UNITS/3 ML VIAL SQ SCH ×3 (14:21→22:32)
[2018-06-16] MEDS: Ipratropium/Albuterol Neb 3 ML IH SCH ×2 (16:10→21:53)
[2018-06-17] MEDS: Insulin LISPRO 300 UNITS/3 ML VIAL SQ SCH ×4 (01:26→17:17)
[2018-06-17] MEDS: Ipratropium/Albuterol Neb 3 ML IH SCH ×4 (03:31→21:20)
[2018-06-17] MEDS: MethylPREDNISolone 40 MG/ML VIAL IVP SCH (05:53)
[2018-06-17] MEDS: *HR* Heparin 5,000 UNIT/ML VIAL SQ SCH ×3 (05:54→21:37)
[2018-06-17] MEDS: Piperacillin/Tazobactam 3.375 GM in 0.9 % Sodium Chloride Mini Bag 100 ML IVPB SCH (05:54)
[2018-06-17] MEDS ORDERED: Levofloxacin 750 MG/150 ML 750 MG/150 ML BAG IVPB SCH (09:00)
[2018-06-17] MEDS: Aspirin Enteric Coated 81 MG Tablet PO SCH (10:06)
[2018-06-17] MEDS: Gabapentin 300 MG CAPSULE PO SCH ×2 (10:07→21:37)
[2018-06-17] MEDS: Isosorbide MONOnitrate (24 HR) 30 MG TAB.ER.24H PO SCH (10:07)
[2018-06-17] MEDS: Fluticasone Propionate Nasal 50 MCG/SPRAY BOTTLE NS SCH (10:25)
--- NOTE | 2018-06-17 10:41 | Internal Med Progress Note ---
Hospitalist Progress Note - Encounter Date of Encounter: 06/17/18 Time of Encounter: 10:39 - Subjective Interval History: Still complaining short of breath but better. Patient is still has a lot of cough and not able to get out a sputum well. Patient takes 2 L home oxygen. A sputum culture with few gram-positive cocci, gram-negative rods, gram-negative diplococci. Nasal swab MRSA positive Denies fever chills nausea vomiting headache dizziness chest pain abdominal pain diarrhea - Exam Vitals: Temp Pulse Resp BP Pulse Ox 98.4 F 57 18 140/58 96 06/17/18 08:18 06/17/18 08:18 06/17/18 08:18 06/17/18 08:18 06/17/18 08:18 Exam: CONSTITUTIONAL: in no acute distress. EYES - PERRLA EOMI RESPIRATORY: bilateral crackles/rales-slight better. CARDIOVASCULAR: Regular heart rate, normal S1 and S2, no murmurs GASTROINTESTINAL: Soft nontender nondistended positive bowel sounds MUSCULOSKELETAL: Joints in normal range of motion, no clubbing, no edema, no cyanosis. Bilateral peripheral pulses 2+ NEUROLOGIC: CN II to XII are grossly intact, no focal neurological deficit. Alert awake oriented 3 Skin-no rash - Assessment and Plan (1) Pneumonia Current Visit: Yes Status: Acute Assessment and Plan: Stable of Pseudomonas and Escherichia coli and a and stenotrophomonas in June 2017 and sensitive to Levaquin. A sputum culture as mentioned above Vancomycin Levaquin and Zosyn as started on admission as broader spectrum coverage is as patient is high risk with multiple pneumonia in the past. As patient clinically improving with last normal white count therefore will just of Zosyn but will continue vancomycin and Levaquin. Nasal swab positive for MRSA recent discharge-05/29/18 for possible CHF exacerbation April 2018 got admitted for pna Chest CTA 06/15/18 15:07 IMPRESSION: No evidence of pulmonary embolism. Multifocal tree-in-bud and ground-glass nodules throughout both lungs in all lobes with areas of more focal consolidation in the bilateral lower lobes suggesting an atypical pneumonia. Recommend follow-up to resolution. Cardiomegaly. (2) Acute exacerbation of chronic obstructive airways disease Current Visit: Yes Status: Acute Assessment and Plan: Start IV steroid. A started prednisone 40 mg by mouth daily, Continue IV steroid, DuoNeb, oxygen when necessary. Consulted respiratory therapist for pulmonary toileting. Incentive spirometry (3) Altered mental status Current Visit: Yes Status: Acute Assessment and Plan: Improving. Most likely metabolic encephalopathy due to underlying infection pneumonia. Continue to monitor (4) Hypotension Current Visit: Yes Status: Acute Assessment and Plan: Accidental overdose of antihypertensive medicine. Better blood pressure. Continue to monitor. Will resume home medicine when appropriate. (5) Atrial fibrillation Current Visit: Yes Status: Chronic Assessment and Plan: Controlled heart rate. Continue home medicine (6) CAD (coronary artery disease) Current Visit: Yes Status: Chronic Assessment and Plan: Stable. Continue home medicine (7) DVT prophylaxis Current Visit: Yes Status: Acute Assessment and Plan: Heparin subcutaneous - Time Spent with Patient Total time spent is greater than 50% in coordination of care (as documented) at patient's floor/unit and/or counseling patient: 25 - 35 minutes Internal Medicine: Result - Labs CBC & Chem 7: 06/16/18 02:57 06/16/18 02:57 - ABG Interpretation ABG results: ABG ABG pH 7.45 pH Units (7.32-7.45) 06/15/18 11:58 ABG pCO2 37 mmHg (35-45) 06/15/18 11:58 ABG pO2 69 mmHg (85-104) L 06/15/18 11:58 ABG O2 Saturation 94 % (95-98) L 06/15/18 11:58 PT/INR, D-dimer PT 12.4 Seconds (9.4-12.1) H 06/15/18 12:30 Consult Discharge Plan - Plan Referrals: Arley Awan MD [Primary Care Provider] - (1) Pneumonia Qualifiers: Pneumonia type: due to unspecified organism Laterality: unspecified laterality Lung location: unspecified part of lung Qualified Code(s): J18.9 - Pneumonia, unspecified organism (3) Altered mental status Qualifiers: Altered mental status type: unspecified Qualified Code(s): R41.82 - Altered mental status, unspecified (4) Hypotension Qualifiers: Hypotension type: orthostatic hypotension Qualified Code(s): I95.1 - Orthostatic hypotension (5) Atrial fibrillation Qualifiers: Atrial fibrillation type: chronic Qualified Code(s): I48.2 - Chronic atrial fibrillation (6) CAD (coronary artery disease) Qualifiers: Coronary Disease-Associated Artery/Lesion type: [place] artery [place] vs. transplanted heart: [place] heart Associated angina: without angina Qualified Code(s): I25.10 - Atherosclerotic heart disease of [place] coronary artery without angina pectoris
[2018-06-17] MEDS: Budesonide/Formoterol 80/4.5 MDI IH SCH ×2 (10:44→21:20)
[2018-06-18] MEDS: Insulin LISPRO 300 UNITS/3 ML VIAL SQ SCH ×4 (02:02→18:05)
[2018-06-18] MEDS: Ipratropium/Albuterol Neb 3 ML IH SCH ×4 (03:44→22:30)
[2018-06-18] MEDS: *HR* Heparin 5,000 UNIT/ML VIAL SQ SCH ×2 (06:08→14:41)
[2018-06-18 06:16] LABS: Basophils % 0.1 %; Eosinophils % 0.3 %; Hematocrit 26.1 % (35.3-44.9); Hemoglobin 8.4 g/dL (11.5-15.4); Immature Granulocytes % 0.3 % (0-4); Lymphocytes # 1.7 K/mcL (0.6-4.6); Lymphocytes % 23.2 %; Mean Corpuscular HGB Conc 32.2 g/dL (31.6-35.5); Mean Corpuscular Hemoglobin 30.9 pg (28.0-33.3); Mean Platelet Volume 10.7 fL (9.4-12.4); Monocytes # 0.7 K/mcL (0.0-1.3); Monocytes % 9.8 %; Neutrophils # 4.8 K/mcL (1.6-8.9); Platelet Count 220 K/mcL (140-400); Red Blood Count 2.72 M/mcL (3.82-4.97); Red Cell Distribution Width 14.9 % (11.5-14.5); Segmented Neutrophils % 66.3 %
[2018-06-18 06:34] LABS: BUN/Creatinine Ratio 23 (6-26); Blood Urea Nitrogen 17 mg/dL (8-23); Calcium 8.6 mg/dL (8.6-10.3); Carbon Dioxide 20 mEq/L (23-29); Chloride 110 mEq/L (98-107); Glucose 95 mg/dL (70-105); Osmolality,Calculated 287 (280-300); Potassium 3.7 mEq/L (3.5-5.1); Sodium 138 mEq/L (136-145); eGFR For Non-African Americans > 60 (> 60)
[2018-06-18] MEDS ORDERED: amLODIPine 5 MG TABLET PO SCH (09:00)
[2018-06-18] MEDS: Budesonide/Formoterol 80/4.5 MDI IH SCH ×2 (10:27→22:30)
[2018-06-18] MEDS: Aspirin Enteric Coated 81 MG Tablet PO SCH (10:31)
[2018-06-18] MEDS: hydrALAZINE 25 MG TABLET PO SCH ×2 (10:31→21:05)
[2018-06-18] MEDS: Isosorbide MONOnitrate (24 HR) 30 MG TAB.ER.24H PO SCH (10:32)
[2018-06-18] MEDS: predniSONE 20 MG TABLET PO SCH (10:32)
[2018-06-18] MEDS: Furosemide 20 MG TABLET PO SCH (10:32)
[2018-06-18] MEDS: Gabapentin 300 MG CAPSULE PO SCH ×2 (10:32→21:05)
[2018-06-18] MEDS: Fluticasone Propionate Nasal 50 MCG/SPRAY BOTTLE NS SCH (13:42)
--- NOTE | 2018-06-18 14:54 | Internal Med Progress Note ---
Hospitalist Progress Note - Encounter Date of Encounter: 06/18/18 Time of Encounter: 14:51 - Subjective Interval History: Still complaining short of breath and is still coughing. Complained of generalized weakness and tiredness Patient takes 2 L home oxygen. A sputum culture with few gram-positive cocci, gram-negative rods, gram-negative diplococci. Nasal swab MRSA positive Denies fever chills nausea vomiting headache dizziness chest pain abdominal pain diarrhea - Exam Vitals: Temp Pulse Resp BP Pulse Ox 98.7 F 59 20 133/66 89 06/18/18 11:00 06/18/18 11:00 06/18/18 11:00 06/18/18 11:00 06/18/18 11:00 Exam: CONSTITUTIONAL: in no acute distress. Appears tired. EYES - PERRLA EOMI RESPIRATORY: bilateral crackles/stable CARDIOVASCULAR: Regular heart rate, normal S1 and S2, no murmurs GASTROINTESTINAL: Soft nontender nondistended positive bowel sounds MUSCULOSKELETAL: Joints in normal range of motion, no clubbing, no edema, no cyanosis. Bilateral peripheral pulses 2+ NEUROLOGIC: CN II to XII are grossly intact, no focal neurological deficit. Alert awake oriented 3 Skin-no rash - Assessment and Plan (1) Pneumonia Current Visit: Yes Status: Acute Assessment and Plan: Stable of Pseudomonas and Escherichia coli and a and stenotrophomonas in June 2017 and sensitive to Levaquin. A sputum culture as mentioned above Vancomycin Levaquin and Zosyn as started on admission as broader spectrum coverage is as patient is high risk with multiple pneumonia in the past. normal white count therefore stopped Zosyn but will continue vancomycin and Levaquin. Will wait for final a sputum culture growth for further de-escalation of antibiotic. Nasal swab positive for MRSA. Will consult dumper operator if needed as abnormal CTA as mentioned below recent discharge-05/29/18 for possible CHF exacerbation April 2018 got admitted for pna Chest CTA 06/15/18 15:07 IMPRESSION: No evidence of pulmonary embolism. Multifocal tree-in-bud and ground-glass nodules throughout both lungs in all lobes with areas of more focal consolidation in the bilateral lower lobes suggesting an atypical pneumonia. Recommend follow-up to resolution. Cardiomegaly. (2) Anemia Current Visit: Yes Status: Acute Assessment and Plan: Slowly trending down hemoglobin. On admission hemoglobin 10.5 and today 8.4. No active bleeding noticed. Patient is on aspirin and Plavix with history of CAD and A. fib. Will keep patient on clear liquid diet, IV Protonix 40 mg twice a day, stool occult test, serial hemoglobin monitoring every 8 hours, hold aspirin and Plavix today. Will consult GI if any concern for bleeding. Will also consult cardiology for further advice about anticoagulation continuation. (3) Acute exacerbation of chronic obstructive airways disease Current Visit: Yes Status: Acute Assessment and Plan: started prednisone 40 mg by mouth daily, Continue DuoNeb, oxygen when necessary. Consulted respiratory therapist for pulmonary toileting. Incentive spirometry (4) Altered mental status Current Visit: Yes Status: Acute Assessment and Plan: Improving. Most likely metabolic encephalopathy due to underlying infection pneumonia. Continue to monitor (5) Hypotension Current Visit: Yes Status: Acute Assessment and Plan: Accidental overdose of antihypertensive medicine. Now blood pressure trending of therefore will resume her home medication. Close monitoring of BP (6) Atrial fibrillation Current Visit: Yes Status: Chronic Assessment and Plan: Controlled heart rate. Continue home medicine. Patient on aspirin and Plavix (7) CAD (coronary artery disease) Current Visit: Yes Status: Chronic Assessment and Plan: Stable. (8) DVT prophylaxis Current Visit: Yes Status: Acute Assessment and Plan: His start heparin and his start SCDs due to concern of trending down hemoglobin (9) Hospice care patient Current Visit: Yes Status: Acute Assessment and Plan: Patient lives at home with his son on hospice due to advanced COPD. - Time Spent with Patient Total time spent is greater than 50% in coordination of care (as documented) at patient's floor/unit and/or counseling patient: Greater than 35 minutes (spent almost 40 minute inpatient care as mentioned above and communication with the patient and nursing staff) Plan of Care Discussed with: patient Internal Medicine: Result - Labs CBC & Chem 7: 06/18/18 05:56 06/18/18 05:56 Labs: Short CBC 06/18/18 Range/Units 05:56 WBC 7.2 (4.3-11.1) K/mcL Hgb 8.4 L D (11.5-15.4) g/dL Hct 26.1 L (35.3-44.9) % Plt Count 220 (140-400) K/mcL Neutrophils # 4.8 (1.6-8.9) K/mcL BMP 06/18/18 05:56 Sodium 138 Potassium 3.7 Chloride 110 H Carbon Dioxide 20 L BUN 17 Creatinine 0.74 Glucose 95 Calcium 8.6 - ABG Interpretation ABG results: ABG ABG pH 7.45 pH Units (7.32-7.45) 06/15/18 11:58 ABG pCO2 37 mmHg (35-45) 06/15/18 11:58 ABG pO2 69 mmHg (85-104) L 06/15/18 11:58 ABG O2 Saturation 94 % (95-98) L 06/15/18 11:58 PT/INR, D-dimer PT 12.4 Seconds (9.4-12.1) H 06/15/18 12:30 Consult Discharge Plan - Plan Referrals: Arley Awan MD [Primary Care Provider] - (1) Pneumonia Qualifiers: Pneumonia type: due to unspecified organism Laterality: unspecified laterality Lung location: unspecified part of lung Qualified Code(s): J18.9 - Pneumonia, unspecified organism (2) Anemia Qualifiers: Anemia type: unspecified type Qualified Code(s): D64.9 - Anemia, unspecified (4) Altered mental status Qualifiers: Altered mental status type: unspecified Qualified Code(s): R41.82 - Altered mental status, unspecified (5) Hypotension Qualifiers: Hypotension type: orthostatic hypotension Qualified Code(s): I95.1 - Orthostatic hypotension (6) Atrial fibrillation Qualifiers: Atrial fibrillation type: chronic Qualified Code(s): I48.2 - Chronic atrial fibrillation (7) CAD (coronary artery disease) Qualifiers: Coronary Disease-Associated Artery/Lesion type: [place] artery [place] vs. transplanted heart: [place] heart Associated angina: without angina Qualified Code(s): I25.10 - Atherosclerotic heart disease of [place] coronary artery without angina pectoris
[2018-06-18 16:32] LABS: Hematocrit 30.8 % (35.3-44.9); Hemoglobin 9.8 g/dL (11.5-15.4)
[2018-06-18] MEDS: Pantoprazole 40 MG VIAL IVP SCH (21:03)
[2018-06-18 23:34] LABS: Hemoglobin 8.6 g/dL (11.5-15.4)
[2018-06-19] MEDS: Insulin LISPRO 300 UNITS/3 ML VIAL SQ SCH ×5 (00:49→20:14)
[2018-06-19] MEDS: Ipratropium/Albuterol Neb 3 ML IH SCH ×4 (03:52→21:13)
[2018-06-19] MEDS: Pantoprazole 40 MG VIAL IVP SCH (06:13)
[2018-06-19] MEDS ORDERED: Ipratropium/Albuterol Neb 3 ML IH ONE (06:53)
[2018-06-19] MEDS: Aspirin 81 MG TAB.CHEW PO SCH (08:17)
[2018-06-19] MEDS: Furosemide 20 MG TABLET PO SCH (08:18)
[2018-06-19] MEDS: hydrALAZINE 25 MG TABLET PO SCH ×2 (08:18→20:13)
[2018-06-19] MEDS: Isosorbide MONOnitrate (24 HR) 30 MG TAB.ER.24H PO SCH (08:18)
[2018-06-19] MEDS: predniSONE 20 MG TABLET PO SCH (08:19)
[2018-06-19] MEDS: Gabapentin 300 MG CAPSULE PO SCH ×2 (08:19→20:14)
[2018-06-19 08:46] LABS: Basophils % 0.2 %; Eosinophils % 0.4 %; Hematocrit 27.9 % (35.3-44.9); Hemoglobin 8.9 g/dL (11.5-15.4); Immature Granulocytes % 0.2 % (0-4); Lymphocytes # 1.7 K/mcL (0.6-4.6); Lymphocytes % 31.1 %; Mean Corpuscular HGB Conc 31.9 g/dL (31.6-35.5); Mean Corpuscular Hemoglobin 31.1 pg (28.0-33.3); Mean Corpuscular Volume 97.6 fL (83.0-100.0); Mean Platelet Volume 10.9 fL (9.4-12.4); Monocytes # 0.5 K/mcL (0.0-1.3); Monocytes % 8.4 %; Neutrophils # 3.3 K/mcL (1.6-8.9); Platelet Count 240 K/mcL (140-400); Red Blood Count 2.86 M/mcL (3.82-4.97); Red Cell Distribution Width 14.6 % (11.5-14.5); Segmented Neutrophils % 59.7 %
[2018-06-19 09:03] LABS: BUN/Creatinine Ratio 18 (6-26); Blood Urea Nitrogen 12 mg/dL (8-23); Calcium 8.8 mg/dL (8.6-10.3); Carbon Dioxide 26 mEq/L (23-29); Chloride 110 mEq/L (98-107); Glucose 92 mg/dL (70-105); Osmolality,Calculated 287 (280-300); Potassium 3.6 mEq/L (3.5-5.1); Sodium 139 mEq/L (136-145); eGFR For Non-African Americans > 60 (> 60)
[2018-06-19] MEDS: Fluticasone Propionate Nasal 50 MCG/SPRAY BOTTLE NS SCH (09:52)
[2018-06-19] MEDS: Levofloxacin 750 MG/150 ML 750 MG/150 ML BAG IVPB SCH (09:52)
[2018-06-19] MEDS: Budesonide/Formoterol 80/4.5 MDI IH SCH ×2 (11:09→21:13)
--- NOTE | 2018-06-19 11:45 | Internal Med Progress Note ---
Hospitalist Progress Note - Encounter Date of Encounter: 06/19/18 Time of Encounter: 11:37 - Subjective Interval History: Patient dropped oxygen in high 80s in the night and required high flow oxygen transiently but she had cough spell as well at the same time. Now requiring 2 L oxygen as she also take at home. Better short of breath and is still coughing. Complained of generalized weakness and tiredness. review of the lab with a stable hemoglobin now as initially it was trending down. Hemoccult stool negative A sputum culture with few gram-positive cocci, gram-negative rods but final sensitivity report is awaited. denies fever chills nausea vomiting headache dizziness chest pain abdominal pain diarrhea - Exam Vitals: Temp Pulse Resp BP Pulse Ox 97.8 F 55 15 141/64 98 06/19/18 07:33 06/19/18 07:33 06/19/18 11:12 06/19/18 07:33 06/19/18 11:12 Exam: General appearance: No acute distress, A&O X 3. Oxygen by nasal cannula 2 L Eye exam: EOMI, PERRLA ENT exam: Moist oral mucosa Neck nontender, supple Respiratory exam: Bilateral crackles with decreased breath sound-stable Cardiovascular exam: Regular rate and rhythm, no systolic murmur Abdominal exam: Soft, nontender, nondistended, positive bowel sounds Extremities exam: No calf tenderness, no pedal edema Present: Skin-no rash, warm, dry, intact Neurological exam: Alert, awake, oriented 3, CN II-XII intact, no focal deficits. No facial droop. Normal speech. - Assessment and Plan (1) Pneumonia Current Visit: Yes Status: Acute Assessment and Plan: History of Pseudomonas and Escherichia coli and a and stenotrophomonas in June 2017 and sensitive to Levaquin. A sputum culture with gram-negative ordered Vancomycin Levaquin and Zosyn was started on admission as broader spectrum coverage is as patient is high risk with multiple pneumonia in the past. normal white count therefore stopped Zosyn but will continue vancomycin and Levaquin until finally sputum culture reports available. Nasal swab positive for MRSA. Urine Legionella and Streptococcus was ordered -report awaited Consulted auction block clerk - abnormal CTA as mentioned below recent discharge-05/29/18 for possible CHF exacerbation April 2018 got admitted for pna Chest CTA 06/15/18 15:07 IMPRESSION: No evidence of pulmonary embolism. Multifocal tree-in-bud and ground-glass nodules throughout both lungs in all lobes with areas of more focal consolidation in the bilateral lower lobes suggesting an atypical pneumonia. Recommend follow-up to resolution. Cardiomegaly. (2) Anemia Current Visit: Yes Status: Acute Assessment and Plan: Initially Slowly trending down hemoglobin. On admission hemoglobin 10.5 and today 8.9. Stool occult negative. No active bleeding noticed. Patient is on aspirin and Plavix with history of CAD and A. fib. Resumed baby aspirin today and advance the diet Will keep patient on clear liquid diet, IV Protonix 40 mg twice a day, hold Plavix today and monitor CBC. If hemoglobin start to trend down while on baby aspirin then need cardiology consultation for recommendation of anticoagulation therapy continuation upon discharge. (3) Acute exacerbation of chronic obstructive airways disease Current Visit: Yes Status: Acute Assessment and Plan: started prednisone 40 mg by mouth daily, Continue DuoNeb, oxygen when n ecessary. Consulted respiratory therapist for pulmonary toileting. Incentive spirometry. Respiratory panel ordered-pending report (4) Altered mental status Current Visit: Yes Status: Acute Assessment and Plan: Improving appear to be in baseline but no family member to confirm. Concern for underlying dementia as well. Most likely metabolic encephalopathy due to underlying infection pneumonia. Continue to monitor (5) Hypotension Current Visit: Yes Status: Acute Assessment and Plan: Accidental overdose of antihypertensive medicine. Will control blood pressure therefore continue home medicine . Close monitoring of BP (6) Atrial fibrillation Current Visit: Yes Status: Chronic Assessment and Plan: Controlled heart rate. Continue home medicine as mentioned above. (7) CAD (coronary artery disease) Current Visit: Yes Status: Chronic Assessment and Plan: History of ischemic cardiomyopathy any. 40-45% per previous report. [place] CAD. [facility] January 2017-and recommended medical therapy. No active chest pain May need cardiology consultation for recommendation of anticoagulation therapy continuation upon discharge if hemoglobin trends down or concern for GI bleed. At this time patient is stable therefore reintroduce aspirin today. Continue to monitor CBC. (8) Hospice care patient Current Visit: Yes Status: Acute Assessment and Plan: Patient lives at home with his son on hospice due to advanced COPD. patient is under care of in [facility] hospice since recently 05/27/2018 (9) DVT prophylaxis Current Visit: Yes Status: Acute Assessment and Plan: SCDs (10) Goals of care, counseling/discussion Current Visit: Yes Status: Acute Assessment and Plan: Patient had bilateral multifocal infiltrate and groundglass opacity in CT scan. With history of multiple pneumonia in the past. High-risk. A sputum culture w ith preliminary report. Pulmonologists on board. Plan to discharge patient in 2- 3 days as per pulmonary advice - Time Spent with Patient Total time spent is greater than 50% in coordination of care (as documented) at patient's floor/unit and/or counseling patient: Greater than 35 minutes (Spent almost 38 minute and patient care and communication with nursing staff and vmware consultant and social insurance adviser) Internal Medicine: Result - Labs CBC & Chem 7: 06/19/18 08:15 06/19/18 08:15 Labs: Short CBC 06/18/18 06/18/18 06/19/18 Range/Units 15:59 23:21 08:15 WBC 5.5 (4.3-11.1) K/mcL Hgb 9.8 L 8.6 L 8.9 L (11.5-15.4) g/dL Hct 30.8 L 27.0 L 27.9 L (35.3-44.9) % Plt Count 240 (140-400) K/mcL Neutrophils # 3.3 (1.6-8.9) K/mcL BMP 06/19/18 08:15 Sodium 139 Potassium 3.6 Chloride 110 H Carbon Dioxide 26 BUN 12 Creatinine 0.68 Glucose 92 Calcium 8.8 - ABG Interpretation ABG results: ABG ABG pH 7.45 pH Units (7.32-7.45) 06/15/18 11:58 ABG pCO2 37 mmHg (35-45) 06/15/18 11:58 ABG pO2 69 mmHg (85-104) L 06/15/18 11:58 ABG O2 Saturation 94 % (95-98) L 06/15/18 11:58 PT/INR, D-dimer PT 12.4 Seconds (9.4-12.1) H 06/15/18 12:30 Consult Discharge Plan - Plan Referrals: Arley Awan MD [Primary Care Provider] - (1) Pneumonia Qualifiers: Pneumonia type: due to unspecified organism Laterality: unspecified laterality Lung location: unspecified part of lung Qualified Code(s): J18.9 - Pneumonia, unspecified organism (2) Anemia Qualifiers: Anemia type: unspecified type Qualified Code(s): D64.9 - Anemia, unspecified (4) Altered mental status Qualifiers: Altered mental status type: unspecified Qualified Code(s): R41.82 - Altered mental status, unspecified (5) Hypotension Qualifiers: Hypotension type: orthostatic hypotension Qualified Code(s): I95.1 - Orthostatic hypotension (6) Atrial fibrillation Qualifiers: Atrial fibrillation type: chronic Qualified Code(s): I48.2 - Chronic atrial fibrillation (7) CAD (coronary artery disease) Qualifiers: Coronary Disease-Associated Artery/Lesion type: [place] artery [place] vs. transplanted heart: [place] heart Associated angina: without angina Qualified Code(s): I25.10 - Atherosclerotic heart disease of [place] coronary artery without angina pectoris
[2018-06-19 13:39] LABS: Adenovirus Not Detected (Not Detect); Bordetella Pertussis Not Detected (Not Detect); Chlamydophila pneumoniae Not Detected (Not Detect); Coronavirus 229E Not Detected (Not Detect); Coronavirus HKU1 Not Detected (Not Detect); Coronavirus NL63 Not Detected (Not Detect); Coronavirus OC43 Not Detected (Not Detect); Human Metapneumovirus Not Detected (Not Detect); Human Rhinovirus/Enterovirus Not Detected (Not Detect); Influenza A Subtype 2009 H1 Not Detected (Not Detect); Influenza A Untypeable Not Detected (Not Detect); Influenza B Not Detected (Not Detect); Mycoplasma pneumoniae Not Detected (Not Detect); Parainfluenza Virus 1 Not Detected (Not Detect); Parainfluenza Virus 2 Not Detected (Not Detect); Parainfluenza Virus 3 Not Detected (Not Detect); Parainfluenza Virus 4 Not Detected (Not Detect); Respiratory Syncytial Virus Not Detected (Not Detect)
--- NOTE | 2018-06-19 14:54 | Pulmonology Consult Note ---
<KeronValentina N - Last Filed: 06/19/18 14:49> Date of Encounter: 06/19/18 Time of Encounter: 14:49 Assessment and Plan (1) Pneumonia Current Visit: Yes Status: Acute Suspect atypical vs. aspiration pneumonia. Plan: - Continue empiric antibiotic therapy pending results of sputum culture and sensitivity studies. If sensitive to doxycycline, recommend deescalation of antibiotic therapy to doxycycline alone for a total of 7 days of therapy. - Due to concern for aspiration pneumonia, recommend patient undergo barium swallow study prior to discharge Qualifiers: Pneumonia type: due to unspecified organism Laterality: bilateral Lung location: unspecified part of lung Qualified Code(s): J18.9 - Pneumonia, unspecified organism (2) Bronchiolitis Current Visit: Yes Status: Acute - Continue prednisone PO with plan for 2 week taper at time of discharge (3) Ground glass opacity present on imaging of lung Current Visit: Yes Status: Acute Suspect atypical pneumonia versus bronchiolitis. - Management as above. (4) Acute and chronic respiratory failure ([id number]) Current Visit: Yes Status: Acute Multifactorial etiology. - Continue antibiotic and steroid therapy as above - Continue bronchodilator therapy Qualifiers: Respiratory failure complication: unspecified whether with hypoxia or hypercapnia Qualified Code(s): J96.20 - Acute and chronic respiratory failure, unspecified whether with hypoxia or hypercapnia History of Present Illness Consult date: 06/19/18 Requesting physician: Alexandria Villegas Reason for consult: pneumonia Chief complaint: Bilateral pneumonia History of present illness: Ms. Espinal is an 82-year old female who was admitted to the hospital for shortness of breath. CTA demonstrated multifocal tree-in-bud and ground-glass [id number] throughout both lungs in all lobes with areas of more focal consolidation in bilateral lower lobes, suggesting an atypical pneumonia. Patient currently resides at home with her son on hospice care. She states that she would like to receive treatment so that she is able to return home; however, so does not want any heroic or invasive measures. Patient was seen and evaluated at the bedside. She denied any acute complaints or concerns and stated that her breathing has improved since admission. She is still having intermittent cough with sputum production. Sputum culture was positive for gram negative rods, with sensitivity pending. She denies any other complaints or concerns at this time. Past Med Surg Social Fam HX - Past Medical History Medical history: arthritis, asthma, atrial fibrillation, CHF, COPD, coronary artery disease, GERD, hyperlipidemia, hypertension, osteoporosis Psychiatric history: depression - Past Surgical History Surgical History: breast surgery, , herniorrhaphy, hysterectomy Additional surgical history: breast - Social History Smoking Status: Former smoker Smokeless Tobacco Status: No Alcohol use: none Drug use: none - Family History Father Adopted: No Family Member Ethnicity: Non- Living Status: Hx Family Cardiac Disorders: Yes Hx Family Respiratory Disorders: Yes Hx Family Cancer: No Hx Family GI Disorders: No Hx Family Genitourinary Disorders: No Hx Family Endocrine Disorder: No Hx Family Musculoskeletal Disorders: No Hx Family Neuromuscular Disorders: No Hx Family Neurologic Disorders: No Hx Family HEENT Disorders: No Hx Family Autoimmune Disorders: No Hx Family Reproductive Disorders: No Hx Family Psychosocial Disorders: No Hx Family Medical Disorders: No Mother Adopted: No Family Member Ethnicity: Non- Living Status: Hx Family Cardiac Disorders: No Hx Family Respiratory Disorders: Yes Hx Family Cancer: No Hx Family GI Disorders: No Hx Family Genitourinary Disorders: No Hx Family Endocrine Disorder: Yes Hx Family Musculoskeletal Disorders: No Hx Family Neuromuscular Disorders: No Hx Family Neurologic Disorders: No Hx Family HEENT Disorders: No Hx Family Autoimmune Disorders: No Hx Family Reproductive Disorders: No Hx Family Psychosocial Disorders: No Hx Family Medical Disorders: No Medications and Allergies Atorvastatin [Lipitor] 20 mg PO HS 02/23/15 [History] Fluticasone/Salmeterol [Advair 250-50 Diskus] 1 each IH BID 02/23/15 [History] Gabapentin [Neurontin] 600 mg PO BID 02/23/15 [History] Multivit-Min/FA/Lycopen/Lutein [Centrum Silver Tablet] 1 each PO DAILY 02/23/15 [History] Isosorbide MONOnitrate (24 HR) [Imdur] 30 mg PO DAILY 07/01/15 [History] Fluticasone Propionate Nasal [Flonase] 2 spray NS DAILY 05/13/16 [History] Levalbuterol Tartrate [Xopenex Hfa] 2 puff IH TID 05/13/16 [History] Umeclidinium [place] [Incruse Ellipta] 1 puff IH DAILY 05/13/16 [History] Aspirin [Lo-Dose Aspirin EC] 81 mg PO DAILY 01/15/17 [History] Raloxifene [Evista] 60 mg PO DAILY 01/15/17 [History] Albuterol Sulfate [Ventolin Hfa] 2 puff IH Q4-6H PRN 10/20/17 [History] Lisinopril [Zestril] 5 mg PO DAILY #30 tablet 10/23/17 [Rx] Montelukast [Singulair] 10 mg PO DAILY 04/24/18 [History] hydrALAZINE [HydrALAZINE] 25 mg PO BID 04/24/18 [History] Clopidogrel [Plavix] 75 mg PO DAILY 05/25/18 [History] Docusate [Colace] 100 mg PO DAILY 05/25/18 [History] GuaiFENesin ER [Mucinex] 600 mg PO BID 05/25/18 [History] Hydrocodone/Acetaminophen [[place] 5-325 Tablet] 1 tab PO TID PRN 05/25/18 [History] Furosemide [Lasix] 20 mg PO DAILY #0 05/29/18 [Rx] Allergy/AdvReac Type Severity Reaction Status Date / Time No Known Allergies Allergy Verified 07/20/17 11:59 All Systems: The remainder of the systems were reviewed and are negative - Constitutional Constitutional: no chills, no fever(s) - Cardiovascular Cardiovascular: no chest pain, no edema - Respiratory Respiratory: cough, dyspnea, dyspnea on exertion, chest congestion - Gastrointestinal Gastrointestinal: no diarrhea, no loose stools, no nausea Physical Examination Vital Signs: Vital Signs, Last 4 Hours Temp Pulse Resp BP Pulse Ox 06/19/18 11:51 97.8 F 77 16 121/76 93 06/19/18 11:12 15 98 General appearance: no acute distress, alert Eyes: nonicteric ENT: oropharynx moist Auscultation: bilateral: wheezes Cardiovascular: regular rate and rhythm Integumentary: normal Extremities: no cyanosis, pink and warm Musculoskeletal: no deformities normal mental status, non-focal exam mood appropriate Results - Laboratory Findings CBC and BMP: 06/19/18 08:15 06/19/18 08:15 ABG ABG pH 7.45 pH Units (7.32-7.45) 06/15/18 11:58 ABG pCO2 37 mmHg (35-45) 06/15/18 11:58 ABG pO2 69 mmHg (85-104) L 06/15/18 11:58 ABG O2 Saturation 94 % (95-98) L 06/15/18 11:58 PT/INR, D-dimer PT 12.4 Seconds (9.4-12.1) H 06/15/18 12:30 Abnormal lab findings: Abnormal lab results RBC 2.86 M/mcL (3.82-4.97) L 06/19/18 08:15 Hgb 8.9 g/dL (11.5-15.4) L 06/19/18 08:15 Hct 27.9 % (35.3-44.9) L 06/19/18 08:15 RDW 14.6 % (11.5-14.5) H 06/19/18 08:15 PT 12.4 Seconds (9.4-12.1) H 06/15/18 12:30 ABG pO2 69 mmHg (85-104) L 06/15/18 11:58 ABG Total CO2 27 mEq/L (20-26) H 06/15/18 11:58 ABG O2 Saturation 94 % (95-98) L 06/15/18 11:58 Chloride 110 mEq/L (98-107) H 06/19/18 08:15 POC Glucose 111 mg/dL (70-99) H 06/19/18 00:10 B-Natriuretic Peptide 305 pg/mL (Less than 100) H 06/18/18 05:56 Urine Nitrite Positive (Negative) A 06/15/18 16:04 Ur Leukocyte Esterase Small (Negative) H 06/15/18 16:04 Ur Squamous Epith Cells Many per lpf (None-Few) H 06/15/18 16:04 Urine Bacteria Many per hpf (None-Few) H 06/15/18 16:04 Ur Culture Indicated? NO. (NO) A 06/15/18 16:04 Nasal Screen MRSA (PCR) Positive (Negative) A 06/16/18 13:50 Vancomycin Trough 11 mcg/mL (5-10) H 06/17/18 15:58 - Microbiology Findings Microbiology Findings: Microbiology, Last 48 Hours 06/17/18 06:30 Sputum Culture - Preliminary Sputum Gram Negative Gordon - Clinical Findings Intake & Output: Intake & Output 06/18/18 06/19/18 06/19/18 23:59 07:59 15:59 Intake Total 250 / 250 0 / 0 920 / 920 Output Total 200 / 200 200 / 200 400 / 400 Balance 50 / 50 -200 / -200 520 / 520 Weight 64.9 kg Consult Discharge Plan - Plan Referrals: Arley Awan MD [Primary Care Provider] - <Hailey Shields S - Last Filed: 06/19/18 17:54> Date of Encounter: 06/19/18 All Systems: The remainder of the systems were reviewed and are negative Physical Examination Vital Signs: Vital Signs, Last 4 Hours Temp Pulse Resp BP Pulse Ox 06/19/18 15:46 15 97 06/19/18 15:01 98.2 F 66 15 118/65 97 Results - Laboratory Findings CBC and BMP: 06/19/18 08:15 06/19/18 08:15 ABG ABG pH 7.45 pH Units (7.32-7.45) 06/15/18 11:58 ABG pCO2 37 mmHg (35-45) 06/15/18 11:58 ABG pO2 69 mmHg (85-104) L 06/15/18 11:58 ABG O2 Saturation 94 % (95-98) L 06/15/18 11:58 PT/INR, D-dimer PT 12.4 Seconds (9.4-12.1) H 06/15/18 12:30 Abnormal lab findings: Abnormal lab results RBC 2.86 M/mcL (3.82-4.97) L 06/19/18 08:15 Hgb 8.9 g/dL (11.5-15.4) L 06/19/18 08:15 Hct 27.9 % (35.3-44.9) L 06/19/18 08:15 RDW 14.6 % (11.5-14.5) H 06/19/18 08:15 PT 12.4 Seconds (9.4-12.1) H 06/15/18 12:30 ABG pO2 69 mmHg (85-104) L 06/15/18 11:58 ABG Total CO2 27 mEq/L (20-26) H 06/15/18 11:58 ABG O2 Saturation 94 % (95-98) L 06/15/18 11:58 Chloride 110 mEq/L (98-107) H 06/19/18 08:15 POC Glucose 111 mg/dL (70-99) H 06/19/18 00:10 B-Natriuretic Peptide 305 pg/mL (Less than 100) H 06/18/18 05:56 Urine Nitrite Positive (Negative) A 06/15/18 16:04 Ur Leukocyte Esterase Small (Negative) H 06/15/18 16:04 Ur Squamous Epith Cells Many per lpf (None-Few) H 06/15/18 16:04 Urine Bacteria Many per hpf (None-Few) H 06/15/18 16:04 Ur Culture Indicated? NO. (NO) A 06/15/18 16:04 Nasal Screen MRSA (PCR) Positive (Negative) A 06/16/18 13:50 Vancomycin Trough 11 mcg/mL (5-10) H 06/17/18 15:58 - Microbiology Findings Microbiology Findings: Microbiology, Last 48 Hours 06/17/18 06:30 Sputum Culture - Preliminary Sputum Gram Negative Gordon - Clinical Findings Intake & Output: Intake & Output 06/19/18 06/19/18 06/19/18 07:59 15:59 23:59 Intake Total 0 / 0 920 / 920 Output Total 200 / 200 400 / 400 Balance -200 / -200 520 / 520 Weight 64.9 kg - Attending Attestation I saw and evaluated this patient and my medical decision-making was reviewed with the Resident Physician. I agree with the documented findings, disposition and treatment plan as described except to the extent set forth below. We independently had [id number] contact with the patient Patient seen and examined at bedside Labs, radiology, chart personally reviewed. Management was reviewed during multidisciplinary critical care rounds. Patient has baseline oxygen dependent COPD patient has this mostly attenuation and groundglass opacity suggestive of bronchiolitis usually wide open/bacterial cause is the common his recent for bronchiolitis since a while panels negative is more a bacterial cause with sputum growing gram-negative gordon I suspect she might have aspiration if clinically warranted she might need a full barium swallow. Will discontinue vancomycin will add cefepime and levofloxacin for now the main reason I Levofloxacin as she grew stenotrophomonas in the past will wait for the full culture and sensitivity if the organism was not stenotrophomonas we will transition from levofloxacin to doxycycline. She will need a 2 week steroid taper on discharge. Pulmonary we will continue to follow. Thank you for the consultation.
[2018-06-19] MEDS: Cefepime HCl 1,000 MG in Water for inj. (sterile) 20 ML 10 ML IVP SCH (17:34)
[2018-06-20] MEDS: Cefepime HCl 1,000 MG in Water for inj. (sterile) 20 ML 10 ML IVP SCH ×2 (04:09→16:33)
[2018-06-20 04:35] LABS: Eosinophils % 0.4 %; Hematocrit 25.1 % (35.3-44.9); Hemoglobin 8.1 g/dL (11.5-15.4); Immature Granulocytes % 0.6 % (0-4); Lymphocytes # 1.5 K/mcL (0.6-4.6); Lymphocytes % 30.6 %; Mean Corpuscular HGB Conc 32.3 g/dL (31.6-35.5); Mean Corpuscular Hemoglobin 30.8 pg (28.0-33.3); Mean Corpuscular Volume 95.4 fL (83.0-100.0); Mean Platelet Volume 10.8 fL (9.4-12.4); Monocytes # 0.4 K/mcL (0.0-1.3); Neutrophils # 2.9 K/mcL (1.6-8.9); Platelet Count 236 K/mcL (140-400); Red Blood Count 2.63 M/mcL (3.82-4.97); Red Cell Distribution Width 14.4 % (11.5-14.5); Segmented Neutrophils % 60.4 %
[2018-06-20 04:55] LABS: BUN/Creatinine Ratio 17 (6-26); Blood Urea Nitrogen 14 mg/dL (8-23); Calcium 8.3 mg/dL (8.6-10.3); Carbon Dioxide 25 mEq/L (23-29); Chloride 109 mEq/L (98-107); Glucose 101 mg/dL (70-105); Osmolality,Calculated 289 (280-300); Potassium 3.6 mEq/L (3.5-5.1); Sodium 139 mEq/L (136-145); eGFR For Non-African Americans > 60 (> 60)
[2018-06-20] MEDS: Ipratropium/Albuterol Neb 3 ML IH SCH ×4 (05:04→21:27)
[2018-06-20] MEDS: Insulin LISPRO 300 UNITS/3 ML VIAL SQ SCH ×4 (08:33→21:56)
[2018-06-20] MEDS: Fluticasone Propionate Nasal 50 MCG/SPRAY BOTTLE NS SCH (08:44)
[2018-06-20] MEDS: Gabapentin 300 MG CAPSULE PO SCH ×2 (08:45→21:34)
[2018-06-20] MEDS: Furosemide 20 MG TABLET PO SCH (08:45)
[2018-06-20] MEDS: Isosorbide MONOnitrate (24 HR) 30 MG TAB.ER.24H PO SCH (08:45)
[2018-06-20] MEDS: hydrALAZINE 25 MG TABLET PO SCH (08:45)
[2018-06-20] MEDS: predniSONE 20 MG TABLET PO SCH (08:46)
[2018-06-20] MEDS: Pantoprazole 40 MG VIAL IVP SCH (08:46)
[2018-06-20] MEDS: Levofloxacin 750 MG/150 ML 750 MG/150 ML BAG IVPB SCH (08:49)
[2018-06-20] MEDS: Budesonide/Formoterol 80/4.5 MDI IH SCH ×2 (09:16→21:27)
--- NOTE | 2018-06-20 10:29 | Event Note ---
Date of Encounter: 06/20/18 Time of Encounter: 10:24 - Cardiology Event Note Cardiology consulted for anticoagulation recommendations with declining hemoglobin. Patient has history of CAD s/p [facility] 01/2017 without intervention, medical management was recommended at that time. Without recent PCI, ok to hold asa, plavix if concern for bleeding. Ideally, with CAD, would resume at least ASA prior to discharge. Consider GI/hematology evaluation. Cardiology will sign off.
[2018-06-20] MEDS ORDERED: Aminoglycoside Consult 1 EACH MC ONE (10:44)
--- NOTE | 2018-06-20 11:59 | Event Note ---
Date of Encounter: 06/20/18 Time of Encounter: 10:30 Patient sputum growing E coli sensitive to Augmentin will send her home om Augmentin for 14 days . To send her also on 2-3 week steroid taper . F/u pulmonology in 2-3 weeks . Pulmonary will sign off please call with questions.
--- NOTE | 2018-06-20 12:28 | Internal Med Progress Note ---
Hospitalist Progress Note - Encounter Date of Encounter: 06/20/18 Time of Encounter: 12:26 - Subjective Interval History: Patient is still coughing up a lot otherwise appear better. He still feels tiredness. On 2 L oxygen by nasal cannula. Complained of generalized weakness and tiredness. review of the lab with trending down hemoglobin after restarting aspirin yesterday . Hemoccult stool negative A sputum culture with Escherichia coli sensitive to penicillin denies fever chills vomiting headache chest pain abdominal pain urinary or bowel complaint. She also denies melena hematochezia - Exam Vitals: Temp Pulse Resp BP Pulse Ox 98.4 F 68 18 95/50 96 06/20/18 07:03 06/20/18 11:00 06/20/18 11:00 06/20/18 11:00 06/20/18 11:00 Exam: General appearance: No acute distress, A&O X 3. Oxygen by nasal cannula 2 L Eye exam: EOMI, PERRLA ENT exam: Moist oral mucosa Neck nontender, supple Respiratory exam: Bilateral crackles with decreased breath sound-better Cardiovascular exam: Regular rate and rhythm, no systolic murmur Abdominal exam: Soft, nontender, nondistended, positive bowel sounds Extremities exam: No calf tenderness, no pedal edema Present: Skin-no rash, warm, dry, intact Neurological exam: Alert, awake, oriented 3, CN II-XII intact, no focal deficits. No facial droop. Normal speech. - Assessment and Plan (1) Pneumonia Current Visit: Yes Status: Acute Assessment and Plan: History of Pseudomonas and Escherichia coli and a and stenotrophomonas in June 2017 and sensitive to Levaquin. A sputum culture with gram-negative ordered Vancomycin Levaquin and Zosyn was started on admission as broader spectrum coverage is as patient is high risk with multiple pneumonia in the past. normal white count therefore stopped Zosyn but will continue vancomycin and Levaquin until finally sputum culture reports available. Nasal swab positive for MRSA. Respiratory panel negative Urine Legionella and Streptococcus was ordered -report awaited Consulted manager utility - abnormal CTA as mentioned below-who is started cefepime yesterday. After reviewing a sputum culture he is recommending to discharge patient on Augmentin when ready. He also recommended for slow tapering his steroid. discharge-05/29/18 for possible CHF exacerbation April 2018 got admitted for pna Chest CTA 06/15/18 15:07 IMPRESSION: No evidence of pulmonary embolism. Multifocal tree-in-bud and ground-glass nodules throughout both lungs in all lobes with areas of more focal consolidation in the bilateral lower lobes suggesting an atypical pneumonia. Recommend follow-up to resolution. Cardiomegaly. (2) Anemia Current Visit: Yes Status: Acute Assessment and Plan: Initially Slowly trending down hemoglobin. On admission hemoglobin 10.5 and today 8.1. Stool occult negative. No active bleeding noticed. Patient is on aspirin and Plavix with history of CAD and A. fib-held aspirin and Plavix initially. Resumed baby aspirin today and is started to trend down hemoglobin 0.8 overnight with no active GI bleed. Consulted cardiology for the recommendation about anticoagulation therapy. GI also consulted to rule out any GI bleed. Will keep patient on clear liquid diet, IV Protonix 40 mg twice a day, hold aspirin and Plavix today and monitor CBC. (3) Acute exacerbation of chronic obstructive airways disease Current Visit: Yes Status: Acute (4) Altered mental status Current Visit: Yes Status: Acute Assessment and Plan: Improving appear to be in baseline . Most likely metabolic encephalopathy due to underlying infection pneumonia. Continue to monitor (5) Hypotension Current Visit: Yes Status: Acute Assessment and Plan: Accidental overdose of antihypertensive medicine. Blood pressure is started to became normalized even higher therefore resumed home medicine. Today again low blood pressure therefore hold hydralazine, lisinopril, Lasix. Needs to get admitted just antihypertensive medicine before discharge . The blood pressure is started to rise then will reintroduce Lasix or ALEXANDER inhibitor first and see the response. Close monitoring of BP (6) Atrial fibrillation Current Visit: Yes Status: Chronic Assessment and Plan: Controlled heart rate. Continue home medicine as mentioned above. (7) CAD (coronary artery disease) Current Visit: Yes Status: Chronic Assessment and Plan: History of ischemic cardiomyopathy any. 40-45% per previous report. [place] CAD. [facility] January 2017-and recommended medical therapy. No active chest pain Cardiology consulted for recommendation of anticoagulation therapy . (8) Hospice care patient Current Visit: Yes Status: Acute Assessment and Plan: Patient lives at home with his son on hospice due to advanced COPD. patient is under care of in [facility] hospice since recently 05/27/2018 (9) DVT prophylaxis Current Visit: Yes Status: Acute Assessment and Plan: SCDs (10) Goals of care, counseling/discussion Current Visit: Yes Status: Acute Assessment and Plan: Her pneumonia is getting better and manager utility signed off with Augmentin and slow tapering his steroid medicine on discharge. There is concern for GI bleed with trending down hemoglobin but Hemoccult negative. Consulted GI and also pipe stem sawyer for further workup and recommendations regarding anticoagulation. - Time Spent with Patient Total time spent is greater than 50% in coordination of care (as documented) at patient's floor/unit and/or counseling patient: Greater than 35 minutes (Spent almost 38 minute inpatient care and communication with consultants as mentioned above) Internal Medicine: Result - Labs CBC & Chem 7: 06/20/18 04:10 06/20/18 04:10 Labs: Short CBC 06/20/18 Range/Units 04:10 WBC 4.7 (4.3-11.1) K/mcL Hgb 8.1 L (11.5-15.4) g/dL Hct 25.1 L (35.3-44.9) % Plt Count 236 (140-400) K/mcL Neutrophils # 2.9 (1.6-8.9) K/mcL BMP 06/20/18 04:10 Sodium 139 Potassium 3.6 Chloride 109 H Carbon Dioxide 25 BUN 14 Creatinine 0.83 Glucose 101 Calcium 8.3 L - ABG Interpretation ABG results: ABG ABG pH 7.45 pH Units (7.32-7.45) 06/15/18 11:58 ABG pCO2 37 mmHg (35-45) 06/15/18 11:58 ABG pO2 69 mmHg (85-104) L 06/15/18 11:58 ABG O2 Saturation 94 % (95-98) L 06/15/18 11:58 PT/INR, D-dimer PT 12.4 Seconds (9.4-12.1) H 06/15/18 12:30 Consult Discharge Plan - Plan Referrals: Arley Awan MD [Primary Care Provider] - (1) Pneumonia Qualifiers: Pneumonia type: due to unspecified organism Laterality: unspecified la terality Lung location: unspecified part of lung Qualified Code(s): J18.9 - Pneumonia, unspecified organism (2) Anemia Qualifiers: Anemia type: unspecified type Qualified Code(s): D64.9 - Anemia, unspecified (4) Altered mental status Qualifiers: Altered mental status type: unspecified Qualified Code(s): R41.82 - Altered mental status, unspecified (5) Hypotension Qualifiers: Hypotension type: orthostatic hypotension Qualified Code(s): I95.1 - Orthostatic hypotension (6) Atrial fibrillation Qualifiers: Atrial fibrillation type: chronic Qualified Code(s): I48.2 - Chronic atrial fibrillation (7) CAD (coronary artery disease) Qualifiers: Coronary Disease-Associated Artery/Lesion type: [place] artery [place] vs. transplanted heart: [place] heart Associated angina: without angina Qualified Code(s): I25.10 - Atherosclerotic heart disease of [place] coronary artery without angina pectoris
[2018-06-20] MEDS: Aspirin 81 MG TAB.CHEW PO SCH (12:59)
[2018-06-21] MEDS: Cefepime HCl 1,000 MG in Water for inj. (sterile) 20 ML 10 ML IVP SCH (03:59)
[2018-06-21] MEDS: Ipratropium/Albuterol Neb 3 ML IH SCH ×4 (04:33→21:21)
[2018-06-21] MEDS: Pantoprazole 40 MG VIAL IVP SCH (08:13)
[2018-06-21] MEDS: predniSONE 20 MG TABLET PO SCH (08:13)
[2018-06-21] MEDS: Isosorbide MONOnitrate (24 HR) 30 MG TAB.ER.24H PO SCH (08:13)
[2018-06-21] MEDS: Levofloxacin 750 MG/150 ML 750 MG/150 ML BAG IVPB SCH (08:14)
[2018-06-21] MEDS: Fluticasone Propionate Nasal 50 MCG/SPRAY BOTTLE NS SCH (08:22)
[2018-06-21] MEDS: Gabapentin 300 MG CAPSULE PO SCH ×2 (08:23→21:29)
[2018-06-21] MEDS: Insulin LISPRO 300 UNITS/3 ML VIAL SQ SCH ×4 (08:23→21:22)
--- NOTE | 2018-06-21 09:41 | Discharge Summary ---
- NOTES TO OUTPATIENT PROVIDER Notes to Outpatient Provider: Asprin was stopped and kept only on plavix. Hemoglobin is slowly dropping. No signs of bleeding. FOBT negative. Patient did not want to see GI and would not want to be scoped. She wanted to go home. Date of Encounter: 06/21/18 Time of Encounter: 09:39 - Discharge Diagnosis (1) Altered mental status Priority: Primary Status: Acute Qualifiers: Altered mental status type: unspecified Qualified Code(s): R41.82 - Altered mental status, unspecified (2) Pneumonia Priority: Primary Status: Acute Qualifiers: Pneumonia type: due to unspecified organism Laterality: unspecified laterality Lung location: unspecified part of lung Qualified Code(s): J18.9 - Pneumonia, unspecified organism (3) Acute exacerbation of chronic obstructive airways disease Priority: Primary Status: Acute (4) Atrial fibrillation Priority: Secondary Status: Chronic Qualifiers: Atrial fibrillation type: chronic Qualified Code(s): I48.2 - Chronic atrial fibrillation (5) Hypotension Priority: Primary Status: Acute Qualifiers: Hypotension type: orthostatic hypotension Qualified Code(s): I95.1 - Orthostatic hypotension (6) CAD (coronary artery disease) Priority: Secondary Status: Chronic Qualifiers: Coronary Disease-Associated Artery/Lesion type: [place] artery [place] vs. transplanted heart: [place] heart Associated angina: without angina Qualified Code(s): I25.10 - Atherosclerotic heart disease of [place] coronary artery without angina pectoris (7) Anemia Priority: Primary Status: Acute Qualifiers: Anemia type: unspecified type Qualified Code(s): D64.9 - Anemia, unspecified (8) Hospice care patient Priority: Secondary Status: Acute Hospital course: Ms. Espinal is a 82 year old female who has history of COPD on 2 L nasal cannula, hypertension, she lives at home with his son on hospice presented to the ED with shortness of breath that started in the morning of her admission. The patient was admitted for COPD exacerbation and pneumonia. She was put on broad-spectrum IV antibiotics. She was requiring 7 L of nasal cannula oxygen initially. Consult to pulmonology was obtained as well. Oxygen was weaned as tolerated. She is back on her baseline 2 L nasal cannula oxygen at discharge. Cultures grew Escherichia coli from the sputum. Was sensitive to Augmentin upper on 5 more days of that at discharge. The patient is on chronic prednisone. The patient otherwise was noted to have slowly dropping hemoglobin. She did not want to see GI as she was not interested in any scoping if that was offered. Her fecal occult blood test was negative. I did stop her aspirin control only on Plavix for history of coronary artery disease. She was discharged on Augmentin as I mentioned above on 06/21/2018. - Time Spent with Patient Total time spent providing and/or coordinating discharge services: Greater than 30 minutes - Discharge Medications Prescriptions: Amoxicillin/Clavulanate [Augmentin] 875 mg PO BIDWM #10 tablet Home Medications: Atorvastatin [Lipitor] 20 mg PO HS 02/23/15 [History] Fluticasone/Salmeterol [Advair 250-50 Diskus] 1 each IH BID 02/23/15 [History] Gabapentin [Neurontin] 600 mg PO BID 02/23/15 [History] Multivit-Min/FA/Lycopen/Lutein [Centrum Silver Tablet] 1 each PO DAILY 02/23/15 [History] Isosorbide MONOnitrate (24 HR) [Imdur] 30 mg PO DAILY 07/01/15 [History] Fluticasone Propionate Nasal [Flonase] 2 spray NS DAILY 05/13/16 [History] Levalbuterol Tartrate [Xopenex Hfa] 2 puff IH TID 05/13/16 [History] Umeclidinium [place] [Incruse Ellipta] 1 puff IH DAILY 05/13/16 [History] Raloxifene [Evista] 60 mg PO DAILY 01/15/17 [History] Albuterol Sulfate [Ventolin Hfa] 2 puff IH Q4-6H PRN 10/20/17 [History] Lisinopril [Zestril] 5 mg PO DAILY #30 tablet 10/23/17 [Rx] Montelukast [Singulair] 10 mg PO DAILY 04/24/18 [History] hydrALAZINE [HydrALAZINE] 25 mg PO BID 04/24/18 [History] Clopidogrel [Plavix] 75 mg PO DAILY 05/25/18 [History] Docusate [Colace] 100 mg PO DAILY 05/25/18 [History] GuaiFENesin ER [Mucinex] 600 mg PO BID 05/25/18 [History] Hydrocodone/Acetaminophen [[place] 5-325 Tablet] 1 tab PO TID PRN 05/25/18 [History] Furosemide [Lasix] 20 mg PO DAILY #0 05/29/18 [Rx] Amoxicillin/Clavulanate [Augmentin] 875 mg PO BIDWM #10 tablet 06/21/18 [Rx] Allergies/Adverse Reactions: Allergy/AdvReac Type Severity Reaction Status Date / Time No Known Allergies Allergy Verified 07/20/17 11:59 Date of admission: 06/16/18 12:13 Primary care physician: Arley Awan MD Consults: 06/20/18 09:12 Consult to Occupational Therapy [CONS] Routine Comment: Evaluate, develop and implement POC Reason for Consult: eval and treat Does patient have active BEDREST order?: No Is patient medically & hemodynamically stable?: Yes Consult to Physical Therapy [CONS] Routine Comment: Evaluate, develop and implement POC Reason for Consult: eval and treat Does patient have active BEDREST order?: No Is patient medically & hemodynamically stable?: Yes 06/15/18 11:35 Consult to Invasive Line Access Team [CONS] Routine Reason for Consult: Picc Line Insertion Line Type: EPIV 06/15/18 13:13 Consult to Invasive Line Access Team [CONS] Routine Reason for Consult: poor access Line Type: EPIV 06/17/18 10:44 Consult to Respiratory Therapy [CONS] Routine Reason for Consult: Chest toileting, flutter treatment Call Completed: No 06/19/18 11:43 Consult to Pulmonology [CONS] Routine Consulting Provider: [facility] Reason for Consult: Bilateral pneumonia Call Completed: Yes - Constitutional Vitals: Temp Pulse Resp BP Pulse Ox 97.5 F L 57 19 140/72 93 06/21/18 08:00 06/21/18 08:00 06/21/18 08:00 06/21/18 08:00 06/21/18 08:41 General appearance: Present: A&O X 2, pleasant, underweight Exam: GEN: NAD CVS: RRR. S1, S2, No m/r/g RESP: CTAB ABD: Soft, NT, ND, +BS EXT: No edema. 2+ DP. No rashes NEURO: Nonfocal - Patient Status Disposition: Hospice - Home Condition: Fair Overall status at discharge: patient is progressing back to baseline - Discharge Instructions Follow Up With: Arley Awan MD [Primary Care Provider] - - Diet and Activity Activity: increase activity as tolerated, wear oxygen at all times Diet: low salt diet
[2018-06-21] MEDS: Budesonide/Formoterol 80/4.5 MDI IH SCH ×2 (10:53→21:21)
--- NOTE | 2018-06-21 10:56 | Physician Discharge Referral ---
Home Health/Hosp Referral Info Transfer to: Hospice - Diagnosis (1) Altered mental status Priority: Primary Status: Acute (2) Pneumonia Priority: Primary Status: Acute (3) Acute exacerbation of chronic obstructive airways disease Priority: Primary Status: Acute (4) Atrial fibrillation Priority: Primary Status: Chronic (5) Hypotension Priority: Primary Status: Acute (6) CAD (coronary artery disease) Priority: Secondary Status: Chronic (7) Anemia Priority: Primary Status: Acute (8) Hospice care patient Priority: Secondary Status: Acute - Respiratory Orders Smoking Cessation: Smoking cessation has been advised. For more information, call the [place] Tobacco Quit Line at 1-750-GYSQ-NOW. - Services Needed Home Care Orders: Hospice - Transfer Medications Prescriptions: Amoxicillin/Clavulanate [Augmentin] 875 mg PO BIDWM #10 tablet Home Medications: Atorvastatin [Lipitor] 20 mg PO HS 02/23/15 [History] Fluticasone/Salmeterol [Advair 250-50 Diskus] 1 each IH BID 02/23/15 [History] Gabapentin [Neurontin] 600 mg PO BID 02/23/15 [History] Multivit-Min/FA/Lycopen/Lutein [Centrum Silver Tablet] 1 each PO DAILY 02/23/15 [History] Isosorbide MONOnitrate (24 HR) [Imdur] 30 mg PO DAILY 07/01/15 [History] Fluticasone Propionate Nasal [Flonase] 2 spray NS DAILY 05/13/16 [History] Levalbuterol Tartrate [Xopenex Hfa] 2 puff IH TID 05/13/16 [History] Umeclidinium [place] [Incruse Ellipta] 1 puff IH DAILY 05/13/16 [History] Raloxifene [Evista] 60 mg PO DAILY 01/15/17 [History] Albuterol Sulfate [Ventolin Hfa] 2 puff IH Q4-6H PRN 10/20/17 [History] Lisinopril [Zestril] 5 mg PO DAILY #30 tablet 10/23/17 [Rx] Montelukast [Singulair] 10 mg PO DAILY 04/24/18 [History] hydrALAZINE [HydrALAZINE] 25 mg PO BID 04/24/18 [History] Clopidogrel [Plavix] 75 mg PO DAILY 05/25/18 [History] Docusate [Colace] 100 mg PO DAILY 05/25/18 [History] GuaiFENesin ER [Mucinex] 600 mg PO BID 05/25/18 [History] Hydrocodone/Acetaminophen [[place] 5-325 Tablet] 1 tab PO TID PRN 05/25/18 [History] Furosemide [Lasix] 20 mg PO DAILY #0 05/29/18 [Rx] Amoxicillin/Clavulanate [Augmentin] 875 mg PO BIDWM #10 tablet 06/21/18 [Rx] Allergies/Adverse Reactions: Allergy/AdvReac Type Severity Reaction Status Date / Time No Known Allergies Allergy Verified 07/20/17 11:59 Certification: Further, I certify that my clinical findings support that this patient is homebound (i.e. absences from home require considerable and taxing effort and are for medical reasons or congregation services or infrequently or short duration when for other reasons) because: Homebound Reason: Patient requires assistance of a person or device to safely leave home Attestation: My signature below is to certify that this patient is under my care and that I, or nurse practitioner, or a physician's floor covering printer assistant working with me, has a [id number] encounter with this patient.
--- NOTE | 2018-06-21 11:09 | Gastroenterology Consult Note ---
Date of Encounter: 06/21/18 Time of Encounter: 09:40 - Assessment and plan (1) Anemia Current Visit: Yes Status: Acute Assessment and plan: On admission Hgb 10.5. This AM Hgb 8.1. Continue to monitor CBC and transfuse PRBC as needed. Plan for EGD today to r/o esophagitis, gastritis, duodenitis, PUD, MW tear, or AVM. Patient was agreeable to EGD today. Keep patient NPO. Qualifiers: Anemia type: unspecified type Qualified Code(s): D64.9 - Anemia, unspecified (2) Pneumonia Current Visit: Yes Status: Acute Assessment and plan: Management per primary team and Pulmonology. Qualifiers: Pneumonia type: due to unspecified organism Laterality: unspecified laterality Lung location: unspecified part of lung Qualified Code(s): J18.9 - Pneumonia, unspecified organism - Time Spent With Patient Total time spent is greater than 50% in coordination of care (as documented) at patient's floor/unit and/or counseling patient: GI History of Present Illness - Data of Consult Patient: new to practice Consult date: 06/21/18 Requesting Physician: Robert Cancino MD - Consult Narrative Reason for consult: decreasing Hgb History of present illness: Ms. Espinal is a 82 year old female with PMHx of arthritis, asthma, Afib, CHF, COPD, CAD, GERD, HLD, HTN who presented to the ED with shortness of breath. CTA demonstrated multifocal tree-in-bud and ground-glass nodules throughout both lungs in all lobes with areas of more focal consolidation in bilateral lower l obes, suggesting an atypical pneumonia. Pulmonology was consulted. We were consulted to evaluate decreasing Hgb. On admission Hgb 10.5 and this AM Hgb 8.1. Patient denies any abdominal pain, nausea, vomiting, GERD, diarrhea, melena, hematochezia. Fecal occult blood test was negative. Procedures: None NSAIDs: ASA Anticoagulation: Plavix Past Med Surg Social Fam HX - Past Medical History Medical history: arthritis, asthma, atrial fibrillation, CHF, COPD, coronary artery disease, GERD, hyperlipidemia, hypertension, osteoporosis Psychiatric history: depression - Past Surgical History Surgical History: breast surgery, , herniorrhaphy, hysterectomy Additional surgical history: breast - Social History Smoking Status: Former smoker Smokeless Tobacco Status: No Alcohol use: none Drug use: none - Family History Father Adopted: No Family Member Ethnicity: Non- Living Status: Hx Family Cardiac Disorders: Yes Hx Family Respiratory Disorders: Yes Hx Family Cancer: No Hx Family GI Disorders: No Hx Family Genitourinary Disorders: No Hx Family Endocrine Disorder: No Hx Family Musculoskeletal Disorders: No Hx Family Neuromuscular Disorders: No Hx Family Neurologic Disorders: No Hx Family HEENT Disorders: No Hx Family Autoimmune Disorders: No Hx Family Reproductive Disorders: No Hx Family Psychosocial Disorders: No Hx Family Medical Disorders: No Mother Adopted: No Family Member Ethnicity: Non- Living Status: Hx Family Cardiac Disorders: No Hx Family Respiratory Disorders: Yes Hx Family Cancer: No Hx Family GI Disorders: No Hx Family Genitourinary Disorders: No Hx Family Endocrine Disorder: Yes Hx Family Musculoskeletal Disorders: No Hx Family Neuromuscular Disorders: No Hx Family Neurologic Disorders: No Hx Family HEENT Disorders: No Hx Family Autoimmune Disorders: No Hx Family Reproductive Disorders: No Hx Family Psychosocial Disorders: No Hx Family Medical Disorders: No - Gastrointestinal Gastrointestinal: Present: as per HPI - Constitutional Constitutional: as per HPI - EENT Eyes: as per HPI Ears: Present: as per HPI Nose, mouth and throat: Present: as per HPI - Cardiovascular Cardiovascular ROS: Present: as per HPI - Respiratory Respiratory IM: Present: as per HPI - Genitourinary Genitourinary: Absent: change in color, Urinary frequency - Neurological ROS Neurological GI: Present: as per HPI - Hematologic/Lymphatic Hematologic/Lymphatic pediatric: Present: as per HPI - Musculoskeletal Musculoskeletal ROS GI: Present: as per HPI - Integumentary Integumentary GI: Present: as per HPI - Psychiatric ROS Psychiatric GI: Present: as per HPI - Endocrine Endocrine IM: Present: as per HPI - Constitutional Vitals: Temp Pulse Resp BP Pulse Ox 97.5 F L 57 14 140/72 93 06/21/18 08:00 06/21/18 08:00 06/21/18 10:54 06/21/18 08:00 06/21/18 10:54 General appearance: Present: cooperative, A&O X 3, no acute distress, answers questions appropriately - Head Head exam: Present: atraumatic, normocephalic - Eye Eye exam: Present: normal appearance, sclera anicteric - ENT ENT exam: Present: mucous membranes dry - Neck Neck exam general surgery: Present: normal inspection, trachea midline - Respiratory Respiratory exam: Present: decreased breath sounds, rhonchi - Cardiovascular Cardiovascular exam: Present: RRR, +S1, +S2 - GI/Abdominal GI/Abdominal exam: Present: soft, no peritoneal signs. Absent: distended, firm, guarding, tenderness - Rectal Rectal exam: Present: deferred - Extremities Exam Extremities exam: Present: warm - Neurological Exam Neurological exam: Present: no focal deficits - Psychiatric Psychiatric exam: Present: normal affect, normal mood - Skin Skin exam: Present: dry, intact, normal color, warm Results - Labs CBC & Chem 7: 06/20/18 04:10 06/20/18 04:10 Labs: Last Result Calcium 8.3 mg/dL (8.6-10.3) L 06/20/18 04:10 Troponin I < 0.03 ng/mL (< 0.04) 06/16/18 02:57 Stool Occult Blood Negative (Negative) 06/19/18 09:15 Entire Visit Hgb 8.1 g/dL (11.5-15.4) L 06/20/18 04:10 Hct 25.1 % (35.3-44.9) L 06/20/18 04:10 PT 12.4 Seconds (9.4-12.1) H 06/15/18 12:30 Total Bilirubin 0.9 mg/dL (0.3-1.0) 06/15/18 12:30 AST 14 Units/L (13-39) 06/15/18 12:30 ALT 8 Units/L (7-52) 06/15/18 12:30 - ABG ABG results: ABG ABG pH 7.45 pH Units (7.32-7.45) 06/15/18 11:58 ABG pCO2 37 mmHg (35-45) 06/15/18 11:58 ABG pO2 69 mmHg (85-104) L 06/15/18 11:58 ABG O2 Saturation 94 % (95-98) L 06/15/18 11:58 PT/INR, D-dimer PT 12.4 Seconds (9.4-12.1) H 06/15/18 12:30 Consult Discharge Plan - Plan Instructions: Amoxicillin/Clavulanate Potassium (By mouth), Heart Failure (DC), Chronic Obstructive Pulmonary Disease (DC), Pneumonia (DC) Referrals: Arley Awan MD [Primary Care Provider] - 06/30/18 11:15 am Prescriptions: Amoxicillin/Clavulanate [Augmentin] 875 mg PO BIDWM #10 tablet
[2018-06-21] MEDS: 0.9 % Sodium Chloride 500 ML IVC SCH (12:56)
--- NOTE | 2018-06-21 13:02 | Anesthesia Evaluation PreOp ---
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: Denies Any Significant HX Other Medical History: GERD Anesthesia History: No Prior Anesthetic Complications, Past Anesthesia Alcohol Use: none Drug use: none Medications and Allergies Atorvastatin [Lipitor] 20 mg PO HS 02/23/15 [History] Fluticasone/Salmeterol [Advair 250-50 Diskus] 1 each IH BID 02/23/15 [History] Gabapentin [Neurontin] 600 mg PO BID 02/23/15 [History] Multivit-Min/FA/Lycopen/Lutein [Centrum Silver Tablet] 1 each PO DAILY 02/23/15 [History] Isosorbide MONOnitrate (24 HR) [Imdur] 30 mg PO DAILY 07/01/15 [History] Fluticasone Propionate Nasal [Flonase] 2 spray NS DAILY 05/13/16 [History] Levalbuterol Tartrate [Xopenex Hfa] 2 puff IH TID 05/13/16 [History] Umeclidinium [place] [Incruse Ellipta] 1 puff IH DAILY 05/13/16 [History] Raloxifene [Evista] 60 mg PO DAILY 01/15/17 [History] Albuterol Sulfate [Ventolin Hfa] 2 puff IH Q4-6H PRN 10/20/17 [History] Lisinopril [Zestril] 5 mg PO DAILY #30 tablet 10/23/17 [Rx] Montelukast [Singulair] 10 mg PO DAILY 04/24/18 [History] hydrALAZINE [HydrALAZINE] 25 mg PO BID 04/24/18 [History] Clopidogrel [Plavix] 75 mg PO DAILY 05/25/18 [History] Docusate [Colace] 100 mg PO DAILY 05/25/18 [History] GuaiFENesin ER [Mucinex] 600 mg PO BID 05/25/18 [History] Hydrocodone/Acetaminophen [[place] 5-325 Tablet] 1 tab PO TID PRN 05/25/18 [History] Furosemide [Lasix] 20 mg PO DAILY #0 05/29/18 [Rx] Amoxicillin/Clavulanate [Augmentin] 875 mg PO BIDWM #10 tablet 06/21/18 [Rx] Allergy/AdvReac Type Severity Reaction Status Date / Time No Known Allergies Allergy Verified 07/20/17 11:59 - Meds/Allergy Pre-op Review Medications Reviewed: Yes Allergies Reviewed: Yes Beta Blockers on Current Med List: No Anesthesia Results - Labs 06/20/18 04:10 06/20/18 04:10 - Imaging EKG: report reviewed (06/15/2018 Atrial fibrillation Nonspecific IVCD with LAD LVH with secondary repolarization abnormality Anterior infarct, old) Additional studies: 04/25/2018 Echo Impressions: LVEF grossly 40-45%. Mild global left ventricular systolic dysfunction. Moderate left ventricular diastolic dysfunction. Mildly dilated right ventricle with mild hypokinesis. Mildly dilated left atrium. Moderately dilated right atrium. Mild tricuspid regurgitation. Mild pulmonary hypertension. Recommend LV contrast for accurate EF evaluation and wall motion. 01/18/2017 Left Heart Cath Impressions: Single vessel coronary artery disease. 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 Nonischemic cardiomyopathy. The left ventricle is enlarged and has severely abnormal contractility EF 30% Recommendations: Optimal medical therapy of patient's disease. Aggressive risk factor modification. Anesthesia Exam Vital Signs/O2 Sat/Glucose, Most Recent Temp Pulse Resp BP Pulse Ox 97.5 F L 59 16 138/66 98 06/21/18 08:00 06/21/18 12:53 06/21/18 12:53 06/21/18 12:53 06/21/18 12:53 Blood Glucose* 116 Height: 5'2''/1.57m Weight: 141 lbs/64.2 kg NPO (# of Hours): 8 Pain Scale: 0 Pain Scale Used: Numeric (1 - 10) - HEENT Pupil (Motor): EOMI Mallampati: II Teeth: Edentulous Denture Type: Upper: Complete, Lower: Complete Oral Opening: Greater than 3 - SHOEMAKER APPRENTICE LOC: Oriented SHOEMAKER APPRENTICE Motor: Normal RUE, Normal LUE, Normal RLE, Normal LLE, Normal Face SHOEMAKER APPRENTICE Sensory: Normal: RUE, LUE, RLE, LLE, Face - Cardiac Rhythm: Regular Murmur: None - Pulmonary Breath Sounds: bilateral Rhonchi Respiratory Effort: Symmetrical Anesthesia Assess/Plan ASA Score: 4 Level of consciousness: Cooperative, Oriented, Tranquil Anesthetic Plan: MAC Monitoring Plan: Standard Monitors
[2018-06-21] MEDS ORDERED: *HR* Propofol 200 MG/20 ML VIAL IVP ONE (13:14)
[2018-06-21] MEDS ORDERED: Lidocaine -MPF 2% 2 ML VIAL ONE (13:14)
[2018-06-21] MEDS ORDERED: Tetracaine/Benzocaine/Butamben 1 SPRAY AEROSOL MM ONE (13:29)
[2018-06-22] MEDS: Ipratropium/Albuterol Neb 3 ML IH SCH ×2 (04:06→10:33)
[2018-06-22] MEDS: 0.9 % Sodium Chloride 500 ML IVC SCH (07:59)
[2018-06-22] MEDS: Insulin LISPRO 300 UNITS/3 ML VIAL SQ SCH ×2 (08:24→11:53)
--- NOTE | 2018-06-22 08:42 | Internal Med Progress Note ---
Hospitalist Progress Note - Encounter Date of Encounter: 06/22/18 Time of Encounter: 08:00 - Subjective Interval History: Patient was seen and examined. D/c held yesterday as she changed her mind and was ok with EGD. EGD only showed gastritis. Awaiting CBC this am. - Exam Vitals: Temp Pulse Resp BP Pulse Ox 97.9 F 51 16 167/81 94 06/22/18 07:31 06/22/18 07:31 06/22/18 07:31 06/22/18 07:31 06/22/18 07:31 Exam: GEN: NAD CVS: RRR. S1, S2, No m/r/g RESP: CTAB ABD: Soft, NT, ND, +BS EXT: No edema. 2+ DP. No rashes NEURO: Nonfocal - Assessment and Plan (1) Altered mental status Status: Acute Assessment and Plan: Resolved. (2) Pneumonia Status: Acute Assessment and Plan: To be discharged on augmentin (3) Acute exacerbation of chronic obstructive airways disease Status: Acute Assessment and Plan: st (4) Atrial fibrillation Status: Chronic (5) Hypotension Status: Acute (6) CAD (coronary artery disease) Status: Chronic (7) Anemia Status: Acute (8) Hospice care patient Status: Acute - Time Spent with Patient Total time spent is greater than 50% in coordination of care (as documented) at patient's floor/unit and/or counseling patient: Internal Medicine: Result - Labs CBC & Chem 7: 06/22/18 11:34 06/20/18 04:10 - ABG Interpretation ABG results: ABG ABG pH 7.45 pH Units (7.32-7.45) 06/15/18 11:58 ABG pCO2 37 mmHg (35-45) 06/15/18 11:58 ABG pO2 69 mmHg (85-104) L 06/15/18 11:58 ABG O2 Saturation 94 % (95-98) L 06/15/18 11:58 PT/INR, D-dimer PT 12.4 Seconds (9.4-12.1) H 06/15/18 12:30 Consult Discharge Plan - Plan Instructions: Amoxicillin/Clavulanate Potassium (By mouth), Heart Failure (DC), Chronic Obstructive Pulmonary Disease (DC), Pneumonia (DC) Referrals: Arley Awan MD [Primary Care Provider] - 06/30/18 11:15 am Prescriptions: Amoxicillin/Clavulanate [Augmentin] 875 mg PO BIDWM #10 tablet (1) Altered mental status Qualifiers: Altered mental status type: unspecified Qualified Code(s): R41.82 - Altered mental status, unspecified (2) Pneumonia Qualifiers: Pneumonia type: due to unspecified organism Laterality: unspecified laterality Lung location: unspecified part of lung Qualified Code(s): J18.9 - Pneumonia, unspecified organism (4) Atrial fibrillation Qualifiers: Atrial fibrillation type: chronic Qualified Code(s): I48.2 - Chronic atrial fibrillation (5) Hypotension Qualifiers: Hypotension type: orthostatic hypotension Qualified Code(s): I95.1 - Orthostatic hypotension (6) CAD (coronary artery disease) Qualifiers: Coronary Disease-Associated Artery/Lesion type: [place] artery [place] vs. transplanted heart: [place] heart Associated angina: without angina Qualified Code(s): I25.10 - Atherosclerotic heart disease of [place] coronary artery without angina pectoris (7) Anemia Qualifiers: Anemia type: unspecified type Qualified Code(s): D64.9 - Anemia, unspecified
[2018-06-22] MEDS: Gabapentin 300 MG CAPSULE PO SCH (09:20)
[2018-06-22] MEDS: Fluticasone Propionate Nasal 50 MCG/SPRAY BOTTLE NS SCH (09:20)
[2018-06-22] MEDS: Aspirin 81 MG TAB.CHEW PO SCH (09:20)
[2018-06-22] MEDS: predniSONE 20 MG TABLET PO SCH (09:22)
[2018-06-22] MEDS: Furosemide 20 MG TABLET PO SCH (09:22)
[2018-06-22] MEDS: hydrALAZINE 25 MG TABLET PO SCH (09:22)
[2018-06-22] MEDS: Isosorbide MONOnitrate (24 HR) 30 MG TAB.ER.24H PO SCH (09:23)
[2018-06-22] MEDS: Pantoprazole 40 MG VIAL IVP SCH (09:23)
[2018-06-22] MEDS: Budesonide/Formoterol 80/4.5 MDI IH SCH (10:34)
[2018-06-22 11:20] VITALS: BP 136/67
[2018-06-22 11:52] LABS: Basophils % 0.3 %; Eosinophils # 0.1 K/mcL (0.0-0.6); Eosinophils % 1.2 %; Hematocrit 29.8 % (35.3-44.9); Hemoglobin 9.5 g/dL (11.5-15.4); Immature Granulocytes % 0.9 % (0-4); Lymphocytes # 2.1 K/mcL (0.6-4.6); Lymphocytes % 23.4 %; Mean Corpuscular HGB Conc 31.9 g/dL (31.6-35.5); Mean Corpuscular Hemoglobin 30.4 pg (28.0-33.3); Mean Corpuscular Volume 95.2 fL (83.0-100.0); Monocytes # 0.6 K/mcL (0.0-1.3); Monocytes % 6.4 %; Neutrophils # 6.1 K/mcL (1.6-8.9); Platelet Count 295 K/mcL (140-400); Red Blood Count 3.13 M/mcL (3.82-4.97); Red Cell Distribution Width 14.5 % (11.5-14.5); Segmented Neutrophils % 67.8 %
== END 2018-06-22 13:15 | disposition hospice, home (50) | DRG 177 ==
LOC: EMEROOARM 11:28 → 2NENU 11:28 → SUATTDRO 06-16 12:13
PROVIDERS: ADMIT Hospitalist; ATTEND Internal Medicine
PROC: ENDOEBX (2018-06-21 13:30)

== ENCOUNTER 2018-07-21 10:13 | Inpatient (IN) ==
--- NOTE | 2018-07-21 10:26 | Emergency Department Note ---
Disposition Clinical Impression: HCAP (healthcare-associated pneumonia) Sepsis Qualifiers: Sepsis type: sepsis due to unspecified organism Qualified Code(s): A41.9 - Se psis, unspecified organism Altered mental status Qualifiers: Altered mental status type: unspecified Qualified Code(s): R41.82 - Altered mental status, unspecified Disposition: Admitted As Inpatient Condition: Serious Time of Disposition: 12:25 General Adult HPI - General Chief complaint: ED Altered Mental Status Stated complaint: fall out of bed / confusion Time Seen by Provider: 07/21/18 10:18 Source: EMS Mode of arrival: EMS Limitations: altered mental status Nursing Notes Reviewed: Yes Vital Signs Reviewed: Yes - History of Present Illness HPI Narrative: 82 yo female with past medical history of CHF, COPD, and NSTEMI presents to the emergency department via EMS for fall out of bed and altered mental status. The EMS crew that brought her in today also saw her 3 days ago for worsening conditions state that she was alert and oriented 3 for them at that time and that she refused to come into the emergency room. They state her mental status today has declined as she is very confused. Her son called them today because he found her on the floor next to her bed. The patient does not even better following that. Time down is unknown. The patient is currently alert only to herself. - Related Data Home Medications Medication Instructions Recorded Confirmed Atorvastatin [Lipitor] 20 mg PO HS 02/23/15 07/04/18 Fluticasone/Salmeterol [Advair 1 each IH BID 02/23/15 07/04/18 250-50 Diskus] Gabapentin [Neurontin] 600 mg PO BID 02/23/15 07/04/18 Multivit-Min/FA/Lycopen/Lutein 1 each PO DAILY 02/23/15 07/04/18 [Centrum Silver Tablet] Isosorbide MONOnitrate (24 HR) 30 mg PO DAILY 07/01/15 07/04/18 [Imdur] Fluticasone Propionate Nasal 2 spray NS DAILY 05/13/16 07/04/18 [Flonase] Levalbuterol Tartrate [Xopenex Hfa] 2 puff IH TID 05/13/16 07/04/18 Umeclidinium [place] [Incruse 1 puff IH DAILY 05/13/16 07/04/18 Ellipta] Raloxifene [Evista] 60 mg PO DAILY 01/15/17 07/04/18 Albuterol Sulfate [Ventolin Hfa] 2 puff IH Q4-6H PRN 10/20/17 07/04/18 Montelukast [Singulair] 10 mg PO DAILY 04/24/18 07/04/18 hydrALAZINE [HydrALAZINE] 25 mg PO BID 04/24/18 07/04/18 Clopidogrel [Plavix] 75 mg PO DAILY 05/25/18 07/04/18 Docusate [Colace] 100 mg PO DAILY 05/25/18 07/04/18 GuaiFENesin ER [Mucinex] 600 mg PO BID 05/25/18 07/04/18 Hydrocodone/Acetaminophen [[place] 1 tab PO TID PRN 05/25/18 07/04/18 5-325 Tablet] Spironolactone [Aldactone] 12.5 mg PO DAILY 07/04/18 07/04/18 Previous Rx's Medication Instructions Recorded Lisinopril [Zestril] 5 mg PO DAILY #30 tablet 10/23/17 Furosemide [Lasix] 20 mg PO DAILY #0 05/29/18 Omeprazole [PriLOSEC] 40 mg PO DAILY 30 Days #30 cap 07/07/18 Allergies Allergy/AdvReac Type Severity Reaction Status Date / Time No Known Allergies Allergy Verified 07/21/18 10:18 Limitations: ROS unobtainable due to patients medical condition Past Medical History - Past Medical History Medical history: Reports: arthritis, asthma, atrial fibrillation, CHF, COPD, coronary artery disease, GERD, hyperlipidemia, hypertension, osteoporosis Surgical history: Reports: breast surgery, , herniorrhaphy, hysterectomy Psychiatric history: Reports: depression WEIGHT TRAINER history: Reports: no WEIGHT TRAINER history - Social History Smoking Status: Unknown if ever smoked Smokeless Tobacco Status: No Alcohol use: Reports: none Drug use: Reports: none Physical Exam - General Limitations: altered mental status General appearance: alert - Head Head exam: atraumatic, normocephalic - Eye Eye exam: Present: PERRL, EOMI - Neck Neck exam: Present: normal inspection. Absent: tenderness, lymphadenopathy - Chest Chest inspection: Present: symmetric chest wall rise. Absent: tenderness, rash - Respiratory Respiratory exam: Present: other (rhonchi throughout all lung de anda) - Cardiovascular Cardiovascular exam: Present: tachycardia, irregular rhythm - Abdominal Exam Abdominal exam: Present: soft, Non-Tender. Absent: distention, guarding, rebound, rigidity, Fonseca's sign, Rovsing's sign, tenderness at McBurney's Point - Extremities Exam Extremities exam: Present: normal inspection. Absent: pedal edema, calf tenderness - Neurological Exam Neurological exam: Present: alert. Absent: oriented X3 - Psychiatric Psychiatric exam: Present: normal affect - Skin Skin exam: Present: warm, dry, intact Course Vital Signs Temperature 100.1 F H 07/21/18 10:15 Pulse Rate 98 07/21/18 10:15 Respiratory Rate 24 07/21/18 10:15 Blood Pressure 139/98 07/21/18 10:15 O2 Sat by Pulse Oximetry 89 07/21/18 10:15 Temperature 100.1 F H 07/21/18 10:15 Pulse Rate 98 07/21/18 10:15 Respiratory Rate 24 07/21/18 10:15 Blood Pressure 139/98 07/21/18 10:15 O2 Sat by Pulse Oximetry 88 07/21/18 10:30 Oxygen Delivery Oxygen Delivery Room Air Medical Decision Making - MDM Narrative Medical decision making narrative: This patient presents with AMS after a fall. We will obtain labs as well as a CXR, CT head and neck wo contrast, and EKG to rule out stroke, MO, CHF and sepsis. 1220 - Pt shows signs of pneumonia on CXR. We will start her on Vanc, Zosyn and Azithro due to her recent hospitalization and begin BiPap to ease her work of breathing. She has been accepted by Dr. Ramirez. - Medical Records Medical records reviewed: Yes I reviewed the patient's medical records. - Lab Data Lab results reviewed: Yes I reviewed the patient's lab results. Result diagrams: 07/21/18 11:27 07/21/18 10:40 - Radiology Data Radiology results reviewed: Yes I reviewed the patient's radiology results. - EKG Data EKG #1 EKG attestation: Yes I reviewed and interpreted this EKG. EKG results narrative: EKG obtained at 10:29 on 07/21/18 Her rate 95 determinate, QRS duration 125, QT 378, QTC 476 Atrial fibrillation with intraventricular conduction delay. No significant ST segment elevations or depressions. One PVC noted. No significant changes when compared to old EKG dated 06/15/2018. Attestation Statement - Attestation Attestation: I, João Giles, examined this patient and my medical decision-making was reviewed with the COMPUTER CONSULTANT/PA/Advanced Practice Nurse/Resident Physician. I agree with the documented findings, disposition and treatment plan as described except to the extent set forth below. 82-year-old female presents emergency Department for evaluation of altered mental status and fall out of bed. Patient apparently had called EMS to her house within the few days prior for difficulty breathing but refused to be transported to the hospital at that time. Patient was found out of her bed this morning and is unclear how long she was on the ground. She is unable to give a history regarding her case and presentation. He she is to Take and tachycardic in the emergency department. She was however afebrile. CT did not show evidence of acute fracture or cranial hemorrhage however she likely has pneumonia on chest x-ray and CT. Patient will be started on health-care associated antibiotics as she was recently admitted to the hospital. Social workers contacted the daughter who is the power of civil attorney who recommended that she is DNR/DNI. Patient pulse oximetry desatted to 85% with nasal cannula when she was mouth breathing. Ventimask was place which improved her O2 sat to 95. She remained to Take and was placed on BiPAP to assist her respiratory effort. Patient will be admitted to stepdown unit. Initial troponin is elevated however this is likely due to ischemic command. EKG did not show evidence of STEMI.
[2018-07-21 11:18] LABS: Alanine Aminotransferase 7 Units/L (7-52); Albumin 3.1 g/dL (3.5-5.7); Albumin/Globulin Ratio 1.1 (1.1-2.2); Alkaline Phosphatase 53 Units/L (34-104); Aspartate Amino Transferase 36 Units/L (13-39); BUN/Creatinine Ratio 15 (6-26); Bilirubin,Direct 0.2 mg/dL (0.0-0.2); Bilirubin,Indirect 0.9 mg/dL (0.0-1.2); Bilirubin,Total 1.1 mg/dL (0.3-1.0); Blood Urea Nitrogen 14 mg/dL (8-23); Calcium 8.4 mg/dL (8.6-10.3); Carbon Dioxide 23 mEq/L (23-29); Chloride 99 mEq/L (98-107); Globulin 2.8 g/dL (2.4-3.5); Glucose 69 mg/dL (70-105); Osmolality,Calculated 285 (280-300); Sodium 138 mEq/L (136-145); Total Protein 5.9 g/dL (6.4-8.9); eGFR For Non-African Americans 59 (> 60)
[2018-07-21 11:39] LABS: Basophils # 0.1 K/mcL (0.0-0.2); Basophils % 0.4 %; Eosinophils % 0.1 %; Hematocrit 36.3 % (35.3-44.9); Hemoglobin 11.7 g/dL (11.5-15.4); Immature Granulocytes % 0.5 % (0-4); Lymphocytes # 2.2 K/mcL (0.6-4.6); Lymphocytes % 13.2 %; Mean Corpuscular HGB Conc 32.2 g/dL (31.6-35.5); Mean Corpuscular Hemoglobin 29.6 pg (28.0-33.3); Mean Corpuscular Volume 91.9 fL (83.0-100.0); Mean Platelet Volume 10.6 fL (9.4-12.4); Monocytes # 1.1 K/mcL (0.0-1.3); Monocytes % 6.8 %; Platelet Count 212 K/mcL (140-400); Red Blood Count 3.95 M/mcL (3.82-4.97); Red Cell Distribution Width 14.4 % (11.5-14.5)
[2018-07-21 11:45] LABS: VBG HCO3 26 mEq/L (21-27); VBG PCO2 42 mmHg (41-51); VBG PO2 48 mmHg (25-50)
[2018-07-21 11:46] LABS: INR 1.5; Prothrombin Time 16.5 Seconds (9.4-12.1)
[2018-07-21 11:49] LABS: Activated Partial Thrombo Time 37.3 Seconds (26.0-36.0)
[2018-07-21 12:00] LABS: Creatine Kinase 557 Units/L (30-223); Ethanol < 10 mg/dL (Less than 10)
[2018-07-21] MEDS ORDERED: Azithromycin 500 MG in D5% in Water 250 ML IVPB STA (12:04)
[2018-07-21] MEDS ORDERED: Piperacillin/Tazobactam 3.375 GM in 0.9 % Sodium Chloride Mini Bag 100 ML IVPB ONE (12:05)
[2018-07-21] MEDS ORDERED: Vancomycin 1,000 MG in D5% in Water 250 ML IVPB ONE (12:05)
[2018-07-21 12:06] LABS: Troponin I 0.06 ng/mL (< 0.04)
[2018-07-21 12:12] LABS: Thyroid Stimulating Hormone 3.818 mcIU/mL (0.340-5.600)
[2018-07-21 12:47] LABS: ABG Base Excess 0 mEq/L (-2 to 3); ABG HCO3 23 mEq/L (21-27); ABG Oxygen Saturation 92 % (95-98); ABG PCO2 31 mmHg (35-45); ABG PH 7.48 pH Units (7.32-7.45); ABG PO2 59 mmHg (85-104); ABG TCO2 24 mEq/L (20-26)
[2018-07-21] MEDS ORDERED: Isovue-370 500 ML BOTTLE IVP ONE ×2 (13:05→13:07)
[2018-07-21] MEDS ORDERED: *HR* LORazepam 2 MG/ML VIAL IVP ONE (13:42)
--- NOTE | 2018-07-21 13:58 | Internal Med History&Physical ---
Date of Encounter: 07/21/18 Time of Encounter: 13:00 Internal Medicine - H&P: HPI Chief complaint: Altered mental status, found down, shortness of breath History of present illness: Ms. Espinal is a 82 year old female with pmh of COPD, systolic and diastolic CHF, chronic respiratory failure on 2L nasal cannula , hypertension, atrial fibrillation presenting fall at home. Patient had been increasing lethargic at home per EMS who also saw her 3 days ago. she was found down at home today on the floor next to her bed. Patient is unable to provide any history as she was on BIPAP and confused. Per Er, she was saturating in the upper 80s on arrival and was placed on face mask with 6L oxygen but was still tachypneic and was placed on bIPAP. ABG was done in the ER showing hypoxia with a Po2 of 59 on 6L and cxr showed new infiltrates. She is being admitted for further management Past Med Surg Social Fam HX - Past Medical History Medical history: arthritis, asthma, atrial fibrillation, CHF, COPD, coronary artery disease, GERD, hyperlipidemia, hypertension, osteoporosis Additional medical history: encephalopathy Psychiatric history: depression - Past Surgical History Surgical History: breast surgery, , herniorrhaphy, hysterectomy Additional surgical history: breast - Social History Smoking Status: Unknown if ever smoked Smokeless Tobacco Status: No Alcohol use: none Drug use: none - Family History Father Adopted: No Family Member Ethnicity: Non- Living Status: Hx Family Cardiac Disorders: Yes Hx Family Respiratory Disorders: Yes Hx Family Cancer: No Hx Family GI Disorders: No Hx Family Endocrine Disorder: No Hx Family Neuromuscular Disorders: No Hx Family Neurologic Disorders: No Hx Family HEENT Disorders: No Hx Family Autoimmune Disorders: No Mother Adopted: No Family Member Ethnicity: Non- Living Status: Hx Family Cardiac Disorders: No Hx Family Respiratory Disorders: Yes Hx Family Cancer: No Hx Family GI Disorders: No Hx Family Endocrine Disorder: Yes Hx Family Neuromuscular Disorders: No Hx Family Neurologic Disorders: No Hx Family HEENT Disorders: No Hx Family Autoimmune Disorders: No Internal Medicine - H&P: Meds Atorvastatin [Lipitor] 20 mg PO HS 02/23/15 [History] Fluticasone/Salmeterol [Advair 250-50 Diskus] 1 each IH BID 02/23/15 [History] Gabapentin [Neurontin] 600 mg PO BID 02/23/15 [History] Multivit-Min/FA/Lycopen/Lutein [Centrum Silver Tablet] 1 each PO DAILY 02/23/15 [History] Isosorbide MONOnitrate (24 HR) [Imdur] 30 mg PO DAILY 07/01/15 [History] Fluticasone Propionate Nasal [Flonase] 2 spray NS DAILY 05/13/16 [History] Levalbuterol Tartrate [Xopenex Hfa] 2 puff IH TID 05/13/16 [History] Umeclidinium [place] [Incruse Ellipta] 1 puff IH DAILY 05/13/16 [History] Raloxifene [Evista] 60 mg PO DAILY 01/15/17 [History] Albuterol Sulfate [Ventolin Hfa] 2 puff IH Q4-6H PRN 10/20/17 [History] Lisinopril [Zestril] 5 mg PO DAILY #30 tablet 10/23/17 [Rx] Montelukast [Singulair] 10 mg PO DAILY 04/24/18 [History] hydrALAZINE [HydrALAZINE] 25 mg PO BID 04/24/18 [History] Clopidogrel [Plavix] 75 mg PO DAILY 05/25/18 [History] Docusate [Colace] 100 mg PO DAILY 05/25/18 [History] GuaiFENesin ER [Mucinex] 600 mg PO BID 05/25/18 [History] Hydrocodone/Acetaminophen [[place] 5-325 Tablet] 1 tab PO TID PRN 05/25/18 [ History] Furosemide [Lasix] 20 mg PO DAILY #0 05/29/18 [Rx] Spironolactone [Aldactone] 12.5 mg PO DAILY 07/04/18 [History] Omeprazole [PriLOSEC] 40 mg PO DAILY 30 Days #30 cap 07/07/18 [Rx] Allergy/AdvReac Type Severity Reaction Status Date / Time No Known Allergies Allergy Verified 07/21/18 10:18 ROS unobtainable: due to mental status All Systems PM: A 10-system review of systems was performed and is negative for pertinent findings except as documented above in the HPI. - Constitutional Vitals: Temp Pulse Resp BP Pulse Ox 100.1 F H 94 24 138/79 100 07/21/18 10:15 07/21/18 12:00 07/21/18 12:48 07/21/18 12:48 07/21/18 12:48 Exam: Cachectic elderly female. Moderate respiratory distress - Head Head exam: Present: atraumatic, normocephalic - Eye Eye exam: Present: PERRL, conjuntiva pink, sclera anicteric Pupils: Present: PERRL - Neck Neck exam general surgery: Present: supple, trachea midline. Absent: lymphadenopathy - Respiratory Respiratory exam: Present: decreased breath sounds. Absent: accessory muscle use, rales, rhonchi - Cardiovascular Cardiovascular exam: Present: RRR, +S1, +S2. Absent: diastolic murmur, gallop, rubs, systolic murmur - GI/Abdominal GI/Abdominal exam: Present: normal bowel sounds, soft, no peritoneal signs. Absent: distended, tenderness - Extremities Exam Extremities exam: Present: warm, radial pulses palpable and symmetrical. Absent: calf tenderness, cyanotic, pedal edema - Neurological Exam Neurological exam: Present: CN II-XII intact, oriented X3, no focal deficits. Absent: pronater drift, facial droop, speech deficit - Skin Skin exam: Present: dry, intact Internal Med - H&P Results - Labs CBC & Chem 7: 07/21/18 11:27 07/21/18 10:40 Labs: Short CBC 07/21/18 Range/Units 11:27 WBC 16.4 H (4.3-11.1) K/mcL Hgb 11.7 (11.5-15.4) g/dL Hct 36.3 (35.3-44.9) % Plt Count 212 (140-400) K/mcL Neutrophils # 13.0 H (1.6-8.9) K/mcL BMP 07/21/18 10:40 Sodium 138 Potassium 4.0 Chloride 99 Carbon Dioxide 23 BUN 14 Creatinine 0.91 Glucose 69 L Calcium 8.4 L Cardiac Enzymes 07/21/18 Range/Units 11:27 Troponin I 0.06 H* (< 0.04) ng/mL Liver Function 07/21/18 Range/Units 10:40 Total Bilirubin 1.1 H (0.3-1.0) mg/dL Direct Bilirubin 0.2 (0.0-0.2) mg/dL AST 36 (13-39) Units/L ALT 7 (7-52) Units/L Alkaline Phosphatase 53 (34-104) Units/L Albumin 3.1 L (3.5-5.7) g/dL - ABG Interpretation ABG results: 07/21/18 07/21/18 11:40 12:39 ABG pH 7.48 H ABG pCO2 31 L ABG pO2 59 L ABG HCO3 23 ABG Total CO2 24 ABG O2 Saturation 92 L ABG Base Excess 0 VBG pH 7.40 VBG pCO2 42 VBG pO2 48 VBG HCO3 26 - Impressions ITS Impressions Chest X-Ray 07/21/18 10:20 IMPRESSION: New developing atelectasis or infiltrate in the left lung base with a left pleural effusion. Bilateral interstitial opacities persist. Follow up to resolution is suggested. D/ / 07/21/2018 11:02:18 Vernell Sun MD / [place] Interpreting Provider: Vernell Sun MD Cervical Spine CT 07/21/18 10:21 IMPRESSION: No acute intracranial abnormality. No acute traumatic injury of the cervical spine. Partially imaged lungs show airspace disease apicoposterior left upper lobe raising possibility of pneumonia. Chest x-ray or CT chest may be obtained as deemed clinically necessary.. D/ / Gustavo Weldon MD / Gustavo Weldon MD Interpreting Provider: Gustavo Weldon MD Head CT 07/21/18 10:21 IMPRESSION: No acute intracranial abnormality. No acute traumatic injury of the cervical spine. Partially imaged lungs show airspace disease apicoposterior left upper lobe raising possibility of pneumonia. Chest x-ray or CT chest may be obtained as deemed clinically necessary.. D/ / Gustavo Weldon MD / Gustavo Weldon MD Interpreting Provider: Gustavo Weldon MD - Assessment and plan (1) Acute on chronic respiratory failure with hypoxia Current Visit: Yes Status: Acute Assessment and plan: Pt came in saturating in the upper 80s. Still had labored breathing and tachypnea with 6L oxygen via facemask. [place]aj[place] 2/ to hospital acquired pnuemonia and COPD exacerbation Placed on BIPAP, nebs, steroids and antibiotics (2) Acute metabolic encephalopathy Current Visit: Yes Status: Acute Assessment and plan: Kajal 07/22 to respiratory failure. see #1. Continue antibiotics and nebs (3) HCAP (healthcare-associated pneumonia) Current Visit: Yes Status: Acute Assessment and plan: Recently discharged from the hospital and has new infiltrate on xray. Will start on vanc and zosyn Obtain blood cultures and resp panel (4) Acute exacerbation of chronic obstructive airways disease Current Visit: Yes Status: Acute Assessment and plan: Continue on BIPAP, nebs, steroids and antibiotics (5) Combined systolic and diastolic congestive heart failure Current Visit: Yes Status: Acute Assessment and plan: Pt has chronic combined systolic and diastolic CHF with no acute exacerbation Continue po lasix Qualifiers: Heart failure chronicity: chronic Qualified Code(s): I50.42 - Chronic combined systolic (congestive) and diastolic (congestive) heart failure (6) Hypertension Current Visit: Yes Status: Acute Assessment and plan: Continue home meds Qualifiers: Hypertension type: essential hypertension Qualified Code(s): I10 - Essential (primary) hypertension (7) DVT prophylaxis Current Visit: Yes Status: Acute Assessment and plan: Heparin sc - Time Spent With Patient Total time spent is greater than 50% in coordination of care (as documented) at patient's floor/unit and/or counseling patient:
--- NOTE | 2018-07-21 14:29 | Pulmonology Consult Note ---
<Richard He W - Last Filed: 07/21/18 14:38> Date of Encounter: 07/21/18 Medications and Allergies Atorvastatin [Lipitor] 20 mg PO HS 02/23/15 [History] Fluticasone/Salmeterol [Advair 250-50 Diskus] 1 each IH BID 02/23/15 [History] Gabapentin [Neurontin] 600 mg PO BID 02/23/15 [History] Multivit-Min/FA/Lycopen/Lutein [Centrum Silver Tablet] 1 each PO DAILY 02/23/15 [History] Isosorbide MONOnitrate (24 HR) [Imdur] 30 mg PO DAILY 07/01/15 [History] Fluticasone Propionate Nasal [Flonase] 2 spray NS DAILY 05/13/16 [History] Levalbuterol Tartrate [Xopenex Hfa] 2 puff IH TID 05/13/16 [History] Umeclidinium [place] [Incruse Ellipta] 1 puff IH DAILY 05/13/16 [History] Raloxifene [Evista] 60 mg PO DAILY 01/15/17 [History] Albuterol Sulfate [Ventolin Hfa] 2 puff IH Q4-6H PRN 10/20/17 [History] Lisinopril [Zestril] 5 mg PO DAILY #30 tablet 10/23/17 [Rx] Montelukast [Singulair] 10 mg PO DAILY 04/24/18 [History] hydrALAZINE [HydrALAZINE] 25 mg PO BID 04/24/18 [History] Clopidogrel [Plavix] 75 mg PO DAILY 05/25/18 [History] Docusate [Colace] 100 mg PO DAILY 05/25/18 [History] GuaiFENesin ER [Mucinex] 600 mg PO BID 05/25/18 [History] Hydrocodone/Acetaminophen [[place]icer 5-325 Tablet] 1 tab PO TID PRN 05/25/18 [History] Furosemide [Lasix] 20 mg PO DAILY #0 05/29/18 [Rx] Spironolactone [Aldactone] 12.5 mg PO DAILY 07/04/18 [History] Omeprazole [PriLOSEC] 40 mg PO DAILY 30 Days #30 cap 07/07/18 [Rx] Allergy/AdvReac Type Severity Reaction Status Date / Time No Known Allergies Allergy Verified 07/21/18 10:18 All Systems: The remainder of the systems were reviewed and are negative Physical Examination Vital Signs: Vital Signs, Last 4 Hours Pulse Resp BP Pulse Ox 07/21/18 12:48 24 138/79 100 07/21/18 12:00 94 24 138/79 100 07/21/18 11:57 98 07/21/18 11:30 94 24 124/73 100 07/21/18 11:05 98 24 115/66 100 Results - Laboratory Findings CBC and BMP: 07/21/18 11:27 07/21/18 10:40 ABG ABG pH 7.48 pH Units (7.32-7.45) H 07/21/18 12:39 ABG pCO2 31 mmHg (35-45) L 07/21/18 12:39 ABG pO2 59 mmHg (85-104) L 07/21/18 12:39 ABG O2 Saturation 92 % (95-98) L 07/21/18 12:39 PT/INR, D-dimer PT 16.5 Seconds (9.4-12.1) H 07/21/18 11:27 Abnormal lab findings: Abnormal lab results WBC 16.4 K/mcL (4.3-11.1) H 07/21/18 11:27 Neutrophils # 13.0 K/mcL (1.6-8.9) H 07/21/18 11:27 PT 16.5 Seconds (9.4-12.1) H 07/21/18 11:27 APTT 37.3 Seconds (26.0-36.0) H 07/21/18 11:27 ABG pH 7.48 pH Units (7.32-7.45) H 07/21/18 12:39 ABG pCO2 31 mmHg (35-45) L 07/21/18 12:39 ABG pO2 59 mmHg (85-104) L 07/21/18 12:39 ABG O2 Saturation 92 % (95-98) L 07/21/18 12:39 Est GFR (Non-Af Amer) 59 (> 60) L 07/21/18 10:40 Glucose 69 mg/dL (70-105) L 07/21/18 10:40 Calcium 8.4 mg/dL (8.6-10.3) L 07/21/18 10:40 Total Bilirubin 1.1 mg/dL (0.3-1.0) H 07/21/18 10:40 Creatine Kinase 557 Units/L (30-223) H 07/21/18 11:27 Troponin I 0.06 ng/mL (< 0.04) H* 07/21/18 11:27 B-Natriuretic Peptide 318 pg/mL (Less than 100) H 07/21/18 11:27 Serum Total Protein 5.9 g/dL (6.4-8.9) L 07/21/18 10:40 Albumin 3.1 g/dL (3.5-5.7) L 07/21/18 10:40 - Microbiology Findings Microbiology Findings: Microbiology, Last 48 Hours 07/21/18 12:13 Blood Culture - Preliminary Peripheral Venipuncture Culture is incubating and being continuously monitored for growth. Final report to follow. 07/21/18 11:27 Blood Culture - Preliminary Peripheral Venipuncture Culture is incubating and being continuously monitored for growth. Final report to follow. - Clinical Findings Intake & Output: Intake & Output 07/20/18 07/21/18 07/21/18 23:59 07:59 15:59 Intake Total 100 / 100 Balance 100 / 100 Weight 62.959 kg Consult Discharge Plan - Plan Referrals: NONE,PCP [Primary Care Provider] - - Attending Attestation I examined this patient and my medical decision-making was reviewed with the Resident Physician. I agree with the documented findings, disposition and treatment plan as described except to the extent set forth below. We independently had [id number] contact with the patient Patient seen and examined at bedside Labs, radiology, chart personally reviewed. Impression/Recs: 82-year-old woman with a complex medical history including heart failure with reduced ejection fraction secondary to ischemic cardiomyopathy chronic respiratory failure and vent COPD she has had recurrent hospitalizations for pneumonia and generally has had noted clinical decline. She presented for altered mental status (metabolic enphalopathy s/t infection or hypoxia) after a fall and found to be hypoxic with chest x-ray concerning for pneumonia and heart failure. -Consider CT angiogram to rule out pulmonary embolus given the what appears to be in syncopal-like episode. She is not currently on anticoagulation for atrial fibrillation because of previous GI bleeding. This would also allow us to further delineate cause of acute admission which likely is pneumonia complicated by heart failure. -She is a high risk for further decline I agree with the positive airway pressure which she appears to be tolerating at present. She is overall poor candidate for intubation and previous CODE STATUS was DNRCCA I see that palliative care is been consulted which is very appropriate to address goals of care -She has mild rhabdomyolysis without any evidence of kidney dysfunction I would advise against any sort of aggressive crystalloid infusion at this time for this reason infection would likely benefit from diuresis given heart failure which I suspect would be much more likely to cause clinical deterioration than the mild elevation in CPK -Her mildly elevated troponin is likely demand ischemia with underlying coronary artery disease repeat echocardiogram could be helpful in this situation delineate any acute changes which may prompt a cardiology consultation depending on how aggressive the patient and family would like to be she clearly is not able to make decisions on her own right now and would need to discuss with her next of kin which appears to be son. -Agree with antimicrobial coverage would send respiratory infection panel (PCR) sputum culture of can be obtained blood cultures; urine Legionella and strep pneumo antigens. Planned to de-escalate over 24-48 hours based upon culture and clinical course -IV steroids and scheduled bronchodilators is also appropriate for COPD exacerbation Thank you for this consultation pulmonary will continue to follow <Gloria Monzon - Last Filed: 07/21/18 15:20> Date of Encounter: 07/21/18 Time of Encounter: 14:29 Assessment and Plan (1) Acute on chronic respiratory failure with hypoxia Current Visit: Yes Status: Acute This is an 82-year-old female with past medical history significant for COPD, chronic respiratory failure on 2 L oxygen nasal cannula, combined systolic and diastolic CHF, hypertension, atrial fibrillation not on anticoagulation who presents after a fall at home to the ED. - Lethargic, Confused; s/p fall at home - Hypoxia: ABG = 7.48/31/59/23 - Chest x-ray: New developing atelectasis or infiltrate in left lung base with a left pleural effusion. Bilateral interstitial opacities persist. PLAN: Likely secondary to COPD exacerbation vs CHF exacerbation vs Pneumonia; CXR shows atelectasis/ infiltrates and left pleural effusion - Cont CPAP; monitor vitals, O2 sat; titrate to keep O2 sat > 88%; particular attention to work of breathing, respiratory rate, accessory muscle use - Cont vanc and zosyn - Cont solumedrol 40mg BID - Cont bronchodilators - scheduled Duonebs, singulair, symbicort - Follow up CT Angiogram to rule out PE - Follow up respiratory infection panel - Avoid aggressive fluid resuscitation despite mild rhabdomyolysis (2) Acute exacerbation of chronic obstructive airways disease Current Visit: Yes Status: Chronic History of chronic COPD - likely in exacerbation PLAN: - as above (3) Pleural effusion Current Visit: Yes Status: Acute Chest x-ray: New developing atelectasis or infiltrate in left lung base with a left pleural effusion. Bilateral interstitial opacities persist. PLAN: - Cont home Lasix - With worsening effusion, may consider thoracentesis (4) Pneumonia Current Visit: Yes Status: Acute Chest x-ray: New developing atelectasis or infiltrate in left lung base with a left pleural effusion. Bilateral interstitial opacities persist. - WBC = 16.4; mildly elevated temp on admission = 100.1F; b/l rales on exam PLAN: Given CXR findings, recent hospital admission, chronic respiratory failure with worsening respiratory distress, elevated temp with leukocytosis, will treat for pneumonia with MRSA and Pseudomonal coverage - Monitor vitals, O2 sat; titrate to keep O2 sat > 88% - Cont Vanco and Zosyn - Follow up Blood Cultures - Follow up Respiratory Infectious Panel - Strep/Legionella Ags Qualifiers: Pneumonia type: due to unspecified organism Laterality: bilateral Lung location: lower lobe of lung Qualified Code(s): J18.9 - Pneumonia, unspecified organism (5) CHF (congestive heart failure) Current Visit: No Status: Chronic Echo (04/25/18): - LVEF grossly 40-45%. Mild global left ventricular systolic dysfunction. - Moderate left ventricular diastolic dysfunction. - Mildly dilated right ventricle with mild hypokinesis. - Mildly dilated left atrium. - Moderately dilated right atrium. - Mild tricuspid regurgitation. - Mild pulmonary hypertension. - BNP = 318 - Trop = 0.06 PLAN: Likely demand ischemia in the setting of acute CHF exacerbation - Cont home Lasix - Consider repeat Echo Qualifiers: Heart failure type: combined systolic and diastolic Heart failure chronicity: chronic Qualified Code(s): I50.42 - Chronic combined systolic (congestive) and diastolic (congestive) heart failure (6) Frail elderly Current Visit: Yes Status: Acute History of Present Illness Consult date: 07/21/18 Requesting physician: Doris Ramirez Chief complaint: Fall at home; Acute hypoxic Respiratory Failure History of present illness: This is an 82-year-old female with past medical history significant for COPD, chronic respiratory failure on 2 L oxygen nasal cannula, combined systolic and diastolic CHF, hypertension, atrial fibrillation not on anticoagulation who presents after a fall at home to the ED. Per EMS patient was found to be lethargic and found at home on the floor. Given the patient's confusion and le thargy, she was unable to provide a coherent history. On arriving to the ED she was found to have O2 saturation in the 80s. Patient was started on BiPAP. Pulmonology was consulted due to acute hypoxic respiratory failure. Workup in the ED showed elevated temp with leukocytosis on arrival. ABG = 7.48/31/59/23. BNP = 318, CK = 557, troponin = 0.06. Chest x-ray: New developing atelectasis or infiltrate in left lung base with a left pleural effusion. Bilateral interstitial opacities persist. On my examination, patient is sitting in bed using CPAP. O2 sats appropriate on CPAP. Patient able to respond to name, but unable to answer any further questioning. Patient appears confused. Vitals hemodynamically stable, other than increased respiratory rate. Exam shows b/l rales, but otherwise no wheezing, crackles. Past Med Surg Social Fam HX - Past Medical History Attestation: Yes The following information was validated with the patient. Source: old records reviewed Medical history: arthritis, asthma, atrial fibrillation, CHF, COPD, coronary artery disease, GERD, hyperlipidemia, hypertension, osteoporosis Additional medical history: encephalopathy Psychiatric history: depression - Past Surgical History Surgical History: breast surgery, , herniorrhaphy, hysterectomy Additional surgical history: breast - Social History Smoking Status: Unknown if ever smoked Smokeless Tobacco Status: No Alcohol use: none Drug use: none - Family History Father Adopted: No Family Member Ethnicity: Non- Living Status: Hx Family Cardiac Disorders: Yes Hx Family Respiratory Disorders: Yes Hx Family Cancer: No Hx Family GI Disorders: No Hx Family Endocrine Disorder: No Hx Family Neuromuscular Disorders: No Hx Family Neurologic Disorders: No Hx Family HEENT Disorders: No Hx Family Autoimmune Disorders: No Mother Adopted: No Family Member Ethnicity: Non- Living Status: Hx Family Cardiac Disorders: No Hx Family Respiratory Disorders: Yes Hx Family Cancer: No Hx Family GI Disorders: No Hx Family Endocrine Disorder: Yes Hx Family Neuromuscular Disorders: No Hx Family Neurologic Disorders: No Hx Family HEENT Disorders: No Hx Family Autoimmune Disorders: No ROS unobtainable: due to mental status All Systems: The remainder of the systems were reviewed and are negative Physical Examination Vital Signs: Vital Signs, Last 4 Hours Pulse Resp BP Pulse Ox 07/21/18 12:48 24 138/79 100 07/21/18 12:00 94 24 138/79 100 07/21/18 11:57 98 07/21/18 11:30 94 24 124/73 100 07/21/18 11:05 98 24 115/66 100 07/21/18 10:30 88 General appearance: lethargic Eyes: nonicteric ENT: oropharynx moist Neck: lymphadenopathy (anterior cervical lymphadenopathy) Effort: mildly labored Auscultation: bilateral: rales (B/L rales; no wheezes, crackles; on CPAP) Cardiovascular: regular rate and rhythm Gastrointestinal: normoactive bowel sounds, soft, non-tender, non-distended Extremities: no edema unable to assess due to mental status Results - Laboratory Findings CBC and BMP: 07/21/18 11:27 07/21/18 10:40 ABG ABG pH 7.48 pH Units (7.32-7.45) H 07/21/18 12:39 ABG pCO2 31 mmHg (35-45) L 07/21/18 12:39 ABG pO2 59 mmHg (85-104) L 07/21/18 12:39 ABG O2 Saturation 92 % (95-98) L 07/21/18 12:39 PT/INR, D-dimer PT 16.5 Seconds (9.4-12.1) H 07/21/18 11:27 Abnormal lab findings: Abnormal lab results WBC 16.4 K/mcL (4.3-11.1) H 07/21/18 11:27 Neutrophils # 13.0 K/mcL (1.6-8.9) H 07/21/18 11:27 PT 16.5 Seconds (9.4-12.1) H 07/21/18 11:27 APTT 37.3 Seconds (26.0-36.0) H 07/21/18 11:27 ABG pH 7.48 pH Units (7.32-7.45) H 07/21/18 12:39 ABG pCO2 31 mmHg (35-45) L 07/21/18 12:39 ABG pO2 59 mmHg (85-104) L 07/21/18 12:39 ABG O2 Saturation 92 % (95-98) L 07/21/18 12:39 Est GFR (Non-Af Amer) 59 (> 60) L 07/21/18 10:40 Glucose 69 mg/dL (70-105) L 07/21/18 10:40 Calcium 8.4 mg/dL (8.6-10.3) L 07/21/18 10:40 Total Bilirubin 1.1 mg/dL (0.3-1.0) H 07/21/18 10:40 Creatine Kinase 557 Units/L (30-223) H 07/21/18 11:27 Troponin I 0.06 ng/mL (< 0.04) H* 07/21/18 11:27 B-Natriuretic Peptide 318 pg/mL (Less than 100) H 07/21/18 11:27 Serum Total Protein 5.9 g/dL (6.4-8.9) L 07/21/18 10:40 Albumin 3.1 g/dL (3.5-5.7) L 07/21/18 10:40 - Microbiology Findings Microbiology Findings: Microbiology, Last 48 Hours 07/21/18 12:13 Blood Culture - Preliminary Peripheral Venipuncture Culture is incubating and being continuously monitored for growth. Final report to follow. 07/21/18 11:27 Blood Culture - Preliminary Peripheral Venipuncture Culture is incubating and being continuously monitored for growth. Final report to follow. - Clinical Findings Intake & Output: Intake & Output 07/20/18 07/21/18 07/21/18 23:59 07:59 15:59 Intake Total 100 / 100 Balance 100 / 100 Weight 62.959 kg
[2018-07-21 15:00] LABS: Bilirubin,Urine Moderate (Negative); Blood,Urine Small (Negative); Clarity,Urine Cloudy (Clear); Color,Urine Yellow (Yellow); Glucose,Urine (UA) Normal (Normal); Ketones,Urine 15 mg/dL (Negative); Leukocyte Esterase,Urine Negative (Negative); Nitrite,Urine Negative (Negative); PH,Urine 5.5 pH Units (5.0-8.0); Protein,Urine 100 mg/dL (Neg-Trace); Specific Gravity,Urine 1.019 (1.010-1.025); Urobilinogen,Urine Normal (Normal)
[2018-07-21 15:03] LABS: Bacteria,Urine None Seen per hpf (None-Few); Hyaline Casts,Urine None Seen per lpf (None-Few); Squamous Epithelial Cell,Urine Many per lpf (None-Few); WBC,Urine 0-3 per hpf (0-3)
[2018-07-21] MEDS: Ipratropium/Albuterol Neb 3 ML IH SCH ×3 (15:23→23:31)
[2018-07-21 15:31] LABS: Uric Acid Crystals,Urine Present
--- NOTE | 2018-07-21 15:56 | Palliative - Consult Note ---
Date of Encounter: 07/21/18 Time of Encounter: 15:00 - Assessment and Plan (1) Dyspnea Current Visit: Yes Status: Acute Assessment and plan: Has started treatment for suspected pneumonia/sepsis/resp failure. Currently on bipap, and appears to be tolerating. Monitor. Qualifiers: Dyspnea type: unspecified Qualified Code(s): R06.00 - Dyspnea, unspecified (2) Goals of care, counseling/discussion Current Visit: Yes Status: Acute Assessment and plan: Patient unable to participate in discussion. Apparently, disabled son live with her and called EMS when she fell at home. Per EMS, they were called to home 3 days ago when she fell, and she refused to come to hospital. Today, son reported she has not ate or taken medication since Tuesday. She had dried feces on her bottom upon arrival. I was able to find power of senior attorney information in her record her, and her daughter Mile Bravo is primary POA. I was able to reach her by telephone. ([phone]). She had just been told her mother was here. Discussed her clinical status, and current medical care underway. Discussed what her wishes were if patient were to further decline. She stated that her mother had a DNR, but she couldn't find the paperwork. She is not sure if it was DNR/Arrest or DNRCC. At this time, Mile requests medical management with bipap/o2 support, antibiotics, fluids, but does not want intubation or cardiac resuscitation in event of deterioration. Code status changed to DNR/DN I. Mile did state that she had other siblings in [place], [place] ( Johnny Espinal, alternate POA [phone]), a brother in [facility], as well as Davion, disabled son that lives with patient. Discussed briefly that it is likely patient will not be safe to return home. Mile states that patient has been at [facility] before, and her aunt is currently there. [facility] would be first choice for placement if needed. Palliative will continue to follow. (3) Community acquired pneumonia Current Visit: No Status: Acute Qualifiers: Laterality: unspecified laterality Qualified Code(s): J18.9 - Pneumonia, unspecified organism (4) Fall at home Current Visit: No Status: Resolved Qualifiers: Qualified Code(s): W19.XXXA - Unspecified fall, initial encounter; Y92.009 - Unspecified place in unspecified non-institutional (private) residence as the pl martha of occurrence of the external cause (5) Physical deconditioning Current Visit: No Status: Acute Assessment and plan: Will likely need PT/OT if condition improves. Likely need ECF placement. (6) Frail elderly Current Visit: Yes Status: Acute Palliative-CN HPI - Data of Consult Requesting Physician: Doris Ramirez Primary Care Provider: PCP NONE - Consult Narrative History of present illness: Ms. Espinal is a 82 year old female who was brought to [place] via EMS after son called for patient fall. She has had another fall a few days ago where EMS was summoned, however, she refused to come to hospital. She had not been eating or taking medication for several days, and had worsening confusion. She was found to have left sided pneumonia, and possible sepsis/respiratory failure. PO2 was 59 on admission, and she is currently on bipap. Past medical history includes: COPD, systolic and diastolic CHF, chronic respiratory failure on 2L nasal cannula , hypertension, dementia, and atrial fibrillation. Upon my visit, she appears to be confused. Eyes are open, only follows few simple commands. NO verbal response. Appears to be tolerating bipap. No family members are present. She did shake her head "no" when asked if she was hurting. She did not respond to other questioning. CC: Doris Ramirez - Time Spent with Patient Time: Total time spent is greater than 50% in coordination of care (as documented) at patient's floor/unit and/or counseling patient: Time with patient: 45 minutes Past Med Surg Social Fam HX - Past Medical History Medical history: arthritis, asthma, atrial fibrillation, CHF, COPD, coronary artery disease, GERD, hyperlipidemia, hypertension, osteoporosis Additional medical history: encephalopathy Psychiatric history: depression - Past Surgical History Surgical History: breast surgery, , herniorrhaphy, hysterectomy Additional surgical history: breast - Social History Smoking Status: Unknown if ever smoked Smokeless Tobacco Status: No Alcohol use: none Drug use: none - Family History Father Adopted: No Family Member Ethnicity: Non- Living Status: Hx Family Cardiac Disorders: Yes Hx Family Respiratory Disorders: Yes Hx Family Cancer: No Hx Family GI Disorders: No Hx Family Endocrine Disorder: No Hx Family Neuromuscular Disorders: No Hx Family Neurologic Disorders: No Hx Family HEENT Disorders: No Hx Family Autoimmune Disorders: No Mother Adopted: No Family Member Ethnicity: Non- Living Status: Hx Family Cardiac Disorders: No Hx Family Respiratory Disorders: Yes Hx Family Cancer: No Hx Family GI Disorders: No Hx Family Endocrine Disorder: Yes Hx Family Neuromuscular Disorders: No Hx Family Neurologic Disorders: No Hx Family HEENT Disorders: No Hx Family Autoimmune Disorders: No Medications and Allergies Atorvastatin [Lipitor] 20 mg PO HS 02/23/15 [History] Fluticasone/Salmeterol [Advair 250-50 Diskus] 1 each IH BID 02/23/15 [History] Gabapentin [Neurontin] 600 mg PO BID 02/23/15 [History] Multivit-Min/FA/Lycopen/Lutein [Centrum Silver Tablet] 1 each PO DAILY 02/23/15 [History] Isosorbide MONOnitrate (24 HR) [Imdur] 30 mg PO DAILY 07/01/15 [History] Fluticasone Propionate Nasal [Flonase] 2 spray NS DAILY 05/13/16 [History] Levalbuterol Tartrate [Xopenex Hfa] 2 puff IH TID 05/13/16 [History] Umeclidinium Gregory [Incruse Ellipta] 1 puff IH DAILY 05/13/16 [History] Raloxifene [Evista] 60 mg PO DAILY 01/15/17 [History] Albuterol Sulfate [Ventolin Hfa] 2 puff IH Q4-6H PRN 10/20/17 [History] Lisinopril [Zestril] 5 mg PO DAILY #30 tablet 10/23/17 [Rx] Montelukast [Singulair] 10 mg PO DAILY 04/24/18 [History] hydrALAZINE [HydrALAZINE] 25 mg PO BID 04/24/18 [History] Clopidogrel [Plavix] 75 mg PO DAILY 05/25/18 [History] Docusate [Colace] 100 mg PO DAILY 05/25/18 [History] GuaiFENesin ER [Mucinex] 600 mg PO BID 05/25/18 [History] Hydrocodone/Acetaminophen [[place] 5-325 Tablet] 1 tab PO TID PRN 05/25/18 [History] Furosemide [Lasix] 20 mg PO DAILY #0 05/29/18 [Rx] Spironolactone [Aldactone] 12.5 mg PO DAILY 07/04/18 [History] Omeprazole [PriLOSEC] 40 mg PO DAILY 30 Days #30 cap 07/07/18 [Rx] Allergy/AdvReac Type Severity Reaction Status Date / Time No Known Allergies Allergy Verified 07/21/18 10:18 ROS unobtainable: due to mental status Palliative Care-Exam - Constitutional Vitals: Temp Pulse Resp BP Pulse Ox 100.1 F H 94 35 147/116 94 07/21/18 10:15 07/21/18 12:00 07/21/18 15:24 07/21/18 15:24 07/21/18 15:24 General appearance: Present: mild distress - Head Head Exam: Present: normal inspection, normocephalic - Eye Eye exam: Present: normal appearance, PERRL - Respiratory Respiratory exam: Present: decreased breath sounds Additional comments: Rhonchi throughout anterior lung de anda. - Cardiovascular Cardiovascular exam: Present: +S1, +S2, tachycardia - GI/Abdominal Exam GI/Abdominal exam: Present: normal bowel sounds, soft - Extremities Exam Extremities exam: Present: normal capillary refill, normal inspection - Neurological Exam Neurological exam: Present: alert Additional comments: Appears disoriented, no verbal response. Did shake her head "no" for me. Would squeeze hands on command, and wiggle toes. - Skin Skin exam: Present: dry, pallor, warm Internal Medicine - CN: Reslt - Labs CBC & Chem 7: 07/21/18 11:27 07/21/18 10:40 Labs: Short CBC 07/21/18 Range/Units 11:27 WBC 16.4 H (4.3-11.1) K/mcL Hgb 11.7 (11.5-15.4) g/dL Hct 36.3 (35.3-44.9) % Plt Count 212 (140-400) K/mcL Neutrophils # 13.0 H (1.6-8.9) K/mcL BMP 07/21/18 10:40 Sodium 138 Potassium 4.0 Chloride 99 Carbon Dioxide 23 BUN 14 Creatinine 0.91 Glucose 69 L Calcium 8.4 L Cardiac Enzymes 07/21/18 Range/Units 11:27 Troponin I 0.06 H* (< 0.04) ng/mL Liver Function 07/21/18 Range/Units 10:40 Total Bilirubin 1.1 H (0.3-1.0) mg/dL Direct Bilirubin 0.2 (0.0-0.2) mg/dL AST 36 (13-39) Units/L ALT 7 (7-52) Units/L Alkaline Phosphatase 53 (34-104) Units/L Albumin 3.1 L (3.5-5.7) g/dL Urine 07/21/18 Range/Units 14:42 Urine Color Yellow (Yellow) Urine Clarity Cloudy A (Clear) Urine pH 5.5 (5.0-8.0) pH Units Ur Specific [place] 1.019 (1.010-1.025) Urine Protein 100 H (Neg-Trace) mg/dL Urine Glucose (UA) Normal (Normal) mg/dL - ABG Interpretation ABG results: ABG ABG pH 7.48 pH Units (7.32-7.45) H 07/21/18 12:39 ABG pCO2 31 mmHg (35-45) L 07/21/18 12:39 ABG pO2 59 mmHg (85-104) L 07/21/18 12:39 ABG O2 Saturation 92 % (95-98) L 07/21/18 12:39 PT/INR, D-dimer PT 16.5 Seconds (9.4-12.1) H 07/21/18 11:27 - Impressions Impressions Chest X-Ray 07/21/18 10:20 IMPRESSION: New developing atelectasis or infiltrate in the left lung base with a left pleural effusion. Bilateral interstitial opacities persist. Follow up to resolution is suggested. D/ / 07/21/2018 11:02:18 Vernell Sun MD / [facility] Interpreting Provider: Vernell Sun MD Cervical Spine CT 07/21/18 10:21 IMPRESSION: No acute intracranial abnormality. No acute traumatic injury of the cervical spine. Partially imaged lungs show airspace disease apicoposterior left upper lobe raising possibility of pneumonia. Chest x-ray or CT chest may be obtained as deemed clinically necessary.. D/ / Gustavo Weldon MD / Gusatvo Weldon MD Interpreting Provider: Gustavo Weldon MD Head CT 07/21/18 10:21 IMPRESSION: No acute intracranial abnormality. No acute traumatic injury of the cervical spine. Partially imaged lungs show airspace disease apicoposterior left upper lobe raising possibility of pneumonia. Chest x-ray or CT chest may be obtained as deemed clinically necessary.. D/ / Gustavo Weldon MD / Gustavo Weldon MD Interpreting Provider: Gustavo Weldon MD Consult Discharge Plan - Plan Referrals: NONE,PCP [Primary Care Provider] - Palliative Quality Palliative Quality: Screen for Code Status: Yes, Screen for Goals of Care: Yes, Screen for Pain: Yes, If Pain Regimen Started, Initiate Bowel Regimen: NA, Screen for Nausea/Vomitting: Yes Code Status: 07/21/18 14:47 CODE [Resuscitation Status: Active] [RES] Stat Comment: Resuscitation Status: [id number]
[2018-07-21 16:03] LABS: Adenovirus Not Detected (Not Detect); Bordetella Pertussis Not Detected (Not Detect); Chlamydophila pneumoniae Not Detected (Not Detect); Coronavirus 229E Not Detected (Not Detect); Coronavirus HKU1 Not Detected (Not Detect); Coronavirus NL63 Not Detected (Not Detect); Coronavirus OC43 Not Detected (Not Detect); Human Metapneumovirus Not Detected (Not Detect); Human Rhinovirus/Enterovirus Not Detected (Not Detect); Influenza A Subtype 2009 H1 Not Detected (Not Detect); Influenza A Untypeable Not Detected (Not Detect); Influenza B Not Detected (Not Detect); Mycoplasma pneumoniae Not Detected (Not Detect); Parainfluenza Virus 1 Not Detected (Not Detect); Parainfluenza Virus 2 Not Detected (Not Detect); Parainfluenza Virus 3 Not Detected (Not Detect); Parainfluenza Virus 4 Not Detected (Not Detect); Respiratory Syncytial Virus Not Detected (Not Detect)
[2018-07-21] MEDS: MethylPREDNISolone 40 MG/ML VIAL IVP SCH ×2 (16:44→22:19)
[2018-07-21] MEDS ORDERED: Naloxone 0.4 MG/ML INJ IVP PRN (17:15)
[2018-07-21] MEDS: *HR* Heparin 5,000 UNIT/ML VIAL SQ SCH (19:46)
[2018-07-21] MEDS: Budesonide/Formoterol 80/4.5 MDI IH SCH (20:07)
[2018-07-21] MEDS ORDERED: Acetaminophen 650 MG RECTAL SUPP RC PRN (20:07)
[2018-07-21] MEDS ORDERED: D5% in 0.45% NACL w KCl 20 MEQ/1,000 ML MLS IVC ONE (20:55)
[2018-07-21] MEDS: hydrALAZINE 25 MG TABLET PO SCH (22:19)
[2018-07-22] MEDS: Piperacillin/Tazobactam 3.375 GM in 0.9 % Sodium Chloride Mini Bag 100 ML IVPB SCH ×4 (00:16→23:28)
[2018-07-22] MEDS: Ipratropium/Albuterol Neb 3 ML IH SCH ×5 (04:31→20:33)
[2018-07-22 05:33] LABS: Basophils % 0.2 %; Hematocrit 31.4 % (35.3-44.9); Immature Granulocytes % 0.5 % (0-4); Lymphocytes # 2.1 K/mcL (0.6-4.6); Lymphocytes % 11.7 %; Mean Corpuscular HGB Conc 32.2 g/dL (31.6-35.5); Mean Corpuscular Hemoglobin 29.5 pg (28.0-33.3); Mean Corpuscular Volume 91.8 fL (83.0-100.0); Mean Platelet Volume 10.8 fL (9.4-12.4); Monocytes # 0.9 K/mcL (0.0-1.3); Neutrophils # 14.5 K/mcL (1.6-8.9); Platelet Count 181 K/mcL (140-400); Red Blood Count 3.42 M/mcL (3.82-4.97); Red Cell Distribution Width 14.6 % (11.5-14.5); Segmented Neutrophils % 82.6 %
[2018-07-22 05:35] LABS: Hemoglobin 10.1 g/dL (11.5-15.4)
[2018-07-22 05:51] LABS: Calcium 8.1 mg/dL (8.6-10.3); Magnesium 1.1 mg/dL (1.6-2.6); Phosphorous 5.1 mg/dL (2.7-4.5); Potassium 3.2 mEq/L (3.5-5.1)
[2018-07-22] MEDS: *HR* Heparin 5,000 UNIT/ML VIAL SQ SCH ×2 (05:51→17:15)
[2018-07-22] MEDS: MethylPREDNISolone 40 MG/ML VIAL IVP SCH ×2 (05:51→17:15)
--- NOTE | 2018-07-22 06:51 | Pulmonology Progress Note ---
Date of Encounter: 07/22/18 Time of Encounter: 06:51 Assessment and Plan (1) Acute and chronic respiratory failure Current Visit: No Status: Resolved In conclusion this is an 82-year-old woman with a past medical history of advanced emphysema complicated by chronic respiratory failure heart failure with reduced ejection fraction chronic atrial fibrillation on anticoagulation because of prior history of gastrointestinal hemorrhage. She presented with encephalopathy (metabolic) secondary to pneumonia and acute on chronic hypoxic respiratory failure. CT angiogram performed without evidence of pulmonary embolus but extensive left-sided pneumonia Course complicated by suspected COPD exacerbation as well. Patient has made improvement in the last 12-18 hours she has been weaned off BiPAP support and is currently tolerating oxymask. Extensive conversations were undertaken yesterday by the palliative care service with the patient's healthcare proxies including her adult daughter and the decision was to make patient DNAR/DNI and given overall frail health multiple comorbidities and multiple hospitalizations this is a reasonable decision. Recs: -I agree with the current time broad-spectrum antibiotics I suspect if cultures are negative for the next 24 hours MRSA coverage could be stopped. She does have a history of Pseudomonas and Escherichia coli for which she should continue on Zosyn I have a concern for aspiration as well and so this will cover anaerobic organisms. In total she will need 7-10 days of antimicrobial coverage unless evidence of resistant pseudomonal infection in which case 10-14 days is warranted based upon clinical course/response -Given recurrent history of pneumonia I recommend formal speech and swallow eval uation and possible modified barium swallow. Would keep nothing by mouth until this happens. -Continue to follow up cultures from admission this far they are negative -Agree with IV methylprednisolone 40 mg twice a day once cleared for by mouth could consider switching to prednisone 40 mg I recommend a two-week taper -Continue scheduled bronchodilators and Symbicort -Chemical DVT prophylaxis unless contraindication arises -She will need incentive spirometry out of bed to chair and early ambulation/PT OT consultation Thank you for this consultation pulmonary will sign off Do not hesitate to call me with any questions or concerns Cheng He [phone] Qualifiers: Respiratory failure complication: hypoxia Qualified Code(s): J96.21 - Acute and chronic respiratory failure with hypoxia (2) Acute exacerbation of chronic obstructive airways disease Current Visit: Yes Status: Chronic (3) Pneumonia Current Visit: Yes Status: Acute Qualifiers: Pneumonia type: due to unspecified organism Laterality: bilateral Lung location: lower lobe of lung Qualified Code(s): J18.9 - Pneumonia, unspecified organism (4) Systolic CHF Current Visit: No Status: Acute Qualifiers: Qualified Code(s): I50.21 - Acute systolic (congestive) heart failure (5) Acute metabolic encephalopathy Current Visit: Yes Status: Acute (6) Frail elderly Current Visit: Yes Status: Acute Subjective Principal diagnosis: Pneumonia Interval history: Ms Espinal has been relatively well overnight she is much less encephalopathic and now able to answer simple questions. She is been weaned off the BiPAP and onto OxiMask now between 4 and 5 L. Has remained afebrile. Blood pressure has been relatively stable overnight systolics now under 100 but map has been stable and urine output is been acceptable Objective PUL Vital signs: Last Vital Signs Temp 97.8 F 07/22/18 04:19 Pulse 69 07/22/18 04:19 Resp 25 07/22/18 04:36 BP 99/61 07/22/18 04:36 Pulse Ox 92 07/22/18 05:14 General appearance: no acute distress, other (Frail elderly woman appears quite comfortable however) Eyes: nonicteric ENT: oropharynx dry Neck: supple, no lymphadenopathy Effort: normal Auscultation: bilateral: rales Cardiovascular: regular rate and rhythm Gastrointestinal: soft, non-tender Integumentary: other (Chronic skin breakdown which appears to be a combination of thin skin and senility) Extremities: edema (Trace lower extremity edema) Musculoskeletal: no deformities non-focal exam, pupils equal and round mood appropriate Results - Laboratory Findings CBC and BMP: 07/22/18 05:03 07/22/18 05:03 ABG ABG pH 7.48 pH Units (7.32-7.45) H 07/21/18 12:39 ABG pCO2 31 mmHg (35-45) L 07/21/18 12:39 ABG pO2 59 mmHg (85-104) L 07/21/18 12:39 ABG O2 Saturation 92 % (95-98) L 07/21/18 12:39 PT/INR, D-dimer PT 16.5 Seconds (9.4-12.1) H 07/21/18 11:27 Abnormal lab findings: Abnormal lab results WBC 17.5 K/mcL (4.3-11.1) H 07/22/18 05:03 RBC 3.42 M/mcL (3.82-4.97) L 07/22/18 05:03 Hgb 10.1 g/dL (11.5-15.4) L D 07/22/18 05:03 Hct 31.4 % (35.3-44.9) L 07/22/18 05:03 RDW 14.6 % (11.5-14.5) H 07/22/18 05:03 Neutrophils # 14.5 K/mcL (1.6-8.9) H 07/22/18 05:03 PT 16.5 Seconds (9.4-12.1) H 07/21/18 11:27 APTT 37.3 Seconds (26.0-36.0) H 07/21/18 11:27 ABG pH 7.48 pH Units (7.32-7.45) H 07/21/18 12:39 ABG pCO2 31 mmHg (35-45) L 07/21/18 12:39 ABG pO2 59 mmHg (85-104) L 07/21/18 12:39 ABG O2 Saturation 92 % (95-98) L 07/21/18 12:39 Potassium 3.2 mEq/L (3.5-5.1) L 07/22/18 05:03 Est GFR ( Amer) 59 (> 60) L 07/22/18 05:03 Est GFR (Non-Af Amer) 49 (> 60) L 07/22/18 05:03 Glucose 119 mg/dL (70-105) H 07/22/18 05:03 POC Glucose 131 mg/dL (70-99) H 07/22/18 05:13 Calcium 8.1 mg/dL (8.6-10.3) L 07/22/18 05:03 Phosphorus 5.1 mg/dL (2.7-4.5) H 07/22/18 05:03 Magnesium 1.1 mg/dL (1.6-2.6) L 07/22/18 05:03 Total Bilirubin 1.1 mg/dL (0.3-1.0) H 07/21/18 10:40 Creatine Kinase 557 Units/L (30-223) H 07/21/18 11:27 Troponin I 0.06 ng/mL (< 0.04) H* 07/21/18 11:27 B-Natriuretic Peptide 318 pg/mL (Less than 100) H 07/21/18 11:27 Serum Total Protein 5.9 g/dL (6.4-8.9) L 07/21/18 10:40 Albumin 3.1 g/dL (3.5-5.7) L 07/21/18 10:40 Urine Clarity Cloudy (Clear) A 07/21/18 14:42 Urine Protein 100 mg/dL (Neg-Trace) H 07/21/18 14:42 Urine Ketones 15 mg/dL (Negative) H 07/21/18 14:42 Urine Blood Small (Negative) H 07/21/18 14:42 Urine Bilirubin Moderate (Negative) H 07/21/18 14:42 Urine Microscopic RBC 5-15 per hpf (0-3) H 07/21/18 14:42 Ur Squamous Epith Cells Many per lpf (None-Few) H 07/21/18 14:42 - Microbiology Findings Microbiology Findings: Microbiology, Last 48 Hours 07/21/18 12:13 Blood Culture - Preliminary Peripheral Venipuncture Culture is incubating and being continuously monitored for growth. Final report to follow. 07/21/18 11:27 Blood Culture - Preliminary Peripheral Venipuncture Culture is incubating and being continuously monitored for growth. Final report to follow. - Diagnostic Findings Chest x-ray: report reviewed, image reviewed CT scan - chest: report reviewed, image reviewed - Clinical Findings Intake & Output: Intake & Output 07/21/18 07/21/18 07/22/18 15:59 23:59 07:59 Intake Total 350 / 350 Balance 350 / 350 Weight 62.959 kg 56.6 kg 57.8 kg Consult Discharge Plan - Plan Referrals: NONE,PCP [Primary Care Provider] -
[2018-07-22] MEDS: Budesonide/Formoterol 80/4.5 MDI IH SCH ×2 (07:56→20:34)
--- NOTE | 2018-07-22 10:16 | Internal Med Progress Note ---
Hospitalist Progress Note - Encounter Date of Encounter: 07/22/18 Time of Encounter: 08:15 - Subjective Interval History: H&P reviewed. Patient with oxygen dependent COPD, combined systolic and diastolic heart failure with ischemic cardiomyopathy, atrial fibrillation, was admitted for hypoxic respiratory failure secondary to left-sided pneumonia complicated by COPD exacerbation. Improved with IV abx and steroids, weaned off BiPaP this morning. Tmax 102.7 at 740pm yesterday. No chest pain. - Exam Vitals: Temp Pulse Resp BP Pulse Ox 97.6 F 68 19 107/65 94 07/22/18 07:53 07/22/18 09:30 07/22/18 07:57 07/22/18 07:53 07/22/18 09:42 Exam: General: Alert and oriented, mild distress. Cachectic Cardiovascular:Normal S1 & S2, No JVD. Pulse regular. Lungs: bilateral rhonchi/wheezes Abdomen:Soft, non-tender, no rigidity. Extremities:No deformity or swelling - Assessment and Plan (1) Acute on chronic respiratory failure with hypoxia Current Visit: Yes Status: Acute Assessment and Plan: secondary to left-sided pneumonia and COPD exacerbation. Possible aspiration improved with broad spectrum abx, steroids, and bronchodilators. Weaned off BiPaP continue the same abx, check MRSA swab strep/legionella ag pending speech eval due to concern for aspiration. NPO till then appreciate pulm input, taper steroid over 2 weeks continue symbicort (2) HCAP (healthcare-associated pneumonia) Current Visit: Yes Status: Acute Assessment and Plan: also concerning for aspiration PNA abx and speech eval as above (3) Acute exacerbation of chronic obstructive airways disease Current Visit: Yes Status: Acute Assessment and Plan: Continue on nebs, steroids and antibiotics (4) Elevated troponin Current Visit: Yes Status: Acute Assessment and Plan: known CAD with [facility] 01/2017 no signs and symptoms of ACS, troponin 0.06 - 0.22 likely demand ischemia due to the above diagnosis. continue to trend till it peaks check limited echo resume home meds for CAD (5) Combined systolic and diastolic congestive heart failure Current Visit: Yes Status: Chronic Assessment and Plan: Pt has chronic combined systolic and diastolic CHF with no acute exacerbation Continue home dose of lasix hold ALEXANDER-i, aldactone in view of borderline low BP bb previously held in view of low BP (6) Acute metabolic encephalopathy Current Visit: Yes Status: Resolved Assessment and Plan: Kajal 2/2 to respiratory failure. Improving (7) DVT prophylaxis Current Visit: Yes Status: Acute Assessment and Plan: Heparin SQ - Time Spent with Patient Total time spent is greater than 50% in coordination of care (as documented) at patient's floor/unit and/or counseling patient: Plan of Care Discussed with: patient (discussed with pt's granddaughter in detail) Internal Medicine: Result - Labs CBC & Chem 7: 07/22/18 05:03 07/22/18 05:03 Labs: Short CBC 07/21/18 07/22/18 Range/Units 11:27 05:03 WBC 16.4 H 17.5 H (4.3-11.1) K/mcL Hgb 11.7 10.1 L D (11.5-15.4) g/dL Hct 36.3 31.4 L (35.3-44.9) % Plt Count 212 181 (140-400) K/mcL Neutrophils # 13.0 H 14.5 H (1.6-8.9) K/mcL BMP 07/21/18 07/22/18 10:40 05:03 Sodium 138 139 Potassium 4.0 3.2 L Chloride 99 102 Carbon Dioxide 23 26 BUN 14 23 Creatinine 0.91 1.08 Glucose 69 L 119 H Calcium 8.4 L 8.1 L Cardiac Enzymes 07/21/18 07/22/18 Range/Units 11:27 08:35 Troponin I 0.06 H* 0.22 H* (< 0.04) ng/mL Liver Function 07/21/18 Range/Units 10:40 Total Bilirubin 1.1 H (0.3-1.0) mg/dL Direct Bilirubin 0.2 (0.0-0.2) mg/dL AST 36 (13-39) Units/L ALT 7 (7-52) Units/L Alkaline Phosphatase 53 (34-104) Units/L Albumin 3.1 L (3.5-5.7) g/dL Urine 07/21/18 Range/Units 14:42 Urine Color Yellow (Yellow) Urine Clarity Cloudy A (Clear) Urine pH 5.5 (5.0-8.0) pH Units Ur Specific [place] 1.019 (1.010-1.025) Urine Protein 100 H (Neg-Trace) mg/dL Urine Glucose (UA) Normal (Normal) mg/dL - ABG Interpretation ABG results: ABG ABG pH 7.48 pH Units (7.32-7.45) H 07/21/18 12:39 ABG pCO2 31 mmHg (35-45) L 07/21/18 12:39 ABG pO2 59 mmHg (85-104) L 07/21/18 12:39 ABG O2 Saturation 92 % (95-98) L 07/21/18 12:39 PT/INR, D-dimer PT 16.5 Seconds (9.4-12.1) H 07/21/18 11:27 - Impressions Impressions Chest X-Ray 07/21/18 10:20 IMPRESSION: New developing atelectasis or infiltrate in the left lung base with a left pleural effusion. Bilateral interstitial opacities persist. Follow up to resolution is suggested. D/ / 07/21/2018 11:02:18 Vernell Sun MD / [facility] Interpreting Provider: Vernell Sun MD Cervical Spine CT 07/21/18 10:21 IMPRESSION: No acute intracranial abnormality. No acute traumatic injury of the cervical spine. Partially imaged lungs show airspace disease apicoposterior left upper lobe raising possibility of pneumonia. Chest x-ray or CT chest may be obtained as deemed clinically necessary.. D/ / Gustavo Weldon MD / Gsutavo Weldon MD Interpreting Provider: Gustavo Weldon MD Head CT 07/21/18 10:21 IMPRESSION: No acute intracranial abnormality. No acute traumatic injury of the cervical spine. Partially imaged lungs show airspace disease apicoposterior left upper lobe raising possibility of pneumonia. Chest x-ray or CT chest may be obtained as deemed clinically necessary.. D/ / Gustavo Weldon MD / Gustavo Weldon MD Interpreting Provider: Gustavo Weldon MD Chest CTA 07/21/18 13:07 IMPRESSION: Limited evaluation of the segmental and subsegmental pulmonary arterial branches. No central pulmonary embolism is detected. Consolidation within the lungs bilaterally, greatest dependently, an overall much greater on the left. Pneumonia is likely. In that location, aspiration is also a prime consideration, especially given debris within the airways. D/ / Mj Leigh MD / Mj Leigh MD Interpreting Provider: Mj Leigh MD Consult Discharge Plan - Plan Referrals: NONE,PCP [Primary Care Provider] - (5) Combined systolic and diastolic congestive heart failure Qualifiers: Heart failure chronicity: chronic Qualified Code(s): I50.42 - Chronic combined systolic (congestive) and diastolic (congestive) heart failure
[2018-07-22] MEDS: Spironolactone 25 MG TABLET PO SCH (11:21)
[2018-07-22] MEDS: (Umeclidinium Bromide [Incruse Ellipta] 1 PUFF) IH SCH (11:22)
[2018-07-22] MEDS: hydrALAZINE 25 MG TABLET PO SCH ×2 (11:22→20:29)
[2018-07-22] MEDS: Furosemide 20 MG TABLET PO SCH (11:22)
[2018-07-22] MEDS: Isosorbide MONOnitrate (24 HR) 30 MG TAB.ER.24H PO SCH (11:22)
[2018-07-22] MEDS: Fluticasone Propionate Nasal 50 MCG/SPRAY BOTTLE NS SCH (11:41)
[2018-07-22] MEDS ORDERED: Perflutren Lipid Microsphere 1.3 ML in 0.9 % Sodium Chloride 8.7 ML IVP ONE (12:50)
[2018-07-23] MEDS: Ipratropium/Albuterol Neb 3 ML IH SCH ×6 (00:12→20:49)
[2018-07-23] MEDS: MethylPREDNISolone 40 MG/ML VIAL IVP SCH ×2 (03:40→16:29)
[2018-07-23] MEDS: *HR* Heparin 5,000 UNIT/ML VIAL SQ SCH ×2 (03:40→16:29)
--- NOTE | 2018-07-23 05:27 | Electrocardiograph Report ---
[place] [facility] Test Date: 2018-07-21 Pat Name: Nadia Espinal Department: EXAM7 Room: 2N08 Gender: F Target Man: : 1935 Requested By: João Giles Order Number: [id number] Reading MD: Ismael Shelby Measurements Intervals [place] Rate: 95 P: AR: QRS: -80 QRSD: 125 T: 134 QT: 378 QTc: 476 Interpretive Statements Atrial fibrillation Ventricular premature complex Nonspecific IVCD with LAD LVH with secondary repolarization abnormality Anterior infarct, old Electronically Signed On 07-23-2018 5:25:26 EST by Ismael Shelby
[2018-07-23] MEDS: Budesonide/Formoterol 80/4.5 MDI IH SCH ×2 (07:24→20:50)
[2018-07-23] MEDS: hydrALAZINE 25 MG TABLET PO SCH ×2 (08:05→20:45)
[2018-07-23] MEDS: Spironolactone 25 MG TABLET PO SCH (08:06)
[2018-07-23] MEDS: Isosorbide MONOnitrate (24 HR) 30 MG TAB.ER.24H PO SCH (08:06)
[2018-07-23] MEDS: Fluticasone Propionate Nasal 50 MCG/SPRAY BOTTLE NS SCH (08:10)
[2018-07-23] MEDS: Piperacillin/Tazobactam 3.375 GM in 0.9 % Sodium Chloride Mini Bag 100 ML IVPB SCH ×3 (08:15→23:00)
[2018-07-23] MEDS: Furosemide 20 MG TABLET PO SCH (09:38)
[2018-07-23] MEDS: (Umeclidinium Bromide [Incruse Ellipta] 1 PUFF) IH SCH (09:43)
--- NOTE | 2018-07-23 11:41 | Internal Med Progress Note ---
Hospitalist Progress Note - Encounter Date of Encounter: 07/23/18 Time of Encounter: 10:30 - Subjective Interval History: SOB improving, no chest pain or palpitation. O2 requirement down to 4L. No fever/chills. - Exam Vitals: Temp Pulse Resp BP Pulse Ox 98.4 F 69 18 115/54 94 07/23/18 11:33 07/23/18 11:33 07/23/18 11:33 07/23/18 11:33 07/23/18 11:33 Exam: General: Alert and oriented, mild distress but easily speaks in full sentences. Cachectic Cardiovascular:Normal S1 & S2, No JVD. Pulse regular. Lungs: bilateral rhonchi/wheezes, improving Abdomen:Soft, non-tender, no rigidity. Extremities:No deformity or swelling - Assessment and Plan (1) Acute on chronic respiratory failure with hypoxia Current Visit: Yes Status: Acute Assessment and Plan: secondary to left-sided pneumonia and COPD exacerbation. Possible aspiration strep/legionella ag -ve improved with broad spectrum abx, steroids, and bronchodilators. Weaned off BiPaP continue the same abx, pending MRSA swab. Likely d/c vanc after MRSA swab comes back SLT input appreciated: advanced soft diet w/ thin liquids for now and will proceed with MBS tomorrow appreciate pulm input, taper steroid over 2 weeks continue symbicort (2) HCAP (healthcare-associated pneumonia) Current Visit: Yes Status: Acute Assessment and Plan: also concerning for aspiration PNA abx and speech eval as above (3) Acute exacerbation of chronic obstructive airways disease Current Visit: Yes Status: Acute Assessment and Plan: Continue on nebs, steroids and antibiotics (4) Elevated troponin Current Visit: Yes Status: Acute Assessment and Plan: known CAD with [facility] 01/2017 no signs and symptoms of ACS, troponin peaked at 0.22 likely demand ischemia due to the above diagnosis. Low suspicion for type I event limited echo report pending resume home meds for CAD (5) Combined systolic and diastolic congestive heart failure Current Visit: Yes Status: Chronic Assessment and Plan: Pt has chronic combined systolic and diastolic CHF with no acute exacerbation Continue home dose of lasix, resume ALEXANDER-i, aldactone bb previously held in view of low BP. Continue to monitor BP and may be able to start Toprol XL 12.5mg QD prior to d/c (6) Acute metabolic encephalopathy Current Visit: Yes Status: Resolved Assessment and Plan: Kajal 2/2 to respiratory failure. Improving (7) DVT prophylaxis Current Visit: Yes Status: Acute Assessment and Plan: Heparin SQ - Time Spent with Patient Total time spent is greater than 50% in coordination of care (as documented) at patient's floor/unit and/or counseling patient: Plan of Care Discussed with: patient Internal Medicine: Result - Labs CBC & Chem 7: 07/22/18 05:03 07/22/18 05:03 Labs: Cardiac Enzymes 07/22/18 Range/Units 14:36 Troponin I 0.05 H* (< 0.04) ng/mL - ABG Interpretation ABG results: ABG ABG pH 7.48 pH Units (7.32-7.45) H 07/21/18 12:39 ABG pCO2 31 mmHg (35-45) L 07/21/18 12:39 ABG pO2 59 mmHg (85-104) L 07/21/18 12:39 ABG O2 Saturation 92 % (95-98) L 07/21/18 12:39 PT/INR, D-dimer PT 16.5 Seconds (9.4-12.1) H 07/21/18 11:27 Consult Discharge Plan - Plan Referrals: NONE,PCP [Primary Care Provider] - (5) Combined systolic and diastolic congestive heart failure Qualifiers: Heart failure chronicity: chronic Qualified Code(s): I50.42 - Chronic combined systolic (congestive) and diastolic (congestive) heart failure
[2018-07-23 13:42] LABS: Basophils % 0.1 %; Eosinophils % 0.2 %; Hemoglobin 9.4 g/dL (11.5-15.4); Immature Granulocytes % 0.9 % (0-4); Lymphocytes # 0.4 K/mcL (0.6-4.6); Lymphocytes % 3.6 %; Mean Corpuscular HGB Conc 33.6 g/dL (31.6-35.5); Mean Corpuscular Hemoglobin 29.7 pg (28.0-33.3); Mean Corpuscular Volume 88.6 fL (83.0-100.0); Monocytes # 0.2 K/mcL (0.0-1.3); Monocytes % 1.9 %; Neutrophils # 9.5 K/mcL (1.6-8.9); Platelet Count 180 K/mcL (140-400); Red Blood Count 3.16 M/mcL (3.82-4.97); Red Cell Distribution Width 14.3 % (11.5-14.5); Segmented Neutrophils % 93.3 %
--- NOTE | 2018-07-23 16:10 | Palliative Progress Note ---
Date of Encounter: 07/23/18 Time of Encounter: 10:30 - Assessment and plan (1) Weakness Current Visit: No Status: Chronic Assessment and plan: PT/OT consult ordered for discharge planning. (2) Pneumonia Current Visit: No Status: Acute Assessment and plan: Patient responding to antibiotic treatment. Qualifiers: Pneumonia type: due to unspecified organism Laterality: unspecified laterality Lung location: unspecified part of lung Qualified Code(s): J18.9 - Pneumonia, unspecified organism (3) Declining functional status Current Visit: No Status: Acute Assessment and plan: Speech therapy recommends MBSS tomorrow. (4) Frail elderly Current Visit: Yes Status: Acute (5) Dyspnea Current Visit: Yes Status: Acute Assessment and plan: Denies dyspnea during assessment. Tolerating oxygen via nasal cannula. Qualifiers: Dyspnea type: unspecified Qualified Code(s): R06.00 - Dyspnea, unspecified (6) Goals of care, counseling/discussion Current Visit: Yes Status: Acute Assessment and plan: Patient able to give recount of episode prior to admission. Patient reports she had been at home and slid off bed when trying to sit down prior to admission. Patient reports living at home with her hearing impaired son. Patient acknowledges repeat falls; however, does not feel she needs to go to F at discharge. Patient upset that [facility] is "forcing her to go, against her will." Explained would benefit from rehab for strength. Patient agrees to go to rehab for short term. PT/OT ordered. - Time Spent With Patient Total time spent is greater than 50% in coordination of care (as documented) at patient's floor/unit and/or counseling patient: 25 - 35 minutes - Subjective Interval history: Patient awake, alert and oriented upon arrival for assessment. No family present at bedside. Patient denies pain, anxiety, dyspnea, nausea, and vomiting. - Constitutional Vitals: Abnormal lab results RBC 3.16 M/mcL (3.82-4.97) L 07/23/18 13:04 Hgb 9.4 g/dL (11.5-15.4) L 07/23/18 13:04 Hct 28.0 % (35.3-44.9) L 07/23/18 13:04 Neutrophils # 9.5 K/mcL (1.6-8.9) H 07/23/18 13:04 Lymphocytes # 0.4 K/mcL (0.6-4.6) L 07/23/18 13:04 PT 16.5 Seconds (9.4-12.1) H 07/21/18 11:27 APTT 37.3 Seconds (26.0-36.0) H 07/21/18 11:27 ABG pH 7.48 pH Units (7.32-7.45) H 07/21/18 12:39 ABG pCO2 31 mmHg (35-45) L 07/21/18 12:39 ABG pO2 59 mmHg (85-104) L 07/21/18 12:39 ABG O2 Saturation 92 % (95-98) L 07/21/18 12:39 Potassium 3.2 mEq/L (3.5-5.1) L 07/22/18 05:03 Est GFR ( Amer) 59 (> 60) L 07/22/18 05:03 Est GFR (Non-Af Amer) 49 (> 60) L 07/22/18 05:03 Glucose 119 mg/dL (70-105) H 07/22/18 05:03 POC Glucose 156 mg/dL (70-99) H 07/22/18 12:41 Calcium 8.1 mg/dL (8.6-10.3) L 07/22/18 05:03 Phosphorus 5.1 mg/dL (2.7-4.5) H 07/22/18 05:03 Magnesium 1.1 mg/dL (1.6-2.6) L 07/22/18 05:03 Total Bilirubin 1.1 mg/dL (0.3-1.0) H 07/21/18 10:40 Creatine Kinase 557 Units/L (30-223) H 07/21/18 11:27 Troponin I 0.05 ng/mL (< 0.04) H* 07/22/18 14:36 B-Natriuretic Peptide 318 pg/mL (Less than 100) H 07/21/18 11:27 Serum Total Protein 5.9 g/dL (6.4-8.9) L 07/21/18 10:40 Albumin 3.1 g/dL (3.5-5.7) L 07/21/18 10:40 Urine Clarity Cloudy (Clear) A 07/21/18 14:42 Urine Protein 100 mg/dL (Neg-Trace) H 07/21/18 14:42 Urine Ketones 15 mg/dL (Negative) H 07/21/18 14:42 Urine Blood Small (Negative) H 07/21/18 14:42 Urine Bilirubin Moderate (Negative) H 07/21/18 14:42 Urine Microscopic RBC 5-15 per hpf (0-3) H 07/21/18 14:42 Ur Squamous Epith Cells Many per lpf (None-Few) H 07/21/18 14:42 Nasal Screen MRSA (PCR) Positive (Negative) A 07/22/18 09:45 Palliative Quality Palliative Quality: Screen for Code Status: Yes, Screen for Goals of Care: Yes, Screen for Pain: Yes, If Pain Regimen Started, Initiate Bowel Regimen: NA, Screen for Nausea/Vomitting: Yes Code Status: 07/21/18 14:47 CODE [Resuscitation Status: Active] [RES] Stat Comment: Resuscitation Status: [id number] - Labs CBC & Chem 7: 07/23/18 13:04 07/22/18 05:03 Labs: Laboratory Results - last 24 hr 07/22/18 07/23/18 07/23/18 09:45 13:04 14:08 WBC 10.2 RBC 3.16 L Hgb 9.4 L Hct 28.0 L MCV 88.6 MCH 29.7 MCHC 33.6 RDW 14.3 Plt Count 180 MPV 12.0 Immature Gran % 0.9 Seg Neutrophils % 93.3 Lymphocytes % 3.6 Monocytes % 1.9 Eosinophils % 0.2 Basophils % 0.1 Neutrophils # 9.5 H Lymphocytes # 0.4 L Monocytes # 0.2 Eosinophils # 0.0 Basophils # 0.0 Nasal Screen MRSA (PCR) Positive A Specimen Rejected - Impressions Impressions Echocardiogram Limited Views 07/22/18 10:13 Impressions: LVEF 55%. Normal LV chamber size, wall thickness and overall normal function. Mild segmental left ventricular systolic dysfunction. No LV thrombus. Atypical septal motion consistent with bundle branch block. Limited study. Overall LV function has improved compared to prior reports. Left Ventricular Wall Motion: Rest Echo Findings The basal inferior lateral wall was hypokinetic. All other wall segments showed normal motion. Findings: Study Quality * Technically adequate exam. ECG Findings * Sinus rhythm with BBB. Left Ventricle * LVEF 55%. * Normal LV chamber size, wall thickness and overall normal function. * Mild segmental left ventricular systolic dysfunction. * Atypical septal motion consistent with bundle branch block. - ABG Interpretation ABG results: ABG ABG pH 7.48 pH Units (7.32-7.45) H 07/21/18 12:39 ABG pCO2 31 mmHg (35-45) L 07/21/18 12:39 ABG pO2 59 mmHg (85-104) L 07/21/18 12:39 ABG O2 Saturation 92 % (95-98) L 07/21/18 12:39 PT/INR, D-dimer PT 16.5 Seconds (9.4-12.1) H 07/21/18 11:27 Palliative Scale - Palliative Performance Scale How ambulatory is this patient?: Mainly sit / lie What is patient's level of activity and evidence of disease?: Unable hobby/housework, Significant disease How much self-care assistance does patient require?: Mainly assistance How much oral intake does the patient have?: Normal or reduced What is this patient's level of consciousness?: Full or confusion Palliative Performance Score: 60 % Consult Discharge Plan - Plan Referrals: NONE,PCP [Primary Care Provider] -
[2018-07-23 16:16] LABS: BUN/Creatinine Ratio 35 (6-26); Blood Urea Nitrogen 34 mg/dL (8-23); Carbon Dioxide 25 mEq/L (23-29); Chloride 101 mEq/L (98-107); Glucose 200 mg/dL (70-105); Magnesium 1.8 mg/dL (1.6-2.6); Osmolality,Calculated 295 (280-300); Potassium 2.8 mEq/L (3.5-5.1); Sodium 136 mEq/L (136-145); eGFR For Non-African Americans 54 (> 60)
[2018-07-23] MEDS: Gabapentin 300 MG CAPSULE PO SCH (20:45)
[2018-07-24] MEDS: Ipratropium/Albuterol Neb 3 ML IH SCH ×6 (00:22→20:15)
[2018-07-24] MEDS: MethylPREDNISolone 40 MG/ML VIAL IVP SCH ×2 (05:37→17:25)
[2018-07-24] MEDS: *HR* Heparin 5,000 UNIT/ML VIAL SQ SCH ×2 (05:37→17:16)
[2018-07-24 06:22] LABS: Hematocrit 25.3 % (35.3-44.9); Immature Granulocytes % 0.9 % (0-4); Lymphocytes # 0.5 K/mcL (0.6-4.6); Mean Corpuscular HGB Conc 31.6 g/dL (31.6-35.5); Mean Corpuscular Volume 91.7 fL (83.0-100.0); Mean Platelet Volume 11.3 fL (9.4-12.4); Monocytes # 0.3 K/mcL (0.0-1.3); Monocytes % 3.6 %; Neutrophils # 7.2 K/mcL (1.6-8.9); Platelet Count 175 K/mcL (140-400); Red Blood Count 2.76 M/mcL (3.82-4.97); Red Cell Distribution Width 14.6 % (11.5-14.5); Segmented Neutrophils % 89.5 %
[2018-07-24 06:46] LABS: BUN/Creatinine Ratio 34 (6-26); Blood Urea Nitrogen 31 mg/dL (8-23); Calcium 8.1 mg/dL (8.6-10.3); Carbon Dioxide 25 mEq/L (23-29); Chloride 105 mEq/L (98-107); Glucose 146 mg/dL (70-105); Magnesium 1.8 mg/dL (1.6-2.6); Osmolality,Calculated 295 (280-300); Potassium 3.9 mEq/L (3.5-5.1); Sodium 138 mEq/L (136-145); eGFR For Non-African Americans 59 (> 60)
[2018-07-24] MEDS: Budesonide/Formoterol 80/4.5 MDI IH SCH ×2 (07:57→20:15)
--- NOTE | 2018-07-24 09:43 | Event Note ---
Date of Encounter: 07/24/18 Time of Encounter: 09:40 Patient much better than when I saw her on Tuesday. Alert and oriented x2. On nasal cannula at 4L. Leaving to go for Modified barium swallow. Granddaughter at bedside. PT/OT consult pending. Patient stating she wants to go home rather than ECF. Code status remains DNR/DNI. Continue to follow.
[2018-07-24] MEDS: (Umeclidinium Bromide [Incruse Ellipta] 1 PUFF) IH SCH (10:27)
[2018-07-24] MEDS: Piperacillin/Tazobactam 3.375 GM in 0.9 % Sodium Chloride Mini Bag 100 ML IVPB SCH ×3 (10:32→23:51)
[2018-07-24] MEDS: Gabapentin 300 MG CAPSULE PO SCH ×2 (10:34→21:14)
[2018-07-24] MEDS: Isosorbide MONOnitrate (24 HR) 30 MG TAB.ER.24H PO SCH (10:36)
[2018-07-24] MEDS: hydrALAZINE 25 MG TABLET PO SCH (10:36)
[2018-07-24] MEDS: Spironolactone 25 MG TABLET PO SCH (10:36)
[2018-07-24] MEDS: Furosemide 20 MG TABLET PO SCH (10:36)
[2018-07-24] MEDS: Aspirin Enteric Coated 81 MG Tablet PO SCH (10:36)
[2018-07-24] MEDS: Fluticasone Propionate Nasal 50 MCG/SPRAY BOTTLE NS SCH (10:40)
--- NOTE | 2018-07-24 12:00 | Internal Med Progress Note ---
Hospitalist Progress Note - Encounter Date of Encounter: 07/24/18 Time of Encounter: 10:00 - Subjective Interval History: No acute events overnight. Denies worsening shortness of breath, cough, or sputum production. O2 requirement weaned down to 2 L by nasal cannula. No fever/chills. - Exam Vitals: Temp Pulse Resp BP Pulse Ox 97.2 F L 57 18 109/62 95 07/24/18 10:33 07/24/18 10:33 07/24/18 11:38 07/24/18 10:33 07/24/18 11:38 Exam: General: Alert and oriented, not in distress. Cachectic Cardiovascular:Normal S1 & S2, No JVD. Pulse regular. Lungs: bilateral rhonchi/wheezes but improved aeration Abdomen:Soft, non-tender, no rigidity. Extremities:No deformity or swelling - Assessment and Plan (1) Acute on chronic respiratory failure with hypoxia Current Visit: Yes Status: Acute Assessment and Plan: secondary to left-sided pneumonia and COPD exacerbation. Possible aspiration strep/legionella ag -ve improved with broad spectrum abx, steroids, and bronchodilators. BiPaP weaned off ON Vanc/zosyn D4. MRSA swab +ve. SLT input appreciated: advanced soft diet w/ thin liquids for now and MBS today pending speech eval, will switch abx to PO Levaquin/doxy for a total of 10 days appreciate pulm input, taper steroid over 2 weeks continue symbicort (2) HCAP (healthcare-associated pneumonia) Current Visit: Yes Status: Acute Assessment and Plan: also concerning for aspiration PNA abx and speech eval as above (3) Sepsis Current Visit: Yes Status: Resolved Assessment and Plan: due to pneumonia as above, resolving (4) Acute exacerbation of chronic obstructive airways disease Current Visit: Yes Status: Acute Assessment and Plan: Continue on nebs, steroids and antibiotics Home inhalers resumed (5) Elevated troponin Current Visit: Yes Status: Resolved Assessment and Plan: known CAD with [facility] 01/2017 no signs and symptoms of ACS, troponin peaked at 0.22 likely demand ischemia due to the above diagnosis. Low suspicion for type I event limited echo report showed rather improving EF resume home meds for CAD (6) Combined systolic and diastolic congestive heart failure Current Visit: Yes Status: Chronic Assessment and Plan: Pt has chronic combined systolic and diastolic CHF with no acute exacerbation Continue home dose of lasix. ALEXNADER-i, aldactone resumed yesterday bb previously held in view of low BP. Continue to monitor BP and may be able to start Toprol XL 12.5mg QD prior to d/c Will DC hydralazine to see if her BP would improve to introduce bb (7) Acute metabolic encephalopathy Current Visit: Yes Status: Resolved Assessment and Plan: Likley 2/2 to respiratory failure. Improving (8) DVT prophylaxis Current Visit: Yes Status: Acute Assessment and Plan: Heparin SQ - Time Spent with Patient Total time spent is greater than 50% in coordination of care (as documented) at patient's floor/unit and/or counseling patient: Plan of Care Discussed with: patient (discussed with granddaughter) Internal Medicine: Result - Labs CBC & Chem 7: 07/24/18 06:08 07/24/18 06:08 Labs: Short CBC 07/23/18 07/24/18 Range/Units 13:04 06:08 WBC 10.2 8.0 (4.3-11.1) K/mcL Hgb 9.4 L 8.0 L (11.5-15.4) g/dL Hct 28.0 L 25.3 L (35.3-44.9) % Plt Count 180 175 (140-400) K/mcL Neutrophils # 9.5 H 7.2 (1.6-8.9) K/mcL BMP 07/23/18 07/24/18 15:05 06:08 Sodium 136 138 Potassium 2.8 L 3.9 D Chloride 101 105 Carbon Dioxide 25 25 BUN 34 H 31 H Creatinine 0.98 0.91 Glucose 200 H 146 H Calcium 8.0 L 8.1 L - ABG Interpretation ABG results: ABG ABG pH 7.48 pH Units (7.32-7.45) H 07/21/18 12:39 ABG pCO2 31 mmHg (35-45) L 07/21/18 12:39 ABG pO2 59 mmHg (85-104) L 07/21/18 12:39 ABG O2 Saturation 92 % (95-98) L 07/21/18 12:39 PT/INR, D-dimer PT 16.5 Seconds (9.4-12.1) H 07/21/18 11:27 - Impressions Impressions Echocardiogram Limited Views 07/22/18 10:13 Impressions: LVEF 55%. Normal LV chamber size, wall thickness and overall normal function. Mild segmental left ventricular systolic dysfunction. No LV thrombus. Atypical septal motion consistent with bundle branch block. Limited study. Overall LV function has improved compared to prior reports. Left Ventricular Wall Motion: Rest Echo Findings The basal inferior lateral wall was hypokinetic. All other wall segments showed normal motion. Findings: Study Quality * Technically adequate exam. ECG Findings * Sinus rhythm with BBB. Left Ventricle * LVEF 55%. * Normal LV chamber size, wall thickness and overall normal function. * Mild segmental left ventricular systolic dysfunction. * Atypical septal motion consistent with bundle branch block. Videofluoroscopic Swallow 07/24/18 00:01 IMPRESSION: Swallowing mechanism grossly within normal limits without evidence of aspiration. Please see separate speech pathology report for full discussion of findings and recommendations. D/ / Vic Arias MD / Vic Arias MD Interpreting Provider: Vic Arias MD Consult Discharge Plan - Plan Referrals: Arley Awan MD [Non-Partnered Physician] - (3) Sepsis Qualifiers: Sepsis type: sepsis due to unspecified organism Qualified Code(s): A41.9 - Sepsis, unspecified organism (6) Combined systolic and diastolic congestive heart failure Qualifiers: Heart failure chronicity: chronic Qualified Code(s): I50.42 - Chronic combined systolic (congestive) and diastolic (congestive) heart failure
[2018-07-24] MEDS: *HR* HYDROcodone/Acet 5/325 mg TABLET PO PRN (15:10)
--- NOTE | 2018-07-24 16:06 | Event Note ---
Date of Encounter: 07/24/18 Time of Encounter: 15:30 Met with patient and her daughter, NICOLÁS Treadwell. Completed state DNR form and patient signed. Copies provided to patient and daughter and placed on medical record.
[2018-07-24] MEDS ORDERED: Aminoglycoside Consult 1 EACH MC ONE (19:12)
[2018-07-25] MEDS: Ipratropium/Albuterol Neb 3 ML IH SCH ×5 (00:45→16:52)
[2018-07-25] MEDS: *HR* Heparin 5,000 UNIT/ML VIAL SQ SCH ×2 (05:08→18:08)
[2018-07-25 05:19] LABS: Hematocrit 25.3 % (35.3-44.9); Immature Granulocytes % 0.9 % (0-4); Lymphocytes # 0.5 K/mcL (0.6-4.6); Lymphocytes % 10.8 %; Mean Corpuscular HGB Conc 31.6 g/dL (31.6-35.5); Mean Corpuscular Hemoglobin 29.4 pg (28.0-33.3); Mean Platelet Volume 11.1 fL (9.4-12.4); Monocytes # 0.2 K/mcL (0.0-1.3); Monocytes % 5.2 %; Neutrophils # 3.8 K/mcL (1.6-8.9); Platelet Count 168 K/mcL (140-400); Red Blood Count 2.72 M/mcL (3.82-4.97); Red Cell Distribution Width 14.5 % (11.5-14.5); Segmented Neutrophils % 83.1 %
[2018-07-25 05:35] LABS: BUN/Creatinine Ratio 31 (6-26); Blood Urea Nitrogen 30 mg/dL (8-23); Calcium 8.1 mg/dL (8.6-10.3); Carbon Dioxide 24 mEq/L (23-29); Chloride 106 mEq/L (98-107); Glucose 163 mg/dL (70-105); Magnesium 1.7 mg/dL (1.6-2.6); Osmolality,Calculated 300 (280-300); Potassium 3.9 mEq/L (3.5-5.1); Sodium 140 mEq/L (136-145); eGFR For Non-African Americans 54 (> 60)
[2018-07-25] MEDS: Budesonide/Formoterol 80/4.5 MDI IH SCH (07:49)
[2018-07-25 07:58] VITALS: BP 145/74
[2018-07-25] MEDS ORDERED: predniSONE 20 MG TABLET PO SCH (09:00)
[2018-07-25] MEDS: Gabapentin 300 MG CAPSULE PO SCH (09:30)
[2018-07-25] MEDS: Isosorbide MONOnitrate (24 HR) 30 MG TAB.ER.24H PO SCH (09:31)
[2018-07-25] MEDS: Spironolactone 25 MG TABLET PO SCH (09:31)
[2018-07-25] MEDS: Furosemide 20 MG TABLET PO SCH (09:32)
[2018-07-25] MEDS: *HR* HYDROcodone/Acet 5/325 mg TABLET PO PRN (09:32)
[2018-07-25] MEDS: Aspirin Enteric Coated 81 MG Tablet PO SCH (09:32)
[2018-07-25] MEDS: Piperacillin/Tazobactam 3.375 GM in 0.9 % Sodium Chloride Mini Bag 100 ML IVPB SCH (09:34)
[2018-07-25] MEDS: (Umeclidinium Bromide [Incruse Ellipta] 1 PUFF) IH SCH (09:35)
[2018-07-25] MEDS: Fluticasone Propionate Nasal 50 MCG/SPRAY BOTTLE NS SCH (09:35)
--- NOTE | 2018-07-25 13:26 | Discharge Summary ---
- NOTES TO OUTPATIENT PROVIDER Notes to Outpatient Provider: Patient with oxygen dependent COPD, combined systolic and diastolic heart failure with ischemic cardiomyopathy, atrial fibrillation, was admitted for sepsis, hypoxic respiratory failure secondary to left-sided pneumonia complicated by COPD exacerbation. Improved with IV vanc /zosyn, steroids, and weaned off BiPaP. No evidence of aspiration on MBS. MRSA surveillance +ve. Will be discharged to ECF on Levaquin/doxycycline and 2 week steroid taper per Pulm. Orders not resulted at time of discharge: Pending orders 07/21/18 12:13 Culture,Blood [BC] Stat 07/26/18 04:00 Basic Metabolic Panel AM 0400 CBC [Complete Blood Count] [HEME] AM 0400 Magnesium AM 0400 07/27/18 04:00 Basic Metabolic Panel AM 0400 CBC [Complete Blood Count] [HEME] AM 0400 Magnesium AM 0400 Date of Encounter: 07/25/18 Time of Encounter: 11:15 - Discharge Diagnosis (1) Acute on chronic respiratory failure with hypoxia Priority: Primary Status: Acute (2) HCAP (healthcare-associated pneumonia) Priority: Secondary Status: Acute (3) Sepsis Priority: Secondary Status: Resolved Qualifiers: Sepsis type: sepsis due to unspecified organism Qualified Code(s): A41.9 - Sepsis, unspecified organism (4) Acute exacerbation of chronic obstructive airways disease Priority: Secondary Status: Acute (5) Elevated troponin Priority: Secondary Status: Resolved (6) Combined systolic and diastolic congestive heart failure Priority: Secondary Status: Chronic Qualifiers: Heart failure chronicity: chronic Qualified Code(s): I50.42 - Chronic combined systolic (congestive) and diastolic (congestive) heart failure (7) Acute metabolic encephalopathy Priority: Secondary Status: Resolved (8) DVT prophylaxis Priority: Secondary Status: Acute Hospital course: Ms. Espinal is a 82 year old female with oxygen dependent COPD, combined systolic and diastolic heart failure with ischemic cardiomyopathy, atrial fibrillation, who was admitted for sepsis, hypoxic respiratory failure secondary to left-sided pneumonia complicated by COPD exacerbation. Improved with IV vanc/zosyn, steroids, and weaned off BiPaP. No evidence of aspiration on MBS. MRSA surveillance +ve. Will be discharged to ECF on Levaquin/doxycycline and 2 week steroid taper per Pulm. Discharge discussed with: patient, social work - Time Spent with Patient Total time spent providing and/or coordinating discharge services: 36 mins - Discharge Medications Prescriptions: Ipratropium/Albuterol Neb [Duoneb] 3 ml IH [id number] PRN #90 inhsol PRN Reason: Wheezing Doxycycline 100 mg PO BID 7 Days #14 capsule levoFLOXacin [Levaquin] 750 mg PO DAILY 7 Days #7 tablet predniSONE [PredniSONE] 40 mg PO DAILY #14 tablet Home Medications: Atorvastatin [Lipitor] 20 mg PO HS 02/23/15 [History] Fluticasone/Salmeterol [Advair 250-50 Diskus] 1 each IH BID 02/23/15 [History] Multivit-Min/FA/Lycopen/Lutein [Centrum Silver Tablet] 1 each PO DAILY 02/23/15 [History] Isosorbide MONOnitrate (24 HR) [Imdur] 30 mg PO DAILY 07/01/15 [History] Fluticasone Propionate Nasal [Flonase] 2 spray NS DAILY 05/13/16 [History] Levalbuterol Tartrate [Xopenex Hfa] 2 puff IH TID 05/13/16 [History] Umeclidinium [place] [Incruse Ellipta] 1 puff IH DAILY 05/13/16 [History] Raloxifene [Evista] 60 mg PO DAILY 01/15/17 [History] Albuterol Sulfate [Ventolin Hfa] 2 puff IH Q4-6H PRN 10/20/17 [History] Lisinopril [Zestril] 5 mg PO DAILY #30 tablet 10/23/17 [Rx] Montelukast [Singulair] 10 mg PO DAILY 04/24/18 [History] Clopidogrel [Plavix] 75 mg PO DAILY 05/25/18 [History] Docusate [Colace] 100 mg PO DAILY 05/25/18 [History] GuaiFENesin ER [Mucinex] 600 mg PO BID 05/25/18 [History] Hydrocodone/Acetaminophen [[place] 5-325 Tablet] 1 tab PO TID PRN 05/25/18 [History] Spironolactone [Aldactone] 12.5 mg PO DAILY 07/04/18 [History] Omeprazole [PriLOSEC] 40 mg PO DAILY 30 Days #30 cap 07/07/18 [Rx] Aspirin [Adult Aspirin] 81 mg PO DAILY 07/23/18 [History] Furosemide [Lasix] 20 mg PO BID 07/23/18 [History] Gabapentin 600 mg PO BID 07/23/18 [History] Doxycycline 100 mg PO BID 7 Days #14 capsule 07/25/18 [Rx] Ipratropium/Albuterol Neb [Duoneb] 3 ml IH [id number] PRN #90 inhsol 07/25/18 [Rx] levoFLOXacin [Levaquin] 750 mg PO DAILY 7 Days #7 tablet 07/25/18 [Rx] predniSONE [PredniSONE] 40 mg PO DAILY #14 tablet 07/25/18 [Rx] Allergies/Adverse Reactions: Allergy/AdvReac Type Severity Reaction Status Date / Time No Known Allergies Allergy Verified 07/21/18 10:18 Date of admission: 07/21/18 14:54 Primary care physician: PCP NONE Consults: 07/21/18 13:04 Consult to Pulmonology [CONS] Routine Consulting Provider: Pulm Crit Care [facility] Reason for Consult: acute hypoxic resp failure Call Completed: Yes 07/21/18 13:19 Consult to Physical Therapy [CONS] Routine Comment: Evaluate, develop and implement POC Reason for Consult: deconditioning Does patient have active BEDREST order?: No Is patient medically & hemodynamically stable?: Yes Patient assessed for mobility or mobilized this visit?: No 07/21/18 13:21 Consult to Palliative Care [CONS] Routine Comment: Consulting Provider: Palliative Care Edwina Reason for Consult: recurrent admissions for ams, COPD, chf. Goals of care, advanced directives Call Completed: No 07/22/18 07:31 Consult to Speech Therapy [CONS] Routine Comment: Evaluate, develop and implement POC Reason for Consult: ?aspiration PNA Call Completed: No 07/23/18 12:57 Consult to Occupational Therapy [CONS] Routine Comment: Evaluate, develop and implement POC Reason for Consult: discharge planning. Does patient have active BEDREST order?: No Is patient medically & hemodynamically stable?: Yes 07/24/18 15:46 Consult to Nurse Navigator [CONS] Routine Comment: COPD and Pneumonia - Constitutional Vitals: Temp Pulse Resp BP Pulse Ox 98.1 F 60 18 145/74 95 07/25/18 07:56 07/25/18 07:56 07/25/18 11:22 07/25/18 07:56 07/25/18 11:22 Exam: General: Alert and oriented, not in distress. Cachectic Cardiovascular:Normal S1 & S2, No JVD. Pulse regular. Lungs: Minimal bilateral rhonchi/wheezes Abdomen:Soft, non-tender, no rigidity. Extremities:No deformity or swelling - Patient Status Disposition: Transfer SNF Condition: Good Overall status at discharge: patient is progressing back to baseline - Discharge Instructions Instructions: Chronic Obstructive Pulmonary Disease (DC), Acute Respiratory Distress Syndrome (DC), Pneumonia (DC), Chronic Hypertension (DC), Sepsis (DC) Follow Up With: Arley Awan MD [Non-Partnered Physician] - - Diet and Activity Activity: as per physical therapy Diet: advance to your usual diet
--- NOTE | 2018-07-25 13:29 | Physician Discharge Referral ---
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 (7) Acute metabolic encephalopathy Priority: Secondary Status: Resolved (8) DVT prophylaxis Priority: Secondary Status: Acute - Transfer Medications Prescriptions: Ipratropium/Albuterol Neb [Duoneb] 3 ml IH [id number] PRN #90 inhsol PRN Reason: Wheezing Doxycycline 100 mg PO BID 7 Days #14 capsule levoFLOXacin [Levaquin] 750 mg PO DAILY 7 Days #7 tablet predniSONE [PredniSONE] 40 mg PO DAILY #14 tablet Home Medications: Atorvastatin [Lipitor] 20 mg PO HS 02/23/15 [History] Fluticasone/Salmeterol [Advair 250-50 Diskus] 1 each IH BID 02/23/15 [History] Multivit-Min/FA/Lycopen/Lutein [Centrum Silver Tablet] 1 each PO DAILY 02/23/15 [History] Isosorbide MONOnitrate (24 HR) [Imdur] 30 mg PO DAILY 07/01/15 [History] Fluticasone Propionate Nasal [Flonase] 2 spray NS DAILY 05/13/16 [History] Levalbuterol Tartrate [Xopenex Hfa] 2 puff IH TID 05/13/16 [History] Umeclidinium [place] [Incruse Ellipta] 1 puff IH DAILY 05/13/16 [History] Raloxifene [Evista] 60 mg PO DAILY 01/15/17 [History] Albuterol Sulfate [Ventolin Hfa] 2 puff IH Q4-6H PRN 10/20/17 [History] Lisinopril [Zestril] 5 mg PO DAILY #30 tablet 10/23/17 [Rx] Montelukast [Singulair] 10 mg PO DAILY 04/24/18 [History] Clopidogrel [Plavix] 75 mg PO DAILY 05/25/18 [History] Docusate [Colace] 100 mg PO DAILY 05/25/18 [History] GuaiFENesin ER [Mucinex] 600 mg PO BID 05/25/18 [History] Hydrocodone/Acetaminophen [Sarita 5-325 Tablet] 1 tab PO TID PRN 05/25/18 [History] Spironolactone [Aldactone] 12.5 mg PO DAILY 07/04/18 [History] Omeprazole [PriLOSEC] 40 mg PO DAILY 30 Days #30 cap 07/07/18 [Rx] Aspirin [Adult Aspirin] 81 mg PO DAILY 07/23/18 [History] Furosemide [Lasix] 20 mg PO BID 07/23/18 [History] Gabapentin 600 mg PO BID 07/23/18 [History] Doxycycline 100 mg PO BID 7 Days #14 capsule 07/25/18 [Rx] Ipratropium/Albuterol Neb [Duoneb] 3 ml IH [id number] PRN #90 inhsol 07/25/18 [Rx] levoFLOXacin [Levaquin] 750 mg PO DAILY 7 Days #7 tablet 07/25/18 [Rx] predniSONE [PredniSONE] 40 mg PO DAILY #14 tablet 07/25/18 [Rx] Allergies/Adverse Reactions: Allergy/AdvReac Type Severity Reaction Status Date / Time No Known Allergies Allergy Verified 07/21/18 10:18 - Respiratory Orders Smoking Cessation: Smoking cessation has been advised. For more information, call the [place] Tobacco Quit Line at 7-018-JAXH-NOW. - Rehabiliation Orders Rehab Orders: Evaluation for Physical Therapy, Evaluation for Occupational Therapy - Treatments List/Other: Complete a course of Levaquin/doxy and steroids as prescribed CERTIFICATION: I certify that the transfer of the above named patient to an Extended Care Facility is necessary for the continuing treatment of the diagnosis listed. The above information is true and accurate reflection of patient's current condition. Confidential - Redisclosure prohibited without a patient's written consent.
[2018-07-25] MEDS ORDERED: Doxycycline 100 MG CAPSULE PO ONE (14:34)
== END 2018-07-25 19:13 | DRG 871 ==
LOC: EMEROOARM 10:13 → SUATTDRO 14:54 → 2NNU 14:54 → 2NENU 07-23 15:27
PROVIDERS: ADMIT Student in an Organized Health Care Education/Training Program; ATTEND Internal Medicine

== ENCOUNTER 2020-05-27 12:31 | Inpatient (IN) ==
[2020-05-27 13:14] LABS: Basophils % 0.3 %; Eosinophils # 0.2 K/mcL (0.0-0.6); Eosinophils % 1.5 %; Hematocrit 30.5 % (35.3-44.9); Hemoglobin 9.4 g/dL (11.5-15.4); Immature Granulocytes % 0.4 % (0-4); Lymphocytes # 2.6 K/mcL (0.6-4.6); Lymphocytes % 24.2 %; Mean Corpuscular HGB Conc 30.8 g/dL (31.6-35.5); Mean Corpuscular Hemoglobin 31.5 pg (28.0-33.3); Mean Corpuscular Volume 102.3 fL (83.0-100.0); Mean Platelet Volume 10.7 fL (9.4-12.4); Monocytes # 0.9 K/mcL (0.0-1.3); Monocytes % 8.7 %; Neutrophils # 6.9 K/mcL (1.6-8.9); Platelet Count 199 K/mcL (140-400); Red Blood Count 2.98 M/mcL (3.82-4.97); Red Cell Distribution Width 12.5 % (11.5-14.5); Segmented Neutrophils % 64.9 %; White Blood Count 10.6 K/mcL (4.3-11.1)
[2020-05-27 13:44] LABS: Albumin 3.2 g/dL (3.5-5.7); Albumin/Globulin Ratio 0.9 (1.1-2.2); Bilirubin,Total 0.4 mg/dL (0.3-1.0); Calcium 7.8 mg/dL (8.6-10.3); Globulin 3.4 g/dL (2.4-3.5); Potassium 4.8 mEq/L (3.5-5.1); Total Protein 6.6 g/dL (6.4-8.9); Troponin I 0.16 ng/mL (< 0.04)
[2020-05-27] MEDS ORDERED: 0.9 % Sodium Chloride 500 ML ONE ×2 (14:07→15:12)
[2020-05-27 14:12] LABS: Bacteria,Urine Moderate per hpf (None-Few); Bilirubin,Urine Negative (Negative); Blood,Urine Negative (Negative); Clarity,Urine Turbid (Clear); Color,Urine Yellow (Yellow); Glucose,Urine (UA) Normal (Normal); Hyaline Casts,Urine Many per lpf (None Seen); Ketones,Urine Negative (Negative); Leukocyte Esterase,Urine Large (Negative); Mucus,Urine Few per lpf (None-Few); Nitrite,Urine Negative (Negative); Protein,Urine 30 mg/dL (Neg-Trace); RBC,Urine 15-30 per hpf (0-3); Renal Epithelial Cells,Urine Few per hpf (None-Few); Specific Gravity,Urine 1.024 (1.010-1.025); Squamous Epithelial Cell,Urine Moderate per hpf (None-Few); Transitional Epi Cells,Urine Few per hpf (None-Few); Urobilinogen,Urine Normal (Normal); WBC,Urine TNTC per hpf (0-3)
[2020-05-27] MEDS ORDERED: cefTRIAXone 1,000 MG in 0.9 % Sodium Chloride Mini Bag 100 ML IVPB ONE (15:12)
[2020-05-27 16:26] LABS: Adenovirus Not Detected (Not Detect); Bordetella Pertussis Not Detected (Not Detect); Chlamydophila pneumoniae Not Detected (Not Detect); Coronavirus 229E Not Detected (Not Detect); Coronavirus HKU1 Not Detected (Not Detect); Coronavirus NL63 Not Detected (Not Detect); Coronavirus OC43 Not Detected (Not Detect); Human Metapneumovirus Not Detected (Not Detect); Human Rhinovirus/Enterovirus DETECTED (Not Detect); Influenza A Subtype 2009 H1 Not Detected (Not Detect); Influenza B Not Detected (Not Detect); Mycoplasma pneumoniae Not Detected (Not Detect); Parainfluenza Virus 1 Not Detected (Not Detect); Parainfluenza Virus 2 Not Detected (Not Detect); Parainfluenza Virus 3 Not Detected (Not Detect); Parainfluenza Virus 4 Not Detected (Not Detect); Respiratory Syncytial Virus Not Detected (Not Detect); SARS-CoV-2 Not Detected (Not Detect)
[2020-05-27] MEDS ORDERED: 0.9 % Sodium Chloride 500 ML IVC ONE (18:42)
[2020-05-27] MEDS ORDERED: Acetaminophen 325 MG TABLET PO PRN (19:57)
[2020-05-27] MEDS ORDERED: Naloxone 0.4 MG/ML INJ IVP PRN (19:57)
[2020-05-27] MEDS ORDERED: Ondansetron 4 MG/2 ML VIAL IVP PRN (19:57)
[2020-05-27] MEDS ORDERED: 0.9 % Sodium Chloride 1,000 ML IVC SCH (20:00)
[2020-05-27] MEDS ORDERED: *HR* Heparin 5,000 UNIT/ML VIAL IVP PRN (22:20)
[2020-05-27] MEDS ORDERED: *HR* Heparin 5,000 UNIT/ML VIAL IVP ONE (22:20)
[2020-05-28] MEDS: Heparin 25,000UNIT/250ML 1/2NS 25,000 UNIT/250 ML IV.SOLN IVC SCH (00:23)
[2020-05-28] MEDS ORDERED: Ipratropium/Albuterol Neb 3 ML IH PRN (00:54)
[2020-05-28] MEDS ORDERED: Perflutren Lipid Microsphere 1.3 ML in 0.9 % Sodium Chloride 8.7 ML IVP PRN (01:29)
[2020-05-28 01:30] LABS: Hematocrit 25.6 % (35.3-44.9); Mean Corpuscular HGB Conc 31.3 g/dL (31.6-35.5); Mean Corpuscular Hemoglobin 31.9 pg (28.0-33.3); Mean Platelet Volume 10.6 fL (9.4-12.4); Platelet Count 167 K/mcL (140-400); Red Blood Count 2.51 M/mcL (3.82-4.97); Red Cell Distribution Width 12.5 % (11.5-14.5)
[2020-05-28 01:35] LABS: INR 1.2; Prothrombin Time 13.4 Seconds (9.4-12.1)
[2020-05-28 01:43] LABS: Calcium 7.8 mg/dL (8.6-10.3); Potassium 5.2 mEq/L (3.5-5.1)
[2020-05-28 01:53] LABS: Activated Partial Thrombo Time 152.8 Seconds (26.0-36.0)
[2020-05-28] MEDS: cefTRIAXone 1,000 MG in 0.9 % Sodium Chloride Mini Bag 100 ML IVPB SCH (07:27)
[2020-05-28] MEDS: Aspirin Enteric Coated 81 MG Tablet PO SCH (07:27)
[2020-05-28] MEDS: *HR* Heparin 5,000 UNIT/ML VIAL IVP PRN ×3 (07:29→23:15)
[2020-05-28] MEDS: Tiotropium 18 MCG inhalation IH SCH (07:53)
[2020-05-28] MEDS: hydrALAZINE 25 MG TABLET PO SCH (20:20)
[2020-05-28] MEDS: Gabapentin 300 MG CAPSULE PO SCH (20:20)
[2020-05-28] MEDS: Ipratropium/Albuterol Neb 3 ML IH SCH ×2 (20:51→22:57)
[2020-05-28] MEDS: Budesonide/Formoterol 80/4.5 1 PUFF INH IH SCH (22:57)
[2020-05-29] MEDS: Ipratropium/Albuterol Neb 3 ML IH SCH ×4 (03:16→22:49)
[2020-05-29 05:40] LABS: Hematocrit 26.3 % (35.3-44.9); Hemoglobin 8.4 g/dL (11.5-15.4); Mean Corpuscular HGB Conc 31.9 g/dL (31.6-35.5); Mean Corpuscular Hemoglobin 31.7 pg (28.0-33.3); Mean Corpuscular Volume 99.2 fL (83.0-100.0); Mean Platelet Volume 10.5 fL (9.4-12.4); Platelet Count 191 K/mcL (140-400); Red Blood Count 2.65 M/mcL (3.82-4.97); Red Cell Distribution Width 12.2 % (11.5-14.5); White Blood Count 5.4 K/mcL (4.3-11.1)
[2020-05-29 05:52] LABS: Magnesium 1.7 mg/dL (1.6-2.6); Phosphorous 3.7 mg/dL (2.7-4.5)
[2020-05-29 05:54] LABS: % Iron Saturation 28 % (15-50); Iron 49 mcg/dL (50-170); Transferrin 127 mg/dL (203-362)
[2020-05-29 05:56] LABS: Calcium 8.1 mg/dL (8.6-10.3); Potassium 3.7 mEq/L (3.5-5.1)
[2020-05-29 06:03] LABS: Adenovirus F 40/41 PCR Not detected (Not detect); Astrovirus PCR Not detected (Not detect); C.difficile Toxin A/B Gene PCR Not detected (Not detect); Campylobacter by PCR Not detected (Not detect); Cryptosporidium by PCR Not detected (Not detect); Cyclospora cayetanensis PCR Not detected (Not detect); E. coli O157 by PCR Not detected (Not detect); Entamoeba histolytica PCR Not detected (Not detect); Enteroaggregative E.coli(EAEC) Not detected (Not detect); Enteropathogenic E.coli(EPEC) Not detected (Not detect); Enterotoxigenic E.coli (ETEC) Not detected (Not detect); Giardia lamblia PCR Not detected (Not detect); Norovirus GI/GII PCR Not detected (Not detect); Plesiomonas shigelloides PCR Not detected (Not detect); Rotavirus A PCR Not detected (Not detect); Salmonella PCR Not detected (Not detect); Sapovirus PCR Not detected (Not detect); Shig/EnteroinvasiveE coli EIEC Not detected (Not detect); Shigalike tox-prod E coli STEC Not detected (Not detect); Vibrio PCR Not detected (Not detect); Vibrio cholerae PCR Not detected (Not detect); Yersinia enterocolitica PCR Not detected (Not detect)
[2020-05-29] MEDS: Heparin 25,000UNIT/250ML 1/2NS 25,000 UNIT/250 ML IV.SOLN IVC SCH (06:03)
[2020-05-29] MEDS: *HR* Heparin 5,000 UNIT/ML VIAL IVP PRN (06:04)
[2020-05-29 06:13] LABS: Ferritin 312 ng/mL (10-120)
[2020-05-29 06:24] LABS: Folate > 22.3 ng/mL (3.0-16.0); Vitamin B12 > 1500 pg/mL (250-1100)
[2020-05-29] MEDS: cefTRIAXone 1,000 MG in 0.9 % Sodium Chloride Mini Bag 100 ML IVPB SCH (09:19)
[2020-05-29] MEDS: Gabapentin 300 MG CAPSULE PO SCH ×2 (09:20→20:12)
[2020-05-29] MEDS: hydrALAZINE 25 MG TABLET PO SCH ×2 (09:20→20:14)
[2020-05-29] MEDS: Furosemide 20 MG TABLET PO SCH (09:21)
[2020-05-29] MEDS: Aspirin Enteric Coated 81 MG Tablet PO SCH (09:21)
[2020-05-29] MEDS: Fluticasone Propionate Nasal 50 MCG/SPRAY BOTTLE NS SCH (09:22)
[2020-05-29] MEDS: Budesonide/Formoterol 80/4.5 1 PUFF INH IH SCH ×2 (10:02→22:49)
[2020-05-29] MEDS: Tiotropium 18 MCG inhalation IH SCH (10:04)
[2020-05-29] MEDS: Calcium Gluconate 1gm/50mL 1 GM/50 ML BAG IVPB SCH ×2 (10:16→12:07)
[2020-05-29] MEDS: Isosorbide MONOnitrate (24 HR) 30 MG TAB.ER.24H PO SCH (12:02)
[2020-05-29] MEDS ORDERED: Tirofiban 12.5 MG/250ML 12.5 MG/250 ML BAG IVC SCH (12:15)
[2020-05-29] MEDS: MethylPREDNISolone 40 MG/ML VIAL IVP SCH ×2 (14:50→17:35)
[2020-05-29] MEDS: Azithromycin 250 MG TABLET PO SCH (14:50)
[2020-05-29 17:36] LABS: Basophils % 0.2 %; Eosinophils # 0.1 K/mcL (0.0-0.6); Eosinophils % 0.9 %; Hematocrit 28.4 % (35.3-44.9); Hemoglobin 8.9 g/dL (11.5-15.4); Immature Granulocytes % 0.2 % (0-4); Lymphocytes # 0.9 K/mcL (0.6-4.6); Lymphocytes % 16.8 %; Mean Corpuscular HGB Conc 31.3 g/dL (31.6-35.5); Mean Platelet Volume 10.2 fL (9.4-12.4); Monocytes # 0.1 K/mcL (0.0-1.3); Monocytes % 2.5 %; Neutrophils # 4.2 K/mcL (1.6-8.9); Platelet Count 227 K/mcL (140-400); Red Blood Count 2.87 M/mcL (3.82-4.97); Segmented Neutrophils % 79.4 %; White Blood Count 5.3 K/mcL (4.3-11.1)
[2020-05-30] MEDS: Heparin 25,000UNIT/250ML 1/2NS 25,000 UNIT/250 ML IV.SOLN IVC SCH ×2 (00:18→12:32)
[2020-05-30] MEDS: Nitroglycerin 0.4 MG TAB.SUBL SL PRN ×2 (02:24→02:32)
[2020-05-30] MEDS: Ipratropium/Albuterol Neb 3 ML IH SCH ×4 (03:41→21:59)
[2020-05-30 05:53] LABS: Calcium 8.6 mg/dL (8.6-10.3); Magnesium 1.9 mg/dL (1.6-2.6); Phosphorous 3.8 mg/dL (2.7-4.5); Potassium 3.7 mEq/L (3.5-5.1)
[2020-05-30 05:56] LABS: Troponin I 0.06 ng/mL (< 0.04)
[2020-05-30 05:59] LABS: Hematocrit 25.5 % (35.3-44.9); Mean Corpuscular HGB Conc 31.4 g/dL (31.6-35.5); Mean Corpuscular Hemoglobin 30.8 pg (28.0-33.3); Mean Corpuscular Volume 98.1 fL (83.0-100.0); Mean Platelet Volume 10.2 fL (9.4-12.4); Platelet Count 214 K/mcL (140-400); White Blood Count 1.3 K/mcL (4.3-11.1)
[2020-05-30] MEDS: MethylPREDNISolone 40 MG/ML VIAL IVP SCH ×2 (06:00→16:46)
[2020-05-30] MEDS: Isosorbide MONOnitrate (24 HR) 30 MG TAB.ER.24H PO SCH (07:43)
[2020-05-30] MEDS: Azithromycin 250 MG TABLET PO SCH (07:43)
[2020-05-30] MEDS: Aspirin Enteric Coated 81 MG Tablet PO SCH (07:43)
[2020-05-30] MEDS: Furosemide 20 MG TABLET PO SCH (07:43)
[2020-05-30] MEDS: Fluticasone Propionate Nasal 50 MCG/SPRAY BOTTLE NS SCH (07:44)
[2020-05-30] MEDS: hydrALAZINE 25 MG TABLET PO SCH (07:44)
[2020-05-30] MEDS: cefTRIAXone 1,000 MG in 0.9 % Sodium Chloride Mini Bag 100 ML IVPB SCH (07:44)
[2020-05-30] MEDS: Gabapentin 300 MG CAPSULE PO SCH ×2 (07:44→21:33)
[2020-05-30 10:05] LABS: Lactate Dehydrogenase 94 Units/L (140-271)
[2020-05-30] MEDS: Budesonide/Formoterol 80/4.5 1 PUFF INH IH SCH ×2 (10:10→21:59)
[2020-05-30] MEDS: Tiotropium 18 MCG inhalation IH SCH (10:15)
[2020-05-30 10:22] LABS: Ferritin 278 ng/mL (10-120)
[2020-05-30 12:25] LABS: Red Cell Distribution Width 11.9 % (11.5-14.5); White Blood Count 1.8 K/mcL (4.3-11.1)
[2020-05-30 12:26] LABS: Hematocrit 24.1 % (35.3-44.9); Hemoglobin 7.8 g/dL (11.5-15.4); Lymphocytes # 0.5 K/mcL (0.6-4.6); Mean Corpuscular HGB Conc 32.4 g/dL (31.6-35.5); Mean Corpuscular Hemoglobin 31.8 pg (28.0-33.3); Mean Corpuscular Volume 98.4 fL (83.0-100.0); Mean Platelet Volume 10.6 fL (9.4-12.4); Monocytes # 0.1 K/mcL (0.0-1.3); Platelet Count 214 K/mcL (140-400); Red Blood Count 2.45 M/mcL (3.82-4.97)
[2020-05-30 13:27] LABS: Neutrophils # 1.3 K/mcL (1.6-8.9); Platelet Estimate Normal (Normal)
[2020-05-30 15:12] LABS: C-Reactive Protein 53 mg/L (Less than 10)
[2020-05-31 01:59] LABS: Hemoglobin 7.8 g/dL (11.5-15.4); Immature Granulocytes % 0.6 % (0-4); Lymphocytes # 0.6 K/mcL (0.6-4.6); Lymphocytes % 17.8 %; Mean Corpuscular HGB Conc 31.2 g/dL (31.6-35.5); Mean Corpuscular Hemoglobin 30.7 pg (28.0-33.3); Mean Corpuscular Volume 98.4 fL (83.0-100.0); Mean Platelet Volume 10.3 fL (9.4-12.4); Monocytes # 0.2 K/mcL (0.0-1.3); Monocytes % 6.4 %; Neutrophils # 2.6 K/mcL (1.6-8.9); Platelet Count 233 K/mcL (140-400); Red Blood Count 2.54 M/mcL (3.82-4.97); Red Cell Distribution Width 12.1 % (11.5-14.5); Segmented Neutrophils % 75.2 %; White Blood Count 3.4 K/mcL (4.3-11.1)
[2020-05-31 02:17] LABS: Albumin 3.2 g/dL (3.5-5.7); Bilirubin,Total 0.2 mg/dL (0.3-1.0); Calcium 8.3 mg/dL (8.6-10.3); Globulin 3.3 g/dL (2.4-3.5); Magnesium 1.8 mg/dL (1.6-2.6); Potassium 3.6 mEq/L (3.5-5.1); Total Protein 6.5 g/dL (6.4-8.9)
[2020-05-31] MEDS: Ipratropium/Albuterol Neb 3 ML IH SCH ×4 (04:22→22:11)
[2020-05-31] MEDS: MethylPREDNISolone 40 MG/ML VIAL IVP SCH ×2 (05:00→16:35)
[2020-05-31] MEDS: Tiotropium 18 MCG inhalation IH SCH (09:27)
[2020-05-31] MEDS: Budesonide/Formoterol 80/4.5 1 PUFF INH IH SCH ×2 (09:36→22:11)
[2020-05-31] MEDS: Calcium Gluconate 1gm/50mL 1 GM/50 ML BAG IVPB SCH ×2 (09:36→10:40)
[2020-05-31] MEDS: cefTRIAXone 1,000 MG in 0.9 % Sodium Chloride Mini Bag 100 ML IVPB SCH (09:41)
[2020-05-31] MEDS: Gabapentin 300 MG CAPSULE PO SCH ×2 (09:42→21:21)
[2020-05-31] MEDS: Aspirin Enteric Coated 81 MG Tablet PO SCH (09:42)
[2020-05-31] MEDS: Isosorbide MONOnitrate (24 HR) 30 MG TAB.ER.24H PO SCH (09:42)
[2020-05-31] MEDS: carvediloL 6.25 MG TABLET PO SCH ×2 (09:42→16:35)
[2020-05-31] MEDS: Furosemide 20 MG TABLET PO SCH (09:42)
[2020-05-31] MEDS: Fluticasone Propionate Nasal 50 MCG/SPRAY BOTTLE NS SCH (09:44)
[2020-05-31] MEDS: Azithromycin 250 MG TABLET PO SCH (09:49)
[2020-05-31] MEDS: Heparin 25,000UNIT/250ML 1/2NS 25,000 UNIT/250 ML IV.SOLN IVC SCH (09:54)
[2020-06-01] MEDS: Ipratropium/Albuterol Neb 3 ML IH SCH ×4 (03:41→21:15)
[2020-06-01] MEDS: Aspirin Enteric Coated 81 MG Tablet PO SCH (08:56)
[2020-06-01] MEDS: Gabapentin 300 MG CAPSULE PO SCH ×2 (08:57→19:57)
[2020-06-01] MEDS: Isosorbide MONOnitrate (24 HR) 30 MG TAB.ER.24H PO SCH (08:57)
[2020-06-01] MEDS: carvediloL 6.25 MG TABLET PO SCH ×2 (08:57→18:13)
[2020-06-01] MEDS: predniSONE 20 MG TABLET PO SCH (08:57)
[2020-06-01] MEDS: Furosemide 20 MG TABLET PO SCH (08:57)
[2020-06-01] MEDS: Fluticasone Propionate Nasal 50 MCG/SPRAY BOTTLE NS SCH (08:59)
[2020-06-01] MEDS: Azithromycin 250 MG TABLET PO SCH (09:00)
[2020-06-01] MEDS: Tiotropium 18 MCG inhalation IH SCH (10:46)
[2020-06-01] MEDS: Budesonide/Formoterol 80/4.5 1 PUFF INH IH SCH ×2 (10:48→21:15)
[2020-06-01 11:25] LABS: Basophils % 0.1 %; Eosinophils % 0.1 %; Hemoglobin 9.1 g/dL (11.5-15.4); Immature Granulocytes % 0.7 % (0-4); Lymphocytes # 1.4 K/mcL (0.6-4.6); Lymphocytes % 16.5 %; Mean Corpuscular HGB Conc 32.5 g/dL (31.6-35.5); Mean Corpuscular Volume 95.2 fL (83.0-100.0); Mean Platelet Volume 10.8 fL (9.4-12.4); Monocytes # 0.9 K/mcL (0.0-1.3); Monocytes % 10.4 %; Platelet Count 206 K/mcL (140-400); Red Blood Count 2.94 M/mcL (3.82-4.97); Red Cell Distribution Width 13.4 % (11.5-14.5); Segmented Neutrophils % 72.2 %
[2020-06-01 11:26] LABS: Neutrophils # 6.1 K/mcL (1.6-8.9); White Blood Count 8.5 K/mcL (4.3-11.1)
[2020-06-01 11:44] LABS: Bilirubin,Total 0.3 mg/dL (0.3-1.0); Calcium 8.6 mg/dL (8.6-10.3); Magnesium 1.4 mg/dL (1.6-2.6); Potassium 3.6 mEq/L (3.5-5.1)
[2020-06-02] MEDS: Ipratropium/Albuterol Neb 3 ML IH SCH ×2 (03:28→09:43)
[2020-06-02] MEDS ORDERED: *HR* Heparin 5,000 UNIT/ML VIAL SQ SCH (06:00)
[2020-06-02] MEDS: Gabapentin 300 MG CAPSULE PO SCH (07:46)
[2020-06-02] MEDS: Isosorbide MONOnitrate (24 HR) 30 MG TAB.ER.24H PO SCH (07:46)
[2020-06-02] MEDS: predniSONE 20 MG TABLET PO SCH (07:47)
[2020-06-02] MEDS: Fluticasone Propionate Nasal 50 MCG/SPRAY BOTTLE NS SCH (07:47)
[2020-06-02] MEDS: Aspirin Enteric Coated 81 MG Tablet PO SCH (07:47)
[2020-06-02] MEDS: Furosemide 20 MG TABLET PO SCH (07:47)
[2020-06-02] MEDS: carvediloL 6.25 MG TABLET PO SCH (07:48)
[2020-06-02] MEDS ORDERED: lisinopriL 5 MG TABLET PO SCH (09:00)
[2020-06-02] MEDS: Tiotropium 18 MCG inhalation IH SCH (09:44)
[2020-06-02] MEDS: Budesonide/Formoterol 80/4.5 1 PUFF INH IH SCH (09:44)
[2020-06-02] MEDS ORDERED: FLU Vac QV 20-21 (6Month+)/PF 0.5 ML SYRINGE IM ONE (10:42)
[2020-06-02 11:29] VITALS: BP 136/73
[2020-06-02 12:22] LABS: Albumin 3.3 g/dL (3.5-5.7); Albumin/Globulin Ratio 0.9 (1.1-2.2); Bilirubin,Total 0.5 mg/dL (0.3-1.0); Calcium 8.9 mg/dL (8.6-10.3); Globulin 3.5 g/dL (2.4-3.5); Magnesium 2.4 mg/dL (1.6-2.6); Phosphorous 3.6 mg/dL (2.7-4.5); Potassium 3.9 mEq/L (3.5-5.1); Total Protein 6.8 g/dL (6.4-8.9)
[2020-06-02 14:21] LABS: Basophils % 0.3 %; Eosinophils % 0.1 %; Hemoglobin 9.9 g/dL (11.5-15.4); Immature Granulocytes % 1.2 % (0-4); Mean Platelet Volume 10.3 fL (9.4-12.4); Red Cell Distribution Width 13.2 % (11.5-14.5)
[2020-06-02 14:23] LABS: Hematocrit 30.4 % (35.3-44.9); Immature Platelets 2.6 % (1.1-6.1); Lymphocytes # 0.8 K/mcL (0.6-4.6); Lymphocytes % 9.9 %; Mean Corpuscular HGB Conc 32.6 g/dL (31.6-35.5); Mean Corpuscular Hemoglobin 30.7 pg (28.0-33.3); Mean Corpuscular Volume 94.4 fL (83.0-100.0); Monocytes # 0.3 K/mcL (0.0-1.3); Monocytes % 3.5 %; Platelet Count 174 K/mcL (140-400); Red Blood Count 3.22 M/mcL (3.82-4.97); White Blood Count 7.7 K/mcL (4.3-11.1)
[2020-06-02 14:36] LABS: Neutrophils # 6.6 K/mcL (1.6-8.9)
== END 2020-06-02 14:55 | disposition home health service (06) | DRG 280 ==
LOC: 2ANU 12:31 → EMEROOARM 12:31 → SUATTDRO 19:22 → 2ANU 20:02
PROVIDERS: ADMIT Internal Medicine; ATTEND Internal Medicine

== ENCOUNTER 2020-06-19 09:50 | Inpatient (IN) ==
[2020-06-19 11:09] LABS: Prothrombin Time 11.9 Seconds (9.4-12.1)
[2020-06-19 11:12] LABS: Activated Partial Thrombo Time 22.1 Seconds (26.0-36.0)
[2020-06-19 11:34] LABS: Bilirubin,Urine Negative (Negative); Blood,Urine Trace (Negative); Clarity,Urine Clear (Clear); Color,Urine Light-Yellow (Yellow); Glucose,Urine (UA) Normal (Normal); Ketones,Urine Negative (Negative); Leukocyte Esterase,Urine Negative (Negative); Mucus,Urine Few per lpf (None-Few); Nitrite,Urine Negative (Negative); Protein,Urine Trace mg/dL (Neg-Trace); Specific Gravity,Urine 1.016 (1.010-1.025); Squamous Epithelial Cell,Urine Few per hpf (None-Few); Urobilinogen,Urine Normal (Normal)
[2020-06-19 11:38] LABS: Alanine Aminotransferase 10 Units/L (7-52); Albumin 3.6 g/dL (3.5-5.7); Albumin/Globulin Ratio 1.2 (1.1-2.2); Alkaline Phosphatase 60 Units/L (34-104); Aspartate Amino Transferase 16 Units/L (13-39); BUN/Creatinine Ratio 38 (6-26); Bilirubin,Direct 0.2 mg/dL (0.0-0.2); Bilirubin,Indirect 0.6 mg/dL (0.0-1.0); Bilirubin,Total 0.8 mg/dL (0.3-1.0); Blood Urea Nitrogen 35 mg/dL (8-23); Carbon Dioxide 25 mEq/L (23-29); Chloride 105 mEq/L (98-107); Glucose 69 mg/dL (70-105); Magnesium 1.6 mg/dL (1.6-2.6); Osmolality,Calculated 294 (280-300); Phosphorous 3.6 mg/dL (2.7-4.5); Potassium 4.4 mEq/L (3.5-5.1); Sodium 139 mEq/L (136-145); Total Protein 6.6 g/dL (6.4-8.9); Troponin I 0.04 ng/mL (< 0.04); eGFR For African Americans > 60 (> 60); eGFR For Non-African Americans 58 (> 60)
[2020-06-19] MEDS ORDERED: Furosemide 40 MG/4 ML VIAL IVP ONE (11:43)
[2020-06-19] MEDS ORDERED: Aspirin 81 MG TAB.CHEW PO ONE (11:44)
[2020-06-19 12:02] LABS: Basophils % 0.4 %; Eosinophils # 0.3 K/mcL (0.0-0.6); Eosinophils % 5.4 %; Hematocrit 26.2 % (35.3-44.9); Hemoglobin 7.9 g/dL (11.5-15.4); Immature Granulocytes % 0.2 % (0-4); Lymphocytes # 0.9 K/mcL (0.6-4.6); Lymphocytes % 19.7 %; Mean Corpuscular HGB Conc 30.2 g/dL (31.6-35.5); Mean Corpuscular Hemoglobin 30.7 pg (28.0-33.3); Mean Corpuscular Volume 101.9 fL (83.0-100.0); Monocytes # 0.4 K/mcL (0.0-1.3); Monocytes % 8.4 %; Platelet Count 136 K/mcL (140-400); Red Blood Count 2.57 M/mcL (3.82-4.97); Red Cell Distribution Width 15.2 % (11.5-14.5); Segmented Neutrophils % 65.9 %; White Blood Count 4.6 K/mcL (4.3-11.1)
[2020-06-19 13:27] LABS: Adenovirus Not Detected (Not Detect); Bordetella Pertussis Not Detected (Not Detect); Chlamydophila pneumoniae Not Detected (Not Detect); Coronavirus 229E Not Detected (Not Detect); Coronavirus HKU1 Not Detected (Not Detect); Coronavirus NL63 Not Detected (Not Detect); Coronavirus OC43 Not Detected (Not Detect); Human Metapneumovirus Not Detected (Not Detect); Human Rhinovirus/Enterovirus Not Detected (Not Detect); Influenza A Subtype 2009 H1 Not Detected (Not Detect); Influenza B Not Detected (Not Detect); Mycoplasma pneumoniae Not Detected (Not Detect); Parainfluenza Virus 1 Not Detected (Not Detect); Parainfluenza Virus 2 Not Detected (Not Detect); Parainfluenza Virus 3 Not Detected (Not Detect); Parainfluenza Virus 4 Not Detected (Not Detect); Respiratory Syncytial Virus Not Detected (Not Detect); SARS-CoV-2 Not Detected (Not Detect)
[2020-06-19] MEDS ORDERED: Ondansetron 4 MG/2 ML VIAL IVP PRN (15:16)
[2020-06-19] MEDS ORDERED: Naloxone 0.4 MG/ML INJ IVP PRN (15:16)
[2020-06-19] MEDS ORDERED: Acetaminophen 325 MG TABLET PO PRN (15:16)
[2020-06-19] MEDS: Ertapenem 1,000 MG in 0.9 % Sodium Chloride Mini Bag 100 ML IVPB SCH (17:12)
[2020-06-19] MEDS: Lactobacillus 1 EACH CAP.SPRINK PO SCH (19:55)
[2020-06-19] MEDS: Loratadine 10 MG TABLET PO SCH (19:55)
[2020-06-19] MEDS ORDERED: Nitroglycerin 0.4 MG TAB.SUBL SL PRN (21:47)
[2020-06-19] MEDS ORDERED: *HR* HYDROcodone/Acet 5/325 mg TABLET PO PRN (21:47)
[2020-06-19] MEDS: Ipratropium/Albuterol Neb 3 ML IH SCH (22:10)
[2020-06-19] MEDS: Budesonide Neb 0.5 MG/2 ML IH SCH (22:10)
[2020-06-20] MEDS: Ipratropium/Albuterol Neb 3 ML IH SCH ×4 (03:34→22:38)
[2020-06-20 05:01] LABS: Basophils % 0.2 %; Eosinophils # 0.2 K/mcL (0.0-0.6); Eosinophils % 4.6 %; Hematocrit 26.4 % (35.3-44.9); Hemoglobin 8.3 g/dL (11.5-15.4); Immature Granulocytes % 0.2 % (0-4); Lymphocytes # 1.2 K/mcL (0.6-4.6); Lymphocytes % 26.2 %; Mean Corpuscular HGB Conc 31.4 g/dL (31.6-35.5); Mean Corpuscular Hemoglobin 31.7 pg (28.0-33.3); Mean Corpuscular Volume 100.8 fL (83.0-100.0); Mean Platelet Volume 10.2 fL (9.4-12.4); Monocytes # 0.4 K/mcL (0.0-1.3); Monocytes % 8.4 %; Neutrophils # 2.7 K/mcL (1.6-8.9); Platelet Count 151 K/mcL (140-400); Red Blood Count 2.62 M/mcL (3.82-4.97); Red Cell Distribution Width 14.7 % (11.5-14.5); Segmented Neutrophils % 60.4 %; White Blood Count 4.4 K/mcL (4.3-11.1)
[2020-06-20 05:40] LABS: BUN/Creatinine Ratio 36 (6-26); Blood Urea Nitrogen 32 mg/dL (8-23); Calcium 8.8 mg/dL (8.6-10.3); Carbon Dioxide 26 mEq/L (23-29); Chloride 104 mEq/L (98-107); Ferritin 311 ng/mL (10-120); Glucose 71 mg/dL (70-105); Iron < 10 mcg/dL (50-170); Magnesium 1.5 mg/dL (1.6-2.6); Osmolality,Calculated 295 (280-300); Potassium 4.2 mEq/L (3.5-5.1); Sodium 140 mEq/L (136-145); Transferrin 129 mg/dL (203-362); eGFR For African Americans > 60 (> 60); eGFR For Non-African Americans > 60 (> 60)
[2020-06-20 06:02] LABS: Vitamin B12 1096 pg/mL (250-1100)
[2020-06-20 06:05] LABS: Folate > 22.3 ng/mL (3.0-16.0)
[2020-06-20] MEDS: lisinopriL 5 MG TABLET PO SCH (08:57)
[2020-06-20] MEDS: carvediloL 6.25 MG TABLET PO SCH ×2 (08:57→17:19)
[2020-06-20] MEDS: Lactobacillus 1 EACH CAP.SPRINK PO SCH ×2 (08:57→20:06)
[2020-06-20] MEDS: Multivit/Ca/Min/Fe/FA 1 TAB TABLET PO SCH (08:58)
[2020-06-20] MEDS: Gabapentin 300 MG CAPSULE PO SCH ×2 (08:58→20:06)
[2020-06-20] MEDS: Isosorbide MONOnitrate (24 HR) 30 MG TAB.ER.24H PO SCH (08:58)
[2020-06-20] MEDS: Aspirin Enteric Coated 81 MG Tablet PO SCH (08:58)
[2020-06-20] MEDS: Furosemide 40 MG/4 ML VIAL IVP SCH (08:59)
[2020-06-20] MEDS: levoFLOXacin 750 MG/150 ML 750 MG/150 ML BAG IVPB SCH (08:59)
[2020-06-20] MEDS: Budesonide Neb 0.5 MG/2 ML IH SCH ×2 (10:38→22:38)
[2020-06-20] MEDS: Ertapenem 1,000 MG in 0.9 % Sodium Chloride Mini Bag 100 ML IVPB SCH (17:20)
[2020-06-20] MEDS: Loratadine 10 MG TABLET PO SCH (20:06)
[2020-06-21] MEDS: Ipratropium/Albuterol Neb 3 ML IH SCH ×4 (03:57→21:26)
[2020-06-21] MEDS: Furosemide 40 MG/4 ML VIAL IVP SCH (08:52)
[2020-06-21] MEDS: carvediloL 6.25 MG TABLET PO SCH ×2 (08:53→17:25)
[2020-06-21] MEDS: Isosorbide MONOnitrate (24 HR) 30 MG TAB.ER.24H PO SCH (08:53)
[2020-06-21] MEDS: lisinopriL 5 MG TABLET PO SCH (08:53)
[2020-06-21] MEDS: Lactobacillus 1 EACH CAP.SPRINK PO SCH ×2 (08:54→20:14)
[2020-06-21] MEDS: Aspirin Enteric Coated 81 MG Tablet PO SCH (08:54)
[2020-06-21] MEDS: Gabapentin 300 MG CAPSULE PO SCH ×2 (08:54→20:14)
[2020-06-21] MEDS: Multivit/Ca/Min/Fe/FA 1 TAB TABLET PO SCH (08:54)
[2020-06-21] MEDS: Budesonide Neb 0.5 MG/2 ML IH SCH ×2 (10:31→21:26)
[2020-06-21 11:59] LABS: BUN/Creatinine Ratio 26 (6-26); Blood Urea Nitrogen 28 mg/dL (8-23); Calcium 8.3 mg/dL (8.6-10.3); Carbon Dioxide 26 mEq/L (23-29); Chloride 105 mEq/L (98-107); Glucose 71 mg/dL (70-105); Magnesium 1.6 mg/dL (1.6-2.6); Osmolality,Calculated 294 (280-300); Potassium 4.5 mEq/L (3.5-5.1); Sodium 140 mEq/L (136-145); eGFR For African Americans > 60 (> 60); eGFR For Non-African Americans 50 (> 60)
[2020-06-21 12:35] LABS: Basophils % 0.2 %; Eosinophils # 0.3 K/mcL (0.0-0.6); Eosinophils % 5.5 %; Hematocrit 28.7 % (35.3-44.9); Hemoglobin 9.4 g/dL (11.5-15.4); Immature Granulocytes % 0.2 % (0-4); Lymphocytes # 1.2 K/mcL (0.6-4.6); Lymphocytes % 25.6 %; Mean Corpuscular HGB Conc 32.8 g/dL (31.6-35.5); Mean Corpuscular Hemoglobin 32.1 pg (28.0-33.3); Monocytes # 0.3 K/mcL (0.0-1.3); Monocytes % 6.8 %; Neutrophils # 2.9 K/mcL (1.6-8.9); Platelet Count 215 K/mcL (140-400); Red Blood Count 2.93 M/mcL (3.82-4.97); Red Cell Distribution Width 14.5 % (11.5-14.5); Segmented Neutrophils % 61.7 %; White Blood Count 4.7 K/mcL (4.3-11.1)
[2020-06-21] MEDS: Ertapenem 1,000 MG in 0.9 % Sodium Chloride Mini Bag 100 ML IVPB SCH (17:25)
[2020-06-21] MEDS: Loratadine 10 MG TABLET PO SCH (20:14)
[2020-06-22] MEDS: Ipratropium/Albuterol Neb 3 ML IH SCH ×4 (03:11→22:43)
[2020-06-22] MEDS: Furosemide 40 MG/4 ML VIAL IVP SCH (10:11)
[2020-06-22] MEDS: levoFLOXacin 750 MG/150 ML 750 MG/150 ML BAG IVPB SCH (10:11)
[2020-06-22] MEDS: Isosorbide MONOnitrate (24 HR) 30 MG TAB.ER.24H PO SCH (10:16)
[2020-06-22] MEDS: Gabapentin 300 MG CAPSULE PO SCH ×2 (10:16→20:53)
[2020-06-22] MEDS: carvediloL 6.25 MG TABLET PO SCH ×2 (10:17→16:51)
[2020-06-22] MEDS: Multivit/Ca/Min/Fe/FA 1 TAB TABLET PO SCH (10:17)
[2020-06-22] MEDS: lisinopriL 5 MG TABLET PO SCH (10:17)
[2020-06-22] MEDS: Aspirin Enteric Coated 81 MG Tablet PO SCH (10:18)
[2020-06-22] MEDS: Lactobacillus 1 EACH CAP.SPRINK PO SCH ×2 (10:18→20:53)
[2020-06-22 10:40] LABS: Basophils % 0.4 %; Eosinophils # 0.4 K/mcL (0.0-0.6); Eosinophils % 8.3 %; Hematocrit 29.1 % (35.3-44.9); Hemoglobin 9.3 g/dL (11.5-15.4); Immature Granulocytes % 0.2 % (0-4); Lymphocytes # 1.5 K/mcL (0.6-4.6); Lymphocytes % 31.2 %; Mean Corpuscular Hemoglobin 31.8 pg (28.0-33.3); Mean Corpuscular Volume 99.7 fL (83.0-100.0); Mean Platelet Volume 9.9 fL (9.4-12.4); Monocytes # 0.5 K/mcL (0.0-1.3); Monocytes % 10.3 %; Neutrophils # 2.5 K/mcL (1.6-8.9); Platelet Count 212 K/mcL (140-400); Red Blood Count 2.92 M/mcL (3.82-4.97); Red Cell Distribution Width 14.5 % (11.5-14.5); Segmented Neutrophils % 49.6 %; White Blood Count 4.9 K/mcL (4.3-11.1)
[2020-06-22] MEDS: Budesonide Neb 0.5 MG/2 ML IH SCH ×2 (10:43→22:43)
[2020-06-22 10:57] LABS: BUN/Creatinine Ratio 26 (6-26); Blood Urea Nitrogen 27 mg/dL (8-23); Calcium 8.3 mg/dL (8.6-10.3); Carbon Dioxide 30 mEq/L (23-29); Chloride 104 mEq/L (98-107); Glucose 92 mg/dL (70-105); Magnesium 1.7 mg/dL (1.6-2.6); Osmolality,Calculated 297 (280-300); Potassium 3.6 mEq/L (3.5-5.1); Sodium 141 mEq/L (136-145); eGFR For African Americans > 60 (> 60); eGFR For Non-African Americans 52 (> 60)
[2020-06-22] MEDS: Ertapenem 1,000 MG in 0.9 % Sodium Chloride Mini Bag 100 ML IVPB SCH (16:51)
[2020-06-22] MEDS: Loratadine 10 MG TABLET PO SCH (20:53)
[2020-06-23] MEDS: Ipratropium/Albuterol Neb 3 ML IH SCH ×4 (04:09→21:52)
[2020-06-23 09:54] LABS: White Blood Count 3.9 K/mcL (4.3-11.1)
[2020-06-23 09:55] LABS: Basophils % 0.8 %; Eosinophils # 0.4 K/mcL (0.0-0.6); Hematocrit 31.2 % (35.3-44.9); Hemoglobin 9.6 g/dL (11.5-15.4); Immature Granulocytes % 0.3 % (0-4); Lymphocytes # 1.3 K/mcL (0.6-4.6); Lymphocytes % 33.6 %; Mean Corpuscular HGB Conc 30.8 g/dL (31.6-35.5); Mean Corpuscular Hemoglobin 31.9 pg (28.0-33.3); Mean Corpuscular Volume 103.7 fL (83.0-100.0); Mean Platelet Volume 9.9 fL (9.4-12.4); Monocytes # 0.4 K/mcL (0.0-1.3); Neutrophils # 1.7 K/mcL (1.6-8.9); Platelet Count 220 K/mcL (140-400); Red Blood Count 3.01 M/mcL (3.82-4.97); Red Cell Distribution Width 14.2 % (11.5-14.5); Segmented Neutrophils % 44.3 %
[2020-06-23 10:13] LABS: BUN/Creatinine Ratio 23 (6-26); Blood Urea Nitrogen 24 mg/dL (8-23); Calcium 8.5 mg/dL (8.6-10.3); Carbon Dioxide 30 mEq/L (23-29); Chloride 102 mEq/L (98-107); Glucose 96 mg/dL (70-105); Magnesium 1.5 mg/dL (1.6-2.6); Osmolality,Calculated 294 (280-300); Potassium 3.3 mEq/L (3.5-5.1); Sodium 140 mEq/L (136-145); eGFR For African Americans > 60 (> 60); eGFR For Non-African Americans 51 (> 60)
[2020-06-23] MEDS: Multivit/Ca/Min/Fe/FA 1 TAB TABLET PO SCH (10:35)
[2020-06-23] MEDS: carvediloL 6.25 MG TABLET PO SCH ×2 (10:35→16:06)
[2020-06-23] MEDS: Lactobacillus 1 EACH CAP.SPRINK PO SCH ×2 (10:36→20:03)
[2020-06-23] MEDS: Isosorbide MONOnitrate (24 HR) 30 MG TAB.ER.24H PO SCH (10:36)
[2020-06-23] MEDS: Furosemide 40 MG/4 ML VIAL IVP SCH (10:36)
[2020-06-23] MEDS: Gabapentin 300 MG CAPSULE PO SCH ×2 (10:36→20:02)
[2020-06-23] MEDS: lisinopriL 5 MG TABLET PO SCH (10:36)
[2020-06-23] MEDS: Aspirin Enteric Coated 81 MG Tablet PO SCH (10:36)
[2020-06-23] MEDS: Budesonide Neb 0.5 MG/2 ML IH SCH ×2 (10:55→21:52)
[2020-06-23] MEDS: Ertapenem 1,000 MG in 0.9 % Sodium Chloride Mini Bag 100 ML IVPB SCH (16:05)
[2020-06-23] MEDS: Loratadine 10 MG TABLET PO SCH (20:03)
[2020-06-24] MEDS: Ipratropium/Albuterol Neb 3 ML IH SCH ×4 (03:21→22:31)
[2020-06-24 04:29] LABS: Basophils % 0.2 %; Eosinophils # 0.4 K/mcL (0.0-0.6); Eosinophils % 7.9 %; Hematocrit 24.9 % (35.3-44.9); Immature Granulocytes % 0.4 % (0-4); Lymphocytes # 1.7 K/mcL (0.6-4.6); Lymphocytes % 37.9 %; Mean Corpuscular HGB Conc 31.3 g/dL (31.6-35.5); Mean Corpuscular Hemoglobin 31.6 pg (28.0-33.3); Mean Corpuscular Volume 100.8 fL (83.0-100.0); Monocytes # 0.5 K/mcL (0.0-1.3); Monocytes % 11.4 %; Neutrophils # 1.9 K/mcL (1.6-8.9); Platelet Count 209 K/mcL (140-400); Red Blood Count 2.47 M/mcL (3.82-4.97); Red Cell Distribution Width 14.2 % (11.5-14.5); Segmented Neutrophils % 42.2 %; White Blood Count 4.6 K/mcL (4.3-11.1)
[2020-06-24 04:46] LABS: Calcium 7.9 mg/dL (8.6-10.3); Magnesium 2.1 mg/dL (1.6-2.6)
[2020-06-24 04:49] LABS: Hemoglobin 7.8 g/dL (11.5-15.4)
[2020-06-24] MEDS ORDERED: levoFLOXacin 750 MG TABLET PO SCH (10:00)
[2020-06-24] MEDS: Multivit/Ca/Min/Fe/FA 1 TAB TABLET PO SCH (10:27)
[2020-06-24] MEDS: Aspirin Enteric Coated 81 MG Tablet PO SCH (10:27)
[2020-06-24] MEDS: Gabapentin 300 MG CAPSULE PO SCH ×2 (10:27→19:55)
[2020-06-24] MEDS: Furosemide 40 MG/4 ML VIAL IVP SCH (10:28)
[2020-06-24] MEDS: Isosorbide MONOnitrate (24 HR) 30 MG TAB.ER.24H PO SCH (10:28)
[2020-06-24] MEDS: Lactobacillus 1 EACH CAP.SPRINK PO SCH ×2 (10:28→19:55)
[2020-06-24] MEDS: lisinopriL 5 MG TABLET PO SCH (10:28)
[2020-06-24] MEDS: carvediloL 6.25 MG TABLET PO SCH ×2 (10:29→18:35)
[2020-06-24 10:45] LABS: Hemoglobin 8.4 g/dL (11.5-15.4)
[2020-06-24] MEDS: Budesonide Neb 0.5 MG/2 ML IH SCH ×2 (10:48→22:31)
[2020-06-24] MEDS: Ertapenem 1,000 MG in 0.9 % Sodium Chloride Mini Bag 100 ML IVPB SCH (18:35)
[2020-06-24] MEDS: Loratadine 10 MG TABLET PO SCH (19:55)
[2020-06-25] MEDS: Ipratropium/Albuterol Neb 3 ML IH SCH ×2 (03:56→10:11)
[2020-06-25] MEDS ORDERED: Furosemide 40 MG TABLET PO SCH (09:00)
[2020-06-25] MEDS: lisinopriL 5 MG TABLET PO SCH (09:32)
[2020-06-25] MEDS: carvediloL 6.25 MG TABLET PO SCH (09:32)
[2020-06-25] MEDS: Isosorbide MONOnitrate (24 HR) 30 MG TAB.ER.24H PO SCH (09:34)
[2020-06-25] MEDS: Lactobacillus 1 EACH CAP.SPRINK PO SCH (09:34)
[2020-06-25] MEDS: Aspirin Enteric Coated 81 MG Tablet PO SCH (09:34)
[2020-06-25] MEDS: Multivit/Ca/Min/Fe/FA 1 TAB TABLET PO SCH (09:34)
[2020-06-25] MEDS: Gabapentin 300 MG CAPSULE PO SCH (09:35)
[2020-06-25] MEDS: Budesonide Neb 0.5 MG/2 ML IH SCH (10:11)
[2020-06-25 10:27] LABS: Basophils % 0.5 %; Eosinophils # 0.5 K/mcL (0.0-0.6); Eosinophils % 12.1 %; Hematocrit 29.1 % (35.3-44.9); Immature Granulocytes % 0.2 % (0-4); Lymphocytes # 1.5 K/mcL (0.6-4.6); Lymphocytes % 34.1 %; Mean Corpuscular HGB Conc 30.9 g/dL (31.6-35.5); Mean Corpuscular Hemoglobin 31.3 pg (28.0-33.3); Mean Platelet Volume 9.8 fL (9.4-12.4); Monocytes # 0.5 K/mcL (0.0-1.3); Monocytes % 11.4 %; Neutrophils # 1.8 K/mcL (1.6-8.9); Platelet Count 216 K/mcL (140-400); Red Blood Count 2.88 M/mcL (3.82-4.97); Red Cell Distribution Width 14.1 % (11.5-14.5); Segmented Neutrophils % 41.7 %; White Blood Count 4.3 K/mcL (4.3-11.1)
[2020-06-25 10:52] LABS: BUN/Creatinine Ratio 30 (6-26); Blood Urea Nitrogen 29 mg/dL (8-23); Calcium 8.5 mg/dL (8.6-10.3); Carbon Dioxide 30 mEq/L (23-29); Chloride 103 mEq/L (98-107); Glucose 125 mg/dL (70-105); Magnesium 1.7 mg/dL (1.6-2.6); Osmolality,Calculated 295 (280-300); Potassium 3.9 mEq/L (3.5-5.1); Sodium 139 mEq/L (136-145); eGFR For African Americans > 60 (> 60); eGFR For Non-African Americans 55 (> 60)
[2020-06-25 11:55] VITALS: BP 106/54
[2020-06-25] MEDS ORDERED: FLU Vac QV 20-21 (6Month+)/PF 0.5 ML SYRINGE IM ONE (11:57)
[2020-06-25] MEDS ORDERED: Ertapenem 1,000 MG in 0.9 % Sodium Chloride Mini Bag 100 ML IVPB SCH (12:00)
== END 2020-06-25 13:40 | disposition home health service (06) | DRG 177 ==
LOC: EMEROOARM 09:50 → 2ANU 09:50 → SUATTDRO 13:47 → 2ANU 14:50
PROVIDERS: ADMIT Pharmacist; ATTEND Pharmacist

== ENCOUNTER 2020-07-06 08:34 | Inpatient (IN) ==
[2020-07-06] MEDS ORDERED: 0.9 % Sodium Chloride 250 ML IVC ONE (08:41)
[2020-07-06 09:31] LABS: Basophils % 0.6 %; Eosinophils # 0.1 K/mcL (0.0-0.6); Hematocrit 27.4 % (35.3-44.9); Hemoglobin 8.3 g/dL (11.5-15.4); Immature Granulocytes % 0.3 % (0-4); Lymphocytes # 0.9 K/mcL (0.6-4.6); Lymphocytes % 12.6 %; Mean Corpuscular HGB Conc 30.3 g/dL (31.6-35.5); Mean Corpuscular Hemoglobin 30.2 pg (28.0-33.3); Mean Corpuscular Volume 99.6 fL (83.0-100.0); Mean Platelet Volume 9.9 fL (9.4-12.4); Monocytes # 0.6 K/mcL (0.0-1.3); Monocytes % 8.8 %; Neutrophils # 5.4 K/mcL (1.6-8.9); Platelet Count 296 K/mcL (140-400); Red Blood Count 2.75 M/mcL (3.82-4.97); Red Cell Distribution Width 14.1 % (11.5-14.5); Segmented Neutrophils % 76.7 %; White Blood Count 7.1 K/mcL (4.3-11.1)
[2020-07-06 09:46] LABS: Albumin 3.4 g/dL (3.5-5.7); Albumin/Globulin Ratio 0.9 (1.1-2.2); Bilirubin,Total 0.5 mg/dL (0.3-1.0); Calcium 9.1 mg/dL (8.6-10.3); Globulin 3.8 g/dL (2.4-3.5); Potassium 4.3 mEq/L (3.5-5.1); Total Protein 7.2 g/dL (6.4-8.9)
[2020-07-06 09:48] LABS: Bilirubin,Urine Negative (Negative); Blood,Urine Negative (Negative); Clarity,Urine Clear (Clear); Color,Urine Yellow (Yellow); Glucose,Urine (UA) Normal (Normal); Ketones,Urine 10 mg/dL (Negative); Leukocyte Esterase,Urine Negative (Negative); Nitrite,Urine Negative (Negative); Protein,Urine Negative (Neg-Trace); Specific Gravity,Urine 1.019 (1.010-1.025); Urobilinogen,Urine Normal (Normal)
[2020-07-06 09:49] LABS: Troponin I 0.04 ng/mL (< 0.04)
[2020-07-06 10:10] LABS: Adenovirus Not Detected (Not Detect); Bordetella Pertussis Not Detected (Not Detect); Chlamydophila pneumoniae Not Detected (Not Detect); Coronavirus 229E Not Detected (Not Detect); Coronavirus HKU1 Not Detected (Not Detect); Coronavirus NL63 Not Detected (Not Detect); Coronavirus OC43 Not Detected (Not Detect); Human Metapneumovirus Not Detected (Not Detect); Human Rhinovirus/Enterovirus Not Detected (Not Detect); Influenza A Subtype 2009 H1 Not Detected (Not Detect); Influenza B Not Detected (Not Detect); Mycoplasma pneumoniae Not Detected (Not Detect); Parainfluenza Virus 1 Not Detected (Not Detect); Parainfluenza Virus 2 Not Detected (Not Detect); Parainfluenza Virus 3 Not Detected (Not Detect); Parainfluenza Virus 4 Not Detected (Not Detect); Respiratory Syncytial Virus Not Detected (Not Detect); SARS-CoV-2 Not Detected (Not Detect)
[2020-07-06] MEDS ORDERED: Aspirin 325 MG TABLET PO ONE (10:18)
[2020-07-06] MEDS ORDERED: Naloxone 0.4 MG/ML INJ IVP PRN (10:39)
[2020-07-06] MEDS ORDERED: Ondansetron 4 MG/2 ML VIAL IVP PRN (10:39)
[2020-07-06] MEDS ORDERED: Acetaminophen 325 MG TABLET PO PRN (10:39)
[2020-07-06] MEDS: Ringers Solution, Lactated 1,000 ML IVC SCH (13:46)
[2020-07-06] MEDS: *HR* Heparin 5,000 UNIT/ML VIAL SQ SCH (17:41)
[2020-07-06] MEDS: Budesonide/Formoterol 80/4.5 1 PUFF INH IH SCH (20:14)
[2020-07-07 02:49] LABS: Basophils % 0.8 %; Eosinophils # 0.1 K/mcL (0.0-0.6); Eosinophils % 2.5 %; Hematocrit 24.9 % (35.3-44.9); Hemoglobin 7.8 g/dL (11.5-15.4); Immature Granulocytes % 0.4 % (0-4); Lymphocytes # 1.1 K/mcL (0.6-4.6); Lymphocytes % 22.7 %; Mean Corpuscular HGB Conc 31.3 g/dL (31.6-35.5); Mean Corpuscular Hemoglobin 30.6 pg (28.0-33.3); Mean Corpuscular Volume 97.6 fL (83.0-100.0); Mean Platelet Volume 9.8 fL (9.4-12.4); Monocytes # 0.6 K/mcL (0.0-1.3); Monocytes % 11.9 %; Platelet Count 240 K/mcL (140-400); Red Blood Count 2.55 M/mcL (3.82-4.97); Red Cell Distribution Width 14.1 % (11.5-14.5); Segmented Neutrophils % 61.7 %; White Blood Count 4.9 K/mcL (4.3-11.1)
[2020-07-07 03:10] LABS: Calcium 8.4 mg/dL (8.6-10.3); Magnesium 1.6 mg/dL (1.6-2.6); Phosphorous 3.1 mg/dL (2.7-4.5); Potassium 4.1 mEq/L (3.5-5.1)
[2020-07-07 03:18] LABS: Troponin I 0.04 ng/mL (< 0.04)
[2020-07-07] MEDS: *HR* Heparin 5,000 UNIT/ML VIAL SQ SCH ×2 (04:30→17:31)
[2020-07-07] MEDS: Ringers Solution, Lactated 1,000 ML IVC SCH (04:30)
[2020-07-07] MEDS: carvediloL 6.25 MG TABLET PO SCH ×2 (08:47→17:29)
[2020-07-07] MEDS: Aspirin Enteric Coated 81 MG Tablet PO SCH (08:48)
[2020-07-07] MEDS: Isosorbide MONOnitrate (24 HR) 30 MG TAB.ER.24H PO SCH (08:48)
[2020-07-07] MEDS: Fluticasone Propionate Nasal 50 MCG/SPRAY BOTTLE NS SCH (08:51)
[2020-07-07] MEDS: Budesonide/Formoterol 80/4.5 1 PUFF INH IH SCH ×2 (10:02→20:31)
[2020-07-07] MEDS: Tiotropium 10 INH DOSE IH SCH (10:06)
[2020-07-07] MEDS ORDERED: D5% in 0.9% NACL 1,000 ML IVC SCH (11:45)
[2020-07-07] MEDS ORDERED: *HR* HYDROcodone/Acet 5/325 mg TABLET PO PRN (12:44)
[2020-07-07] MEDS ORDERED: D5% in Water 1,000 ML IVC PRN (12:53)
[2020-07-07] MEDS ORDERED: *HR* Dextrose 50 % in Water (Vial) 50 ML VIAL IVP PRN (12:53)
[2020-07-07] MEDS ORDERED: Dextrose Gel 15 GM/37.5 ML TUBE PO PRN ×2 (12:53)
[2020-07-07] MEDS: Gabapentin 300 MG CAPSULE PO SCH (21:20)
[2020-07-08] MEDS: *HR* Heparin 5,000 UNIT/ML VIAL SQ SCH ×2 (05:48→17:43)
[2020-07-08 06:26] LABS: Basophils % 0.8 %; Eosinophils # 0.1 K/mcL (0.0-0.6); Eosinophils % 2.9 %; Hematocrit 23.7 % (35.3-44.9); Hemoglobin 7.3 g/dL (11.5-15.4); Immature Granulocytes % 0.4 % (0-4); Lymphocytes # 1.2 K/mcL (0.6-4.6); Lymphocytes % 25.2 %; Mean Corpuscular HGB Conc 30.8 g/dL (31.6-35.5); Mean Corpuscular Hemoglobin 30.7 pg (28.0-33.3); Mean Corpuscular Volume 99.6 fL (83.0-100.0); Mean Platelet Volume 9.8 fL (9.4-12.4); Monocytes # 0.6 K/mcL (0.0-1.3); Monocytes % 11.3 %; Neutrophils # 2.9 K/mcL (1.6-8.9); Platelet Count 219 K/mcL (140-400); Red Blood Count 2.38 M/mcL (3.82-4.97); Red Cell Distribution Width 14.2 % (11.5-14.5); Segmented Neutrophils % 59.4 %; White Blood Count 4.9 K/mcL (4.3-11.1)
[2020-07-08 06:45] LABS: Calcium 7.9 mg/dL (8.6-10.3); Potassium 3.7 mEq/L (3.5-5.1)
[2020-07-08] MEDS: Tiotropium 10 INH DOSE IH SCH ×2 (07:49→07:51)
[2020-07-08] MEDS: Budesonide/Formoterol 80/4.5 1 PUFF INH IH SCH ×2 (07:49→19:56)
[2020-07-08] MEDS: Gabapentin 300 MG CAPSULE PO SCH ×2 (09:13→21:36)
[2020-07-08] MEDS: carvediloL 6.25 MG TABLET PO SCH ×2 (09:13→16:59)
[2020-07-08] MEDS: Aspirin Enteric Coated 81 MG Tablet PO SCH (09:13)
[2020-07-08] MEDS: Isosorbide MONOnitrate (24 HR) 30 MG TAB.ER.24H PO SCH (09:14)
[2020-07-08] MEDS: Fluticasone Propionate Nasal 50 MCG/SPRAY BOTTLE NS SCH (09:15)
[2020-07-08 09:26] LABS: Magnesium 1.4 mg/dL (1.6-2.6)
[2020-07-09 02:23] LABS: Basophils % 0.6 %; Eosinophils # 0.2 K/mcL (0.0-0.6); Eosinophils % 3.4 %; Hematocrit 23.3 % (35.3-44.9); Hemoglobin 7.3 g/dL (11.5-15.4); Immature Granulocytes % 0.4 % (0-4); Lymphocytes # 1.4 K/mcL (0.6-4.6); Lymphocytes % 27.9 %; Mean Corpuscular HGB Conc 31.3 g/dL (31.6-35.5); Mean Corpuscular Hemoglobin 31.1 pg (28.0-33.3); Mean Corpuscular Volume 99.1 fL (83.0-100.0); Mean Platelet Volume 10.1 fL (9.4-12.4); Monocytes # 0.5 K/mcL (0.0-1.3); Monocytes % 9.8 %; Neutrophils # 2.9 K/mcL (1.6-8.9); Platelet Count 196 K/mcL (140-400); Red Blood Count 2.35 M/mcL (3.82-4.97); Red Cell Distribution Width 14.4 % (11.5-14.5); Segmented Neutrophils % 57.9 %
[2020-07-09 02:39] LABS: BUN/Creatinine Ratio 28 (6-26); Blood Urea Nitrogen 26 mg/dL (8-23); Calcium 7.8 mg/dL (8.6-10.3); Carbon Dioxide 28 mEq/L (23-29); Chloride 107 mEq/L (98-107); Glucose 108 mg/dL (70-105); Osmolality,Calculated 295 (280-300); Potassium 3.8 mEq/L (3.5-5.1); Sodium 140 mEq/L (136-145); eGFR For African Americans > 60 (> 60); eGFR For Non-African Americans 58 (> 60)
[2020-07-09] MEDS: *HR* Heparin 5,000 UNIT/ML VIAL SQ SCH ×2 (06:17→16:41)
[2020-07-09] MEDS: Budesonide/Formoterol 80/4.5 1 PUFF INH IH SCH ×2 (08:15→21:20)
[2020-07-09] MEDS: Tiotropium 10 INH DOSE IH SCH (08:16)
[2020-07-09] MEDS: Gabapentin 300 MG CAPSULE PO SCH ×2 (09:55→21:05)
[2020-07-09] MEDS: Isosorbide MONOnitrate (24 HR) 30 MG TAB.ER.24H PO SCH (09:55)
[2020-07-09] MEDS: Aspirin Enteric Coated 81 MG Tablet PO SCH (09:55)
[2020-07-09] MEDS: carvediloL 6.25 MG TABLET PO SCH ×2 (09:56→16:41)
[2020-07-09] MEDS: Fluticasone Propionate Nasal 50 MCG/SPRAY BOTTLE NS SCH (10:01)
[2020-07-09] MEDS: Piperacillin/Tazobactam 3.375 GM in 0.9 % Sodium Chloride Mini Bag 100 ML IVPB SCH ×2 (16:38→23:20)
[2020-07-09] MEDS: Furosemide 20 MG TABLET PO SCH (16:38)
[2020-07-09] MEDS: Doxycycline 100 MG in 0.9 % Sodium Chloride Mini Bag 100 ML IVPB SCH (16:40)
[2020-07-10] MEDS: *HR* Heparin 5,000 UNIT/ML VIAL SQ SCH (05:22)
[2020-07-10] MEDS: Doxycycline 100 MG in 0.9 % Sodium Chloride Mini Bag 100 ML IVPB SCH (05:23)
[2020-07-10] MEDS: Furosemide 20 MG TABLET PO SCH (07:51)
[2020-07-10] MEDS: Piperacillin/Tazobactam 3.375 GM in 0.9 % Sodium Chloride Mini Bag 100 ML IVPB SCH (07:51)
[2020-07-10] MEDS: Isosorbide MONOnitrate (24 HR) 30 MG TAB.ER.24H PO SCH (07:51)
[2020-07-10] MEDS: Gabapentin 300 MG CAPSULE PO SCH (07:51)
[2020-07-10] MEDS: Aspirin Enteric Coated 81 MG Tablet PO SCH (07:51)
[2020-07-10] MEDS: carvediloL 6.25 MG TABLET PO SCH (07:51)
[2020-07-10] MEDS: Fluticasone Propionate Nasal 50 MCG/SPRAY BOTTLE NS SCH (07:55)
[2020-07-10] MEDS: Budesonide/Formoterol 80/4.5 1 PUFF INH IH SCH (08:08)
[2020-07-10] MEDS: Tiotropium 10 INH DOSE IH SCH (08:08)
[2020-07-10 11:45] VITALS: BP 105/56
== END 2020-07-10 13:54 ==
LOC: EMEROOARM 08:34 → 3BNU 08:34 → SUATTDRO 11:58 → 3BNU 12:50 → SUATTDRO 07-08 13:55
PROVIDERS: ADMIT Internal Medicine; ATTEND Internal Medicine